=== PATIENT | female | born 1980 | race Caucasian/White ===

== ENCOUNTER 2024-02-27 13:46 | Outpatient (OUT) | payer OTHER, SELFPAY ==
[2024-02-28 04:08] LABS: Estradiol 28.2 pg/mL (.)
== END 2024-02-27 13:47 | disposition home or self-care (01) ==
LOC: LAB 13:46
PROVIDERS: PCP Specialist; Visit Provider Specialist
DX: E34.9 Endocrine disorder, unspecified (principal); D64.9 Anemia, unspecified
CPT/HCPCS: 36415; 82670; 83001; 83540; 83550

== ENCOUNTER 2025-05-06 06:49 | Outpatient (OUT) | payer OTHER, SELFPAY ==
--- OUTSIDE RECORDS SUMMARY | 2025-04-27 09:45 | XMS_ITS | Encounter Summary ---
Author Organization [facility] Address [address] [place] [address] Care Team Providers Care Analyst Name Role Phone Maria Del Rosario De León MD Primary Care Provider [phone] Reason for Visit * Rehabilitation - Outpatient (Routine) - AuthorizedSpecialtyDiagnoses / ProceduresReferred By ContactReferred To ContactPhysical Therapy Diagnoses Cervical & Lumbar Paraspinal Procedures CO MANUAL THERAPY TQS / REGIONS EACH 15 MINUTES Maria Del Rosario De León MD Phone: tel: fax: Brian Reyes, PT [address] [place] [address] Phone: tel: fax: Referral IDStatusReasonStart DateExpiration DateVisits RequestedVisits [id number] Consult and Treat [id number] Encounter Details DateTypeDepartmentCare Team (Latest Contact Info)Vejfbsbgkhi86/21/2025 9:45 AM EDTTreatment [facility] [address] [facility] [place] [id number] Brian Reyes, PT [address] [place] [address] Cervical paraspinal muscle spasm (Primary Dx); Lumbar paraspinal muscle spasm; Cervical radiculopathy; Right anterior shoulder pain Social History Tobacco UseTypesPacks/DayYears UsedDateSmoking Tobacco: NeverSmokeless Tobacco: NeverAlcohol UseStandard Drinks/WeekCommentsYes0 (1 standard drink = 0.6 oz pure alcohol)1-2 drinks less than monthly in the past year, Caffeine intake 1-2 cups per day(tea)AUDIT-CAnswerDate RecordedQ1: How often do you have a drink containing alcohol?Monthly or less02/27/2024Q2: How many drinks containing alcohol do you have on a typical day when you are drinking?1 or Q3: How often do you have six or more drinks on one occasion?Less than monthly 02/27/2024HQ-2AnswerDate RecordedPatient Health Questionnaire-2 Score0 02/27/2024CommentsNoSex and Gender InformationValueDate RecordedSex Assigned at TimlnIbkwci29/16/2023 8:32 AM EDTLegal XlrYtdpnn48/15/2023 8:27 PM EDTGender NlincdsjVdpjbg86/16/2023 8:32 AM EDTSexual OrientationNot on file documented as of this encounter Progress Notes * Brian Reyse, PT - 04/27/2025 9:45 AM EDT Images from the original note were not included. Physical Therapy Physical Therapy Treatment Visit Patient Name: Tawana Mendez Today's Date: 04/27/2025 Encounter Diagnoses Name Primary? Cervical paraspinal muscle spasm Yes Lumbar paraspinal muscle spasm Cervical radiculopathy Right anterior shoulder pain Time In: 9:45 am Time Out: 10:45 am Supervised Time: 60 Min Total Time: 60 Min Visit Number: 23 (Participated in 7 PT sessions in 2023 this episode of care) History: Patient reports several month history of progressive cervical and lumbar pain/spasm that is now affecting sleep, work, ADL, and recreational pursuits. Similar impairments led to very productive PT that ended in February 2024 with very successful HEP management. Has resumed rowing/biking in the last several weeks which has exacerbated neck and back conditions leading to this PT consult. Precautions: Breast Cancer including left breast surgery and lymph node removal 05/21/24 Subjective: Presents 2-weeks post last consult that was on 04/13/25. Reports significant pain reduction following last session for 7-10 days. Neck, shoulder, lumbar, and LE soreness and increased tone. Pain up to 4-5/10 intensity at neck and back. Patient has increased exercise activity in attempt to get back to baseline activity following breast cancer diagnosis and treatment. Objective: Re-Evaluation 04/07/25-DBO Cervical: Cervical spine AROM demonstrates 80 degrees rotation indicating mild improvement as compared to initial evaluation, 40 degrees side-bending, and 25% loss of cervical extension. Moderate increased parasinal tone at bilateral Upper Trapezius and cervical paraspinal groups. Neck Index scores 24 indicative of mild functional impairment. New complaints of frontal headaches Lumbar: Lumbar spine AROM is WFL with mild to moderate ERS rotation on right with positive PA testing over R L4-5 and L5-S1 disc interspace. Rigid thoracic spine associated with postural dysfunction and exercise selection (rowing/biking). Moderate increased lumbar paraspinal tone with general LE HS tightness with 90/90 test -15 degrees. Back Index score 26 indicative of mild improvement from 34 at initial evaluation. Goals: Short Term: To be met by 06/06/25 The patient to consistently demonstrate exercise activity modification to limit undo stress to the cervical and lumbar spine and limit pain levels from getting above mild 0-3/10 intensity to prevent exacerbations of cervical, lumbar, and right shoulder conditions to be met consistently thru 2024 (Goal in progress 04/07/25-DBO) The patient to be knowledgeable in postural correction program to limit stress and be selective in exercise type, intensity, and duration thru 2023 (Goal in progress 04/07/25-DBO) The patient to demonstrate cervical, lumbar, and shoulder AROM WFL with 5/5 strenght throughout 2024 (Goal in progress 04/07/25-DBO) Patent Prosecution Paralegal: To be met by 06/06/25 The patient to be successful with long-term independent management including recommendation for participation in daily postural and general UE flexibility and RTC strengthening program to combat cumulative home, job, and exercise related stresses with improved independence with self managment and decreased PT intervention to 1 session every 1-3 months as needed by conclusion in 2024 (Goal in progress 04/07/25-DBO) Treatment: Manual: Grade II/III cervical and thoracic mobilization to reduce postural component on impingement; Lumbar PA/extension mobilization and STM (30 min) Therapeutic Exercise: Per exercise grid found in patient documents including lumbar, cervical, scapular, and shoulder flexibility and strengthening including focused RTC non-destructive postural and strengthening program including review of cervical and shoulder exercise program and lumbar disc Agnes extension program (15 Min including UE/LE/Trunk Flexibility) Therapeutic Activity: Exercises to improve dynamic activities, functional tasks, functional mobility to return to prior activity level (PRN) Neuromuscular Re-education: Muscle Energy Techniques (MET) supine/sidelying to long muscles including Psoas, HS, Quad, Calf and in sidelying sacral, L4-5/L5-S1 with 10-20 second holds 3 reps 3 sets each (15 Min) Modalities: Ultrasound to left L4-S1 1 MHz 1.5 W/cm2 (PRN); Electrical Stimulation/moist heat for pain and inflammation control to cervical and lumbar spine (PRN) Assessment: The patient has participated in 23 outpatient PT in 2024 for cervical and lumbar paraspinal muscle spasms/radiculopathy per referral of PCP Maria Del Rosario De León MD. Presents 6-days post last consult that was on 04/07/25. Presents 2-weeks post last consult that was on 04/13/25. Reports significant pain reduction following last session for 7-10 days. Neck, shoulder, lumbar, and LE soreness and increased tone. Pain up to 4-5/10 intensity at neck and back. Patient has increased exercise activity in attempt to get back to baseline activity following breast cancer diagnosis and treatment. Pain reduced to baseline 0-2/10 intensity. Patient is pleased with progress. PT remains appropriate1-3 times/month PRN Plan: Recommend continuation of outpatient PT up to 1-3 visit/month for up to 3 additional months per above PT POC with focus on progressing toward independent medical management of this condition (04/07/25-DBO) I hereby deem this POC medically necessary. Please sign below and fax back to [phone] Physician Signature: Date: documented in this encounter Plan of Treatment DateTypeDepartmentCare Team (Latest Contact Info)Pywxklpxzwk76/30/2025 9:30 AM EDTTreatment [facility] [address] [place] [address] Brian Reyes, PT [address] [phone] documented as of this encounter Visit Diagnoses Diagnosis Cervical paraspinal muscle spasm- Primary Spasm of muscle Lumbar paraspinal muscle spasm Other symptoms referable to back Cervical radiculopathy Brachial neuritis or radiculitis nos Right anterior shoulder pain Cervical paraspinal muscle spasm- Primary Spasm of muscle Lumbar paraspinal muscle spasm Other symptoms referable to back Cervical radiculopathy Brachial neuritis or radiculitis nos Right anterior shoulder pain documented in this encounter Care Teams Team MemberRelationshipSpecialtyStart DateEnd Date Maria Del Rosario De León MD PCP - GeneralFamily Medicine02/06/24documented as of this encounter
--- OUTSIDE RECORDS SUMMARY | 2025-05-06 06:52 | XMS_ITS | Encounter Summary ---
Author Organization [facility] Address [address] [place] [address] Care Team Providers Care Medical Esthetician Name Role Phone Maria Del Rosario De León MD Primary Care Provider [phone] Encounter Details DateTypeDepartmentCare Team (Latest Contact Info)Filxpwqsang34/21/2025Travel Social History Tobacco UseTypesPacks/DayYears UsedDateSmoking Tobacco: NeverSmokeless [...] more drinks on one occasion?Less than monthly 4PHQ-2AnswerDate RecordedPatient Health Questionnaire-2 Score0 4CommentsNoSex and Gender InformationValueDate RecordedSex Assigned at HembiHcktvd18/16/2023 8:32 AM EDTLegal JpdAyzemh68/15/2023 8:27 PM EDTGender QzrbpdwyQucjrr95/16/2023 8:32 AM EDTSexual OrientationNot on file documented as of this encounter Plan of Treatment DateTypeDepartmentCare Team (Latest Contact Info)Hkuuwjjhxze43/30/2025 9:30 AM EDTTreatment [facility] [address] [place] [address] Brian Reyes, PT [address] [place] [address] documented as of this encounter Visit Diagnoses Not on filedocumented in this encounter Care Teams Team MemberRelationshipSpecialtyStart DateEnd Date Maria Del Rosario De León MD PCP - GeneralFamily Medicine02/06/24documented as of this encounter
--- OUTSIDE RECORDS SUMMARY | 2025-05-06 06:52 | XMS_ITS | CCD ---
Author Organization [facility] Care Team Providers Care Structural Engineering Technician Name Role Phone Carrol Bailey Unavailable DR CARROL BAILEY Admitting Unavailable LYNN, DR CARROL Zamora Attending Unavailable LYNN, DR CARROL Zamora Primary Care Unavailable LAMONT, DR FLORI Ahmadi Consulting Unavailable LYNN, DR CARROL Zamora Consulting Unavailable DELFINA, DR LOZANO Admitting Unavailable DELFINA, DR LOZANO Attending Unavailable LYNN, DR CARROL Zamora Primary Care Unavailable DELFINA, DR LOZANO Consulting Unavailable Carrol Bailey MD Primary Care Provider MD Carrol Bailey Primary Care Provider MD Mallory Ortiz Attending Provider MD Carrol Bailey Primary Care Provider MD Mallory Ortiz Attending Provider Carrol Bailey MD Primary Care Provider Mallory Ortiz MD Attending Provider Carorl Bailey MD Primary Care Provider Mallory Ortiz MD Referring Provider [phone] Sandy Tom MD Attending Provider Carrol Bailey MD Primary Care Provider Mallory Ortiz MD Referring Provider Sandy Tom MD Attending Provider Carrol Bailey MD Primary Care Provider Carrol Bailey MD Primary Care Provider Carrol Bailey MD Primary Care Provider [phone] Sandy Tom MD Attending Provider Nhung Grimes APRN Katherine Attending Provider Carrol Bailey MD Primary Care Provider Sandy Tom MD Attending Provider Kevin CHANDLERCRaegan Attending Provider Mallory Ortiz MD Referring Provider Mallory Ortiz Attending Unavailable Bailey, Carrol E Primary Care Unavailable Ortiz, Mallory Admitting Unavailable Ortiz, Mallory Attending Unavailable Bailey, Carrol E Primary Care Unavailable Ortiz, Mallory Admitting Unavailable Ortiz, Mallory Referring Unavailable Bailey, Carrol E Primary Care Unavailable Vaishali, Norleena R Admitting Unavailable Vaishali, Sandy R Attending Unavailable Bailey, Carrol E Primary Care Unavailable Ortiz, Mallory Admitting Unavailable Ortiz, Mallory Attending Unavailable Bailey, Carrol E Primary Care Unavailable Vaishali, Gilbertleena R Admitting Unavailable Vaishali, Norleena R Attending Unavailable ERIC, FLORI Mendez Attending Unavailable BAILEY, CARROL Referring Unavailable ERIC, FLORI Mendez Attending Unavailable BAILEY, CARROL Referring Unavailable ERIC, FLORI Mendez Attending Unavailable BAILEY, CARROL Referring Unavailable ERIC, FLORI Mendez Attending Unavailable BAILEY, CARROL Referring Unavailable ERIC, FLORI Mendez Attending Unavailable BAILEY, CARROL Referring Unavailable ERIC, FLORI Mendez Attending Unavailable BAILEY, CARROL Referring Unavailable ERIC, FLORI Mendez Attending Unavailable BAILEY, CARROL Referring Unavailable ERIC, FLORI Mendez Attending Unavailable BAILEY, CARROL Referring Unavailable ERIC, FLORI Mendez Attending Unavailable BAILEY, CARROL Referring Unavailable ORTIZ V, MALLORY Attending Unavailable ERIC, FLORI Mendez Attending Unavailable BAILEY, CARROL Referring Unavailable ERIC, FLORI Mendez Attending Unavailable BAILEY, CARROL Referring Unavailable ERIC, FLORI Mendez Attending Unavailable BAILEY, CARROL Referring Unavailable ERIC, FLORI Mendez Attending Unavailable BAILEY, CARROL Referring Unavailable ERIC, FLORI Mendez Attending Unavailable BAILEY, CARROL Referring Unavailable ERIC, FLORI Mendez Attending Unavailable BAILEY, CARROL Referring Unavailable ERIC, FLORI Mendez Attending Unavailable BAILEY, CARROL Referring Unavailable ERIC, FLORI Mendez Attending Unavailable BAILEY, CARROL Referring Unavailable RAMBASEKDANIEL Attending Unavailable ERIC, FLORI Mendez Attending Unavailable BAILEY, CARROL Referring Unavailable ERIC, FLORI Mendez Attending Unavailable BAILEY, CARROL Referring Unavailable ERIC, FLORI Mendez Attending Unavailable LYNN, CARROL Referring Unavailable MALLORY ASTORGA Attending Unavailable ERIC, FLORI Mendez Attending Unavailable BAILEY, CARROL Referring Unavailable ORTIZMALLORY ESCOBAR Attending Unavailable ERIC, FLORI Mendez Attending Unavailable BAILEY, CARROL Referring Unavailable ERIC, FLORI Mendez Attending Unavailable LYNN, CARROL Referring Unavailable ERIC, FLORI Mendez Attending Unavailable LYNN, CARROL Referring Unavailable ERIC, FLORI Mendez Attending Unavailable BAILEY, CARROL Referring Unavailable JUNIOR MATHIS Attending Unavailable ERIC, FLORI Mendez Attending Unavailable LYNN, CARROL Referring Unavailable JUNIOR MATHIS Attending Unavailable Allergies Allergy ClassificationReported Allergen(s)Allergy TypeDate of OnsetReaction(s) Facility (4 sources)cefdinirDrug AllergydiarrheaNoalvin [facility]. [facility] [place] Other (20 sources)cefdinirDrug [id number] [employer] Work Phone: (1 source)cefdinirDrug [id number] [facility] Repository Medications Current Medications MedicationDrug Class(es)DatesSig (Normalized)Sig (Original)ascorbic acid 226 mg / beta carotene 57394 unt / cuprous oxide 0.8 mg / dl-alpha tocopheryl acetate 200 unt / zinc oxide 34.8 mg oral capsule (3 sources)Vitamin CStart: 51-06-0807jijw 1 capsule by mouth once daily azelastine hydrochloride 0.137 mg/actuat metered dose nasal spray (20 sources)Histamine-1 Receptor AntagonistStart: 01-11-2025 End: 53-28-3820lmxw 2 spray(s) nasal route in the morningazelastine (Astelin) 0.1 % nasal spray Indications: Non-seasonal allergic rhinitis due to pollen Adm inister 2 sprays into each nostril in the morning and 2 sprays before bedtime. Use in each nostril as directed. 90 mL 3 01/11/2025 01/11/2026 ActiveStart: 06-24-2023 End: 80-90-4025ggsi 2 spray(s) nasal route twice dailyAzelastine HCl 137 MCG/SPRAY solution Indications: Chronic rhinitis USE 2 SPRAYS IN EACH NOSTRIL TWICE A DAY 30 mL 14 06/24/2023 04/12/2024 Discontinuedazithromycin 500 mg oral tablet (10 sources)Macrolide AntimicrobialStart: 10-12-2024 End: 97-96-9318kvwg 1 tablet by mouth once dailyazithromycin (Zithromax) 500 MG tablet Indications: Acute vaginitis Take 1 tablet (500 mg) by mouthDaily for 10 days 10 tablet 1 10/12/2024 10/22/2024 ActiveStart: 02-27-2024 End: 56-21-5081vhav 1 tablet by mouth once dailyazithromycin (Zithromax) 500 MG tablet Indications: Cervicitis and endocervicitis Take 1 tablet (500 mg) by mouth Daily for 10 days 10 tablet 1 02/27/2024 03/08/2024 ExpiredAzithromycin 250 MG as directed Orally Not-Takingclindamycin 20 mg/ml vaginal cream (4 sources)Lincosamide AntibacterialStart: 10-12-2024 End: 23-22-8528qolkedkudrg (Cleocin) 2 % vaginal cream Indications: Bacterial Vaginosis Insert 1 applicator into the vagina at bedtime for 7 days 40 g 2 10/12/2024 10/19/2024 Activeestradiol 0.1 mg/ml vaginal cream (20 sources)EstrogenStart: 64-11-2049arvlymdcx (Estrace) 0.1 MG/GM vaginal cream Indications: Vulvovaginal Atrophy Insert twice weekly 42.5 g 12 02/27/2024 Active{24 (ethinyl estradiol 0.01 MG / norethindrone acetate 1 MG Oral Tablet) / 2 (ethinyl estradiol 0.01 MG Oral Tablet) / 2 (ferrous fumarate 75 MG Oral Tablet) } Pack [Lo Loestrin Fe 28 Day] (2 sources)EstrogenStart: 56-43-3246nwzp 1 tablet by mouth every twenty-four hoursLo Loestrin Fe 1 MG-10 MCG / 10 MCG 1 tablet Orally Once a day for 28 day(s) Aug, Activefluticasone propionate 0.05 mg/actuat metered dose nasal spray (19 sources)CorticosteroidStart: 01-11-2025 End: 47-12-9304ycqj 2 spray(s) nasal route once dailyfluticasone (Flonase) 50 MCG/ACT nasal spray Indications: Non-seasonal allergic rhinitis due to pollen Administer 2 sprays into each nostril Daily Shake gently. Before first use, prime pump. After use, clean tip and replace cap. 48 g 11 01/11/2025 01/11/2026 Activeloratadine 10 mg oral tablet (15 sources)Start: 56-19-3484vusz 1 tablet by mouth once dailytake 1 tablet by mouth every twenty-four hoursLoratadine 10 MG 1 tablet Orally Once a day Active metroNIDAZOLE 500 mg oral tablet (1 source)Nitroimidazole AntimicrobialStart: 10-16-2024 End: 78-42-6335fnmz 1 tablet by mouth in the morningmetroNIDAZOLE (Flagyl) 500 MG tablet Indications: Acute vaginitis Take 1 tablet (500 mg) by mouth in the morning and 1 tablet (500 mg) before bedtime. Do all this for 7 days. 14 tablet 10/16/2024 10/23/2024 Activesertraline 50 mg oral tablet (20 sources)Serotonin Reuptake InhibitorStart: 10-01-7748hymn 1 tablet by mouth once daily in the morningStart: 06-22-2024 End: 83-74-2787aswy 1 tablet by mouth once daily in the morningSertraline 100 mg tablet Discontinued 100 MG PO Every morning June 22, 2024 4:36pm September 02, 2024 12:21pmStart: 05-11-2024 End: 56-02-9776zffq 1 tablet by mouth once daily in the morningSertraline 50 mg tablet Discontinued 50 MG PO Every morning May 11, 2024 1:00am June 22, 2024 4:37pm TAKE 1 TABLET BY MOUTH EVERY DAYStart: 11-15-2023 End: 73-32-9136qbpw 1 tablet by mouth once dailySertraline 50 mg tablet Discontinued 0 .ROUTE .COMPLEX 90 May 07, 2024 9:55am May 11, 2024 11:17am TAKE 1 TABLET BY MOUTH EVERY DAYStart: 11-15-2023 End: 39-16-7306dkuf 1 tablet by mouth once dailySertraline 50 mg tablet Discontinued 50 MG PO Daily November 15, 2023 12:00am November 15, 2023 9:12am tamoxifen 20 mg oral tablet (6 sources)Estrogen Agonist/AntagonistStart: 53-12-9035jngf 1 tablet by mouth once dailyterconazole 4 mg/ml vaginal cream (4 sources)Azole AntifungalStart: 10-12-2024 End: 89-91-8909gwbuauejquu (Terazol 7) 0.4 % vaginal cream Indications: Vulvovaginal Candidiasis Insert 1 applicator into the vagina at bedtime for 7 days 45 g 2 10/12/2024 10/19/2024 Activetranexamic acid 650 mg oral tablet (20 sources)Antifibrinolytic AgentStart: 40-73-9661uyclzofhqf acid (Lysteda) 650 MG tablet tablet PLEASE SEE ATTACHED FOR DETAILED DIRECTIONS 04/10/2024 Active Start: 02-27-2024 End: 84-35-6414ecws 1 tablet by mouth in the morning, then take 1 tablet by mouth in the evening, then take 1 tablet by mouth at bedtimetranexamic acid (Lysteda) 650 MG tablet tablet Indications: Hormone imbalance , Anemia, unspecifiedtype Take 1 tablet (650 mg) by mouth in the morning and 1 tablet (650 mg) in the evening and 1 tablet (650 mg) before bedtime. Do all this for 5 days. 15 tablet 6 02/27/2024 03/03/2024 ExpiredVitamins A,C,Z-Lwul-Nxfgct (Preservision Areds) 4,296 mcg-226 mg-90 mg capsule (6 sources)Start: 83-18-6549cexs 1 capsule by mouth once dailyVitamins A,C,F-Pvgy-Wmnily (Preservision Areds) 4,296 mcg-226 mg-90 mg capsule Active 1 CAP PO Daily May 11, 2024 1:00amStart: 82-91-4085cixh 1 capsule by mouth once dailyVitamins A,C,K-Chyb-Latvvs (Preservision Areds) 4,296 mcg-226 mg-90 mg capsule Active 1 CAP PO Daily May 11, 2024 12:00am Completed/Discontinued Medications MedicationDrug Class(es)DatesSig (Normalized)Sig (Original)acetaminophen 325 mg / HYDROcodone bitartrate 5 mg oral tablet (8 sources)Opioid AgonistStart: 05-21-2024 End: 76-36-3655nddp 1 tablet by mouth every six hours as needed for pain Hydrocodone-Acetaminophen 5-325 mg tablet Discontinued 1 TAB PO Q6H as needed for pain 28 7 May 21, 2024 March 19, 2025 12:53pmazelastine hydrochloride 0.137 mg/actuat / fluticasone propionate 0.05 mg/actuat metered dose nasalspray (10 sources)Corticosteroid, Histamine-1 Receptor AntagonistStart: 03-31-2024 End: 09-18-7270iyzn 1 spray(s) nasal route twice dailyAzelastine-Fluticasone 137-50 mcg/spray spray,non-aerosol Discontinued 1 SPRAY INTRANASAL Twice daily March 31, 2024 12:00am March 31, 2024 10:31am FreeTextSi spray in each nostril Nasally Twice a day; Note: Source Status: Taking; Provider: Lynn Mix ( )Start: 03-31-2024 End: 09-39-1951zalj 1 spray(s) nasal route twice dailyAzelastine-Fluticasone Discontinued 1 SPRAY INTRANASAL Twice daily March 30, 2024 11:00pm Mar 9:31am FreeTextSi spray in each nostril Nasally Twice a day; Note: Source Status: Taking; Provider: Lynn Mix ( ) Start: 03-31-2024 End: 94-32-9004cjtr 1 spray(s) nasal route twice dailyAzelastine-Fluticasone Discontinued 1 SPRAY INTRANASAL Twice daily March 31, 2024 12:00am Mar 10:31am FreeTextSi spray in each nostril Nasally Twice a day; Note: Source Status: Taking; Provider: Lynn Mix ( )take 1 spray(s) nasal route twice dailyAzelastine-Fluticasone 137-50 MCG/ACT 1 spray in each nostril Nasally Twice a day ActiveAzelastine-Fluticasone 137-50 mcg/spray spray,non-aerosol (5 sources)Start: 03-31-2024 End: 94-36-8254quaz 1 spray(s) nasal route twice dailyAzelastine-Fluticasone 137-50 mcg/spray spray,non-aerosol Discontinued 1 SPRAY INTRANASAL Twice daily March 31, 2024 12:00am March 31, 2024 10:31am FreeTextSi spray in each nostril Nasally Twice a day; Note: Source Status: Taking; Provider: Lynn Mix ( )Start: 03-31-2024 End: 31-27-2021ewjc 1 spray(s) nasal route twice dailyAzelastine-Fluticasone 137-50 mcg/spray spray,non-aerosol Discontinued 1 SPRAY INTRANASAL Twice daily March 30, 2024 11:00pm March 31, 2024 9:31am FreeTextSi spray in each nostril Nasally Twice a day; Note: Source Status: Taking; Provider: Lynn Mix ( )celecoxib 200 mg oral capsule (7 sources)Nonsteroidal Anti-inflammatory DrugStart: 11-16-2024 End: 74-20-4877fxmh 1 capsule by mouth once daily at mealtimeCelecoxib (Celebrex) 200 mg capsule Discontinued 200 MG PO Daily December 07, 2024 7:40am 2024 12:53pm Take one capsule daily with food.30 actuat fluticasone furoate 0.1 mg/actuat / vilanterol 0.025 mg/actuat dry powder inhaler (2 sources)Corticosteroid, beta2-Adrenergic Agonisttake 1 puff(s) by inhalation once dailyBreo Ellipta 100-25 MCG/ACT 1 puff Inhalation Once a day Not-Taking LORazepam 0.5 mg oral tablet (20 sources)BenzodiazepineStart: 07-11-2022 End: 49-75-2415lmfd 1 tablet by mouth once daily at bedtimeLorazepam 0.5 mg tablet Discontinued 0.5 MG PO Daily at bedtime September 19, 2023 12:00am September 19, 2023 12:02pmMagic Mouthwash W/Lidocaine 240 Ml Bottle 240 mL bottle (14 sources)Start: 08-19-2024 End: 77-09-5463cjqt 10 mL by mouth four times daily as neededMagic Mouthwash W/Lidocaine 240 Ml Bottle 240 mL bottle Discontinued 10 ML PO Four times daily as needed for MUCOSITIS 240 August 19, 2024 5:00pm September 02, 2024 12:02pm take 10ml by mouth, four times a day, as needed. SWISH AND SWALLOW. Start: 08-19-2024 End: 82-24-4233dhaz 10 mL by mouth four times daily as neededMagic Mouthwash W/Lidocaine 240 Ml Bottle 240 mL bottle Discontinued 10 ML PO Four times daily as needed for MUCOSITIS 240 August 19, 2024 4:00pm September 02, 2024 11:02am take 10ml by mouth, four times a day, as needed. SWISH AND SWALLOW. Start: 08-07-2024 End: 07-15-2239jxpj 10 mL by mouth four times daily as neededMagic Mouthwash W/Lidocaine 240 Ml Bottle 240 mL bottle Discontinued 10 ML PO Four times daily as needed for MUCOSITIS 240 August 07, 2024 1:00am August 19, 2024 5:00pm take 10ml by mouth, four times a day, as needed. SWISH AND SWALLOW.Start: 08-07-2024 End: 72-67-4356mvjz 10 mL by mouth four times daily as neededMagic Mouthwash W/Lidocaine 240 Ml Bottle 240 mL bottle Discontinued 10 ML PO Four times daily as needed for MUCOSITIS 240 August 07, 2024 12:00am August 19, 2024 4:00pm take 10ml by mouth, four times a day, as needed. SWISH AND SWALLOW. methylPREDNISolone 4 mg oral tablet (2 sources)Corticosteroidtake 1 tablet by mouth every twelve hoursMedrol 4 MG 1 tablet with food or milk Orally every 12 hrs Not-Takingmometasone furoate 1 mg/ml topical cream (7 sources)CorticosteroidStart: 07-21-2024 End: 51-26-3943Uojxnotnpq 0.1 % cream Discontinued 1 APPLIC TOPICAL Daily July 21, 2024 1:00am November 16, 2024 2:09pm Apply to radiation site, once a day, AFTER radiation treatments.prazosin 5 mg oral capsule (9 sources)alpha-Adrenergic BlockerStart: 05-07-2024 End: 44-62-5595abce 1 capsule by mouth once daily at bedtimePrazosin 5 mg capsule Discontinued 5 MG PO Daily at bedtime May 07, 2024 12:00am June 16, 2024 10:02amsulfamethoxazole 800 mg / trimethoprim 160 mg oral tablet (12 sources)Dihydrofolate Reductase Inhibitor Antibacterial, Sulfonamide AntimicrobialStart: 08-21-2023 End: 74-18-1783lwyx 1 tablet by mouth twice dailySulfamethoxazole-Trimethoprim 800-160 mg tablet Discontinued 1 TAB PO Twice daily August 1:00am March 31, 2024 10:31amStart: 63-73-0922atng 1 tablet by mouth every twelve hoursBactrim DS 800-160 MG 1 tablet Orally Twice a day for 10 day(s) Jul, Active Problems Active Problems Problem ClassificationProblemDateDocumented DateEpisodic/ChronicAcute and chronic tonsillitis (6 sources)Amygdalolith; 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 tonsils and adenoids]ChronicAnxiety disorders (19 sources)Mixed anxiety and depressive disorder; Translations: [Other specified anxiety disorders]ChronicAsthma (2 sources)Uncomplicated asthma; Translations: [Unspecified asthma, uncomplicated]Onset: 37-17-3204NbffossZtjeakszy infection; unspecified site (1 source)Other specified bacterial agents as the cause of diseases classified elsewhereEpisodicCancer of breast (20 sources)Malignant neoplasm, overlapping lesion of breast; Translations: [Malignant neoplasm of overlapping sites of left female breast]Onset: 05-01-2024 36-14-3912ErisgkjYadinhm obstructive pulmonary disease and bronchiectasis (2 sources)Acute exacerbation of chronic obstructive airways disease; Translations: [Chronic obstructive pulmonary disease with (acute) exacerbation] Onset: 87-95-2599ExqxbjsZkazbidutf and other anemia (8 sources)Anemia; Translations: [Anemia, unspecified]48-55-4942Cntqwtww Disorders of lipid metabolism (2 sources)Hyperlipidemia; Translations: [Hyperlipidemia, unspecified]Onset: 38-69-2319UpgcipbZhzqyxpgoiqj diseases of female pelvic organs (11 sources)Cervicitis and endocervicitis; Translations: [Inflammatory disease of cervix uteri]32-86-2313RjhytomoPgybvjxrdy disorders (6 sources)Premenopausal menorrhagia; Translations: [Excessive bleeding in the premenopausal period]ChronicOther connective tissue disease (20 sources)Spasm of cervical paraspinous muscle; Translations: [Other muscle spasm]Onset: 738948-57-4536UuaofuoeVhodj endocrine disorders (8 sources)Disorder of endocrine system; Translations: [Endocrine disorder, unspecified]17-46-0184NjfpaifwOawhb female genital disorders (4 sources)Abnormal uterine bleeding; Translations: [Other specified abnormal uterine and vaginal bleeding]ChronicOther female genital disorders (1 source)Other specified abnormal uterine and vaginal bleedingChronicOther nervous system disorders (8 sources)Acute postoperative pain; Translations: [Other acute postprocedural pain]69-80-6699UyscwnzcAuiri non-traumatic joint disorders (20 sources)Shoulder pain; Translations: [Pain in right shoulder]Onset: 730091-40-8356GwsfbpewFeuug nutritional; endocrine; and metabolic disorders (6 sources)Body mass index 25-29 - overweight; Translations: [Body mass index (BMI) 25.0-25.9, adult]EpisodicOther screening for suspected conditions (not mental disorders or infectious disease) (13 sources)Encounter for screening mammogram for malignant neoplasm of breast; Translations: [Cancer cervix screening status]Onset: 00-36-0577CnputahoXcaeq upper respiratory disease (2 sources)Seasonal allergic rhinitis; Translations: [Other seasonal allergic rhinitis]Onset: 36-42-8920RpiiipnQbups upper respiratory disease (20 sources)Allergic rhinitis; Translations: [Allergic rhinitis, unspecified] Onset: 230904-91-5951GrwiyigCzslg upper respiratory disease (20 sources)Allergic rhinitis due to pollen; Translations: [Allergic rhinitis due to pollen]Onset: 369526-98-6796BiazwgpHvdxw upper respiratory infections (9 sources)Acute maxillary sinusitis; Translations: [Acute maxillary sinusitis, unspecified]Onset: 86-26-6353DlzwpckfAmjjlarv codes; unclassified (11 sources)Insomnia; Translations: [Insomnia, unspecified]08-82-2430Ftwsbdym Residual codes; unclassified (3 sources)Insomnia, unspecified; Translations: [Insomnia, unspecified] 63-28-4196TorilppwBqgiwhxytaf; intervertebral disc disorders; other back problems (20 sources)Spasm of muscle of lower back; Translations: [Muscle spasm of back] Onset: 275908-25-0951Xjjrbijq Past or Other Problems Problem ClassificationProblemDateDocumented DateEpisodic/ChronicAcute bronchitis (2 sources)Acute bronchitis; Translations: [Acute bronchitis, unspecified]Onset: 56-23-4209CtmdhzdeYbgyijgnv disorders (6 sources)Excessive and frequent menstruation with irregular cycle; Translations: [Excessive and frequent menstruation]Onset: 11-05-2022 Resolved: 18-86-2758AlwpptoHvuxeidirgpy breast conditions (20 sources)Lump in upper outer quadrant of left breast; Translations: [Unspecified lump in the left breast, upper outer quadrant]Onset: 04-15-2024 26-13-4157MiswkewuXwyih inflammatory condition of skin (2 sources)Seborrheic dermatitis of scalp; Translations: [Seborrhea capitis] Onset: 50-01-7747WibyywglRdufv nervous system disorders (1 source)Other acute postprocedural pain; Translations: [Other acute postprocedural pain]Onset: 13-90-6379WfmphojfWtdarv media and related conditions (2 sources)Acute secretory otitis media; Translations: [Other acute nonsuppurative otitis media, left ear]Onset: 02-09-0960RzncbxiaHhtgystw codes; unclassified (1 source)Family history of malignant neoplasm of breast; Translations: [FAMILY HX MALIG NEOPLASM OF BREAST]Onset: 96-51-0322Uvwkrjcl Results Test NameValueInterpretationReference RangeFacilityMM diagnostic mammo BI w/CAD on 29-32-5116LE diagnostic mammo BI w/CADCLEVELAND [facility]INIC [facility] [address] [place] [address] Mammography Report Signed Patient: Tawana Perez MR#: [id number] : 1980 Acct:[id number] Age/Sex: 44 / F Adm Date: 03/15/25 Loc: XT Room: Type: [facility] Attending Dr: Sandy Tom MD Ordering Provider: Zion Philippe II, DO Date of Service: 03/15/25 Procedure(s): MM diagnostic mammo BI w/CAD Accession Number(s): ([id number]) MM/MM diagnostic mammo BI w/CAD: C50.919 - Malignant neoplasm of unspecified site of unspe... Copies to: MD Carrol Lucio MD Norleena Poynter, MD Timothy J Adamowicz, II, DO BILATERAL Diagnostic Full Field digital mammogram with 3-D imaging. Full field digital CC and MLO imaging performed. CAD utilized. COMPARISON: 04/22/2024, 04/02/2024 HISTORY: History of breast cancer. Annual checkup BREAST COMPOSITION: Scattered fibroglandular densities of the breast parenchyma identified BREAST CALCIFICATIONS: Benign calcifications present. VASCULAR CALCIFICATIONS: None ARCHITECTURAL DISTORTION: None BREAST NODULE: None AXILLARY LYMPH NODES: Normal POSTSURGICAL CHANGES: Left axillary tail postsurgical changes MM/MM diagnostic mammo BI w/CAD IMPRESSION: No mammographic evidence of malignancy. Routine follow-up recommended in one year. RESULT CODE: 2 Benign Findings(s) DENSITY CODE: 2 (approximately 25-50% glandular) There are scattered areas of fibroglandular density. FOLLOW UP: 1YR THE FALSE-NEGATIVE RATE OF MAMMOGRAPHY IS APPROXIMATELY 10%. IMAGING OF A PALPABLE ABNORMALITY MUST BE BASED ON CLINICAL GROUNDS. PATIENT WAS ENTERED INTO A REMINDER SYSTEM WITH A TARGET DUE DATE FOR THE NEXT MAMMOGRAM. Impression dictated by: Koko Garcai M.D. 03/15/2025 2:09 PM Dictation Location: [facility] Dictated By: Koko Garcia DO 03/15/25 1407 Signed By: 03/15/25 1409NoAdventHealth Hendersonville Physician [facility] HospitalHCG ( test) IA.rapid Ql (U)Ordered By: Sandy Tom on 97-91-3943DVU ( test) Ql (U)Urine human chorionic gonadotropin (hCG) detection by immunoassayTrihealth Bethesda Butler HospitalHCG ( test) Ql (U)NegativeTrihealth Bethesda Butler HospitalHCG,Urineon 87-73-0761Zbhr HCG ( test) Ql (U)NegativeCampbellton-Graceville Hospital Physician GroupComment on above:Result Comment: PERFORMED BY: [address] [place] [address] PATHOLOGIST TUBE CUTTER CLAUDE NAVA M.D.Performed By: #### [facility] #### [address] [place] [address] USAHCG ( test) IA.rapid Ql (U)Ordered By: Mallory Ortiz on 54-74-1030ZQX ( test) Ql (U)Urine human chorionic gonadotropin (hCG) detection by immunoassayTrihealth Bethes[facility] Hospital HCG,Urineon 34-53-3227Zval HCG ( test) Ql (U)NegativeNormWinter Haven Hospital Physician GroupComment on above:Result Comment: PERFORMED BY: [place] [address] PATHOLOGIST TUBE CUTTER CLAUDE NAVA M.D.Performed By: #### U[facility] #### [place] [address] USALon 05-21-2024L Specimen: [id number] Received: 05/21/24 Status: MARQUITA Myers Num: [id number] Spec Type: Surgical Subm Dr: Mallory Ortiz MD Tissues: A Breast [place] Lymph Node (LEFT BREAST SENTINAL NODE #1) B Breast [place] Lymph Node (LEFT BREAST SENTINAL NODE #2) C Breast [place] Lymph Node (LEFT BREAST SENTINAL NODE #3) D Breast Lumpectmy/Mass - Requiring Micros Eval of Margins (LEFT BREAST MASS Procedures: HE/32, Gross/Micro L5/4, AE1-AE3/4, FS HE/9, DIFF QWIK Age/ Patient Sex Location Account Attending Physician Tawana Perez 43/F [place] [id number] Mallory Ortiz MD SPEC NUM: [id number] RECD: 05/21/24 STATUS: MARQUITA MYERS NUM: [id number] WEN: 05/21/[address] [facility] DR: Mallory Ortiz MD ENTERED: 05/21/24 [facility] DR: CRISTA TYPE: Surgical DEPT: S ENTERED BY: [id number] [facility] BY: [id number] ORDERED: HE/32, Gross/Micro L5/4, AE1-AE3/4, FS HE/9, DIFF QWIK ORDERED: HE/32, Gross/Micro L5/4, AE1-AE3/4, FS HE/9, DIFF QWIK Supplemental Report Addendum 2 Entered: 07/22/24 To add information of DCIS margin. DCIS is 2 mm from inked posterior margin on the slide D14 . Addendum Signed (signature on file) Mike Winchester MD 07/22/2415 Addendum 1 Entered: 07/13/24 To issue Oncotype DX Breast Recurrence Score report. Please see scanned report. Recurrence (RS) Score: 12 (No CT benefit (<1%) Specimen: [id number] Received: 05/21/24 Status: MARQUITA Myers Num: [id number] Spec Type: Surgical Subm Dr: Mallory Ortiz MD Tissues: A Breast [place] Lymph Node (LEFT BREAST SENTINAL NODE #1) B Breast [place] Lymph Node (LEFT BREAST SENTINAL NODE #2) C Breast [place] Lymph Node (LEFT BREAST SENTINAL NODE #3) D Breast Lumpectmy/Mass - Requiring Micros Eval of Margins (LEFT BREAST MASS Procedures: HE/32, Gross/Micro L5/4, AE1-AE3/4, FS HE/9, DIFF QWIK Patient: Tawana Perez [id number] (Continued) Specimen: [id number] Received: 05/21/24 (Continued) Supplemental Report (Continued) Signed (signature on file) Mike Winchester MD 05/25/24 1556 Specimen: [id number] Received: 05/21/24 Status: MARQUITA Myers Num: [id number] Spec Type: Surgical Subm Dr: Mallory Ortiz MD Tissues: A Breast [place] Lymph Node (LEFT BREAST SENTINAL NODE #1) B Breast [place] Lymph Node (LEFT BREAST SENTINAL NODE #2) C Breast [place] Lymph Node (LEFT BREAST SENTINAL NODE #3) D Breast Lumpectmy/Mass - Requiring Micros Eval of Margins (LEFT BREAST MASS Procedures: HE/32, Gross/Micro L5/4, AE1-AE3/4, FS HE/9, DIFF QWIK Patient: Tawana Perez [id number] (Continued) Specimen: [id number] Received: 05/21/24-1224 (Continued) Supplemental Report (Continued) Addendum Signed (signature on file) Mike Winchester MD 07/13/24 1117 Pathological Diagnosis A. Left sentinel lymph node #1, excisional biopsy: - One lymph node negative for metastatic carcinoma with routine H E and AE1/AE3 immunohistochemical stains (0/1). B. Left sentinel lymph nodes #2, excisional biopsy: - Two lymph nodes negative for metastatic carcinoma with routine H E and AE1/AE3 immunohistochemical stains (0/2). C. Left sentinel lymph node #3, excisional biopsy: - One lymph node negative for metastatic carcinoma with routine H E stain and AE1/AE3 immunohistochemical stains (0/1). D. 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 - Inked posterior margin is within 1 mm from invasive carcinoma. - Ductal carcinoma in situ (DCIS), intermediate nuclear grade, solid and cribriform types. - Columnar cell lesion with atypia and atypical ductal hyperplasia (ADH). - Fibrocystic change characterized by adenosis, apocrine metaplasia, cyst formation, duct ectasia and stroma fi (more content not included)...NormalThe [facility] Physician [facility] HospitalMM surgical specimen [facility] [id number] surgical specimen [facility] [place] [address] Mammography Report Signed Patient: Tawana Perez MR#: [id number] : 1980 Acct:[id number] Age/Sex: 43 / F ADM Date: 05/21/24 Loc: [place] Room: Type: [facility] Attending Dr: Mallory Ortiz MD Copies to: MD Carrol Lucio MD Ordering Provider: Mallory Ortiz MD Date of Service: 05/21/24 MM/MM surgical specimen LT: LEFT BREAST SPECIMEN IN OR WITH CLIP/RADIOACTIVE SEED LEFT BREAST SPECIMEN RADIOGRAPH CLINICAL DATA: Recently diagnosed carcinoma COMPARISON: Localization mammogram 05/20/2024 A single specimen radiograph was obtained on a grid in the operating room. The sample contains the radiation seed and biopsy marking clip. These overlie the D - 4 concordant. Impression dictated by: Shikha Asif M.D.05/21/2024 2:28 PM Dictation Location: RADIO-PC-23 Transcribed By: LIVIER 05/21/241427 Dictated By: Shikha Asif MD 05/21/241426 Signed By: 05/21/[address] [place] [address] Physician GroupMammography reportOrdered By: Shikha Asif on 61-77-1984Skrngiswpd imaging [facility] [place] [address] Mammography Report Signed Patient: Tawana Perez MR#: [id number] : 1980 Acct:[id number] Age/Sex: 43 / F ADM Date: 4 Loc: [place] Room: Type: [facility] Attending Dr: Mallory Ortiz MD Copies to: MD Carrol Lucio MD~ Ordering Provider: Mallory Ortiz MD Date of Service: 05/21/24 MM/MM surgical specimen LT: LEFT BREAST SPECIMEN IN OR WITH CLIP/RADIOACTIVE SEED LEFT BREAST SPECIMEN RADIOGRAPH CLINICAL DATA: Recently diagnosed carcinoma COMPARISON: Localization mammogram 05/20/2024 A single specimen radiograph was obtained on a grid in the operating room. The sample contains the radiation seed and biopsy marking clip. These overlie the D- 4 concordant. Impression dictated by: Shikha Asif M.D.05/21/2024 2:28 PM Dictation Location: RADIO-PC-23 Transcribed By: LIVIER 05/21/241427 Dictated By: Shikha Asif MD 05/21/241426 Signed By: 05/21/24 [facility] Work Phone: nm sentinel node w imagingon [id number] sentinel node w [facility]TR[facility] Main [place] [id number] Nuclear Medicine Report Signed Patient: Tawana Perez MR#: [id number] : 1980 Acct:[id number] Age/Sex: 43 / F ADM Date: 05/21/24 Loc: [place] Room: Type: [facility] Attending Dr: Mallory Ortiz MD Copies to: MD Shikha Lucio MD Ordering Provider: Mallory Ortiz MD Date of Service: 05/21/24 NM/NM sentinel node w imaging: breast cancer LEFT BREAST SENTINEL NODE INJECTION CLINICAL DATA: Recently diagnosed breast cancer at the axillary tail. COMPARISON: Localization mammogram May 20, 2024 Four equal intradermal injections of technetium 99 M labeled sulfur colloid were made in the periareolar region of the left breast by the technologist. The total dosage of technetium is 0.462 mCi . Gamma camera imaging was subsequently performed in the anterior and lateral projection. There is migration of radionucleotide from the site of injection to the left axilla. The sentinel node was marked on the skin to aid in localization in the operating room. NM/NM sentinel node w imaging IMPRESSION: TECHNICALLY SUCCESSFUL SENTINEL NODE INJECTION. Impression dictated by: Shikha Asif M.D.05/21/2024 2:50 PM Dictation Location: [place] [address] Transcribed By: [facility] 05/21/24 1450 Dictated By: Shikha Asif MD 05/21/24 1429 Signed By: 05/21/24 1450NoAd[facility]Health [facility] Physician GrouphCG, quantitative, pregnancyon 14-36-4132Vwfc HCG ( test) Ql (U)NegativeNOAsc[facility] MM diagnostic mammo LT w/CADon 74-79-2304DW diagnostic mammo LT w/[facility] Main [address] [address] Ultrasound Report Signed Patient: Tawana Perez MR#: [id number] : 1980 Acct:[id number] Age/Sex: 43 / F ADM Date: 05/01/24 Loc: [place] Room: Type: PRE [facility] Attending Dr: Mallory Ortiz MD Ordering Provider: Mallory Ortiz MD Date of Service: 05/20/24 US/US breast needle loc LT: LT BREAST MASS ([id number]) MM/MM diagnostic mammo LT w/CAD: post u/s radioactive seed loc Copies to: Mallory Ortiz MD LEFT BREAST ULTRASOUND-GUIDED RADIATION SEED LOCALIZATION CLINICAL DATA: Recently diagnosed invasive ductal carcinoma. Patient's previous imaging from April 2024 was reviewed. The procedure was discussed with patient consent was obtained. Ultrasound survey at the upper outer breast again shows an ill-defined hypoechoic area at 1:00, 11 cm from the nipple. This contains a biopsy marking clip. Following sterile preparation and local anesthesia with lidocaine, a spinal needle loaded with a radiation seed (0.124 mCi iodine 125) was advanced into the area under direct ultrasound visu alization. The seed was deployed. There are no immediate complications. DIAGNOSTIC LEFT MAMMOGRAM - FULL TO DIGITAL Craniocaudal and true lateral views of the left breast were obtained using low- dose digital technique. Comparison is made to previous mammograms from March 13, 2023 through April 22, 2024. The breast parenchyma is heterogeneously dense. At the axillary tail there is an obscured nodular asymmetry that has some subtle associated calcifications. The radiation seed is along the inferior medial aspect of the lesion less than 5 mm from the biopsy marking clip. US/US breast needle loc LT IMPRESSION: STATUS POST ULTRASOUND-GUIDED LOCALIZATION OF THE RESIDUAL LESION AT THE AXILLARY TAIL OF THE LEFT BREAST Impression dictated by: Shikha Asif M.D.05/20/2024 11:10 AM Dictation Location: [facility] Tech: Hilary Arboleda Transcribed By: LIVIER 05/20/24 1110 Dictated By: Shikha Asif MD 05/20/24 1050 Signed By: 05/20/24 [facility] Physician GroupLon 29-49-1700QKfgmhoqb: [id number] Received: 04/22/24-1232 Status: MARQUITA Myers Num: [id number] Spec Type: Surgical Subm Dr: Shikha Asif MD Tissues: A BREAST CORE NO CALCS (LEFT BREAST TISSUE) Procedures: HE/4, Gross/Micro L4, E CADHERIN, ER, NH, GATA3 Age/ Patient Sex Location Account Attending Physician Tawana Perez 43/F BALDEV [id number] Mallory Ortiz MD SPEC NUM: [id number] RECD: 04/22/24 STATUS: MARQUITA MYERS NUM: [id number] WEN: 04/22/[address]: Shikha Asif MD ENTERED: 04/22/[address]: Mallory Ortiz MD SPEC TYPE: Surgical DEPT: S ENTERED BY: [id number] RECV BY: [id number] ORDERED: HE/4, Gross/Micro L4, E CADHERIN, ER, NH, GATA3 ORDERED: HE/4, Gross/Micro L4, E CADHERIN, ER, NH, GATA3 Supplemental Report Addendum 1 Entered: 04/29/24 Supplemental for findings of HER2 by immunohistochemistry from [facility] -Negative -Score 0 Addendum Signed (signature on file) Abdullahi Moore MD 04/29/24 154 Pathological Diagnosis Left breast lesion at 1:00, 11 cm from nipple, core biopsies: -Invasive ductal carcinoma, NOS type, at least 0.8 cm -Grade 2, with tubular differentiation (3), nuclear pleomorphism (1-2), and mitotic rate (1) -Microcalcifications: Identified within tumor area -Lymph?vascular invasions: Not identified -DCIS: Identified, Solid, Intermediate nuclear atypia at G1-2, No evidence of necrosis -LCIS: Not identified Specimen: [id number] Received: 04/22/24 Status: MARQUITA Myers Num: [id number] Spec Type: Surgical Subm Dr: Shikha Asif MD Tissues: A BREAST CORE NO CALCS (LEFT BREAST TISSUE) Procedures: HE/4, Gross/Micro L4, E CADHERIN, ER, NH, GATA3 Patient: Kami Perezjosh Vigil [id number] (Continued) Specimen: [id number] Received: 04/22/24 (Continued) Pathological Diagnosis (Continued) Signed (signature on file) Abdullahi Moore MD 04/25/24 1258 Specimen: [id number] Received: 04/22/24 Status: MARQUITA Myers Num: [id number] Spec Type: Surgical Subm Dr: Shikha Asif MD Tissues: A BREAST CORE NO CALCS (LEFT BREAST TISSUE) Procedures: HE/4, Gross/Micro L4, E CADHERIN, ER, NH, GATA3 Patient: Tawana Perez [id number] (Continued) Specimen: [id number] Received: 04/22/24 (Continued) Pathological Diagnosis (Continued) -Breast biomarkers: -ER positive, 90-100%, 1?2+ -NH positive, 90-100%, 2+ -HER2 (pending) Note: -GATA3 and E-cadherin IHC are also performed, supporting the above interpretation -The overall assessment are slightly limited by mild crushing effect of the sample -Immuno-controls are reactive Clinical Information Left breast lesion, left breast tissue, left breast 1:00 11 cm from nipple, left ultrasound- guided breast biopsy Gross Description The specimen is received in formalin with the patient's name and left breast and consists of multiple yellow fatty breast cores ranging in length from 0.3 to 2.6 cm each with an average diameter of 0.2 cm. The specimen is entirely submitted in cassette A1. Formalin times: In formalin 1058, 04/22/2024 Out of formalin 1800, 04/22/2024 Total fixation time 7 hours and 2 minutes Microscopic Description Microscopic examinations are performed supporting the above interpretation CPT Codes 52246 88103 [id number] [id number] Specimen: [id number] Received: 04/22/24 Status: MARQUITA Myers Num: [id number] Spec Type: Surgical Subm Dr: Shikha Asif MD Tissues: A BREAST CORE NO CALCS (LEFT BREAST TISSUE) Procedures: HE/4, Gross/Micro L4, E CADHERIN, ER, NH, GATA3 Patient: Tawana Perez [id number] (Continued) Signed (signature on file) Abdullahi Moore MD 04/25/[address] [place] [address] Physician GroupMM post biopsy LT w/CADon [id number] post biopsy LT [facility] Main [place] [address] [place], [place] [id number] Ultrasound Report Signed with Addenda Patient: Tawana Perez MR#: [id number] : 1980 Acct:[id number] Age/Sex: 43 / F ADM Date: 04/22/24 Loc: [facility] Room: Type: [facility] Attending Dr: Mallory Ortiz MD Ordering Provider: Mallory Ortiz MD Date of Service: 04/22/24 US/US breast ndl core biopsy LT: N63.21 ([id number]) MM/MM post biopsy LT w/CAD: POST U/S BX WITH CLIP Copies to: Mallory Ortiz MD ADDENDUM 1 Patient's pathology results for the left breast biopsy show invasive ductal carcinoma, ER/NH positive. This is concordant. Surgical resection is recommended. Impression dictated by: Shikha Asif M.D.04/27/2024 3:26 PM Dictation Location: [place] [address] Addendum Dictated By: MD Shikha Asif Addendum Signed By: 04/27/241525 Addendum Cosigned By: DD/ TD/TT: 04/27/24 LEFT BREAST ULTRASOUND-GUIDED BIOPSY WITH VACUUM ASSISTANCE CLINICAL DATA: Suspicious asymmetry at the upper outer left breast with associated calcification Patient's previous outside imaging from [facility] from March and April 2024 were reviewed. Procedure was discussed with the patient and consent was obtained. Ultrasound survey at the upper outer breast was performed. At the 1:00 position approximately 11 cm from the nipple, there is an ill-defined hypoechoic area with shadowing that correlates with the comparison ultrasound imaging. Cursory evaluation of the axilla shows lymph nodes with fatty viktor. Following sterile preparation and local anesthesia with lidocaine, a 12-gauge vacuum-assisted needle was advanced into the area of concern under direct ultrasound visualization. Core tissue samples were obtained. Before the needle was removed, a biopsy marking clip was placed. There were no immediate complications. DIAGNOSTIC LEFT MAMMOGRAM - FULL FIELD DIGITAL Craniocaudal, true lateral and MLO views of the right breast were obtained using low-dose digital technique. Comparison is made to the previous mammograms from April 02, 2024 and March 13, 2023. The breast parenchymal is heterogeneously dense and somewhat nodular in configuration. There is a new biopsy marking clip associated with the asymmetry and associated calcifications at the upper outer breast posteriorly. US/US breast ndl core biopsy LT IMPRESSION: STATUS POST ULTRASOUND BIOPSY OF AN IRREGULAR ASYMMETRY AT THE UPPER OUTER LEFT BREAST. Impression dictated by: Shikha Asif M.D.04/22/2024 11:42 AM Dictation Location: [facility] Tech: Hilary Condon; Marina Arboleda Transcribed By: [facility] 04/22/24 1142 Dictated By: Shikha Asif MD 04/22/24 1136 Signed By: 04/22/24 1142[facility] Physician [facility] HospitalUS breast RT limited [id number] breast RT [facility] [place] [address] Ultrasound Report Signed Patient: Tawana Perez MR#: [id number] : 1980 Acct:[id number] Age/Sex: 43 / F ADM Date: 04/22/24 Loc: [facility] Room: Type: [facility] Attending Dr: Mallory Ortiz MD Ordering Provider: Mallory Ortiz MD Date of Service: 04/22/24 US/US breast RT limited: N63.21 Copies to: Mallory Ortiz MD LIMITED RIGHT BREAST ULTRASOUND CLINICAL DATA: Palpable lump felt by patient's physician. Dense breast tissue. COMPARISON: Mammogram 03/15/2023 Real-time ultrasound evaluation of the superior central breast was performed. There is dense echogenic glandular tissue with slight heterogeneity. There are a couple cystic areas. The smaller cyst is at 12:00, 5 cm from the nipple measuring 4 mm. There is a slightly larger cyst at 1:00, 5 cm from the nipple approximately 7 mm in size. No other discrete cystic or solid masses are noted. US/US breast RT limited IMPRESSION: DENSE ECHOGENIC GLANDULAR TISSUE WITH A COUPLE SMALL BENIGN APPEARING CYSTS. NO SUSPICIOUS ULTRASOUND FINDINGS. CLINICAL MANAGEMENT IS RECOMMENDED. PENDING THE RESULTS OF PATIENT'S LEFT BREAST BIOPSY, FOLLOW-UP MRI COULD BE CONSIDERED IF THERE IS CONTINUED CONCERN. Impression dictated by: Shikha Asif M.D.04/22/2024 11:36 AM Dictation Location: [facility] Tech: Hilary Condon Transcribed By: LIVIER 04/22/24 1136 Dictated By: Shikha Asfi MD 04/22/24 1042 Signed By: 04/22/24 1136[facility] Physician GroupIGP,rfx Aptima HPV all pthon 03-03-2024.CommentNOMS HealthcareComment on above:The HPV DNA reflex criteria were not met with this specimen result therefore, no HPV testing was performed. Assistant Auto Center Manager Cyto stain Nom (Cvx/Vag) [ID]CommentNOMS HealthcareComment on above: Leonor Watt, Log Handling Equipment Operator (ASCP)Cytology report Cyto stain Doc (Cvx/Vag)CommentNONE HealthcareComment on above:NEGATIVE FOR INTRAEPITHELIAL LESION OR MALIGNANCY.Cytology report Cyto stain.thin prep Doc (Cvx/Vag)Comment NOMS HealthcareComment on above:This liquid based ThinPrep(R) pap test was screened with the use of an image guided system. Diagnosis ICD code [Identifier]CommentNOMS HealthcareComment on above:Z12.4 Z01.419 Microscopic observation Other stain Nom (Unsp spec).NOMS HealthcareNote:Comment NOMS HealthcareComment on above:The Pap smear is a screening test designed to aid in the detection of premalignant and malignant conditions of the uterine cervix. It is not a diagnostic procedure and should not be used as the sole means of detecting cervical cancer. Both false-positive and false-negative reports do occur. Statement of adequacy Cyto stain (Cvx/Vag) [Interp]CommentNOMS HealthcareComment on above:Satisfactory for evaluation. Endocervical and/or squamous metaplastic cells (endocervical component) are present. Performed at: [address] [place] [id number] Public Address System Mechanic: Annetta Atwood MD, Phone: [phone] Specimen Comment: Source.............Cervix Specimen Comment: No. of containers..01 ThinPrep VialLABCORPNONE HealthcareMETRO IRON AND TIBCon 01-90-7751XBY DMYQ781.0 ug/dL50.0 - 170.0 ug/dLNOJohn J. Pershing [facility] Center TB PERCENT IRON KSLMIPMLYE61.0 %NOMS TrihealthTBH TOTAL IRON BINDING CAPACITY 300.0 ug/dL250.0 - 450.0 ug/dLNOJohn J. Pershing VA Medical CenterCLINISYNCNOMS HealthcareESTRADIOLon 94-17-4742Nifqsvrtm96.4 pg/mLNMartin Memorial HospitalComment on above:Result Comment: Adult Female: Follicular phase 12.5 - 166.0 Ovulation phase 85.8 - 498.0 Luteal phase 43.8 - 211.0 Postmenopausal <6.0 - 54.7 1st trimester 215.0 - >4300.0 Julianne ECLIA methodologyPerformed By: #### ESTRADI #### [facility] [address] [place] [address] Dr. Lukas Muhammad 35-33-6394SQM3.1 mIU/mLNMartin Memorial HospitalComment on above:Result Comment: Adult Female: Follicular phase 3.5 - 12.5 Ovulation phase 4.7 - 21.5 Luteal phase 1.7 - 7.7 Postmenopausal 25.8 - 134.8Performed By: #### LBCFSH #### [facility] [address] [place] [address] Dr. Lukas MooreLUTEINIZING HORMONE (LH)on 93-29-9154EV2.8 mIU/mLNMartin Memorial HospitalComment on above:Result Comment: Adult Female: Follicular phase 2.4 - 12.6 Ovulation phase 14.0 - 95.6 Luteal phase 1.0 - 11.4 Postmenopausal 7.7 - 58.5Performed By: #### LBCLH #### [facility] [address] [place] [address] Dr. Lukas MoorePROGESTERONEon 54-58-3025Qsrgwdawbznb89.8 ng/mLNMartin Memorial HospitalComment on above:Result Comment: Follicular phase 0.1 - 0.9 Luteal phase 1.8 - 23.9 Ovulation phase 0.1 - 12.0 First trimester 11.0 - 44.3 Second trimester 25.4 - 83.3 Third trimester 58.7 - 214.0 Postmenopausal 0.0 - 0.1Performed By: #### PROGES #### [facility] [address] [place] [address] Dr. Lukas Her AUTO DIFFon 95-67-6700TVJW #0.1 103/ulNormal0.0-0.1The [facility] HospitalComment on above:Performed By: #### CBC #### [facility] [address] [place] [address] Dr. Lukas MooreBasophils/100 WBC (Bld)1.1 %Normal0.2-2.0[facility] Comment on above:Performed By: #### CBC #### [facility] [address] [place] [address] Dr. Gaytan ChangEJana #0.0 103/ulNormal0.0-0.7The [facility] HospitalComment on above: Performed By: #### CBC #### [facility] [address] [place] [address] Dr. Lukas Morilloosinophils/100 WBC (Bld)0.3 %Critically low0.9-7.0The [facility] HospitalComment on above:Performed By: #### CBC #### [facility] [address] [place] [address] Dr. Lukas Morillorythrocyte distribution width (RBC) [Ratio]12.7 %Olvhyj95.0-15.0 The [facility] HospitalComment on above:Performed By: #### CBC #### [facility] [address] [place] [address] Dr. Lukas MooreHematocrit (Bld) [Volume fraction]40.9 %Pmpptx97.0-48.0The [facility] HospitalComment on above:Performed By: #### CBC #### [facility] [address] [place] [address] Dr. Lukas MooreHemoglobin (Bld) [Mass/Vol]13.5 g/dVIkpytz34.0-16.0The [facility] HospitalComment on above:Performed By: #### CBC #### [facility] [address] [place] [address] Dr. Lukas Garrido #0.02 10e3/ulNormal0.00-0.03The [facility] HospitalComment on above:Performed By: #### CBC #### [facility] [address] [place] [address] [address] Lukas Garrido %0.3 %Normal0.0-0.5The [facility] HospitalComment on above: Performed By: #### CBC #### [facility] [address] [place] [address] Dr. Lukas Woodward #1.1 103/ulCritically low1.2-3.8The [facility] Comment on above:Performed By: #### CBC #### [facility] [address] [place] [address] Dr. Lukas Levinhocytes/100 WBC (Bld)17.8 %Critically low20.5-60.0The [facility] HospitalComment on above:Performed By: #### CBC #### [facility] [address] [place] [address] Dr. Lukas PachecoUAL DIFF REQNONormalThe [facility] HospitalComment on above: Performed By: #### CBC #### [facility] [address] [place] [address] Dr. Lukas Buenrostro (RBC) [Entitic mass]31.7 iaAbskcf24.7-34.0The [facility] HospitalComment on above:Performed By: #### CBC #### [facility] [address] [place] [address] Dr. Lukas Buenrostro (RBC) [Mass/Vol]33.0 g/cYPwaals04.9-35.2The Ida HospitalComment on above:Performed By: #### CBC #### [facility] [address] [place] [address] Dr. Lukas Buenrostro (RBC) [Entitic vol]96.0 oRTfoqbg09.0-99.0The [facility] HospitalComment on above:Performed By: #### CBC #### [facility] [address] [place] [address] Dr. Lukas Pereyra #0.4 103/ulNormal0.3-0.8The [facility] HospitalComment on above:Performed By: #### CBC #### [facility] [address] [place] [address] Dr. Lukas Westonocytes/100 WBC (Bld)6.2 %Normal1.7-12.0The [facility] Comment on above:Performed By: #### CBC #### [facility] [address] [place] [address] Dr. Lukas Eller #4.8 103/ulNormal1.4-6.5The [facility] HospitalComment on above:Performed By: #### CBC #### [facility] [address] [place] [address] Dr. Lukas Mckeonutrophils/100 WBC (Bld)74.3 %Htzwkk16.0-75.0The [facility] HospitalComment on above:Performed By: #### CBC #### [facility] [address] [place] [address] Dr. Lukas Valdes mean volume (Bld) [Entitic vol]10.0 fLNormal9.5-13.5The [facility] HospitalComment on above:Performed By: #### CBC #### [facility] [address] [place] [address] Dr. Lukas BlandT156 103/hsLfsely750-990Jzc [facility] HospitalComment on above: Performed By: #### CBC #### [facility] [address] [place] [address] Dr. Lukas CoxC4.26 106/ulNormal4.20-5.40The [facility] HospitalComment on above:Performed By: #### CBC #### [facility] [address] [place] [address] Dr. Lukas BarrBC6.4 103/ulNormal4.0-11.0The [facility] HospitalComment on above: Performed By: #### CBC #### [facility] [address] [place] [address] Dr. Lukas EidRITINon [id number] [Mass/Vol]60.0 ng/mLNormal6.2-137.0 The [facility] HospitalComment on above:Performed By: #### FETIBC, FERR #### [facility] [address] [place] [address] Dr. Lukas Barreto AND TIBCon 11-05-2022% YRGVCNIFWD78.0 %NormalThe [facility] HospitalComment on above:Performed By: #### FETIBC, FERR #### [facility] [address] [place] [address] Dr. Lukas Barreto [Mass/Vol]145.0 ug/bSGfxdcv26.0-170.0The [facility] Comment on above:Performed By: #### FETIBC, FERR #### [facility] [address] [place] [address] Dr. Lukas Lopez YVIKTK951.0 ug/hXWbnidy941.0-450.0The [facility] Comment on above:Performed By: #### FETIBC, FERR #### [facility] [address] [place] [address] Dr. Lukas MooreMG MAMM SCREEN 3D CECILIO CADon [id number] MAMM SCREEN 3D CECILIO CAD Patient: TAWANA PEREZ Exam Date: 03/08/2022 : 1980 Gender:F Ordering : DR CARROL BAILEY M.D. Admission #: [id number] Family : Order #: [id number] CLICK HERE TO VIEW EXAM RADIOLOGY REPORT PROCEDURE: MAMMOGRAM SCREENING 3D BILATERAL CAD COMPARISON: MG MAMM SCREEN CECILIO W CAD, 10/21/2018. MG MAMM SCREEN 3D CECILIO CAD, 02/03/2021. INDICATIONS: Screening mammography Calculator Name NCI Breast Cancer Risk Assessment Tool 5 Year Breast Cancer Risk 0.70% Lifetime Breast Cancer Risk 9.90% Personal Breast Cancer No Personal Ovarian Cancer No Treatments None Family Cancers Aunt-paternal with breast cancer at age 57. LOCATION: [facility] BREAST COMPOSITION: Extremely dense, which lowers the sensitivity of mammography. FINDINGS: DIAGNOSTIC CATEGORY 1--NEGATIVE. NO CHANGE FROM COMPARISON ASSESSMENT. Scattered benign-appearing calcifications are present. Scattered benign-appearing lymph nodes are present. RIGHT BREAST: No significant suspicious finding. LEFT BREAST: No significant suspicious finding. RECOMMENDATIONS: ROUTINE MAMMOGRAM AND CLINICAL EVALUATION IN 12 MONTHS. PLEASE NOTE: A NORMAL MAMMOGRAM DOES NOT EXCLUDE THE POSSIBILITY OF BREAST CANCER. A CLINICALLY SUSPICIOUS PALPABLE LUMP SHOULD BE BIOPSIED. Dictated by: Flori Wilks MD on 03/08/2022 at 12:34 Approved by: Flori Wilks MD on 03/08/2022 at 12:36[facility] Vital Signs Date TimeVital SignValuePerforming OlxvdfklwCuwijlaa54-68-0868 12:46-0400Body revmde267.64 cmCarrol Bailey MD Work Phone: 1(569)[address]09-12-2025 12:46-0400 Body mass index (BMI) [Ratio]27.1 kg/a9JjkkjjCarrol Bailey MD Work Phone: 1([phone]75[facility]09-12-2025 12:46-0400 Body xuawfivgwjh48.8 [degF]Carrol Bailey MD Work Phone: 1(752)072[facility]00[facility]09-12-2025 12:46-0400 Body .2 kgCarrol Bailey MD Work Phone: 1(528)[address]09-12-2025 12:46-0400 Diastolic blood iriytupb60 mm[Hg]Carrol Bailey MD Work Phone: 1(523)[address]09-12-2025 12:46-0400 Heart rate64 /Arleen Bailey MD Work Phone: 1(467)[address]09-12-2025 12:46-0400 Respiratory rate16 /Arleen Bailey MD Work Phone: 1(663)919[facility]59[facility]09-12-2025 12:46-0400 SaO2% (BldA) [Mass fraction]98 %Carrol Bailey MD Work Phone: 1(419)[address]09-12-2025 12:46-0400 Systolic blood zivpnjbb769 mm[Hg]Carrol Bailey MD Work Phone: 1(462)[address]05-12-2025 14:01-0400 Body uxshdl707.64 cmCarrol Bailey MD Work Phone: 1(942)[address] [place], [place] 6125705-12-2025 14:01-0400 Body mass index (BMI) [Ratio]26.3 kg/v9CdyifyCarrol Bailey MD Work Phone: 1(240)[address]05-12-2025 14:01-0400 Body oozahovaouj27.8 [degF]Carrol Bailey MD Work Phone: 1(730)[address] [place], [place] 6125705-12-2025 14:01-0400 Body .93 kgCarrol Bailey MD Work Phone: 1(437)[address] [place], [place] 6125705-12-2025 14:01-0400 Diastolic blood crmaghlr51 mm[Hg]Carrol Bailey MD Work Phone: 1(313)[address] [place], [place] 6125705-12-2025 14:01-0400 Heart rate63 /Arleen Bailey MD Work Phone: 1(613)[address] [place], [place] 6125705-12-2025 14:01-0400 Respiratory rate16 /Arleen Bailey MD Work Phone: 1(128)[address] [place], [place] 6125705-12-2025 14:01-0400 SaO2% (BldA) [Mass fraction]100 %Carrol Bailey MD Work Phone: 1(312)[address]05-12-2025 14:01-0400 Systolic blood mm[Hg]Carrol Bailey MD Work Phone: 1(373)[address]04-23-2025 09:49-0400 Body mass index (BMI) [Ratio]25.99 kg/r5CedwfzJunior Mathis MD Work Phone: [facility] CenterWvtjkadgcx29-35-6272 09:49-0400Body ogjwax87.03 kgJunior Mathis MD Work Phone: [facility] CenterHgrrtszlts32-30-5219 09:49-0400Diastolic blood grhodqtx87 mm[Hg]Junior Mathis MD Work Phone: [facility] CenterTpfbaulcsb26-22-7362 09:49-0400Systolic blood mm[Hg]Junior Mathis MD Work Phone: [facility] CenterDsvovfkxxt42-79-1552 08:05-0400Body mass index (BMI) [Ratio]26.79 kg/n8DqybmpJunior Mathis MD Work Phone: [facility] CenterPlcrejjtwg46-01-8069 08:05-0400Body useabp33.3 kg Junior Mathis MD Work Phone: [facility] CenterJslgjglftv81-21-2312 08:05-0400Diastolic blood fuzndxej23 mm[Hg]Junior Mathis MD Work Phone: [facility] CenterMabbnhvuve60-54-5989 08:05-0400Systolic blood oeyegpbx441 mm[Hg]Junior Mathis MD Work Phone: [facility] CenterIzsghckhlc34-23-3024 13:22-0500Body aczxmc684.64 cm[facility]03-07-2025 13:22-0500Body mass index (BMI) [Ratio]26.6 kg/h5BzlmdckokTrihealth [facility]03-07-2025 13:22-0500Body urcqjf98.84 kgTrihealth [facility]03-07-2025 13:22-0500Diastolic blood npaspgbx21 mm[Hg][facility]03-07-2025 13:22-0500 Heart rate64 /[facility]03-07-2025 13:22-0500 Respiratory rate20 /[facility]03-07-2025 13:22-0500 SaO2% (BldA) [Mass fraction]98 %[facility]03-07-2025 13:22-0500Systolic blood vhrsfsmi490 mm[Hg][facility] 09-02-2024 10:57-0500Body yfgaha034.64 cmCarrol Bailey MD Work Phone: 1(419)483-[address] [place], [place] 5624302-26-2025 10:57-0500 Body mass index (BMI) [Ratio]26.3 kg/h5EjtaxfCarrol Bailey MD Work Phone: 1(533)05359 [address]02-26-2025 10:57-0500 Body .93 kgCarrol Bailey MD Work Phone: 1(151)[address] [place], [place] 6125702-26-2025 10:57-0500 Diastolic blood trnavrus13 mm[Hg]Carrol Bailey MD Work Phone: 1(390)[address] [place], [place] 6125702-26-2025 10:57-0500 Heart rate73 /Arleen Bailey MD Work Phone: 1(001)[address] [place], [place] 6125702-26-2025 10:57-0500 Systolic blood tbhtgyjf767 mm[Hg]Carrol Bailey MD Work Phone: 1(764)[address] [place], [place] 6125701-14-2025 13:51-0500 Body cmCarrol Bailey MD Work Phone: 1(879)[address] [place], [place] 6125701-14-2025 13:51-0500 Body mass index (BMI) [Ratio]26.5 kg/m8RkcunpCarrol Bailey MD Work Phone: 1(381)[address] [place], [place] 6125701-14-2025 13:51-0500 Body jyjpamkigtr80.1 [degF]Carrol Bailey MD Work Phone: 1(456)[address] [place], [place] 6125701-14-2025 13:51-0500 Body keiqeo74.84 kgCarrol Bailey MD Work Phone: 1(895)[address] [place], [place] 6125701-14-2025 13:51-0500 Diastolic blood psbzyifj53 mm[Hg]Carrol Bailey MD Work Phone: 1(793)[address] [place], [place] 6125701-14-2025 13:51-0500 Heart rate58 /Arleen Bailey MD Work Phone: 1(500)[address] [place], [place] 6125701-14-2025 13:51-0500 Respiratory rate16 /Arleen Bailey MD Work Phone: 1(955)[address] [place], [place] 6125701-14-2025 13:51-0500 SaO2% (BldA) [Mass fraction]100 %Carrol Bailey MD Work Phone: 1(093)366-[address] [place], [place] 5624301-14-2025 13:51-0500 Systolic blood jzgyumzb704 mm[Hg]Carrol Bailey MD Work Phone: 1(615)[address]01-03-2025 13:44-0500 Body nzslke458.64 cmCarrol Bailey MD Work Phone: 1(983)16[address]01-03-2025 13:44-0500 Body mass index (BMI) [Ratio]26.4 kg/q7UwanxzCarrol Bailey MD Work Phone: 1(040)41859 [address]01-03-2025 13:44-0500 Body gotgwnsukdz59.8 [degF]Carrol Bailey MD Work Phone: 1(573)[address]01-03-2025 13:44-0500 Body wioikd71.38 kgCarrol Bailey MD Work Phone: 1(729)[address]01-03-2025 13:44-0500 Diastolic blood auagfsxh48 mm[Hg]Carrol Bailey MD Work Phone: 1(099)[address]01-03-2025 13:44-0500 Heart rate67 /Arleen Bailey MD Work Phone: 1(591)[address]01-03-2025 13:44-0500 Respiratory rate16 /Arleen Bailey MD Work Phone: 1(991)159-[address] [place], [place] 5624301-03-2025 13:44-0500 SaO2% (BldA) [Mass fraction]100 %Carrol Bailey MD Work Phone: 1(103)565-[address] [place], [place] 5624301-03-2025 13:44-0500 Systolic blood fxuwkdfq051 mm[Hg]Carrol Bailey MD Work Phone: 1(207)940-[address] [place], [place] 5624312-30-2024 10:09-0500 Body jodxec512.6 Checo Ahmadi MD Work Phone: [facility] CenterRofprkjexz72-61-4431 10:09-0500Body mass index (BMI) [Ratio]25.34 kg/j4AefbzbMallory Ahmadi MD Work Phone: [facility] CenterWsjeoiejop88-20-0255 10:09-0500Body .22 kgMallory Ahmadi MD Work Phone: [facility] CenterQltaoxfqor97-24-3560 15:06-0500Body .64 cmCarrol Baliey MD Work Phone: 1(155)[address]12-16-2024 15:06-0500 Body mass index (BMI) [Ratio]25.9 kg/x1UaattvCarrol Bailey MD Work Phone: 1(189)[address]12-16-2024 15:06-0500 Body zueybi36.02 kgCarrol Bailey MD Work Phone: 1(776)63059 [address]12-16-2024 15:06-0500 Diastolic blood icyqingl90 mm[Hg]Carrol Bailey MD Work Phone: 1(796)[address]12-16-2024 15:06-0500 Heart rate64 /minCarrol Bailey MD Work Phone: 1(924)862-[address] [place], [place] 5624312-16-2024 15:06-0500 Systolic blood unzwmxse657 mm[Hg]Carrol Bailey MD Work Phone: 1(503)536-[address] [place], [place] 5624312-10-2024 09:00-0500 Body .64 cmCarrol Bailey MD Work Phone: 1(598)[address]12-10-2024 09:00-0500 Body mass index (BMI) [Ratio]25.9 kg/p0BwehpvCarrol Bailey MD Work Phone: 1(383)746-[address] [place], [place] 5624312-10-2024 09:00-0500 Body kzmqtbulqnp26 [degF]Carrol Bailey MD Work Phone: 1(186)32359 [address]12-10-2024 09:00-0500 Body veizsc70.02 kgCarrol Bailey MD Work Phone: 1(017)073-07[facility]12-10-2024 09:00-0500 Diastolic blood jfxuuzqn83 mm[Hg]Carrol Bailey MD Work Phone: 1(727)[address]12-10-2024 09:00-0500 Heart rate68 /Arleen Bailey MD Work Phone: 1(936)90[address]12-10-2024 09:00-0500 Respiratory rate18 /Arleen Bailey MD Work Phone: 1(215)07[address]12-10-2024 09:00-0500 SaO2% (BldA) [Mass fraction]100 %Carrol Bailey MD Work Phone: 1(821)[address]59 [address]12-10-2024 09:00-0500 Systolic blood xeuyvkpy933 mm[Hg]Carrol Bailey MD Work Phone: 1(378)[address]11-14-2024 15:52-0500 Diastolic blood ryxfnhpm32 mm[Hg]Carrol Bailey MD Work Phone: 1(604)38[address]11-14-2024 15:52-0500 Heart rate92 /Arleen Bailey MD Work Phone: 1(515)29959 [address]11-14-2024 15:52-0500 Respiratory rate20 /Arleen Bailey MD Work Phone: 1(484)38959 [address]11-14-2024 15:52-0500 SaO2% (BldA) [Mass fraction]96 %Carrol Bailey MD Work Phone: 1(665)[address]11-14-2024 15:52-0500 Systolic blood saphsuql220 mm[Hg]Carrol Bailey MD Work Phone: 1(644)[address]11-14-2024 14:40-0500 Body giyiimsfbbu70 [degF]Carrol Bailey MD Work Phone: 1(030)44059 [address]11-14-2024 14:10-0500 Inhaled oxygen flow rate8 L/Arleen Bailey MD Work Phone: 1(419)[address] [place], [place] 6125711-14-2024 09:29-0500 Body .64 cmCarrol Bailey MD Work Phone: 1(949)[address] [place], [place] 6125711-14-2024 09:29-0500 Body ikgpjm06.7 kgCarrol Bailey MD Work Phone: 1(731)[address] [place], [place] 6125710-31-2024 09:23-0400 Body kcugkq982.56 cmMD Carrol Bailey Work Phone: 1(848)[address] [place], [place] 6125710-31-2024 09:23-0400 Body mass index (BMI) [Ratio]26.4 kg/m2MD Carrol Bailey Work Phone: 1(023)[address] [place], [place] 6125710-31-2024 09:23-0400 Body vvtypb87.9 kgMD Carrol Bailey Work Phone: 1(069)[address] [place], [place] 6125710-31-2024 09:23-0400 Diastolic blood mm[Hg]MD Carrol Bailey Work Phone: 1(609)[address] [place], [place] 6125710-31-2024 09:23-0400 Heart rate68 /minMD Carrol Bailey Work Phone: 1(775)[address] [place], [place] 6125710-31-2024 09:23-0400 SaO2% (BldA) [Mass fraction]98 %MD Carrol Bailey Work Phone: 1(116)[address] [place], [place] 6125710-31-2024 09:23-0400 Systolic blood kifziqkg349 mm[Hg]MD Carrol Bailey Work Phone: 1(166)[address] [place], [place] 6125710-16-2024 10:30-0400 Body yhiusbxrhdx23.2 [degF]MD Carrol Bailey Work Phone: 1(431)[address] [place], [place] 6125710-16-2024 10:30-0400 Diastolic blood wnxpkcad54 mm[Hg]MD Carrol Bailey Work Phone: 1(002)[address] [place], [place] 6125710-16-2024 10:30-0400 Heart rate62 /minMD Carrol Bailey Work Phone: 1(078)[address] [place], [place] 6125710-16-2024 10:30-0400 Respiratory rate22 /minMD Carrol Bailey Work Phone: [facility]10-16-2024 10:30-0400 SaO2% (BldA) [Mass fraction]99 %MD Carrol Bailey Work Phone: [facility]10-16-2024 10:30-0400 Systolic blood mm[Hg]MD Carrol Bailey Work Phone: [facility]10-09-2024 09:21-0400 Body qedbgo443.6 cmAlsuzi Ahmadi MD Work Phone: [phone] CenterAzgwihhhqj55-80-4940 09:21-0400Body mass index (BMI) [Ratio]25.34 kg/k4SthkoaMallory Ahmadi MD Work Phone: 8(577)8977124[facility] CenterCikawxtefm29-25-3654 09:21-0400Body onvbco29.22 kgMallory Ahmadi MD Work Phone: [facility] CenterMzbybpkulk91-76-1517 09:21-0400Diastolic blood qcjlosqr74 mm[Hg]Mallory Ahmadi MD Work Phone: [facility] CenterErsvujefbb30-35-9487 09:21-0400Systolic blood wltfvnoj109 mm[Hg]Mallory Ahmadi MD Work Phone: [facility] CenterBrkdahdqke01-95-4568 10:260400Body fibjhx244.56 cm[facility]09-24-2024 10:26-0400Body mass index (BMI) [Ratio]26.7 kg/s9ZtiezkhiaTrihealth Bethesda [facility] Hospital09-24-2024 10:26-0400Body sywuxn13.76 kgTri[facility]09-24-2024 10:26-0400Diastolic blood ofgbcegm95 mm[Hg][facility]09-24-2024 10:26-0400 Heart rate67 /minTrihealth [facility]da [facility]09-24-2024 10:26-0400Systolic blood mm[Hg][facility]08-22-2024 09:12-0400 Body mass index (BMI) [Ratio]25.34 kg/l0XzyylsJunior Mathis MD Work Phone: [facility] CenterMojsfnwjnd10-01-2433 09:12-0400Body sbteli08.22 kgJunior Mathis MD Work Phone: noJohn [facility]. [facility] CenterYwzyyefdpr02-51-6911 09:12-0400Diastolic blood fgyobuus96 mm[Hg]Junior Mathis MD Work Phone: noNE Dbjkhflbzt72-06-8684 09:12-0400Systolic blood jvjcxmof011 mm[Hg]Junior Mathis MD Work Phone: [facility] Rhbmtbwnvz98-50-5776 10:30-0500Body olffsj488.56 cmCarrol Bailey Other [employer] Other 01-30-2024 10:30-0500Body mass index (BMI) [Ratio] 25.57 kg/u6AyewizCarrol Bailey Other [employer] Other 01-30-2024 10:30-0500Body icdxagnmbty97.5 [degF]Carrol Bailey Other [employer] Other 01-30-2024 10:30-0500Body .59 kgCarrol Bailey Other [employer] Other 01-30-2024 10:30-0500Diastolic blood mm[Hg] Carrol Bailey Other [employer] Other 01-30-2024 10:30-0500Systolic blood ugbrceca378 mm[Hg] Carrol Bailey Other [employer] Other 07-25-2023 15:30-0400Body rhjmso753.56 cmCarrol Bailey Other [employer] Other 07-25-2023 15:30-0400Body mass index (BMI) [Ratio] 24.37 kg/w7ZgexdmCarrol Bailey Other [employer] Other 07-25-2023 15:30-0400Body nzvnaq29.41 kgCarrol Bailey Other [employer] Other 07-25-2023 15:30-0400Diastolic blood oodpvazc66 mm[Hg] Carrol Bailey Other [employer] Other 07-25-2023 15:30-0400Systolic blood mm[Hg] Carrol Bailey Other [employer] Other 02-01-2023 09:30-0500Body xrucco189.56 cmCarrol Bailey Other [employer] Other 02-01-2023 09:30-0500Body mass index (BMI) [Ratio] 25.92 kg/h7AqdbwpCarrol Bailey Other [employer] Other 02-01-2023 09:30-0500Body admvlq27.49 kgCarrol Bailey Other [employer] Other 02-01-2023 09:30-0500Diastolic blood mtdvqars22 mm[Hg] Carrol Bailey Other [employer] Other 02-01-2023 09:30-6441DtE4% (BldA) [Mass fraction]99 % Carrol Bailey Other [employer] Other 02-01-2023 09:30-0500Systolic blood ccexarar588 mm[Hg] Carrol Bailey Other [facility] [place] Other Encounters Encounter DateEncounter TypeCare ProviderFacilityStart: 04-27-2025 End: 80-11-6836znjdwgiezbRrjvc B Eric PT Work Phone: [facility] Physical TherapyComment on above:Cervical paraspinal muscle spasm (Primary Dx); Lumbar paraspinal muscle spasm; Cervical radiculopathy; Right anterior shoulder painStart: 04-13-2025 End: 74-30-8742kdxvhlrzezYhqkk B Eric PT Work Phone: [facility] [facility] TherapyComment on above:Cervical paraspinal muscle spasm (Primary Dx); Lumbar paraspinal muscle spasm; Cervical radiculopathy; Right anterior shoulder painStart: 04-13-2025 End: 71-30-6493Wpdmyr flowsheetDavid B Eric PT Work Phone: [facility] [facility] TherapyStart: 04-13-2025 End: 05-80-8377Gzfues flowsheetDavid B Eric PT Work Phone: [facility] [facility] TherapyStart: 04-07-2025 End: 48-48-7617Nlvcfq flowsheetDavid B Eric PT Work Phone: [facility] [facility] TherapyStart: 04-07-2025 End: 31-81-0787Cpmmql flowsheetDavid B Eric PT Work Phone: [facility] [place] [facility] TherapyStart: 04-07-2025 End: 85-33-3238udwpdokbbkSndba B Eric PT Work Phone: [facility] [place] [facility] TherapyComment on above:Cervical paraspinal muscle spasm (Primary Dx); Lumbar paraspinal muscle spasm; Cervical radiculopathy; Right anterior shoulder painStart: 85-71-2986Qgspynsepc Rachael Tom [facility] Work Phone: Start: 03-19-2025 End: 92-68-7789smiqbooronWgejbz E Braun MD Work Phone: [facility] Work Phone: Start: 03-19-2025 End: 27-98-6463Trkabsj encounter procedureRaegan CHANDLERC[facility] Work Phone: Start: 03-15-2025 End: 03-85-6006Kcmpdh flowsheetDavid B Eric PT Work Phone: [facility] Physical TherapyStart: 03-15-2025 End: 14-40-4120Flamyl flowsheetDavid B Eric PT Work Phone: NOGZ [facility] TherapyStart: 03-15-2025 End: 83-05-6679kfdcpsyeplYifqc B Eric PT Work Phone: noMS [facility] Physical TherapyComment on above:Cervical paraspinal muscle spasm (Primary Dx); Lumbar paraspinal muscle spasm; Cervical radiculopathy; Right anterior shoulder painStart: 03-02-2025 End: 68-40-0555ftldpmykxjDivvp B Eric PT Work Phone: NODM [facility] Physical TherapyComment on above:Cervical paraspinal muscle spasm (Primary Dx); Lumbar paraspinal muscle spasm; Cervical radiculopathy; Right anterior shoulder painStart: 03-02-2025 End: 39-69-9695Mhwkwu flowsheetDavid B Eric PT Work Phone: [facility] TherapyStart: 03-02-2025 End: 33-89-3678Kctpqa flowsheetDavid B Eric PT Work Phone: [facility] TherapyStart: 02-18-2025 End: 48-24-3238oaikwjozhtWrjxt B Eric PT Work Phone: NOPQ [facility] TherapyComment on above:Cervical paraspinal muscle spasm (Primary Dx); Lumbar paraspinal muscle spasm; Cervical radiculopathy; Right anterior shoulder painStart: 02-18-2025 End: 80-29-6261Gdfsnw flowsheetDavid B Eric PT Work Phone: NOC[facility] TherapyStart: 02-18-2025 End: 54-24-8049Uloknu flowsheetDavid B Eric PT Work Phone: [facility] TherapyStart: 02-11-2025 End: 06-58-2747Kasnao flowsheetDavid B Eric PT Work Phone: [facility] [place] TherapyStart: 02-11-2025 End: 22-39-5470Olwwfq flowsheetDavid B Eric PT Work Phone: NOZL [facility] TherapyStart: 02-11-2025 End: 69-30-5161lkbtimdhbwGgqtv B Eric PT Work Phone: FJVI [place] [facility] TherapyComment on above:Cervical paraspinal muscle spasm (Primary Dx); Lumbar paraspinal muscle spasm; Cervical radiculopathy; Right anterior shoulder painStart: 01-28-2025 End: 48-12-5102vwtfsfgsdaIFQRW B OTTNot AvailableStart: 01-28-2025 End: 86-50-2006sqggjmbrucNktfo B Eric PT Work Phone: [facility] [place] PTComment on above:Cervical paraspinal muscle spasm (Primary Dx); Lumbar paraspinal muscle spasm; Cervical radiculopathy; Right anterior shoulder painStart: 01-28-2025 End: 34-81-1958Ehgvnv flowsheetDavid B Eric PT Work Phone: [phone] [place] PTStart: 01-28-2025 End: 09-65-2116Oinqcv flowsheetDavid B Eric PT Work Phone: [facility] [place] PTStart: 01-21-2025 End: 11-76-7526Kdneza flowsheetDavid B Eric PT Work Phone: [phone] [place] PTStart: 01-21-2025 End: 71-88-8540Zaqjyz flowsheetDavid B Eric PT Work Phone: [facility] [place] PTStart: 01-21-2025 End: 77-61-0765nrctkmhfwrAsuvd B Eric PT Work Phone: [phone] NM PTComment on above:Cervical paraspinal muscle spasm (Primary Dx); Lumbar paraspinal muscle spasm; Cervical radiculopathy; Right anterior shoulder painStart: 01-11-2025 End: 08-38-9811Pisaab outpatient visit 15 minutesTosean Fox MD Work Phone: NOMS SWS ALLComment on above:Non-seasonal allergic rhinitis due to pollen (Primary Dx)Start: 01-11-2025 End: 42-01-9019nsgwzyibbiLVSCEmiliano Mcghee AvailableStart: 01-11-2025 End: 34-15-0565Pfbshsynes Fox MD Work Phone: [facility] SWS ALLStart: 01-11-2025 End: 48-47-6682Vdjvyuynes Fox MD Work Phone: [facility]OM[facility] SWS ALLStart: 01-04-2025 End: 07-71-7739rfvgiekyvmJwtwzl E Braun MD Work Phone: [facility] Work Phone: Start: 01-04-2025 End: 98-79-6308Ykicwvx encounter procedureNhung Grimes [facility] Work Phone: Start: 01-01-2025 End: 90-30-9448Wrwenf flowsheetDavid B Eric PT Work Phone: [facility] NM PTStart: 01-01-2025 End: 18-98-9031Nvtzdt flowsheetDavid B Eric PT Work Phone: [phone] NM PTStart: 01-01-2025 End: 23-05-1781ggloacccwoAgvqi B Eric PT Work Phone: [facility] PTComment on above:Cervical paraspinal muscle spasm (Primary Dx); Lumbar paraspinal muscle spasm; Cervical radiculopathy; Right anterior shoulder painStart: 12-25-2024 End: 10-31-0307ulflktyenbSwbfz B Eric PT Work Phone: [facility] PTComment on above:Cervical paraspinal muscle spasm (Primary Dx); Lumbar paraspinal muscle spasm; Cervical radiculopathy; Right anterior shoulder painStart: 12-22-2024 End: 06-64-3113zhnvmemfjeDqeioc E Braun MD Work Phone: [facility] Work Phone: Start: 12-22-2024 End: 92-70-5036Ruffyylxnl RecurringSandy Tom MDChillicothe Va [facility] Start: 84-98-9733Njqdgkhimv RecurringSandy Tom MDChillicothe Va Medical Center Start: 12-07-2024 End: 91-40-8536tvnanujlebBgbal B Eric PT Work Phone: [facility] NM PTComment on above:Cervical paraspinal muscle spasm (Primary Dx); Lumbar paraspinal muscle spasm; Cervical radiculopathy; Right anterior shoulder painStart: 12-07-2024 End: 24-06-5546Oruaie flowsheetDavid B Eric PT Work Phone: [facility] NM PTStart: 12-07-2024 End: 25-20-4473Hmdpbr flowsheetDavid B Eirc PT Work Phone: [facility] NM PTStart: 11-18-2024 End: 05-59-0554Khyglw flowsheetDavid B Eric PT Work Phone: [phone] NM PTStart: 11-18-2024 End: 51-56-7191Pglkcp flowsheetDavid B Eric PT Work Phone: [phone] NM PTStart: 11-18-2024 End: 83-02-2741hnejhbcbwdVyilo B Eric PT Work Phone: N[facility] NM PTComment on above:Cervical paraspinal muscle spasm (Primary Dx); Lumbar paraspinal muscle spasm; Cervical radiculopathy; Right anterior shoulder painStart: 11-16-2024 End: 75-47-7223jpwgcsmsafUhislm E Braun MD Work Phone: [facility] Work Phone: Start: 11-16-2024 End: 94-01-9641Morrzoy encounter procedureCarrol Bailey MD Work Phone: [facility] Work Phone: Start: 11-04-2024 End: 45-86-3983Qizaax flowsheetDavid B Eric PT Work Phone: [facility] NM PTStart: 11-04-2024 End: 00-44-1572Guqmej flowsheetDavid B Eric PT Work Phone: noMS NM PTStart: 11-04-2024 End: 54-63-6639dwcpqtzzrrBunph B Eric PT Work Phone: [facility] NM PTComment on above:Cervical paraspinal muscle spasm (Primary Dx); Lumbar paraspinal muscle spasm; Cervical radiculopathy; Right anterior shoulder painStart: 10-28-2024 End: 26-39-8672Xohyjh outpatient visit 10 minutesJunior Mathis MD Work Phone: noms SWS OBComment on above:Anemia, unspecified type; Hormone imbalance; Cervicitis and endocervicitis; Screening for malignant neoplasm of cervix; Acute vaginitisStart: 10-28-2024 End: 25-74-7317uetjucmvkxNJOLNA P JONESNot AvailableStart: 10-16-2024 End: 44-75-0031Uppjfu OnlyJunior Mathis MD Work Phone: noms SWS OBComment on above:Acute vaginitis (Primary Dx)Start: 10-12-2024 End: 41-69-7970jhdwkafldlHzqhy B Ott PT Work Phone: [facility] NM PTComment on above:Cervical paraspinal muscle spasm (Primary Dx); Lumbar paraspinal muscle spasm; Cervical radiculopathy; Right anterior shoulder painStart: 10-12-2024 End: 49-80-2099Qitxyr outpatient visit 15 minutesJunior Mathis MD Work Phone: noms SWS OBComment on above:Acute vaginitis (Primary Dx); Anemia, unspecified type; Hormone imbalance; Cervicitis and endocervicitis; Screening for malignant neoplasm of cervixStart: 10-12-2024 End: 63-38-2856ekxneenlkiPJHWAV P JONESNot AvailableStart: 10-02-2024 End: 11-98-5719akqdqcaijlVeliv B Eric PT Work Phone: noms NM PTComment on above:Cervical paraspinal muscle spasm (Primary Dx); Lumbar paraspinal muscle spasm; Cervical radiculopathy; Right anterior shoulder painStart: 10-02-2024 End: 86-41-9669Tviyuj flowsheetDavid B Eric PT Work Phone: noms NM PTStart: 10-02-2024 End: 51-22-2960Ebuelf flowsheetDavid B Eric PT Work Phone: noms NM PTStart: 09-28-2024 End: 89-21-1877Tjkvtszri encounterJunior Mathis MD Work Phone: noms SWS OBStart: 09-22-2024 End: 17-45-2498oqpwyjhmgeMOSSZ B OTTNot AvailableStart: 23-04-0551Hwfznotent Shoshana Bailey MD Work Phone: [facility] Work Phone: Start: 09-21-2024 End: 55-85-5831zlrydqnqxbAchpqj E Braun MD Work Phone: [facility] Work Phone: Start: 09-21-2024 End: 55-24-4865Hkxcjib encounter procedureCarrol Bailey MD Work Phone: [facility] Work Phone: Start: 09-11-2024 End: 22-62-8420ywxhhzcrtwVmkbbdsaaK[facility] Work Phone: Start: 09-11-2024 End: 53-52-2466Qqxzldw [facility] Work Phone: Start: 09-08-2024 End: 13-20-5975Bnkaza flowsheetDavid B Eric PT Work Phone: [facility] NM PTStart: 09-08-2024 End: 81-10-9491Xyyftd flowsheetDavid B Eric PT Work Phone: [facility] NM PTStart: 09-08-2024 End: 25-98-4354ojyoorvhouHxlaj B Eric PT Work Phone: [facility] NM PTComment on above:Cervical paraspinal muscle spasm (Primary Dx); Lumbar paraspinal muscle spasm; Cervical radiculopathy; Right anterior shoulder painStart: 09-02-2024 End: 70-39-3128almkijmmpkUmsmjz E Braun MD Work Phone: [facility] Work Phone: Start: 09-02-2024 End: 92-86-8555Ebwoxwf encounter Seven Bailey MD Work Phone: [facility] Work Phone: Start: 08-28-2024 End: 24-87-0039Nzowoq flowsheetDavid B Eric PT Work Phone: [facility] NM PTStart: 08-28-2024 End: 58-01-6800Ycfpnl flowsheetDavid B Eric PT Work Phone: [phone] NM PTStart: 08-28-2024 End: 71-48-9746vmdlrhhywgXpeak B Eric PT Work Phone: [facility] NM PTComment on above:Cervical paraspinal muscle spasm (Primary Dx); Lumbar paraspinal muscle spasm; Cervical radiculopathy; Right anterior shoulder painStart: 84-46-1583Pikmtdgnbf Shoshana Bailey MD Work Phone: [facility] Work Phone: Start: 17-11-3721Yrx-patient / Non-visitCarrol Bailey MD Work Phone: [facility] Work Phone: Start: 33-81-8842Aqd-patient / Non-visitCarrol Bailey MD Work Phone: [facility] Work Phone: Start: 08-07-2024 End: 19-33-0851Txybcm flowsheetDavid B Eric PT Work Phone: [facility] NM PTStart: 08-07-2024 End: 38-76-8243Pablhq flowsheetDavid B Eric PT Work Phone: [facility] NM PTStart: 08-07-2024 End: 42-36-7382axamvhccuhByflf B Eric PT Work Phone: [facility] NM PTComment on above:Cervical paraspinal muscle spasm (Primary Dx); Lumbar paraspinal muscle spasm; Cervical radiculopathy; Right anterior shoulder painStart: 30-77-9486Oum-patient / Non-Adryan Bailey MD Work Phone: [facility] Work Phone: Start: 07-30-2024 End: 50-83-1642Ycvfla flowsheetDavid B Eric PT Work Phone: [phone] NM PTStart: 07-30-2024 End: 04-24-1383Pgmzrt flowsheetDavid B Eric PT Work Phone: [phone] NM PTStart: 07-30-2024 End: 10-61-3360ytlonzwvxwOmuub B Eric PT Work Phone: [facility] NM PTComment on above:Cervical paraspinal muscle spasm (Primary Dx); Lumbar paraspinal muscle spasm; Cervical radiculopathy; Right anterior shoulder painStart: 07-24-2024 End: 42-32-9532Rinwns flowsheetDavid B Eric PT Work Phone: [phone] NM PTStart: 07-24-2024 End: 14-52-3440Jgxkxt flowsheetDavid B Eric PT Work Phone: [phone] NM PTStart: 07-24-2024 End: 60-97-0483ezwzjerjjzQavfn B Eric PT Work Phone: [phone] NM PTComment on above:Cervical paraspinal muscle spasm (Primary Dx); Lumbar paraspinal muscle spasm; Cervical radiculopathy; Right anterior shoulder painStart: 39-42-4082Ksq-patient / Non-visitCarrol Bailey MD Work Phone: [facility] Work Phone: Start: 07-21-2024 End: 91-71-2613Gwgwump encounter procedureCarrol Bailey MD Work Phone: [facility] Work Phone: Start: 07-13-2024 End: 55-52-3021Uimezq flowsheetDavid B Eric PT Work Phone: [phone] NM PTStart: 07-13-2024 End: 51-57-7925Qfnicc flowsheetDavid B Eric PT Work Phone: [phone] NM PTStart: 07-13-2024 End: 09-20-2208areutwfcbrIhrwv B Eric PT Work Phone: [phone] NM PTComment on above:Cervical paraspinal muscle spasm (Primary Dx); Lumbar paraspinal muscle spasm; Cervical radiculopathy; Right anterior shoulder painStart: 07-10-2024 End: 85-26-1520Esdbjbd encounter procedureCarrol Bailey MD Work Phone: [facility] Work Phone: Start: 07-06-2024 End: 74-65-7881Rlpqfv follow up visit related to original Tacho Ortiz MD Work Phone: noms ST GENSComment on above:Malignant neoplasm of overlapping sites of left breast in female, estrogen receptor positive (CMS/HCC) (Primary Dx)Start: 07-06-2024 End: 47-90-7556jzaupxmtlcZCEFLR VARGAS VNot AvailableStart: 06-22-2024 End: 47-00-1411Kibmrtv encounter procedureCarrol Bailey MD Work Phone: [facility] Work Phone: Start: 06-18-2024 End: 48-63-1475vupwtwiyufCruke B Eric PT Work Phone: noms NM PTComment on above:Cervical paraspinal muscle spasm (Primary Dx); Lumbar paraspinal muscle spasm; Cervical radiculopathy; Right anterior shoulder painStart: 06-18-2024 End: 03-77-7260Rdqjzi flowsheetDavid B Eric PT Work Phone: noms NM PTStart: 06-18-2024 End: 10-46-0149Yqwgln flowsheetDavid B Reic PT Work Phone: noms NM PTStart: 06-16-2024 End: 54-77-3713Kocyqcx encounter procedureCarrol Bailey MD Work Phone: [facility] Work Phone: Start: 06-11-2024 End: 38-80-5787Davikk flowsheetDavid B Eric PT Work Phone: noms NM PTStart: 06-11-2024 End: 13-62-4498Oullcm flowsheetDavid B Eric PT Work Phone: noms NM PTStart: 06-11-2024 End: 41-20-2698yltachkpeiVzett B Eric PT Work Phone: noms NM PTComment on above:Cervical paraspinal muscle spasm (Primary Dx); Lumbar paraspinal muscle spasm; Cervical radiculopathy; Right anterior shoulder painStart: 06-02-2024 End: 34-00-2658Lxjzmt follow up visit related to original Tacho Ortiz MD Work Phone: noms ST GENSComment on above:Malignant neoplasm of overlapping sites of left breast in female, estrogen receptor positive (CMS/HCC) (Primary Dx)Start: 06-02-2024 End: 13-71-3112iqjetibcwpJTKEWT VARGAS VNot AvailableStart: 06-02-2024 End: 67-69-8883Peqwrbola Gerri Ortiz MD Work Phone: [facility]oms [facility] GENSStart: 05-21-2024 End: 18-68-1957Tzuzfonz Result Gerri Ortiz MD Work Phone: noms External Department UnsolicitedStart: 05-21-2024 End: 07-47-9620Xpfnxwvk Result Gerri Ahmadi MD Work Phone: noms External Department UnsolicitedStart: 05-21-2024 End: 08-89-0137Jgthvjohq to same day surgery centerCarrol Bailey MD Work Phone: [facility]: 05-21-2024 End: 01-86-9266nquedunkyeQecwqb E Braun MD Work Phone: [facility] Work Phone: Start: 05-11-2024 End: 80-78-7899Nviougx encounter Alex Bailey Work Phone: [facility] Work Phone: Start: 05-11-2024 End: 14-56-4790bahjoaewcgPFBreann Bailey Work Phone: [facility] Work Phone: Start: 05-07-2024 End: 10-51-8657Hmkabw flowsheetDavid B Eric PT Work Phone: [facility] NM PTStart: 05-07-2024 End: 83-41-5031Ozayll flowsheetDavid B Eric PT Work Phone: [facility] NM PTStart: 05-07-2024 End: 41-89-7650vntlwcfeobEzwem B Eric PT Work Phone: [facility] NM PTComment on above:Cervical paraspinal muscle spasm (Primary Dx); Lumbar paraspinal muscle spasm; Cervical radiculopathy; Right anterior shoulder painStart: 05-07-2024 End: 04-17-1105Ozyxsil encounter procedureMD Carrol Bailey Work Phone: [facility] Work Phone: Start: 05-01-2024 End: 00-12-6373Rrjlpa outpatient visit 15 minutesMallory Ortiz MD Work Phone: noms ST GENSComment on above:Malignant neoplasm of overlapping sites of left breast in female, estrogen receptor positive (CMS/HCC) (Primary Dx)Start: 05-01-2024 End: 99-00-5600fnurpkhutpHZCMUQ VARGAS VNot AvailableStart: 04-28-2024 End: 20-94-2929Yitqxr flowsheetDavid B Eric PT Work Phone: [facility] NM PTStart: 04-28-2024 End: 24-43-5168Xhgbiw flowsheetDavid B Eric PT Work Phone: [facility] NM PTStart: 04-28-2024 End: 42-90-7492ekympqbsxtVpnde B Eric PT Work Phone: [facility] NM PTComment on above:Cervical paraspinal muscle spasm (Primary Dx); Lumbar paraspinal muscle spasm; Cervical radiculopathy; Right anterior shoulder painStart: 04-22-2024 End: 54-55-6274Cnvazhpin to same day surgery centerMD Carrol Bailey Work Phone: [facility] for Breast CarStart: 04-22-2024 End: 24-21-6669awtmwsqhccLU Carrol Bailey Work Phone: [facility] Work Phone: Start: 04-16-2024 End: 53-79-8253Sabost flowsheetDavid B Eric PT Work Phone: [facility] NM PTStart: 04-16-2024 End: 06-15-8617Qhpjqa flowsheetDavid B Eric PT Work Phone: noMS NM PTStart: 04-16-2024 End: 78-37-4886jubqlnrbguMnnuo B Eric PT Work Phone: noMS NM PTComment on above:Cervical paraspinal muscle spasm (Primary Dx); Lumbar paraspinal muscle spasm; Cervical radiculopathy; Right anterior shoulder painStart: 04-15-2024 End: 44-19-0980Pnmfyk outpatient new [facility] Angel SHARIF Work Phone: noms ST GENSComment on above:Mass of upper outer quadrant of left breast (Primary Dx); Mass overlapping multiple quadrants of right breastStart: 04-03-2024 End: 49-20-3469Cwjsoa Nikki Mathis MD Work Phone: noms SWS OBComment on above:Mammogram abnormal (Primary Dx)Start: 03-31-2024 End: 23-53-2543Vsviiq flowsheetDavid B Eric PT Work Phone: [facility] NM PTStart: 03-31-2024 End: 23-63-1678Wsakre flowsheetDavid B Eric PT Work Phone: [facility] NM PTStart: 03-31-2024 End: 45-37-3293wmsfkezekwXsnif B Eric PT Work Phone: [facility] Work Phone: Comment on above:Cervical paraspinal muscle spasm (Primary Dx); Lumbar paraspinal muscle spasm; Cervical radiculopathy; Right anterior shoulder painStart: 03-31-2024 End: 50-17-3136Khauhoy encounter procedureFircarilion [facility] Work Phone: Start: 03-25-2024 End: 20-35-5695Ediyyg flowsheetDavid B Eric PT Work Phone: [facility] NM PTStart: 03-25-2024 End: 04-50-7134Aegzep flowsheetDavid B Eric PT Work Phone: [facility] NM PTStart: 03-25-2024 End: 04-71-8428rxmoconagbCffhw B Eric PT Work Phone: [facility] NM PTComment on above:Cervical paraspinal muscle spasm (Primary Dx); Lumbar paraspinal muscle spasmStart: 03-12-2024 End: 38-29-7502Mhsnrdu encounter procedureJunior Mathis MD Work Phone: noms SWS OBComment on above:Anemia, unspecified type; Hormone imbalanceStart: 02-27-2024 End: 93-61-9233Jnavhvgbt Result EncounterJunior Mathis MD Work Phone: noms External Department UnsolicitedStart: 02-27-2024 End: 24-18-7274Uecaaviwc Result EncounterJunior Mathis MD Work Phone: noms External Department UnsolicitedStart: 02-27-2024 End: 71-84-8354Xycxjm OnlyJunior Mathis MD Work Phone: noms External Department UnsolicitedStart: 02-27-2024 End: 84-02-1474Jbufbpk encounter statusJunior Mathis MD Work Phone: [facility] Work Phone: start: 02-27-2024 End: 36-80-3065Bazylwfe preventive med est patient 40-64yrsPenolnehemiah aMthis MD Work Phone: [facility] OBComment on above:Encounter for gynecological examination without abnormal finding (Primary Dx); Screening for malignant neoplasm of cervix; Encounter for screening mammogram for malignant neoplasm of breast; Hormone imbalance; Anemia, unspecified type; Cervicitis and endocervicitisStart: 08-06-2023 End: 65-96-6083lkzfaoktynPjsryu Braun Other [employer] Other Start: 21-97-5045Qhlpqn outpatient visit 15 minutes [facility] ClinicStart: 01-29-2023 End: 67-18-8229hmxagihwiuNykhwv Braun Other [employer] Other Start: 16-57-7746Bnzeftckc for general adult medical examination without abnormal findingsCarrol [facility] ClinicStart: 25-16-8778Qdrqrdak preventive med est patient 40-64yrsMarcia [facility] ClinicStart: 11-05-2022 End: 15-71-8801mayigoykukOF PENOLA JONESFacility:V4Csvun: 08-08-2022 End: 06-68-7020yjvhuaxofiTuwonl Lynn Other [employer] Other Start: 66-24-8406Zkcbkz outpatient visit 15 minutes [facility]rol [facility] ClinicStart: 17-44-1463Hznkcow encounter procedure Carrol Bailey Other [employer] Other Start: 07-10-2022 End: 60-30-4461ngohubryqlPlorbl Braun Other [employer] Other Start: 16-30-7104Zfezoeevp encounterMarodilon [facility] Centertart: 85-28-5798Bjibeidfudyde examination normalCarrol Bailey Other [employer] Other Start: 03-08-2022 End: 80-66-2645gfpgkjtvukIJ CARROL Noah LYNNFacility:H1 Procedures DateProcedureProcedure DetailPerforming ClinicianStart: 26-27-3867Rvgmyiugv mammographyCarrol Bailey MD Work Phone: Start: 64-25-7811Ohohqisumn of left breastCarrol Bailey MD Work Phone: Start: 82-74-9253Hxfuazpkzbwt sentinel lymph node studyCarrol Bailey MD Work Phone: Start: 12-21-7679Jzlrqqzxlcpe chorionic quantitative Mallory Ortiz MD Work Phone: Start: 09-42-7202Wpcvkciaumg of left breast specimen Carrol Bailey MD Work Phone: Start: 38-68-6973Wxdbpmuhejy of left breastCarrol Bailey MD Work Phone: Start: 70-00-8368Vvtktcjmemkykjj guided needle localization of lesion of left breastCarrol Bailey MD Work Phone: Start: 73-84-1269Ordm needle biopsy of breast using ultrasound guidanceMD Carrol Bailey Work Phone: Start: 35-60-2589Vpdiejukjwojfzh of right breastMD Carrol Bailey Work Phone: Start: 54-67-9101Lsgwvvdmpbm of left breastMD Carrol Bailey Work Phone: Start: 51-23-2761UXPDU IRON AND TIBCPenola Shan Mathis MD Work Phone: start: 85-64-3969Pwni c/v auto thin lyr prepj scr mnl rescr nicPencaron Mathis MD Work Phone: screening for malignant neoplasm of breastLindanehemiah Lynn Other Plan of Treatment DateCare ActivityDetailAuthorStart: 05-07-2025 End: 33-29-8186zegxilpasj72/31/2025 2:30 PM EDT Treatment [facility] [address] [place] [phone] Flori Reyes, PT [address] [place] [address] [facility] Physical TherapyStart: 04-27-2025 End: 13-60-9851crhlvbmzud66/21/2025 9:45 AM EDT Treatment [facility] [address] [place] [phone] Flori Reyes, PT [address] [place] [address] [facility] TherapyStart: 04-13-2025 End: 05-94-2356jkvqmznnhdHMOO [place] Physical TherapyComment on above:Cervical paraspinal muscle spasm (Primary Dx); Lumbar paraspinal muscle spasm; Cervical radiculopathy; Right anterior shoulder painStart: 03-23-2025 End: 71-99-4771rorpgbanal25/16/2025 7:30 AM EDT [facility] [address] [place] [phone] Flori Reyes, PT [address] [place] [address] [facility] TherapyStart: 03-11-2025 End: 97-30-5716baezccesii20/04/2025 2:00 PM EDT Treatment [facility] [address] [place] [phone] Flori Reyes, PT [address] [place] [address] [facility] Physical TherapyStart: 02-23-2025 End: 44-02-0562dsikykrcmeDMTO NM PTStart: 02-18-2025 End: 79-51-7274fbamdntvlhWJEX NM PTStart: 02-11-2025 End: 35-71-4649xdkatklpch55/07/2025 9:00 AM EDT Treatment [facility] [address] [place] [address] Flori Reyes, PT [address] [place] [address] N[facility] NM PTStart: 02-04-2025 End: 66-16-9449usuoruodfb22/31/2025 9:15 AM EDT Treatment [facility] [address] [place] [address] Flori Reyes, PT [address] [place] [address] [facility] NM PTStart: 01-28-2025 End: 37-10-6656aznhpkwpya45/24/2025 2:15 PM EDT Treatment [facility] [address] [place] [address] Flori Reyes, PT [address] [place] [address] [facility] NM PTStart: 01-11-2025 End: 19-65-2698Qsdtwau encounter procedureNOMS SWS ALLComment on above:Arrived Start: 01-01-2025 End: 04-48-2548owguxpxezf40/27/2025 7:30 AM EDT Treatment [facility] [address] [place] [address] Flori Reyes, PT [address] [place] [address] [facility] NM PTStart: 12-07-2024 End: 56-53-1277cakxwgpwuw18/02/2025 3:45 PM EDT Treatment [facility] [address] [place] [address] Flori Reyes, PT [address] [place] [address] ArrivedNOMS NM PTComment on above:ArrivedStart: 12-03-2024 End: 78-29-7139dzocucvtvs43/29/2025 8:15 AM EDT Treatment [facility] [address] [place] [address] Flori Reyes, PT [address] [place] [address] [facility] NM PTStart: 11-18-2024 End: 36-76-9645xelojmkgzfDHET NM PTComment on above:Cervical paraspinal muscle spasm (Primary Dx); Lumbar paraspinal muscle spasm; Cervical radiculopathy; Right anterior shoulder painStart: 45-42-5966Rxhtbvo referralFirelands [facility] Work Phone: Start: 11-12-2024 End: 79-88-1536yilcovghtx61/08/2025 2:30 PM EDT Treatment [facility] [address] [place] [address] Flori Reyes, PT [address] [facility] [place] [address] [facility] NM PTStart: 11-04-2024 End: 78-63-2316adnzydpoesFISL NM PTComment on above:Cervical paraspinal muscle spasm (Primary Dx); Lumbar paraspinal muscle spasm; Cervical radiculopathy; Right anterior shoulder painStart: 10-30-2024 End: 12-74-7734ruzajvqhdg08/25/2025 3:30 PM EDT Treatment [facility] [address] [place] [address] Flori Reyes, PT [address] [facility] [place] [address] [facility]OM[facility] NM PTStart: 10-28-2024 End: 15-74-2772Buqdaqb encounter /23/2025 9:45 AM EDT Office Visit [facility] [address] [place] [address] Junior Mathis MD [address] [place] [address] [facility] OBStart: 10-28-2024 End: 19-74-3851Mgwjgbjrvzlq / ancillary services dqyvpegpct42/23/2025 9:30 AM EDT Ancillary Procedure [facility] [address] [place] [address] [phone] [facility] OBStart: 10-12-2024 End: 47-92-2507Znwksxe encounter cayrujvdp04/07/2025 8:00 AM EDT Office Visit [facility] [address] [place] [address] Junior Mathis MD [address] [place] [address] [facility] OBStart: 10-09-2024 End: 72-51-9761pzwkwgqjba52/04/2025 12:45 PM EDT Treatment [facility] [address] [facility] [place] [address] Flori Reyes, PT [address] [facility] [place] [address] [facility]S [place] PTStart: 10-02-2024 End: 48-53-8240omjjscaepq71/28/2025 3:30 PM EDT Treatment [facility] [address] [facility] [place] [address] Flori Reyes, PT [address] [facility] [place] [address] Cervical paraspinal muscle spasm (Primary Dx); Lumbar paraspinal muscle spasm; Cervical radiculopathy; Right anterior shoulder painNOMS NM PTComment on above:Cervical paraspinal muscle spasm (Primary Dx); Lumbar paraspinal muscle spasm; Cervical radiculopathy; Right anterior shoulder painStart: 09-22-2024 End: 21-64-3010ffsltqkubr71/18/2025 9:00 AM EDT Treatment [facility] [address] [place] [address] Flori Reyes, PT [address] [place] [address] NOM NM PTStart: 09-08-2024 End: 94-15-4514gegzgwpofkYDKH NM PTComment on above:Cervical paraspinal muscle spasm (Primary Dx); Lumbar paraspinal muscle spasm; Cervical radiculopathy; Right anterior shoulder painStart: 08-28-2024 End: 68-19-3249mblxtgqqpjGPYK NM PTComment on above:Cervical paraspinal muscle spasm (Primary Dx); Lumbar paraspinal muscle spasm; Cervical radiculopathy; Right anterior shoulder painStart: 08-14-2024 End: 61-42-1562qdtintamqm77/07/2025 9:00 AM EST Treatment [facility] [address] [place] [address] Flori Reyes, PT [address] [facility] [place] [address] [facility] NM PTStart: 08-07-2024 End: 38-39-7846bsptbgdhvzTFDM NM PTComment on above:Cervical paraspinal muscle spasm (Primary Dx); Lumbar paraspinal muscle spasm; Cervical radiculopathy; Right anterior shoulder painStart: 07-30-2024 End: 11-20-1286ccftmjemkzNRWH NM PTComment on above:Cervical paraspinal muscle spasm (Primary Dx); Lumbar paraspinal muscle spasm; Cervical radiculopathy; Right anterior shoulder painStart: 07-22-2024 End: 11-61-0810fmcrxebdyc14/15/2025 9:00 AM EST Treatment [facility] [address] [facility] [address] Flori Reyes, PT [address] [facility] [place] [address] [facility] [place] PTStart: 07-13-2024 End: 01-66-5573bkgeqfbovwWGKP NM PTComment on above:Cervical paraspinal muscle spasm (Primary Dx); Lumbar paraspinal muscle spasm; Cervical radiculopathy; Right anterior shoulder painStart: 07-09-2024 End: 01-41-0088buorljmbwb19/02/2025 10:45 AM EST Treatment [facility] [address] [facility] [place] [address] Flori Reyes, PT [address] [place] [address] [facility] [place] PTStart: 07-06-2024 End: 52-88-6932Mjzpraq encounter yiiidfjgi61/30/2024 10:15 AM EST Office Visit [facility] [phone] [facility] [address] [id number] Mallory Ortiz MD [address] [facility] [address] [place] [address] [facility] GENSStart: 06-19-2024 End: 58-17-0247rqkaqtdvws11/13/2024 9:00 AM EST Treatment [facility] PT [address] [facility] [place] [address] Aliya Luo, PT [address] [place] [address] NOM NM PTStart: 06-11-2024 End: 69-63-0528kiatqmanfuNVAX NM PTComment on above:Cervical paraspinal muscle spasm (Primary Dx); Lumbar paraspinal muscle spasm; Cervical radiculopathy; Right anterior shoulder painStart: 06-02-2024 End: 67-27-1744Ekjfroi encounter aadkzlcwz63/26/2024 3:45 PM EST Office Visit [facility] [address] [facility] [address] [place] [phone] Mallory Ortiz MD [address] [facility] [address] [place] [address] GENSStart: 06-02-2024 End: 32-85-5238Roiycf follow up visit related to original px06/02/2024 3:45 PM EST Office Visit [facility] [address] [facility] [address] [place] [phone] Mallory Ortiz MD [address] [facility] [address] [place] [address] Malignant neoplasm of overlapping sites of left breast in female, estrogen receptor positive(CMS/HCC) (Primary Dx)NOMS ST GENSComment on above:Malignant neoplasm of overlapping sites of left breast in female, estrogen receptor positive (CMS/HCC) (Primary Dx)Start: 05-21-2024 End: 97-38-2562ShfzuacecKettering Health Miamisburgtart: 05-07-2024 End: 09-60-5366ekkwluporc41/31/2024 11:15 AM EDT Treatment [facility] PT [address] [facility] [place] [id number] Flori Reyes, PT [address] [facility] [place] [address] [facility] PTStart: 05-01-2024 End: 09-65-3931Ecengbn encounter procedureNOMS ST GENSStart: 04-28-2024 End: 50-47-8224bdqwaqqkva45/22/2024 7:30 AM EDT Treatment [facility] NM PT [address] [facility] [place] [address] Flori Reyes, PT [address] [facility] [place] [address] NOMS NM PTStart: 04-16-2024 End: 83-53-7197paqamqtubz46/10/2024 7:30 AM EDT Treatment [facility] NM PT [address] [place] [address] Flori Reyes, PT [address] [place] [address] NOMS NM PTStart: 04-13-2024 End: 97-27-6678Imtunzhulrzf / ancillary services managementNOMS IMAGING [place] Start: 04-02-2024 End: 31-60-5180Inyuwlktzcjy / ancillary services dgnsigwjxp35/26/2024 10:30 AM EDT Ancillary Procedure [facility] [place] [address] [place] [address] IEQW IMAGING SANDUSKYStart: 03-31-2024 End: 89-13-5166zerclljwab99/24/2024 11:15 AM EDT Treatment [facility] NM PT [address] [place] [address] Flori Reyes, PT [address] [place] [address] NOMS NM PTStart: 03-25-2024 End: 08-77-3765dgzuhrwwvt97/18/2024 1:00 PM EDT Treatment [facility] NM PT [address] [place] [address] Flori Reyes, PT [address] [place] [address] [facility]rivedNOLOMPOC VALLEY [facility] PTComment on above:ArrivedStart: 03-14-2024 End: 89-51-4790EYU Breast - bilateral screeningBilateral screening mammogram with tomosynthesis Imaging Routine Encounter for screening mammogram for malignant neoplasm of breast Expected: 03/14/2024, Expires: 04/28/2025NONE HealthcareComment on above:Expected: 03/14/2024, Expires: 04/28/2025Start: 03-12-2024 End: 58-29-4604Lyeafec encounter /05/2024 8:15 AM EDT Office Visit N[facility]S [facility] OB [address] [place] [address] Junior Mathis MD [address] [facility] [address] [place] [address] NOMS [place] OBStart: 02-27-2024 End: 66-86-0562Crjvqxjh stimulating hormoneFollicle stimulating hormone Lab Routine Hormone imbalance Expected: 02/27/2024 (Approximate), Expires: 02/26/2025NONE HealthcareComment on above:Expected: 02/27/2024 (Approximate), Expires: 02/26/2025omprehensive metabolic 2000 panel - Serum or PlasmaTrihealth Bethesda Butler HospitalCT with contrast for radiotherapy planningTrihealth Bethesda Butler HospitalEstradiolEstradiol Lab Routine Hormone imbalance Ordered: 02/27/2024[facility] HealthcareComment on above:Ordered: 02/27/2024GENITAL MYCOPLASMAS SATISH, SWABGENITAL MYCOPLASMAS SATISH, SWAB Pathology and Cytology Routine Cervicitis and endocervicitis Ordered:10/12/2024[facility] HealthcareComment on above:Ordered: 10/12/2024Iron and Iron binding capacity panel - Serum or PlasmaIron and TIBC Lab Routine Hormone imbalance Anemia, unspecified type Ordered: 02/27/2024[facility] HealthcareComment on above:Ordered: 02/27/2024MG Breast - bilateral DiagnosticTrihealth Bethesda Butler HospitalNuSwab Vaginitis Plus (VG+)NuSwab Vaginitis Plus (VG+) Microbiology Routine Cervicitis and endocervicitis Ordered: 10/12/2024[facility] Healthcare Work Phone: comment on above:Ordered: 10/12/2024PAP IG, RFX HPV ALL PTH ([facility])PAP IG, RFX HPV ALL PTH ([facility]) Lab Routine Screening for malignant neoplasm of cervix Encounter forgynecological examination without abnormal finding Ordered: 02/27/2024[facility] Healthcare Work Phone: comment on above:Ordered: 02/27/2024atient Education Hydrocodone and Acetaminophen Lumpectomy (DC) [place] lymph node biopsy for breast cancer [facility] Work Phone: [facility] Work Phone: [facility] Payers DatePayer CategoryPayerPolicy [id number] Insurance [id number] [employer] [id number] 2021-Present [address] [place] [address] [id number] 2.0.1.379898.3.57[id number] 2..1.730996.3.57[id number] 2..1.032400.3.579.2.910062-88-5651Qgiaxzy38161568 2.0.1.322693.3.57[id number] 2.0.1.135955.3.57[id number] 2.0.1.171492.3.579.2.083075-37-4629Xivpzzl64742813 2.0.1.323621.3.57[id number] 2.840.1.112927.3.579.2.685390-80-7301Tqzsqwo71356228 2.0.1.302999.3.579.2.844412-24-4941Duweshb88892444 2..840.1.739164.3.579.2.652536-28-5857Zlacivo85672173 2..840.1.946138.3.579.2.575033-04-8269Xcbceeh52346830 2..840.1.997222.3.579.2.987525-58-3155Eerfyrd89329253 2.840.1.354123.3.579.2.901827-84-1026Bbrnchb92955835 2.0.1.581401.3.579.2.077573-43-6895Wbbchxd6319112 2.840.1.067753.3.579.2.607710-37-7627Qasuzoy3516806 2.0.1.614758.3.579.2.250929-58-1212Snkciyp3237566 2.0.1.391982.3.579.2.326297-52-3228Nkfsdii2357250 2..1.009852.3.579.2.751639-98-4618Daoohda3714821 2.0.1.393223.3.579.2.1113 [id number] 2.0.1.644606.3.579.2.676947-88-1630Wtzymkh5935304 2.840.1.775118.3.579.2.357692-26-8532Pskfhed3143441 2.0.1.832334.3.579.2.804430-25-8326Ssbqaxw2815893 2.840.1.502193.3.579.2.873399-73-5050Xrkftqh7331326 2.840.1.404316.3.579.2.591226-09-4460Ktmeopa1067966 2.0.1.383757.3.579.2.152995-92-1619Afrljxk4129717 2.840.1.969199.3.579.2.378311-04-7485Afxlqht9794654 2..1.122069.3.579.2.593776-91-1769Ciynepn7584094 2..1.410667.3.579.2.858955-54-5680Cgczres0189249 2..1.752551.3.579.2.784591-72-5228Vxgjduc2536047 2..1.150589.3.579.2.414829-79-9555Zqhcnxc1424211 2..1.750163.3.579.2.091630-66-8842Lzyppwc3722158 2..1.218747.3.579.2.689563-05-6259Einivpa9831410 2..1.671751.3.579.2.852451-82-4993Xblxrnj5312493 2..1.915419.3.579.2.376646-33-0460Txzmjow8120630 2..1.810310.3.579.2.134482-01-4062WrojebaS1816677969 2..1.135573.19 Fnnqvyh07833835 2.840.1.990988.3.579.2.869Evgkvmh27213576 2.840.1.315524.3.579.2.253Ytquzfg26635754 2.0.1.394883.3.579.2.531 Cykbpwx69363861 2.16.840.1.135868.3.579.2.788Mepfzbl39927774 2.16.840.1.699794.3.579.2.531 Social History DateTypeDetailFacilityUnknown if ever smokedGoodwater [place] Other Start: 02-27-2024 End: 44-96-5107Ndl Assigned At [facility] Other Start: 01-30-2023 End: 48-92-3289Fhtxvdj smoking status NHISNever smoked tobacco (finding) [facility]: 93-53-0631Avl Assigned At [facility] Daytontart: 79-23-1027Tndxcwz use and exposure Smokeless tobacco non-userNOMS HealthcareStart: 02-27-2024 End: 03-67-3962Fjgfgmaii beverage intakeCurrent drinker of alcohol (finding)NOM HealthcareStart: 02-27-2024 End: 65-63-9609Wqzezpm of Social functionNOMS HealthcareHow often to you have a drink containing alcohol?Monthly or lessNOMS HealthcareHow many standard drinks containing alcohol do you have on a typical day?1 or 2NOMS HealthcareHow often do you have 6 or more drinks on 1 occasion?Less than monthlyNOMS Healthcare Start: 50-81-9843Mobomxl Comment1-2 drinks less than monthly in the past year, Caffeine intake 1-2 cups per day(tea)[facility] HealthcareStart: 80-26-4890Wnoiiy identityIdentifies as female gender (finding)[facility] HealthcareStart: 16-07-9328Evj Patient sex unknown (finding)[facility]: 09-02-2024 End: 99-88-4923FoqIplfed (finding)[facility]: 90-18-9517AbfAidepfDOFY Healthcare Medical Equipment Procedure CodeEquipment CodeEquipment Original TextEquipment IdentifierDates Biopsy, breast, with lumpectomyRadiological image marker, implantable ([id number] FDAStart: 05-21-2024 Goals DatePatient GoalDesired Activity/State Clinical Notes 08-08-2022 to 04-27-2025 Note Date & IbgeTpepStukcdit28-20-8792 History of Present illness Narrative* Flori Andrea Reyes, PT - 04/27/2025 9:45 AM EDT Images from the original note were not included. Physical Therapy Physical Therapy Treatment Visit Patient Name: Tawana Perez Today's Date: 04/27/2025 Encounter Diagnoses Name Primary? [...] strenght throughout 2024 (Goal in progress 04/07/25-DBO) Longterm: To be met by 06/06/25 The patient [...] paraspinal muscle spasms/radiculopathy per referral of PCP Carrol Bailey MD. Presents 6-days post last consult that [...] Please sign below and fax back to [phone] Physician Signature: Date: documented in this encounterNorthwest Medical [id number] History of Present illness Narrative* Flori Reyes, PT - 04/13/2025 2:30 PM EDT Images from the original note were not included. Physical Therapy Physical Therapy Treatment Visit Patient Name: Tawana Perez Today's Date: 04/13/2025 Encounter Diagnoses Name Primary? Cervical paraspinal muscle spasm Yes Lumbar paraspinal muscle spasm Cervical radiculopathy Right anterior shoulder pain Time In: 2:30 pm Time Out: 3:30 pm Supervised Time: 60 Min Total Time: 60 Min Visit Number: 22 (Participated in 7 PT sessions in 2023 [...] and lymph node removal 05/21/24 Subjective: Presents 6-days post last consult that was on 04/07/25. Reports 3-4 days of significantpain reduction following last session. Neck, shoulder, lumbar, and LE soreness and increased tone. Pain up to 4-5/10 intensity. Objective: Re-Evaluation 04/07/25-DBO Cervical: Cervical spine AROM [...] strenght throughout 2024 (Goal in progress 04/07/25-DBO) Longterm: To be met by 06/06/25 The patient [...] (PRN) Assessment: The patient has participated in 22 outpatient PT in 2024 for cervical and lumbar paraspinal muscle spasms/radiculopathy per referral of PCP Carrol Bailey MD. Presents 6-days post last consult that was on 04/07/25. Reports 3-4 days of significant pain reduction following last session. Neck, shoulder, lumbar, and LE soreness and increased tone. Pain up to 4-5/10 intensity. Pain reduced to baseline 0-2/10 intensity. Patient is pleased with progress. PT remains appropriate1-3 times/month PRN Plan: Recommend continuation of outpatient PT up to 1-3 visit/month for up to 3 additional months per above PT POC with focus on progressing toward independent medical management of this condition (04/07/25-DBO) I hereby deem this POC medically necessary. Please sign below and fax back to [phone] Physician Signature: Date: documented in this encounterNorthwest Medical [id number] History of Present illness Narrative* Flori Reyes, PT - 04/07/2025 7:30 AM EDT Images from the original note were not included. Physical Therapy Physical Therapy Treatment Visit Patient Name: Tawana Perez Today's Date: 04/07/2025 Encounter Diagnoses Name Primary? Cervical paraspinal muscle spasm Yes Lumbar paraspinal muscle spasm Cervical radiculopathy Right anterior shoulder pain Time In: 7:30 am Time Out: 8:30 am Supervised Time: 60 Min Total Time: 60 Min Visit Number: 21 (Participated in 7 PT sessions in 2023 [...] and lymph node removal 05/21/24 Subjective: Presents 23-days post last consult that was on 03/15/25. Reports 5-7 days of significant pain reduction following last session. Neck, shoulder, lumbar, and LE soreness and increased tone.Pain up to 4/10 intensity. Mammogram came back good and breast cancer is in good shape per patient reports. Is on 6- week hiatus for estrogen repressor drug as side effects of pain, muscle soreness, and leg pain have bee improved since discontinuation. Unsure if medication will be resumed. Objective: Re-Evaluation 04/07/25-DBO Cervical: Cervical spine AROM [...] strenght throughout 2024 (Goal in progress 04/07/25-DBO) Customer Retention Representative: To be met by 06/06/25 The patient [...] (PRN) Assessment: The patient has participated in 21 outpatient PT in 2024 for cervical and lumbar paraspinal muscle spasms/radiculopathy per referral of PCP Carrol Bailey MD. Presents 23-days post last consult that was on 03/15/25. Reports 5-7 days of significant pain reduction following last session. Neck, shoulder, lumbar, and LE soreness and increased tone. Pain up to 4/10 intensity. Mammogram came back good and breast cancer is in good shape per patient reports. Is on 6-week hiatus for estrogen repressor drug as side effects of pain, muscle soreness, and leg pain have bee improved since discontinuation. Unsure if medication will be resumed. Re-evaluation and updated PT POC as above finds slow but consistent progress toward goals. Patient is recommended to continue outpatient PT 1-3 times/month for up to 3 additional months. Note forwarded to referring Carrol Baliey MD for review and co-signature (04/07/25-DBO). Plan: Recommend continuation of outpatient PT up to 1-3 visit/month for up to 3 additional months per above PT POC with focus on progressing toward independent medical management of this condition (04/07/25-DBO) I hereby deem this POC medically necessary. Please sign below and fax back to [phone] Physician Signature: Date: documented in this encounterNorthwest Medical [id number] History of Present illness Narrative* Flori Reyes, PT - 03/15/2025 8:30 AM EDT Images from the original note were not included. Physical Therapy Physical Therapy Treatment Visit Patient Name: Tawana Perez Today's Date: 03/15/2025 Encounter Diagnoses Name Primary? Cervical paraspinal muscle spasm Yes Lumbar paraspinal muscle spasm Cervical radiculopathy Right anterior shoulder pain Time In: 8:30 am Time Out: 9:30 am Supervised Time: 60 Min Total Time: 60 Min Visit Number: 20 (Participated in 7 PT sessions in 2023 [...] and lymph node removal 05/21/24 Subjective: Presents 13-days post last consult that was on 03/02/25. Reports 5-7 days of significant pain reduction following last session. Neck, shoulder, lumbar, and LE soreness and increased tone.Pain up to 4/10 intensity. Has mammogram later today and is hopeful breast cancer is resolved. Objective: Re-Evaluation 03/02/25-DBO Cervical: Cervical spine AROM demonstrates 82 degrees rotation indicating mild improvement as compared to initial evaluation, 40 degrees side-bending, and 25% loss of cervical extension. Moderate increased parasinal tone at bilateral Upper Trapezius and cervical paraspinal groups. Neck Index scores 26 indicative of mild functional impairment. New complaints [...] Goals: Short Term: To be met by 04/06/25 The patient to consistently demonstrate exercise activity modification to limit undo stress to the cervical and lumbar spine and limit pain levels from getting above mild 0-3/10 intensity to prevent exacerbations of cervical, lumbar, and right shoulder conditions to be met consistently thru 2024 (Goal in progress 03/02/25-DBO) The patient to be knowledgeable in postural correction program to limit stress and be selective in exercise type, intensity, and duration thru 2023 (Goal in progress 03/02/25-DBO) The patient to demonstrate cervical, lumbar, and shoulder AROM WFL with 5/5 strenght throughout 2024 (Goal in progress 03/02/25-DBO) Longterm: To be met by 01/05/24 The patient to be successful with long-term independent management including recommendation for participation in daily postural and general UE flexibility and RTC strengthening program to combat cumulative home, job, and exercise related stresses with improved independence with self managment and decreased PT intervention to 1 session every 1-3 months as needed by conclusion in 2024 (Goal in progress 03/02/25-DBO) Treatment: Manual: Grade II/III cervical and thoracic [...] (PRN) Assessment: The patient has participated in 20 outpatient PT in 2024 and 7 outpatient PT sessions in 2023 for cervical and lumbar paraspinal muscle spasms/radiculopathy per referral of PCP Carrol Bailey MD. Presents 13-days post last consult that was on 03/02/25. Reports 5-7 days of significant pain reduction following last session. Neck, shoulder, lumbar, and LE soreness and increased tone. Pain up to 4/10 intensity. Has mammogram later today and is hopeful breast cancer is resolved. Pain decreased from 4/10 to baseline 1-2/10 intensity. Consider neck and back X- rays to compare to ones from several years ago secondary to persistent pain complaints. Patient to discuss with PCP. Continue per PT POC. Plan: Recommend continuation of outpatient PT up to 1 visit/week for up to 3 additional months per above PT POC with focus on progressing toward independent medical management of this condition (03/02/25-DBO) I hereby deem this POC medically necessary. Please sign below and fax back to [phone] Physician Signature: Date: documented in this encounterNorthwest Medical [id number] History of Present illness Narrative* Flori Reyes, PT - 03/02/2025 2:00 PM EDT Images from the original note were not included. Physical Therapy Physical Therapy Treatment Visit Patient Name: Tawana Perez Today's Date: 03/02/2025 Encounter Diagnoses Name Primary? Cervical paraspinal muscle spasm Yes Lumbar paraspinal muscle spasm Cervical radiculopathy Right anterior shoulder pain Time In: 2:00 pm Time Out: 3:00 pm Supervised Time: 60 Min Total Time: 60 Min Visit Number: 19 (Participated in 7 PT sessions in 2023 [...] and lymph node removal 05/21/24 Subjective: Presents 12-days post last consult that was on 02/18/25. Reports 5-7 days of significant pain reduction following last session. Exacerbation of right sided neck, back, and right LE radicular complaints. Has been more active with walking and routine exercise program for first time since breast cancer treatment and is struggling to get into a good routine and tolerate. Improving management of this condition. Objective: Re-Evaluation 03/02/25-DBO Cervical: Cervical spine AROM demonstrates 82 degrees rotation indicating mild improvement as compared to initial evaluation, 40 degrees side-bending, and 25% loss of cervical extension. Moderate increased parasinal tone at bilateral Upper Trapezius and cervical paraspinal groups. Neck Index scores 26 indicative of mild functional impairment. New complaints [...] Goals: Short Term: To be met by 04/06/25 The patient to consistently demonstrate exercise activity modification to limit undo stress to the cervical and lumbar spine and limit pain levels from getting above mild 0-3/10 intensity to prevent exacerbations of cervical, lumbar, and right shoulder conditions to be met consistently thru 2024 (Goal in progress 03/02/25-DBO) The patient to be knowledgeable in postural correction program to limit stress and be selective in exercise type, intensity, and duration thru 2023 (Goal in progress 03/02/25-DBO) The patient to demonstrate cervical, lumbar, and shoulder AROM WFL with 5/5 strenght throughout 2024 (Goal in progress 03/02/25-DBO) Customer Retention Representative: To be met by 01/05/24 The patient to be successful with long-term independent management including recommendation for participation in daily postural and general UE flexibility and RTC strengthening program to combat cumulative home, job, and exercise related stresses with improved independence with self managment and decreased PT intervention to 1 session every 1-3 months as needed by conclusion in 2024 (Goal in progress 03/02/25-DBO) Treatment: Manual: Grade II/III cervical and thoracic [...] (PRN) Assessment: The patient has participated in 19 outpatient PT in 2024 and 7 outpatient PT sessions in 2023 for cervical and lumbar paraspinal muscle spasms/radiculopathy per referral of PCP Carrol Bailey MD. Presents 12-days post last consult that was on 02/18/25. Reports 5-7 days of significant pain reduction following last session. Exacerbation of right sided neck, back, and right LE radicular complaints. Has been more active with walking and routine exercise program for first time since breast cancer treatment and is struggling to get into a good routine and tolerate. Improving management of this condition. Pain decreased from 5-6/10 to baseline 1-2/10 intensity. Consider neck and back X-rays to compare to ones from several years ago secondary to persistent pain complaints. Patient to discuss with PCP. Note forwarded to referring PCP Carrol Bailey MD for review and co-signature. Recommend continuation of outpatient at decreased frequency to 1-4 times/month PRN (03/02/25-DBO) Plan: Recommend continuation of outpatient PT up to 1 visit/week for up to 3 additional months per above PT POC with focus on progressing toward independent medical management of this condition (03/02/25-DBO) I hereby deem this POC medically necessary. Please sign below and fax back to [phone] Physician Signature: Date: documented in this encounterNorthwest Medical [id number] History of Present illness Narrative* Flori Reyes, PT - 02/18/2025 2:15 PM EDT Images from the original note were not included. Physical Therapy Physical Therapy Treatment Visit Patient Name: Tawana Perez Today's Date: 02/18/2025 Encounter Diagnoses Name Primary? Cervical paraspinal muscle spasm Yes Lumbar paraspinal muscle spasm Cervical radiculopathy Right anterior shoulder pain Time In: 2:15 pm Time Out: 3:15 pm Supervised Time: 60 Min Total Time: 60 Min Visit Number: 18 (Participated in 7 PT sessions in 2023 [...] and lymph node removal 05/21/24 Subjective: Presents 1-weeks post last consult that was on 02/11/25. Reports persistent exacerbation of Right sided neck, back, and right LE radicular complaints. Has been more active with walking and routine exercise program for first time since breast cancer treatment and is struggling to get into a good routine and tolerate. Objective: Re-Evaluation 01/28/25-DBO Cervical: Cervical spine AROM demonstrates 80 degrees rotation indicating mild improvement as compared to initial evaluation, 38 degrees side-bending, and 25% loss of cervical extension. Moderate increased parasinal tone at bilateral Upper Trapezius and cervical paraspinal groups. Neck Index scores 28 indicative of mild functional impairment. New complaints [...] 90/90 test -15 degrees. Back Index score 28 indicative of mild improvement from 34 at initial evaluation. Goals: Short Term: To be met by 04/06/25 The patient to consistently demonstrate exercise activity modification to limit undo stress to the cervical and lumbar spine and limit pain levels from getting above mild 0-3/10 intensity to prevent exacerbations of cervical, lumbar, and right shoulder conditions to be met consistently thru 2024 (Goal in progress 01/28/25-DBO) The patient to be knowledgeable in postural correction program to limit stress and be selective in exercise type, intensity, and duration thru 2023 (Goal in progress 01/28/25-DBO) The patient to demonstrate cervical, lumbar, and shoulder AROM WFL with 5/5 strenght throughout 2024 (Goal in progress 01/28/25-DBO) Customer Retention Representative: To be met by 01/05/24 The patient to be successful with long-term independent management including recommendation for participation in daily postural and general UE flexibility and RTC strengthening program to combat cumulative home, job, and exercise related stresses with improved independence with self managment and decreased PT intervention to 1 session every 1-3 months as needed by conclusion in 2024 (Goal in progress 01/28/25-DBO) Treatment: Manual: Grade II/III cervical and thoracic [...] (PRN) Assessment: The patient has participated in 18 outpatient PT in 2024 and 7 outpatient PT sessions in 2023 for cervical and lumbar paraspinal muscle spasms/radiculopathy per referral of PCP Carrol Bailey MD. resents 1-weeks post last consult that was on 02/11/25. Reports persistent exacerbation of Right sided neck, back, and right LE radicular complaints. Has been more active with walking and routine exerciseprogram for first time since breast cancer treatment and is struggling to get into a good routine and tolerate. Pain decreased from 5-6/10 to baseline 1-2/10 intensity. Consider neck and back X-rays to compare to ones from several years ago secondary to persistent pain complaints. Patient to discuss with PCP. Plan: Recommend continuation of outpatient PT up to 1 visit/week for up to 3 additional months per above PT POC with focus on progressing toward independent medical management of this condition (01/28/25-DBO) I hereby deem this POC medically necessary. Please sign below and fax back to [phone] Physician Signature: Date: documented in this encounterNorthwest Medical CenterKxthjnonvl04-24-2225 History of Present illness Narrative* Flori Reyes, PT - 02/11/2025 9:00 AM EDT Images from the original note were not included. Physical Therapy Physical Therapy Treatment Visit Patient Name: Tawana Perez Today's Date: 02/11/2025 Encounter Diagnoses Name Primary? Cervical paraspinal muscle spasm Yes Lumbar paraspinal muscle spasm Cervical radiculopathy Right anterior shoulder pain Time In: 9:00 am Time Out: 10:00 am Supervised Time: 60 Min Total Time: 60 Min Visit Number: 17 (Participated in 7 PT sessions in 2023 [...] 2-weeks post last consult that was on 01/28/25. Reports moderate exacerbation of Right sided neck, back, and right LE radicular complaints. Has been more active with walking and routine exercise program for first time since breast cancer treatment and is struggling to get into a good routine and tolerate. Objective: Re-Evaluation 01/28/25-DBO Cervical: Cervical spine AROM demonstrates 80 degrees rotation indicating mild improvement as compared to initial evaluation, 38 degrees side-bending, and 25% loss of cervical extension. Moderate increased parasinal tone at bilateral Upper Trapezius and cervical paraspinal groups. Neck Index scores 28 indicative of mild functional impairment. New complaints [...] 90/90 test -15 degrees. Back Index score 28 indicative of mild improvement from 34 at initial evaluation. Goals: Short Term: To be met by 04/06/25 The patient to consistently demonstrate exercise activity modification to limit undo stress to the cervical and lumbar spine and limit pain levels from getting above mild 0-3/10 intensity to prevent exacerbations of cervical, lumbar, and right shoulder conditions to be met consistently thru 2024 (Goal in progress 01/28/25-DBO) The patient to be knowledgeable in postural correction program to limit stress and be selective in exercise type, intensity, and duration thru 2023 (Goal in progress 01/28/25-DBO) The patient to demonstrate cervical, lumbar, and shoulder AROM WFL with 5/5 strenght throughout 2024 (Goal in progress 01/28/25-DBO) Longterm: To be met by 01/05/24 The patient to be successful with long-term independent management including recommendation for participation in daily postural and general UE flexibility and RTC strengthening program to combat cumulative home, job, and exercise related stresses with improved independence with self managment and decreased PT intervention to 1 session every 1-3 months as needed by conclusion in 2024 (Goal in progress 01/28/25-DBO) Treatment: Manual: Grade II/III cervical and thoracic [...] (PRN) Assessment: The patient has participated in 17 outpatient PT in 2024 and 7 outpatient PT sessions in 2023 for cervical and lumbar paraspinal muscle spasms/radiculopathy per referral of PCP Carrol Bailey MD. Presents 2-weeks post last consult that was on 01/28/25. Presents 2-weeks post last consult that was on 01/28/25. Reports moderate exacerbation of Right sided neck, back, and right LE radicular complaints. Has been more active with walking and routine exercise program for first time since breast cancer treatment and is struggling to get into a good routine and tolerate. Pain decreased from 5-6/10 to baseline 1-2/10 intensity. Consider neck and back X-rays to compare to ones from several years ago secondary to persistent pain complaints. Patient to discuss with PCP. Plan: Recommend continuation of outpatient PT up to 1 visit/week for up to 3 additional months per above PT POC with focus on progressing toward independent medical management of this condition (01/28/25-DBO) I hereby deem this POC medically necessary. Please sign below and fax back to [phone] Physician Signature: Date: documented in this encounterNorthwest Medical [id number] History of Present illness Narrative* Flori Reyes, PT - 01/28/2025 2:15 PM EDT Images from the original note were not included. Physical Therapy Physical Therapy Treatment Visit Patient Name: Tawana Perez Today's Date: 01/28/2025 Encounter Diagnoses Name Primary? Cervical paraspinal muscle spasm Yes Lumbar paraspinal muscle spasm Cervical radiculopathy Right anterior shoulder pain Time In: 2:15 pm Time Out: 3:15 pm Supervised Time: 60 Min Total Time: 60 Min Visit Number: 16 (Participated in 7 PT sessions in 2023 [...] and lymph node removal 05/21/24 Subjective: Presents 7-days post last consult that was on 12/22/24. Reports moderate exacerbation of neck, back, and right LE radicular complaints. Has been more active with walking and routine exercise program for first time since breast cancer treatment and is struggling to get into a good routine and tolerate. Objective: Re-Evaluation 01/28/25-DBO Cervical: Cervical spine AROM demonstrates 80 degrees rotation indicating mild improvement as compared to initial evaluation, 38 degrees side-bending, and 25% loss of cervical extension. Moderate increased parasinal tone at bilateral Upper Trapezius and cervical paraspinal groups. Neck Index scores 28 indicative of mild functional impairment. New complaints [...] 90/90 test -15 degrees. Back Index score 28 indicative of mild improvement from 34 at initial evaluation. Goals: Short Term: To be met by 04/06/25 The patient to consistently demonstrate exercise activity modification to limit undo stress to the cervical and lumbar spine and limit pain levels from getting above mild 0-3/10 intensity to prevent exacerbations of cervical, lumbar, and right shoulder conditions to be met consistently thru 2024 (Goal in progress 01/28/25-DBO) The patient to be knowledgeable in postural correction program to limit stress and be selective in exercise type, intensity, and duration thru 2023 (Goal in progress 01/28/25-DBO) The patient to demonstrate cervical, lumbar, and shoulder AROM WFL with 5/5 strenght throughout 2024 (Goal in progress 01/28/25-DBO) Customer Retention Representative: To be met by 01/05/24 The patient to be successful with long-term independent management including recommendation for participation in daily postural and general UE flexibility and RTC strengthening program to combat cumulative home, job, and exercise related stresses with improved independence with self managment and decreased PT intervention to 1 session every 1-3 months as needed by conclusion in 2024 (Goal in progress 01/28/25-DBO) Treatment: Manual: Grade II/III cervical and thoracic [...] (PRN) Assessment: The patient has participated in 16 outpatient PT in 2024 and 7 outpatient PT sessions in 2023 for cervical and lumbar paraspinal muscle spasms/radiculopathy per referral of PCP Carrol Bailey MD. Presents 7-days post last consult that was on 12/22/24. Reports moderate exacerbation of neck, back, andright LE radicular complaints. Has been more active with walking and routine exercise program for first time since breast cancer treatment and is struggling to get into a good routine and tolerate. Updated PT POC as above. Patient remains medically appropriate for PT intervention and is making steady progress toward goals. Note forwarded to referring Carrol Bailey MD for review and co-signature(01/28/25-DBO) Plan: Recommend continuation of outpatient PT up to 1 visit/week for up to 3 additional months per above PT POC with focus on progressing toward independent medical management of this condition (01/28/25-DBO) I hereby deem this POC medically necessary. Please sign below and fax back to [phone] Physician Signature: Date: documented in this encounterNorthwest Medical [id number] History of Present illness Narrative* Flori Reyes, PT - 01/21/2025 12:15 PM EDT Images from the original note were not included. Physical Therapy Physical Therapy Treatment Visit Patient Name: Tawana Perez Today's Date: 01/21/2025 Encounter Diagnoses Name Primary? Cervical paraspinal muscle spasm Yes Lumbar paraspinal muscle spasm Cervical radiculopathy Right anterior shoulder pain Time In: 12:15 pm Time Out: 1:15 pm Supervised Time: 60 Min Total Time: 60 Min Visit Number: 15 (Participated in 7 PT sessions in 2023 [...] and lymph node removal 05/21/24 Subjective: Presents 20-days post last consult that was on 01/01/25. Reports continued increased workouts, inconsistent sleep, and work stress as exacerbating factors that led to increased cervical and lumbar spine pain up to 5-6/10 intensity leading to this PT consult Objective: Re-Evaluation 12/25/24-DBO Cervical: Cervical spine AROM demonstrates 80 degrees rotation indicating mild improvement as compared to initial evaluation, 38 degrees side-bending, and 25% loss of cervical extension. Moderate increased parasinal tone at bilateral Upper Trapezius and cervical paraspinal groups. Neck Index scores 30 indicative of mild functional impairment. New complaints of frontal headaches Lumbar: Lumbar spine AROM is WFL with mild to moderate ERS rotation on right with positive PA testing over R L4-5 disc interspace. Rigid thoracic spine associated with postural dysfunction and exercise selection (rowing/biking). Moderate increased lumbar paraspinal tone with general LE HS tightness with 90/90 test - 10 degrees. Back Index score 30 indicative of mild improvement from 34 at initial evaluation. Goals: Short Term: To be met by 04/06/25 The patient to consistently demonstrate exercise activity modification to limit undo stress to the cervical and lumbar spine and limit pain levels from getting above mild 0-3/10 intensity to prevent exacerbations of cervical, lumbar, and right shoulder conditions to be met consistently thru 2024 (Goal in progress 12/25/24-DBO) The patient to be knowledgeable in postural correction program to limit stress and be selective in exercise type, intensity, and duration thru 2023 (Goal Met 06/11/24-DBO) The patient to demonstrate cervical, lumbar, and shoulder AROM WFL with 5/5 strenght throughout 2024 (Goal in progress 12/25/24-DBO) Longterm: To be met by 01/05/24 The patient to be successful with long-term independent management including recommendation for participation in daily postural and general UE flexibility and RTC strengthening program to combat cumulative home, job, and exercise related stresses with improved independence with self managment and decreased PT intervention to 1 session every 1-3 months as needed by conclusion in 2024 (Goal in progress 12/25/24-DBO) Treatment: Manual: Grade II/III cervical and thoracic [...] (PRN) Assessment: The patient has participated in 15 outpatient PT in 2024 and 7 outpatient PT sessions in 2023 for cervical and lumbar paraspinal muscle spasms/radiculopathy per referral of PCP Carrol Bailey MD. Presents 7-days post last consult that was on 12/25/24. Presents 20-days post last consult that was on 01/01/25. Reports continued increased workouts, inconsistent sleep, and work stress as exacerbating factors that led to increased cervical and lumbar spine pain up to 5-6/10 intensity leading to this PT consult Demonstrated moderate paraspinal cervical and lumbar spasms with right anterior innominate rotationthat was corrected with manual therapy. Cervical paraspinal tone and mobility was WFL by conclusionof session with pain decreased to baseline 1-2/10 intensity. Encouraged continuation of HEP and adequate rest. Continue per PT POC. Plan: Recommend continuation of outpatient PT up to 1 visit/week for up to 3 additional months per above PT POC with focus on progressing toward independent medical management of this condition (12/25/24-DBO) I hereby deem this POC medically necessary. Please sign below and fax back to [phone] Physician Signature: Date: documented in this [facility]07-07-2025 History of Present illness Narrative* Daniel Fox MD - 01/11/2025 2:40 PM EDT Tawana Perez returns to the office today For follow-up assessment for allergic rhinitis. She stopped allergen immunotherapy exactly 1 year ago. She has been doing well off allergen immunotherapy.She has occasional symptoms triggered by dust but overall she is doing well. When the pollen is high she had some mild symptoms but not as bad as before. She has no asthma symptoms. She is taking Loratadine 10 mg per day. EXAM The patient appears comfortable in the office today. Lungs are clear to auscultation bilaterally. The oral mucosa is pink and healthy without any lesions or ulcers. The palate elevates in the midline. The nasal mucosa is pink and healthy. There is no epistaxis mucopus or nasal polyposis noted. The nasal septum is approximately in the midline. The skin is clear of any lesions, excoriations, or erythema. IMPRESSION: allergic rhinoconjunctivitis - increase Loratadine up to 40 mg per day and add flonase and astelin. Follow-up is arranged on an as needed basis. documented in this [facility]06-30-2025 Evaluation note* Diagnosis Onset Date Resolution Status Admit Date Breast cancer acuteJune 2024 9:54am [facility] Work Phone: [phone]) 173-525806-30-2025 [facility] [place] [address] Cancer Center Note Signed Patient: Tawana Perez MR#: [id number] : 1980 Acct:[id number] Age/Sex: 44 / F Type: REG AMB Date of Service: 01/04/25 Copies to: MD Sandy Barr MD Timothy J Adamowicz, II, DO~ Assessment & Plan (1) Breast cancer: Plan: Follow-up as needed Assessment: 44-year-old female with stage Ia pT1cN0 invasive lobular/ductal carcinoma of theleft breast. Patient is status post lumpectomy with final pathology showing a 1.3 cm grade 2 primary tumor showing bothinvasive and ductal features. There is no LVSI. There was associated DCIS 5 mm. Oncotype returned 12 She completed left whole breast radiation to a dose of 40.05 Miilan in 15 fractions 08/21/2024. Prone positioning was utilized for cardiac sparing. She initiated tamoxifen therapy at completion of radiation and is tolerating this well. Today she reports significant improvement in previous edema of the breast with the addition of lymphatic massage. She is no longer having discomfort since completing her previous 2 week course of Celebrex. We discussed options for follow-up and she would like to follow with us as needed, and is aware to call with any questions or concerns. She will continue to follow with medical oncology regularly, with her next visit in March 2025 with mammogram. Patient Instructions: follow-up as needed History of Present Illness HPI 44-year-old female who palpated a left upper outer breast mass and sought care from her primary care provider who ordered mammogram and left breast ultrasound. Oncologic history: March 2024 screening mammogram-shows closely apposed calcifications in the superior aspect of the left breast on the MLO view. Follow-up diagnostic mammogram study of the left breast as well as ultrasound recommended. April 13, 2024 diagnostic mammogram confirmed the calcifications in the superior aspect of the left breast and ultrasound 0.9 x 0.8 x 0.6 cm left breast lesion compatible with a small solid mass. Subsequently right breast ultrasound showed a cyst at 1 o'clock position 5 cm from the nipple 7 mm in size, also multiple other small cystic areas, one of them at the 12 o'clock position 5 cm from the nipple measuring 4 mm. No suspicious findings on ultrasound. April 22, 2024 left breast biopsy 1:00 confirmed invasive ductal carcinoma, grade 2, I ER/NH strongly positive HER2 negative by FISH May 21, 2024 taken to the OR for lumpectomy and sentinel lymph node biopsy,final pathology confirmed invasive carcinoma with mixed ductal lobular features,1.3 cm in greatest dimension, grade 2. Posterior margin within 1 mm from invasive carcinoma. Pathology showed DCIS 5 mm in size, atypia andatypical ductal hyperplasia. No LCIS. 4 sentinel lymph nodes were negative for metastatic disease. Margins were negative although the posterior margin was less than 1 mm. There is no comment on the DCIS margin. pT1c N0 No lymphovascular invasion. [facility] genetic testing was negative. Oncotype returned 19 August 2024 completed left whole breast radiation 40 Milian in 15 fractions in the prone position for cardiac sparing. At 1 month follow-up exam showed mild diffuse erythema to the left breast. Thisis improved from previous visit per patient. November 2024 returns for skin check. Is on tamoxifen which she is tolerating well. She is using topicalcommercial aloe vera on the breast. Still noticing mild erythema as well as swelling. States bras do not fit correctly due to residual swelling of the breast. Mild discomfort in the evenings. Occasional stinging shocklike pains underneath the arm. Today she reports significant improvement in her breast swelling with massage therapy. She denies any pain since completing the Celebrex course. She continuesto have slight erythema but otherwise no new concerns. Intake Intake Visit Reasons: Follow Up, Left Breast Cancer Allergies cefdinir Allergy (Unknown, Verified 11/16/24 14:08) diarrhea [facility] Medical History Medical History Anxiety and depression Hx of abnormal mammogram left breast Breast cancer, left Invasive Ductal Carcinoma Wears hearing aid hearing impaired. right ear hearing better than left PTSD (post-traumatic stress disorder) Immunotherapy completed 5 year treatment at [facility] for environmental allergies (january 2024) Surgical History Surgical History History of lumpectomy of left breast Wide excision of the left breast after radioactive seed localization. Left axillary sentinel lymph node biopsy. History of breast biopsy US guided left breast biopsy S/P right knee arthroscopy Family History Family History Mother Cancer Aunt on Father's side had breast cancer but was not genetic Hypertension Heart disease Sister Cancer Legacy FamHx Problem: Diagnosed with Cancer Thyroid disease Social History Social History Smoking status: Never smoker Within the past year, how often did you have a drink containing alcohol: 2-3 times a week In the past 12 months, have you used illegal drugs or prescription drugs for non-medical reasons?: No Physical Exam EXAM KPS 90 General: Alert and oriented, no acute distress. Chest: Normal work of breathing on room air Breast: Left breast shows surgical incisions well-healed in the upper outer quadrant and axilla. Nopalpable mass or abnormality. Exam shows faint erythemaconsistent with the radiation field encompassing the left breast. Nearly resolved edema noted. Contralateral breast within normal limits. Dictated By: Nhung Grimes APRN DD/ [id number] Signed By: 01/04/25 1029 [facility]06-27-2025 History of Present illness Narrative * Flori Reyes, PT - 01/01/2025 7:30 AM EDT Images from the original note were not included. Physical Therapy Physical Therapy Treatment Visit Patient Name: Tawana Perez Today's Date: 01/01/2025 Encounter Diagnoses Name Primary? Cervical paraspinal muscle spasm Yes Lumbar paraspinal muscle spasm Cervical radiculopathy Right anterior shoulder pain Time In: 7:15 am Time Out: 8:15 am Supervised Time: 60 Min Total Time: 60 Min Visit Number: 14 (Participated in 7 PT sessions in 2023 [...] and lymph node removal 05/21/24 Subjective: Presents 7-days post last consult that was on 12/25/24. Reports increased workouts, inconsistent sleep, and work stress as exacerbating factors that led to increased cervical and lumbar spine pain up to 6/10 intensity leading to this PT consult Objective: Re-Evaluation 12/25/24-DBO Cervical: Cervical spine AROM demonstrates 80 degrees rotation indicating mild improvement as compared to initial evaluation, 38 degrees side-bending, and 25% loss of cervical extension. Moderate increased parasinal tone at bilateral Upper Trapezius and cervical paraspinal groups. Neck Index scores 30 indicative of mild functional impairment. New complaints of frontal headaches Lumbar: Lumbar spine AROM is WFL with mild to moderate ERS rotation on right with positive PA testing over R L4-5 disc interspace. Rigid thoracic spine associated with postural dysfunction and exercise selection (rowing/biking). Moderate increased lumbar paraspinal tone with general LE HS tightness with 90/90 test - 10 degrees. Back Index score 30 indicative of mild improvement from 34 at initial evaluation. Goals: Short Term: To be met by 04/06/25 The patient to consistently demonstrate exercise activity modification to limit undo stress to the cervical and lumbar spine and limit pain levels from getting above mild 0-3/10 intensity to prevent exacerbations of cervical, lumbar, and right shoulder conditions to be met consistently thru 2024 (Goal in progress 12/25/24-DBO) The patient to be knowledgeable in postural correction program to limit stress and be selective in exercise type, intensity, and duration thru 2023 (Goal Met 06/11/24-DBO) The patient to demonstrate cervical, lumbar, and shoulder AROM WFL with 5/5 strenght throughout 2024 (Goal in progress 12/25/24-DBO) Customer Retention Representative: To be met by 01/05/24 The patient to be successful with long-term independent management including recommendation for participation in daily postural and general UE flexibility and RTC strengthening program to combat cumulative home, job, and exercise related stresses with improved independence with self managment and decreased PT intervention to 1 session every 1-3 months as needed by conclusion in 2024 (Goal in progress 12/25/24-DBO) Treatment: Manual: Grade II/III cervical and thoracic [...] (PRN) Assessment: The patient has participated in 14 outpatient PT in 2024 and 7 outpatient PT sessions in 2023 for cervical and lumbar paraspinal muscle spasms/radiculopathy per referral of PCP Carrol Bailey MD. Presents 7-days post last consult that was on 12/25/24. Reports increased workouts, inconsistent sleep, and work stress as exacerbating factors that led to increased cervical and lumbar spine pain up to 6/10 intensity leading to this PT consult. Demonstrated moderate paraspinal cervical and lumbar spasms with right anterior innominate rotationthat was corrected with manual therapy. Cervical paraspinal tone and mobility was WFL by conclusionof session with pain decreased to baseline 1-2/10 intensity. Encouraged continuation of HEP and adequate rest. Continue per PT POC. Plan: Recommend continuation of outpatient PT up to 1 visit/week for up to 3 additional months per above PT POC with focus on progressing toward independent medical management of this condition (12/25/24-DBO) I hereby deem this POC medically necessary. Please sign below and fax back to [phone] Physician Signature: Date: documented in this encounterNorthwest Medical [id number] History of Present illness Narrative* Flori Reyes PT - 12/25/2024 12:30 PM EDT Images from the original note were not included. Physical Therapy Physical Therapy Treatment Visit Patient Name: Tawana Perez Today's Date: 12/25/2024 Encounter Diagnoses Name Primary? Cervical paraspinal muscle spasm Yes Lumbar paraspinal muscle spasm Cervical radiculopathy Right anterior shoulder pain Time In: 12:30 pm Time Out: 1:30 pm Supervised Time: 60 Min Total Time: 60 Min Visit Number: 13 (Participated in 7 PT sessions in 2023 [...] and lymph node removal 05/21/24 Subjective: Presents 18-days post last consult that was on 12/07/24. Reports lumbar spasm and burning pain she attributes to sleeping on cot while camping last week. Pain in left Greater Sci[place] in region of Piriformis. Tenderness to palpation and with Piriformis Stretch. Also mild to moderate cervical paraspinal muscle tightness is noted with newer onset of forehead distribution of headache. Objective: Re-Evaluation 12/25/24-DBO Cervical: Cervical spine AROM demonstrates 80 degrees rotation indicating mild improvement as compared to initial evaluation, 38 degrees side-bending, and 25% loss of cervical extension. Moderate increased parasinal tone at bilateral Upper Trapezius and cervical paraspinal groups. Neck Index scores 30 indicative of mild functional impairment. New complaints of frontal headaches Lumbar: Lumbar spine AROM is WFL with mild to moderate ERS rotation on right with positive PA testing over R L4-5 disc interspace. Rigid thoracic spine associated with postural dysfunction and exercise selection (rowing/biking). Moderate increased lumbar paraspinal tone with general LE HS tightness with 90/90 test - 10 degrees. Back Index score 30 indicative of mild improvement from 34 at initial evaluation. Goals: Short Term: To be met by 04/06/25 The patient to consistently demonstrate exercise activity modification to limit undo stress to the cervical and lumbar spine and limit pain levels from getting above mild 0-3/10 intensity to prevent exacerbations of cervical, lumbar, and right shoulder conditions to be met consistently thru 2024 (Goal in progress 12/25/24-DBO) The patient to be knowledgeable in postural correction program to limit stress and be selective in exercise type, intensity, and duration thru 2023 (Goal Met 06/11/24-DBO) The patient to demonstrate cervical, lumbar, and shoulder AROM WFL with 5/5 strenght throughout 2024 (Goal in progress 12/25/24-DBO) Customer Retention Representative: To be met by 01/05/24 The patient to be successful with long-term independent management including recommendation for participation in daily postural and general UE flexibility and RTC strengthening program to combat cumulative home, job, and exercise related stresses with improved independence with self managment and decreased PT intervention to 1 session every 1-3 months as needed by conclusion in 2024 (Goal in progress 12/25/24-DBO) Treatment: Manual: Grade II/III cervical and thoracic [...] (PRN) Assessment: The patient has participated in 13 outpatient PT in 2024 and 7 outpatient PT sessions in 2023 for cervical and lumbar paraspinal muscle spasms/radiculopathy per referral of PCP Carrol Bailey MD. Presents 18-days post last consult that was on 12/07/24. Reports lumbar spasm and burning pain she attributes to sleeping on cot while camping last week. Pain in left [place] in region of Piriformis. Tenderness to palpation and with Piriformis Stretch. Also mild to moderate cervical paraspinal muscle tightness is noted with newer onset of forehead distribution of headache. Re-evaluation as above. Overall, improving with regard to cervical/lumbar mobility, strength, and overall management of these conditions. Seeing 1-4 times/month with good results. Plan to continue per PT POC. Note forwarded to referring Carrol Bailey MD for review and co-signature (12/25/24-DBO) Plan: Recommend continuation of outpatient PT up to 1 visit/week for up to 3 additional months per above PT POC with focus on progressing toward independent medical management of this condition (12/25/24-DBO) I hereby deem this POC medically necessary. Please sign below and fax back to [phone] Physician Signature: Date: documented in this encounterNorthwest Medical [id number] History of Present illness Narrative* Flori Reyes, PT - 12/07/2024 3:45 PM EDT Images from the original note were not included. Physical Therapy Physical Therapy Treatment Visit Patient Name: Tawana Perez Today's Date: 12/07/2024 Encounter Diagnoses Name Primary? Cervical paraspinal muscle spasm Yes Lumbar paraspinal muscle spasm Cervical radiculopathy Right anterior shoulder pain Time In: 3:50 pm Time Out: 4:30 pm Supervised Time: 40 Min Total Time: 40 Min Visit Number: 12 (Participated in 7 PT sessions in 2023 [...] 2-weeks post last consult that was on 11/04/24. Reports problems with post surgical left breast related to lymph drainage and will see massage therapist to assist with drainage. Increased stress in combination with new workouts with increased neck/back pain/spasm. Objective: Re-Evaluation 11/04/24-DBO Cervical: Cervical spine AROM demonstrates 80 degrees rotation indicating mild improvement as compared to initial evaluation, 38 degrees side-bending, and 25% loss of cervical extension. Moderate increased parasinal tone at bilateral Upper Trapezius and cervical paraspinal groups. Neck Index scores 32 indicative of mild functional impairment. Lumbar: Lumbar spine AROM is WFL with mild to moderate ERS rotation on right with positive PA testing over R L4-5 disc interspace. Rigid thoracic spine associated with postural dysfunction and exercise selection (rowing/biking). Moderate increased lumbar paraspinal tone with general LE HS tightness with 90/90 test - 12 degrees. Back Index score 32 indicative of mild improvement from 34 at initial evaluation. Goals: Short Term: To be met by 01/04/25 The patient to consistently demonstrate exercise activity modification to limit undo stress to the cervical and lumbar spine and limit pain levels from getting above mild 0-3/10 intensity to prevent exacerbations of cervical, lumbar, and right shoulder conditions to be met consistently thru 2023 (Goal in progress 11/04/24-DBO) The patient to be knowledgeable in postural correction program to limit stress and be selective in exercise type, intensity, and duration thru 2023 (Goal Met 06/11/24-DBO) The patient to demonstrate cervical, lumbar, and shoulder AROM WFL with 5/5 strenght throughout 2024 (Goal in progress 11/04/24-DBO) Longterm: To be met by 01/05/24 The patient to be successful with long-term independent management including recommendation for participation in daily postural and general UE flexibility and RTC strengthening program to combat cumulative home, job, and exercise related stresses with improved independence with self managment and decreased PT intervention to 1 session every 1-3 months as needed by conclusion on 2023 (Goal in progress 11/04/24-DBO) Treatment: Manual: Grade II/III cervical and thoracic mobilization to reduce postural component on impingement; Lumbar PA/extension mobilization and STM (15 min) Therapeutic Exercise: Per exercise grid found [...] second holds 3 reps 3 sets each (10 Min) Modalities: Ultrasound to left L4-S1 1 MHz 1.5 W/cm2 (PRN); Electrical Stimulation/moist heat for pain and inflammation control to cervical and lumbar spine (PRN) Assessment: The patient has participated in 12 outpatient PT in 2024 and 7 outpatient PT sessions in 2023 for cervical and lumbar paraspinal muscle spasms/radiculopathy per referral of PCP Carrol Bailey MD. Presents 2-weeks post last consult that was on 11/04/24. Reports Presents 2+-weeks post last consult that was on 11/18/24. Reports problems with post surgical left breast related to lymph drainage and will see massage therapist to assist with drainage. Increased stress in combination with new workouts with increased neck/back pain/spasm. Patient treatment has been complicated by in recent months by breast cancer treatments which appear to be complete and successfully managing. Patient has been striving to resume normal daily exercise activity and return to normal daily routine and exercise program. Treatment successful in reducing cervical/lumbar pain and tightness to baseline 0-2/10 intensity. Continue to encourage patient to perform daily flexibility regimen and adjust cardiovascular exercises to limit extended cervical and lumbar stress. Additionally, continued to education on stress reduction techniques to assist with stress management and overall muscular tightness pattern. Plan: Recommend continuation of outpatient PT up to 1 visit/week for up to 3 additional months per above PT POC with focus on progressing toward independent medical management of this condition (11/04/24-DBO) I hereby deem this POC medically necessary. Please sign below and fax back to [phone] Physician Signature: Date: documented in this encounterNorthwest Medical [id number] History of Present illness Narrative* Flori Reyes PT - 11/18/2024 9:00 AM EDT Images from the original note were not included. Physical Therapy Physical Therapy Treatment Visit Patient Name: Tawana Perez Today's Date: 11/18/2024 Encounter Diagnoses Name Primary? Cervical paraspinal muscle spasm Yes Lumbar paraspinal muscle spasm Cervical radiculopathy Right anterior shoulder pain Time In: 9:00 am Time Out: 9:45 am Supervised Time: 45 Min Total Time: 45 Min Visit Number: 11 (Participated in 7 PT sessions in 2023 [...] 2-weeks post last consult that was on 11/04/24. Reports problems with post surgical left breast related to lymph drainage and will see massage therapist to assist with drainage. Increased stress in combination with new workouts with increased neck/back pain/spasm. Objective: Re-Evaluation 11/04/24-DBO Cervical: Cervical spine AROM demonstrates 80 degrees rotation indicating mild improvement as compared to initial evaluation, 38 degrees side-bending, and 25% loss of cervical extension. Moderate increased parasinal tone at bilateral Upper Trapezius and cervical paraspinal groups. Neck Index scores 32 indicative of mild functional impairment. Lumbar: Lumbar spine AROM is WFL with mild to moderate ERS rotation on right with positive PA testing over R L4-5 disc interspace. Rigid thoracic spine associated with postural dysfunction and exercise selection (rowing/biking). Moderate increased lumbar paraspinal tone with general LE HS tightness with 90/90 test - 12 degrees. Back Index score 32 indicative of mild improvement from 34 at initial evaluation. Goals: Short Term: To be met by 01/04/25 The patient to consistently demonstrate exercise activity modification to limit undo stress to the cervical and lumbar spine and limit pain levels from getting above mild 0-3/10 intensity to prevent exacerbations of cervical, lumbar, and right shoulder conditions to be met consistently thru 2023 (Goal in progress 11/04/24-DBO) The patient to be knowledgeable in postural correction program to limit stress and be selective in exercise type, intensity, and duration thru 2023 (Goal Met 06/11/24-DBO) The patient to demonstrate cervical, lumbar, and shoulder AROM WFL with 5/5 strenght throughout 2024 (Goal in progress 11/04/24-DBO) Customer Retention Representative: To be met by 01/05/24 The patient to be successful with long-term independent management including recommendation for participation in daily postural and general UE flexibility and RTC strengthening program to combat cumulative home, job, and exercise related stresses with improved independence with self managment and decreased PT intervention to 1 session every 1-3 months as needed by conclusion on 2023 (Goal in progress 11/04/24-DBO) Treatment: Manual: Grade II/III cervical and thoracic mobilization to reduce postural component on impingement; Lumbar PA/extension mobilization and STM (15 min) Therapeutic Exercise: Per exercise grid found [...] (PRN) Assessment: The patient has participated in 11 outpatient PT in 2024 and 7 outpatient PT sessions in 2023 for cervical and lumbar paraspinal muscle spasms/radiculopathy per referral of PCP Carrol Bailey MD. Presents 2-weeks post last consult that was on 11/04/24. Reports Presents 2-weeks post last consult that was on 11/04/24. Reports problems with post surgical left breast related to lymph drainage and will see massage therapist to assist with drainage. Increased stress in combination with new workouts with increased neck/back pain/spasm. Patient treatment has been complicated by in recent months by breast cancer treatments which appear to be complete and successfully managing. Patient has been striving to resume normal daily exercise activity and return to normal daily routine and exercise program. Treatment successful in reducing cervical/lumbar pain and tightness to baseline 0-2/10 intensity. Continue to encourage patient to perform daily flexibility regimen and adjust cardiovascular exercises to limit extended cervical and lumbar stress. Additionally, continued to education on stress reduction techniques to assist with stress management and overall muscular tightness pattern. Plan: Recommend continuation of outpatient PT up to 1 visit/week for up to 3 additional months per above PT POC with focus on progressing toward independent medical management of this condition (11/04/24-DBO) I hereby deem this POC medically necessary. Please sign below and fax back to [phone] Physician Signature: Date: documented in this encounterNorthwest Medical [id number] Evaluation note* Diagnosis Onset Date Resolution Status Admit Date Breast cancer acuteMay 2024 2:23pmBreast canceracuteJune 2024 9:54am [facility] Work Phone: [phone]) 925-302505-12-2025 [facility] [place] [address] Cancer Center Note Signed Patient: Tawana Perez MR#: [id number] : 1980 Acct:[id number] Age/Sex: 44 / F Type: DEP AMB Date of Service: 11/16/24 Copies to: Carrol Bailey MD~ Assessment & Plan A/P (1) Breast cancer: Plan: Celebrex 200 mg x 14 days Referral to [facility] for left breast lymphedema Stop solq-jit-wypxpie aloe vera and switch to coconut oil, shave water, vitamin E Assessment: 44-year-old female with stage Ia pT1cN0 invasive lobular/ductal carcinoma of theleft breast, ER/NH positive. Oncotype returned 12 She completed left whole breast radiation to a dose of 40.05 Milian in 15 fractions 08/21/2024. Prone positioning was utilized for cardiac sparing. Returns to clinic today and continues to recover from surgery and radiation withvery faint erythemaand mild edema of the breast. Recommend she stop the kuiw-lmp-qmqsfjp aloe vera gel as alcohol is typically a primary ingredient. Patient will switch to coconut oil. Also reviewed lymphatic massage and we willplace a referral for lymphedema of the breast which should help with the edema. Due to thediscomfort in the evening I do recommend short course of Celebrex 200mg x 14 days and patient is agreeable. We will see her back in 6 weeks with a nurse practitioner visit. She is tolerating her tamoxifen well and will continue to follow with medical oncology. Orders: Referrals [facility] Order C50.919 - Malignant neoplasm of unspecified site of unspecified female breast, N63.0 - Unspecified lump in unspecified breast, Z92.3 - Personal history of irradiation Medications: New celecoxib (Celebrex) Take one capsule daily with food. 200 mg PO DAILY 14 caps 0RF C50.919 - Malignant neoplasm of unspecified site of unspecified female breast CHEMO PLAN No Active Chemotherapy History of Present Illness HPI 44-year-old female with stage Ia pT1cN0 invasive lobular/ductal carcinoma of theleft breast, ER/NH positive. Patient is status post lumpectomy with final pathology showing a 1.3 cm grade 2 primary tumor showing both invasive and ductal features. There is no LVSI. There was associated DCIS 5 mm. Pathology did not comment on the margins. Oncotype returned 12 and patient is planned forendocrine therapy. Oncotype returned 12 She completed left whole breast radiation to a dose of 40.05 Milian in 15 fractions 08/21/2024. Prone positioning was utilized for cardiac sparing. At 1 month follow-up. Exam showed mild diffuse erythema to the left breast. This is improved from previous visit per patient. Returns to clinic today for skin check. Is on tamoxifen which she is toleratingwell. She is using topical commercial aloe vera on the breast. Still noticing mild erythema as well as swelling. States bras do not fit correctly due to residual swelling of the breast. Mild discomfort in the evenings. Occasional stinging shocklike pains underneath the arm. Intake Vitals/Pain Assessment 11/16/24 14:01 Height 5 ft 6 in Weight 73.936 kg BMI 26.3 Body Fat % 36.81 BP 130/74 Blood Pressure Location Lt brachial Position Sitting Temp 97.8 F Temp Source Temporal Pulse 63 Pulse Source NIBP Respiration 16 Pulse Oximetry (%) 100 Oxygen Delivery Method room air Are you having pain? Yes Pain Location left breast states normal pain Intake Visit Reasons: 2 month fu, follow up visit Accompanied by: Self Allergies cefdinir Allergy (Unknown, Verified 11/16/24 14:08) diarrhea Home Medications - Last Reconciled 11/16/24 by MAURY Matos hydrocodone-acetaminophen 5-325 mg 1 tab PO Q6H PRN 7 days loratadine 1 tab PO DAILY lorazepam 0.5 mg PO QHS PRN 30 days sertraline 50 mg PO QAM tamoxifen 20 mg PO DAILY tranexamic acid 650 mg PO DIRECTED vitamins A,C,Y-gjeb-mvrrxw 4,296 mcg-226 mg-90 mg (PreserVision AREDS) 1 cap PO DAILY Gastrointestinal Is the patient taking opioids for pain control?: No Falls Fall Precaution Measures Taken: Patient in chair Nurse's Note: Patient is here today for a 2 month follow up visit and re-check on left breast PMFSH Medical History Medical History Anxiety and depression Hx of abnormal mammogram left breast Breast cancer, left Invasive Ductal Carcinoma Wears hearing aid hearing impaired. right ear hearing better than left PTSD (post-traumatic stress disorder) Immunotherapy completed 5 year treatment at [facility] for environmental allergies (january 2024) Surgical History Surgical History History of lumpectomy of left breast Wide excision of the left breast after radioactive seed localization. Left axillary sentinel lymph node biopsy. History of breast biopsy US guided left breast biopsy S/P right knee arthroscopy Family History Family History Mother Cancer Aunt on Father's side had breast cancer but was not genetic Hypertension Heart disease Sister Cancer Legacy FamHx Problem: Diagnosed with Cancer Thyroid disease Social History Social History Smoking status: Never smoker Within the past year, how often did you have a drink containing alcohol: 2-3 times a week In the past 12 months, have you used illegal drugs or prescription drugs for non-medical reasons?: No Physical Exam EXAM KPS 90 General: Alert and oriented, no acute distress. Chest: Normal work of breathing on room air Breast: Left breast shows surgical incisions well-healed in the upper outer quadrant and axilla. Nopalpable mass or abnormality. Exam shows faint erythemaconsistent with the radiation field encompassing the left breast with residual edema. Contralateral breast within normal limits. Results - [facility] ([facility] LAB RESULTS No Data to Display Dictated By: Sandy Tom MD DD/ 1401 Signed By: 11/16/24 1451 [facility]04-30-2025 History of Present illness Narrative * Flori Reyes, PT - 11/04/2024 9:00 AM EDT Physical Therapy Physical Therapy Treatment Visit Patient Name: Tawana Perez Today's Date: 11/04/2024 Encounter Diagnoses Name Primary? Cervical paraspinal muscle spasm Yes Lumbar paraspinal muscle spasm Cervical radiculopathy Right anterior shoulder pain Time In: 9:00 am Time Out: 9:45 am Supervised Time: 45 Min Total Time: 45 Min Visit Number: 10 (Participated in 7 PT sessions in 2023 [...] and lymph node removal 05/21/24 Subjective: Presents 23-days post last consult that was on 10/12/24. Increased pain in last week associated with increased exercise at home with exacerbation of thoracolumbar and neck pain. Pain up to 6/10 intensity leading to this PT treatment. Objective: Re-Evaluation 11/04/24-DBO Cervical: Cervical spine AROM demonstrates 80 degrees rotation indicating mild improvement as compared to initial evaluation, 38 degrees side-bending, and 25% loss of cervical extension. Moderate increased parasinal tone at bilateral Upper Trapezius and cervical paraspinal groups. Neck Index scores 32 indicative of mild functional impairment. Lumbar: Lumbar spine AROM is WFL with mild to moderate ERS rotation on right with positive PA testing over R L4-5 disc interspace. Rigid thoracic spine associated with postural dysfunction and exercise selection (rowing/biking). Moderate increased lumbar paraspinal tone with general LE HS tightness with 90/90 test - 12 degrees. Back Index score 32 indicative of mild improvement from 34 at initial evaluation. Goals: Short Term: To be met by 01/04/25 The patient to consistently demonstrate exercise activity modification to limit undo stress to the cervical and lumbar spine and limit pain levels from getting above mild 0-3/10 intensity to prevent exacerbations of cervical, lumbar, and right shoulder conditions to be met consistently thru 2023 (Goal in progress 11/04/24-DBO) The patient to be knowledgeable in postural correction program to limit stress and be selective in exercise type, intensity, and duration thru 2023 (Goal Met 06/11/24-DBO) The patient to demonstrate cervical, lumbar, and shoulder AROM WFL with 5/5 strenght throughout 2024 (Goal in progress 11/04/24-DBO) Longterm: To be met by 01/05/24 The patient to be successful with long-term independent management including recommendation for participation in daily postural and general UE flexibility and RTC strengthening program to combat cumulative home, job, and exercise related stresses with improved independence with self managment and decreased PT intervention to 1 session every 1-3 months as needed by conclusion on 2023 (Goal in progress 11/04/24-DBO) Treatment: Manual: Grade II/III cervical and thoracic mobilization to reduce postural component on impingement; Lumbar PA/extension mobilization and STM (15 min) Therapeutic Exercise: Per exercise grid found [...] (PRN) Assessment: The patient has participated in 10 outpatient PT in 2024 and 7 outpatient PT sessions in 2023 for cervical and lumbar paraspinal muscle spasms/radiculopathy per referral of PCP Carrol Bailey MD. Presents 23-days post last consult that was on 10/12/24. Increased pain in last week associated with increased exercise at home with exacerbation of thoracolumbar and neck pain. Pain up to 6/10 intensity leading to this PT treatment. Patient treatment has been complicated by in recent months by breast cancer treatments which appearto be complete and successfully managing. Patient has been striving to resume normal daily exerciseactivity and return to normal daily routine and exercise program. Re-evaluation and updated PT POC as above. Plan to continue PT intervention up to 1 time/week for additional 2-3 months with expectation of decreasing frequency of visits to PRN in that time frame with focus on independent medical management of this condition. Note forwarded to referring Carrol Bailey MD for review and co-signature. Plan: Recommend continuation of outpatient PT up to 1 visit/week for up to 3 additional months per above PT POC with focus on progressing toward independent medical management of this condition (11/04/24-DBO) I hereby deem this POC medically necessary. Please sign below and fax back to [phone] Physician Signature: Date: documented in this encounterNorthwest Medical [id number] History of Present illness Narrative* Junior Mathis MD - 10/28/2024 9:45 AM EDT Images from the original note were not included. Junior Mathis MD Obstetrics and Gynecology Patient: Tawana Perez : 1980 (44 y.o.) Exam Date: 10/28/2024 Reason for Visit - Chief Complaint Patient presents with Follow-up Follow-up following in-house ultrasound History of Present Illness The patient presents for evaluation of ovarian cysts. She is unaccompanied. No current issues with vaginal discharge are reported. A history of ovarian cysts is noted, with previous occurrences being intermittent. The most recent ultrasound revealed a smaller cyst on the left ovary, measuring 14 x 10 x 17 mm, and a larger cyst on the right ovary, measuring 35 x 39 mm. Bothcysts appeared clear, with no immediate concern for malignancy. The patient is advised that these cysts are related to her menstrual cycle and typically resolve on their own. Follow-up with ultrasound and Pap smear is recommended annually. Visit Vitals LMP 09/27/2024 (Exact Date) OB Status Having periods Smoking Status Never History of Present Illness, Associated Treatments and Results - OB History Para Term AB Living 0 0 0 0 0 0 SAB IAB Ectopic Multiple Live Births 0 0 0 0 0 Obstetric Comments Constitutional: Negative. HENT: Negative. Eyes: Negative. Respiratory: Negative. Cardiovascular: Negative. Gastrointestinal: Negative. Endocrine: Negative. Genitourinary: Negative. Musculoskeletal: Negative. Skin: Negative. Allergic/Immunologic: Negative. Neurological: Negative. Hematological: Negative. Psychiatric/Behavioral: Negative. Allergies Allergen Reactions Cefdinir Diarrhea Other Reaction(s): diarrhea Current Outpatient Medications: estradiol (Estrace) 0.1 MG/GM vaginal cream, Insert twice weekly, Disp: 42.5 g, Rfl: 12 LORazepam (Ativan) 0.5 MG tablet, TAKE 1 TABLET BY MOUTH DAILY AT BEDTIME NEEDED FOR SLEEP FOR 30 DAYS, Disp: , Rfl: sertraline (Zoloft) 50 MG tablet, Take 50 mg by mouth Daily, Disp: , Rfl: tranexamic acid (Lysteda) 650 MG tablet tablet, PLEASE SEE ATTACHED FOR DETAILED DIRECTIONS, Disp: , Rfl: Past Medical History: Diagnosis Date Breast cancer (CMS/HCC) Depression (CMS/HCC) Past Surgical History: Procedure Laterality Date BREAST SURGERY Left 05/21/2024 wide excision w radioactive seed w axillary snlbx [facility] KNEE SCOPE,CLEAN/DRAIN Right DR. MOHAN Family History Problem Relation Name Age of Onset Hypertension Mother Hyperlipidemia Mother Heart disease Mother Social History Tobacco Use Smoking Status Never Smokeless Tobacco Never Physical Exam - General appearance, mentation, extraocular movements, facial strength and movement, hearing, upper and lower extremity strength and tone, sensation to gross testing, coordination, and gait are normalor at baseline unless noted below. Physical Exam Constitutional: Appearance: Normal appearance. HENT: Head: Normocephalic and atraumatic. Neurological: Mental Status: She is alert and oriented to person, place, and time. Psychiatric: Mood and Affect: Mood normal. Behavior: Behavior normal. US today::::The uterus is normal in size and contour. The myometrium is homogenous in echotexture. The endometrium is normal in contour and measures 3.5 mm in thickness. The right ovary contains a 35 mm x 26 mm x 39 mm simple cyst. The left ovary contains a 14 mm x 10 mm x 17 mm follicular cyst. There is no free fluid visible within the pelvis. Assessment/Plan ICD-10-CM 1. Anemia, unspecified type D64.9 2. Hormone imbalance E34.9 3. Cervicitis and endocervicitis N72 4. Screening for malignant neoplasm of cervix Z12.4 5. Acute vaginitis N76.0 Assessment & Plan Ovarian cysts - Ultrasound revealed a small ovarian cyst on the left ovary measuring 14 x 10 x 17 mm and another on the right ovary measuring 3.5 x 3.9 mm. - Cysts are likely related to the menstrual cycle and are not a cause for concern at this time. - Endometrial lining noted to be normal at 3.5 mm. - Past history of tamoxifen, necessitating careful monitoring of the endometrial lining. - Schedule follow-up ultrasound in 1 year to monitor the cysts and the endometrial lining. - Perform follow-up ultrasound concurrently with Pap smear to ensure efficient use of time. documented in this encounterNorthwest Medical [id number] History of Present illness Narrative* Junior Mathis MD - 10/16/2024 11:57 AM EDT BV,Trich,mycoplasma ,Ureaplasma Pt taking Cleocin and Zithromax documented in this encounterNorthwest Medical [id number] History of Present illness Narrative* Flori Reyes, PT - 10/12/2024 1:15 PM EDT Physical Therapy Physical Therapy Treatment Visit Patient Name: Tawana Perez Today's Date: 10/12/2024 Encounter Diagnoses Name Primary? Cervical paraspinal muscle spasm Yes Lumbar paraspinal muscle spasm Cervical radiculopathy Right anterior shoulder pain Time In: 1:15 pm Time Out: 2:00 pm Supervised Time: 45 Min Total Time: 45 Min Visit Number: 9 (Participated in 7 PT sessions in 2023 [...] and lymph node removal 05/21/24 Subjective: Presents 10-days post last consult that was on 10/02/24. Increased pain in last 2-3 days associated with increased exercise at home with exacerbation of thoracolumbar and neck pain. Pain up to 5/10 intensity leading to this PT treatment. Objective: Re-Evaluation 08/28/24-DBO Cervical: Cervical spine AROM demonstrates 75 degrees rotation Mild loss compared to last evaluation that demonstrated 78 degrees), 32 degrees side-bending, and 25% loss of cervical extension. Moderate increased parasinal tone at bilateral Upper Trapezius and cervical paraspinal groups. Neck Index scores 32 indicative of mild functional impairment. Lumbar: Lumbar spine AROM is WFL with mild to moderate ERS rotation on right with positive PA testing over R L4-5 disc interspace. Rigid thoracic spine associated with postural dysfunction and exercise selection (rowing/biking). Moderate increased lumbar paraspinal tone with general LE HS tightness with 90/90 test - 15 degrees. Back Index score 38 indicative of mild regression from 34 at last consultation. Goals: Short Term: To be met by 01/04/25 The patient to consistently demonstrate exercise activity modification to limit undo stress to the cervical and lumbar spine and limit pain levels from getting above mild 0-3/10 intensity to prevent exacerbations of cervical, lumbar, and right shoulder conditions to be met consistently thru 2023 (Goal in progress 08/28/24-DBO) The patient to be knowledgeable in postural correction program to limit stress and be selective in exercise type, intensity, and duration thru 2023 (Goal Met 06/11/24-DBO) The patient to demonstrate cervical, lumbar, and shoulder AROM WFL with 5/5 strenght throughout 2024 (Goal in progress 08/28/24-DBO) Customer Retention Representative: To be met by 01/05/24 The patient to be successful with long-term independent management including recommendation for participation in daily postural and general UE flexibility and RTC strengthening program to combat cumulative home, job, and exercise related stresses with improved independence with self managment and decreased PT intervention to 1 session every 1-3 months as needed by conclusion on 2023 (Goal in progress 08/28/24-DBO) Treatment: Manual: Grade II/III cervical and thoracic mobilization to reduce postural component on impingement; Lumbar PA/extension mobilization and STM (15 min) Therapeutic Exercise: Per exercise grid found [...] (PRN) Assessment: The patient has participated in 9 outpatient PT in 2024 and 7 outpatient PT sessions in 2023 for cervical and lumbar paraspinal muscle spasms/radiculopathy per referral of PCP Carrol Bailey MD. Presents 10-days post last consult that was on 10/02/24. Increased pain in last 2-3 days associated with increased exercise at home with exacerbation of thoracolumbar and neck pain. Pain up to 5/10 intensity leading to this PT treatment. Patient slowly returning to normal HEP after Breast Cancer radiation treatment to the left breast. Follow-up in 1-3 weeks PRN. Plan: Recommend continuation of outpatient every 1-8 weeks for up to 6 additional months for management of these conditions pending patient progress and medical necessity standards (08/28/24-DBO) I hereby deem this POC medically necessary. Please sign below and fax back to [phone] Physician Signature: Date: documented in this encounterNorthwest Medical [id number] History of Present illness Narrative* Junior Mathis MD - 10/12/2024 8:00 AM EDT Images from the original note were not included. Junior Mathis MD Obstetrics and Gynecology Patient: Tawana Perez : 1980 (44 y.o.) Exam Date: 10/12/2024 Reason for Visit - Chief Complaint Patient presents with Follow-up Patient was seen on 02/27/24, Patient states is still having foul smelling discharge that is yellow and thick from BV infection after finishing her 10 days of zithromax on 08/29/23 The patient reports experiencing severe pain across her lower abdomen last week. She has been on carbamazepine for almost a month and tamoxifen for 3-5 years. The patient mentions crazy bleeding and states that she was warned about cancer. She typically undergoes an annual ultrasound. The patient's issue started at the end of August. She completed a round of treatment on August 21, which lasted 10 days. Subsequently, she reports that the condition recurred. The patient also underwent 15 days of radiation therapy, which she initially decided against. After tissue samples were taken, including glabular and valve samples, the entire affected area was treated. The patient mentions a history of ruptured membranes, for which she went to the emergency room. Thegrowth rate was initially seven but increased to nine. The patient has a medical history of cancer (unspecified type, recent diagnosis), panic attacks, and a past yeast infection. She is currently taking tamoxifen. Regarding her social history, the patient is with no children and has 3 sisters. She had a close friend who but maintains connections with the friend's family. In the review of systems, the patient reports severe abdominal pain across the lower abdomen last week and is experiencing heavy gynecological bleeding. She mentions having had panic attacks in the past, referring to her friend's experience, and states that she does not like medication for panic attacks. Visit Vitals OB Status Having periods Smoking Status Never History of Present Illness, Associated Treatments and Results - OB History Para Term AB Living 0 0 0 0 0 0 SAB IAB Ectopic Multiple Live Births 0 0 0 0 0 Obstetric Comments Constitutional: Negative. HENT: Negative. Eyes: Negative. Respiratory: Negative. Cardiovascular: Negative. Gastrointestinal: Negative. Endocrine: Negative. Genitourinary: Negative. Musculoskeletal: Negative. Skin: Negative. Allergic/Immunologic: Negative. Neurological: Negative. Hematological: Negative. Psychiatric/Behavioral: Negative. Allergies Allergen Reactions Cefdinir Diarrhea Other Reaction(s): diarrhea Current Outpatient Medications: estradiol (Estrace) 0.1 MG/GM vaginal cream, Insert twice weekly, Disp: 42.5 g, Rfl: 12 LORazepam (Ativan) 0.5 MG tablet, TAKE 1 TABLET BY MOUTH DAILY AT BEDTIME NEEDED FOR SLEEP FOR 30 DAYS, Disp: , Rfl: sertraline (Zoloft) 50 MG tablet, Take 50 mg by mouth Daily, Disp: , Rfl: tranexamic acid (Lysteda) 650 MG tablet tablet, PLEASE SEE ATTACHED FOR DETAILED DIRECTIONS, Disp: , Rfl: Past Medical History: Diagnosis Date Depression (CMS/HCC) Past Surgical History: Procedure Laterality Date BREAST SURGERY Left 05/21/2024 wide excision w radioactive seed w axillary snlbx [place] KNEE SCOPE,CLEAN/DRAIN Right DR. MOHAN Family History Problem Relation Name Age of Onset Hypertension Mother Hyperlipidemia Mother Heart disease Mother Social History Tobacco Use Smoking Status Never Smokeless Tobacco Never Physical Exam - General appearance, mentation, extraocular movements, facial strength and movement, hearing, upper and lower extremity strength and tone, sensation to gross testing, coordination, and gait are normalor at baseline unless noted below. Physical Exam Constitutional: Appearance: Normal appearance. Genitourinary: Right Labia: No rash or lesions. Left Labia: No lesions or rash. No vaginal discharge or erythema. No vaginal prolapse present. No vaginal atrophy present. Right Adnexa: not tender and no mass present. Left Adnexa: not tender and no mass present. No cervical lesion. Uterus is anteverted. Breasts: Right: Normal. No mass or nipple discharge. Left: Normal. No mass or nipple discharge. HENT: Head: Normocephalic and atraumatic. Cardiovascular: Rate and Rhythm: Normal rate and regular rhythm. Pulmonary: Breath sounds: Normal breath sounds. Abdominal: General: There is no distension. Palpations: Abdomen is soft. There is no mass. Tenderness: There is no abdominal tenderness. Musculoskeletal: General: Normal range of motion. Cervical back: Neck supple. Lymphadenopathy: Cervical: No cervical adenopathy. Neurological: Mental Status: She is alert and oriented to person, place, and time. Skin: General: Skin is warm and dry. Psychiatric: Mood and Affect: Mood normal. Assessment/Plan ICD-10-CM 1. Anemia, unspecified type D64.9 2. Hormone imbalance E34.9 3. Cervicitis and endocervicitis N72 Tawana was seen today for follow-up. Diagnoses and all orders for this visit: Acute vaginitis (Primary) - clindamycin (Cleocin) 2 % vaginal cream; Insert 1 applicator into the vagina at bedtime for 7 days - terconazole (Terazol 7) 0.4 % vaginal cream; Insert 1 applicator into the vagina at bedtime for 7days - azithromycin (Zithromax) 500 MG tablet; Take 1 tablet (500 mg) by mouth Daily for 10 days Anemia, unspecified type Hormone imbalance Cervicitis and endocervicitis - NuSwab Vaginitis Plus (VG+) - GENITAL MYCOPLASMAS SATISH, SWAB Screening for malignant neoplasm of cervix Cultures performed. Prescription sent 1. Gynecological Issues: - Patient reports severe lower abdominal pain and crazy bleeding last week - History of tamoxifen - Previous breast radiation therapy and cancer diagnosis - Plan: a) Schedule ultrasound within 2 weeks b) Refer for ultrasound and office visit d) Continue monitoring tamoxifen therapy Assessment & Plan 1. Breast cancer. She has been on tamoxifen for almost a month and reports severe pain across her lower abdomen. An ultrasound will be ordered to monitor for any abnormalities. She is advised to continue taking tamoxifen for 5 years to reduce the risk of recurrence. If the ultrasound shows any abnormalities, furtherevaluation will be necessary. 2. Bacterial vaginosis. She completed a round of antibiotics for BV in August, but symptoms have recurred. A swab will betaken to confirm the diagnosis and guide further treatment. 3. Lower abdominal pain. She reports severe pain across her lower abdomen, which may be related to her tamoxifen use. An ultrasound will be ordered to investigate the cause of the pain. If the ultrasound shows any abnormalities, further evaluation will be necessary. PROCEDURE The patient underwent a lumpectomy performed by Dr. Ortiz, followed by 15 days of radiation therapy. documented in this encounterNorthwest Medical [id number] History of Present illness Narrative* Flori Reyes, PT - 10/02/2024 3:30 PM EDT Physical Therapy Physical Therapy Treatment Visit Patient Name: Tawana Perez Today's Date: 10/02/2024 Encounter Diagnoses Name Primary? Cervical paraspinal muscle spasm Yes Lumbar paraspinal muscle spasm Cervical radiculopathy Right anterior shoulder pain Time In: 3:30 pm Time Out: 4:15 pm Supervised Time: 45 Min Total Time: 45 Min Visit Number: 8 (Participated in 7 PT sessions in 2023 [...] and lymph node removal 05/21/24 Subjective: Presents 10-days post last consult that was on 09/22/24. Left lumbar pain and Sciatic to upper thigh in addition to moderate neck stiffness. Pain intermittently up to 5/10 intensity. Attributes to increased cardio exercises and continued stress associated with breast cancer. Objective: Re-Evaluation 08/28/24-DBO Cervical: Cervical spine AROM demonstrates 75 degrees rotation Mild loss compared to last evaluation that demonstrated 78 degrees), 32 degrees side-bending, and 25% loss of cervical extension. Moderate increased parasinal tone at bilateral Upper Trapezius and cervical paraspinal groups. Neck Index scores 32 indicative of mild functional impairment. Lumbar: Lumbar spine AROM is WFL with mild to moderate ERS rotation on right with positive PA testing over R L4-5 disc interspace. Rigid thoracic spine associated with postural dysfunction and exercise selection (rowing/biking). Moderate increased lumbar paraspinal tone with general LE HS tightness with 90/90 test - 15 degrees. Back Index score 38 indicative of mild regression from 34 at last consultation. Goals: Short Term: To be met by 01/04/25 The patient to consistently demonstrate exercise activity modification to limit undo stress to the cervical and lumbar spine and limit pain levels from getting above mild 0-3/10 intensity to prevent exacerbations of cervical, lumbar, and right shoulder conditions to be met consistently thru 2023 (Goal in progress 08/28/24-DBO) The patient to be knowledgeable in postural correction program to limit stress and be selective in exercise type, intensity, and duration thru 2023 (Goal Met 06/11/24-DBO) The patient to demonstrate cervical, lumbar, and shoulder AROM WFL with 5/5 strenght throughout 2024 (Goal in progress 08/28/24-DBO) Longterm: To be met by 01/05/24 The patient to be successful with long-term independent management including recommendation for participation in daily postural and general UE flexibility and RTC strengthening program to combat cumulative home, job, and exercise related stresses with improved independence with self managment and decreased PT intervention to 1 session every 1-3 months as needed by conclusion on 2023 (Goal in progress 08/28/24-DBO) Treatment: Manual: Grade II/III cervical and thoracic mobilization to reduce postural component on impingement; Lumbar PA/extension mobilization and STM (15 min) Therapeutic Exercise: Per exercise grid found [...] (PRN) Assessment: The patient has participated in 8 outpatient PT in 2024 and 7 outpatient PT sessions in 2023 for cervical and lumbar paraspinal muscle spasms/radiculopathy per referral of PCP Carrol Bailey MD. Presents 10-days post last consult that was on 09/22/24. Left lumbar pain and Sciatic to upper thigh in addition to moderate neck stiffness. Pain intermittently up to 5/10 intensity. Attributes to increased cardio exercises and continued stress associated with breast cancer. Patient slowly returning to normal HEP after Breast Cancer radiation treatment to the left breast. Follow-up in 1-3 weeks PRN. Plan: Recommend continuation of outpatient every 1-8 weeks for up to 6 additional months for management of these conditions pending patient progress and medical necessity standards (08/28/24-DBO) I hereby deem this POC medically necessary. Please sign below and fax back to [phone] Physician Signature: Date: documented in this encounterNorthwest Medical [id number] Telephone encounter Note* Telephone Encounter - Maria Del Carmen Gale MA - 09/29/2024 5:05 PM EDT Called and MBF If patient calls back 9am on Saturday09/30/24 if she can make it. [facility] [id number] Miscellaneous Notes* Telephone Encounter - Maria Del Carmen Gale MA - 09/29/2024 5:05 PM EDT Called and MBF If patient calls back 9am on Saturday09/30/24 if she can make it. * Telephone Encounter - Angela Levine MA - 09/28/2024 4:09 PM EDT Spoke to pt, finished Azithromycin (available refill from pharmacy.) States symptoms cleared, but returned within a couple days after menses. Seems to be worsening. Yellow/ thick discharge, fishy odor. Scheduled 10/12, but aware message will be sent to Radha to try for sooner appt. * Telephone Encounter - Nery Stockton - 09/28/2024 11:06 AM EDT Pt states she still has foul discharge that is yellow and thick from BV infection. Finished her 10 days of medication on 08/29/23 and states her symptoms came right back. Uses [facility] in [place] but states she needs to see PPJ first because insurance will not cover for her to have another refill. Please contact. documented in this encounterNOJohn J. Pershing VA Medical [id number] Telephone encounter Note* Telephone Encounter - Angela Levine MA - 09/28/2024 4:09 PM EDT Spoke to pt, finished Azithromycin (available refill from pharmacy.) States symptoms cleared, but returned within a couple days after menses. Seems to be worsening. Yellow/ thick discharge, fishy odor. Scheduled 10/12, but aware message will be sent to Radha to try for sooner appt. [facility] [id number] Telephone encounter Note* Telephone Encounter - Nery Stockton - 09/28/2024 11:06 AM EDT Pt states she still has foul discharge that is yellow and thick from BV infection. Finished her 10 days of medication on 08/29/23 and states her symptoms came right back. Uses [facility] in [place] but states she needs to see PPJ first because insurance will not cover for her to have another refill. Please contact. [facility] [id number] History of Present illness Narrative* Flori Reyes, PT - 09/08/2024 9:00 AM EST Physical Therapy Physical Therapy Treatment Visit Patient Name: Tawana Perez Today's Date: 09/08/2024 Encounter Diagnoses Name Primary? Cervical paraspinal muscle spasm Yes Lumbar paraspinal muscle spasm Cervical radiculopathy Right anterior shoulder pain Time In: 9:00 am Time Out: 9:45 pm Supervised Time: 45 Min Total Time: 45 Min Visit Number: 6 (Participated in 7 PT sessions in 2023 [...] and lymph node removal 05/21/24 Subjective: Presents 11-days post last consult that was on 08/28/24. Notes decreased exercise and general activity over the past several weeks associated with cancer treatments including 3-weeks of radiation to the left breast. Encouraged patient resume normal exercise regimen including stress management routine to decreased overall elevated tissue tone that appears to be exacerbating cervical and lumbar tone. Reports increased lumbar pain, spasm, and generalized lumbar/LE tightness as a result. Pain is 5/10 at arrival and 1/10 post session. Objective: Re-Evaluation 08/28/24-DBO Cervical: Cervical spine AROM demonstrates 75 degrees rotation Mild loss compared to last evaluation that demonstrated 78 degrees), 32 degrees side-bending, and 25% loss of cervical extension. Moderate increased parasinal tone at bilateral Upper Trapezius and cervical paraspinal groups. Neck Index scores 32 indicative of mild functional impairment. Lumbar: Lumbar spine AROM is WFL with mild to moderate ERS rotation on right with positive PA testing over R L4-5 disc interspace. Rigid thoracic spine associated with postural dysfunction and exercise selection (rowing/biking). Moderate increased lumbar paraspinal tone with general LE HS tightness with 90/90 test - 15 degrees. Back Index score 38 indicative of mild regression from 34 at last consultation. Goals: Short Term: To be met by 01/04/25 The patient to consistently demonstrate exercise activity modification to limit undo stress to the cervical and lumbar spine and limit pain levels from getting above mild 0-3/10 intensity to prevent exacerbations of cervical, lumbar, and right shoulder conditions to be met consistently thru 2023 (Goal in progress 08/28/24-DBO) The patient to be knowledgeable in postural correction program to limit stress and be selective in exercise type, intensity, and duration thru 2023 (Goal Met 06/11/24-DBO) The patient to demonstrate cervical, lumbar, and shoulder AROM WFL with 5/5 strenght throughout 2024 (Goal in progress 08/28/24-DBO) Customer Retention Representative: To be met by 01/05/24 The patient to be successful with long-term independent management including recommendation for participation in daily postural and general UE flexibility and RTC strengthening program to combat cumulative home, job, and exercise related stresses with improved independence with self managment and decreased PT intervention to 1 session every 1-3 months as needed by conclusion on 2023 (Goal in progress 08/28/24-DBO) Treatment: Manual: Grade II/III cervical and thoracic mobilization to reduce postural component on impingement; Lumbar PA/extension mobilization and STM (15 min) Therapeutic Exercise: Per exercise grid found [...] (PRN) Assessment: The patient has participated in 6 outpatient PT in 2024 and 7 outpatient PT sessions in 2023 for cervical and lumbar paraspinal muscle spasms/radiculopathy per referral of PCP Carrol Bailey MD. Presents 11-days post last consult that was on 08/28/24. Notes decreased exercise and general activity over the past several weeks associated with cancer treatments including 3-weeks of radiation to the left breast. Encouraged patient resume normal exercise regimen including stress management routine to decreased overall elevated tissue tone that appears to be exacerbating cervical and lumbar tone. Reports increased lumbar pain, spasm, and generalized lumbar/LE tightness as a result. Pain is 5/10 at arrival and 1/10 post session. Encouraged resumption of home exercise program as tolerated as radiation treatment for breast cancer of left breast has concluded. Trial of 2-week between appointments with goal of increased independence. Plan: Recommend continuation of outpatient every 1-8 weeks for up to 6 additional months for management of these conditions pending patient progress and medical necessity standards (08/28/24-DBO) I hereby deem this POC medically necessary. Please sign below and fax back to [phone] Physician Signature: Date: documented in this encounterNorthwest Medical [id number] Evaluation note* Diagnosis Onset Date Resolution Status Admit Date Anxiety and depression acuteFebruary 2024 10:42amBreast canceracuteMarch 17th, 2025 1:49pm [facility] Work Phone: [phone] 636-800902-21-2025 History of Present illness Narrative* Flori Reyes, PT - 08/28/2024 9:00 AM EST Physical Therapy Physical Therapy Treatment Visit Patient Name: Tawana Perez Today's Date: 08/28/2024 Encounter Diagnoses Name Primary? Cervical paraspinal muscle spasm Yes Lumbar paraspinal muscle spasm Cervical radiculopathy Right anterior shoulder pain Time In: 9:00 am Time Out: 9:45 pm Supervised Time: 45 Min Total Time: 45 Min Visit Number: 5 (Participated in 7 PT sessions in 2023 [...] and lymph node removal 05/21/24 Subjective: Presents 3-weeks post last consult on 08/07/24 with reports of completion of her left breast cancer radiation sessions which was successfully completed on 08/21/24. Notes decreased exercise and general activity over the past several weeks. Reports increased lumbar pain, spasm, and generalized lumbar/LE tightness as a result. Pain is 5/10 at arrival and 1/10 post session. Objective: Re-Evaluation 08/2124-DBO Cervical: Cervical spine AROM demonstrates 75 degrees rotation Mild loss compared to last evaluation that demonstrated 78 degrees), 32 degrees side-bending, and 25% loss of cervical extension. Moderate increased parasinal tone at bilateral Upper Trapezius and cervical paraspinal groups. Neck Index scores 32 indicative of mild functional impairment. Lumbar: Lumbar spine AROM is WFL with mild to moderate ERS rotation on right with positive PA testing over R L4-5 disc interspace. Rigid thoracic spine associated with postural dysfunction and exercise selection (rowing/biking). Moderate increased lumbar paraspinal tone with general LE HS tightness with 90/90 test - 15 degrees. Back Index score 38 indicative of mild regression from 34 at last consultation. Goals: Short Term: To be met by 01/04/25 The patient to consistently demonstrate exercise activity modification to limit undo stress to the cervical and lumbar spine and limit pain levels from getting above mild 0-3/10 intensity to prevent exacerbations of cervical, lumbar, and right shoulder conditions to be met consistently thru 2023 (Goal in progress 08/28/24-DBO) The patient to be knowledgeable in postural correction program to limit stress and be selective in exercise type, intensity, and duration thru 2023 (Goal Met 06/11/24-DBO) The patient to demonstrate cervical, lumbar, and shoulder AROM WFL with 5/5 strenght throughout 2024 (Goal in progress 08/28/24-DBO) Longterm: To be met by 01/05/24 The patient to be successful with long-term independent management including recommendation for participation in daily postural and general UE flexibility and RTC strengthening program to combat cumulative home, job, and exercise related stresses with improved independence with self managment and decreased PT intervention to 1 session every 1-3 months as needed by conclusion on 2023 (Goal in progress 08/28/24-DBO) Treatment: Manual: Grade II/III cervical and thoracic mobilization to reduce postural component on impingement; Lumbar PA/extension mobilization and STM (15 min) Therapeutic Exercise: Per exercise grid found [...] (PRN) Assessment: The patient has participated in 5 outpatient PT in 2024 and 7 outpatient PT sessions in 2023 for cervical and lumbar paraspinal muscle spasms/radiculopathy per referral of PCP Carrol Bailey MD. Presents 3-weeks post last consult on 08/07/24 with reports of completion of her left breast cancer radiation sessions which was successfully completed on 08/21/24. Notes decreased exercise and general activity over the past several weeks. Reports increased lumbar pain, spasm, and generalized lumbar/LE tightness as a result. Pain is 5/10 at arrival and 1/10 post session. Encouraged resumption of home exercise program as tolerated as radiation treatment for breast cancer of left breast. Patient's PT episode has been complicated by restriction in activity associated with breast cancer and associated treatment. Recommend continuation of PT in 2-3 weeks to recheck and progress. This session was successful in reducing spinal tone and improving spinal mobility. Note forwarded to referring Carrol Bailey MD for review and co- signature (08/28/24-DBO) Plan: Recommend continuation of outpatient every 1-8 weeks for up to 6 additional months for management of these conditions pending patient progress and medical necessity standards (08/28/24-DBO) I hereby deem this POC medically necessary. Please sign below and fax back to [phone] Physician Signature: Date: documented in this encounterNorthwest Medical [id number] History of Present illness Narrative* Flori Reyes PT - 08/07/2024 11:15 AM EST Physical Therapy Physical Therapy Treatment Visit Patient Name: Tawana Perez Today's Date: 08/07/2024 Encounter Diagnoses Name Primary? Cervical paraspinal muscle spasm Yes Lumbar paraspinal muscle spasm Cervical radiculopathy Right anterior shoulder pain Time In: 11:15 am Time Out: 12:00 pm Supervised Time: 45 Min Total Time: 45 Min Visit Number: 4 (Participated in 7 PT sessions in 2023 [...] and lymph node removal 05/21/24 Subjective: Presents 8-days post last consult (07/30/24) with reports of completion of 4 of 15 radiation sessions to left breast ending on 08/21/24. Thoracolumbar pain much improved following last session with generalized cervical and lumbar pain/tightness at worst 2-3/10 intensity. Compliant with H EP. Objective: Re-Evaluation 07/13/24-DBO Cervical: Cervical spine AROM demonstrates 78 degrees rotation, 30 degrees side-bending, and 25% loss of cervical extension. Moderate increased parasinal tone at bilateral Upper Trapezius and cervical paraspinal groups. Neck Index scores 32 indicative of mild functional impairment. Lumbar: Lumbar spine AROM is WFL with mild to moderate ERS rotation on right with positive PA testing over R L4-5 disc interspace. Rigid thoracic spine associated with postural dysfunction and exercise selection (rowing/biking). Moderate increased lumbar paraspinal tone with general LE HS tightness with 90/90 test - 15 degrees. Back Index score 34 indicative of mild to moderate functional impairment Goals: Short Term: To be met by 10/05/24 The patient to consistently demonstrate exercise activity modification to limit undo stress to the cervical and lumbar spine and limit pain levels from getting above mild 0-3/10 intensity to prevent exacerbations of cervical, lumbar, and right shoulder conditions to be met consistently thru 2023 (Goal in progress 07/13/24-DBO) The patient to be knowledgeable in postural correction program to limit stress and be selective in exercise type, intensity, and duration thru 2023 (Goal Met 06/11/24-DBO) The patient to demonstrate cervical, lumbar, and shoulder AROM WFL with 5/5 strenght throughout 2024 (Goal in progress 07/13/24-DBO) Longterm: To be met by 10/06/23 The patient to be successful with long-term independent management including recommendation for participation in daily postural and general UE flexibility and RTC strengthening program to combat cumulative home, job, and exercise related stresses with improved independence with self managment and decreased PT intervention to 1 session every 1-3 months as needed by conclusion on 2023 (Goal in progress 07/13/24-DBO) Treatment: Manual: Grade II/III cervical and thoracic mobilization to reduce postural component on impingement; Lumbar PA/extension mobilization and STM (15 min) Therapeutic Exercise: Per exercise grid found [...] (PRN) Assessment: The patient has participated in 4 outpatient PT in 2024 and 7 outpatient PT sessions in 2023 for cervical and lumbar paraspinal muscle spasms/radiculopathy per referral of PCP Carrol Bailey MD. Presents 11-days post last consult (07/13/24) with reports of 15 radiation sessions to left breast to begin on 08/03/24 and end on 08/21/24. Presents 8-days post last consult (07/30/24) with reports of completion of 4 of 15 radiation sessions to left breast ending on 08/21/24. Thoracolumbar pain much improved following last session with generalized cervical and lumbar pain/tightness at worst 2-3/10 intensity. Compliant with HEP. Pain abolished. Continue per PT POC 1-4 sessions per month PRN Plan: Recommend outpatient every 1-8 weeks for up to 6 additional months for management of these conditions pending patient progress and medical necessity standards (07/13/24-DBO) I hereby deem this POC medically necessary. Please sign below and fax back to [phone] Physician Signature: Date: documented in this encounterNorthwest Medical [id number] History of Present illness Narrative* Flori Reyes, PT - 07/30/2024 10:45 AM EST Physical Therapy Physical Therapy Treatment Visit Patient Name: Tawana Perez Today's Date: 07/30/2024 Encounter Diagnoses Name Primary? Cervical paraspinal muscle spasm Yes Lumbar paraspinal muscle spasm Cervical radiculopathy Right anterior shoulder pain Time In: 10:45 pm Time Out: 11:30 pm Supervised Time: 45 Min Total Time: 45 Min Visit Number: 3 (Participated in 7 PT sessions in 2023 [...] and lymph node removal 05/21/24 Subjective: Presents 11-days post last consult (07/13/24) with reports of 15 radiation sessions to left breast to begin on 08/03/24 and end on 08/21/24. Reports lifting 30# dog with increased thoracolumbar pain last 2-days. Objective: Re-Evaluation 07/13/24-O Cervical: Cervical spine AROM demonstrates 78 degrees rotation, 30 degrees side-bending, and 25% loss of cervical extension. Moderate increased parasinal tone at bilateral Upper Trapezius and cervical paraspinal groups. Neck Index scores 32 indicative of mild functional impairment. Lumbar: Lumbar spine AROM is WFL with mild to moderate ERS rotation on right with positive PA testing over R L4-5 disc interspace. Rigid thoracic spine associated with postural dysfunction and exercise selection (rowing/biking). Moderate increased lumbar paraspinal tone with general LE HS tightness with 90/90 test - 15 degrees. Back Index score 34 indicative of mild to moderate functional impairment Goals: Short Term: To be met by 10/05/24 The patient to consistently demonstrate exercise activity modification to limit undo stress to the cervical and lumbar spine and limit pain levels from getting above mild 0-3/10 intensity to prevent exacerbations of cervical, lumbar, and right shoulder conditions to be met consistently thru 2023 (Goal in progress 07/13/24-DBO) The patient to be knowledgeable in postural correction program to limit stress and be selective in exercise type, intensity, and duration thru 2023 (Goal Met 06/11/24-DBO) The patient to demonstrate cervical, lumbar, and shoulder AROM WFL with 5/5 strenght throughout 2024 (Goal in progress 07/13/24-DBO) Customer Retention Representative: To be met by 10/06/23 The patient to be successful with long-term independent management including recommendation for participation in daily postural and general UE flexibility and RTC strengthening program to combat cumulative home, job, and exercise related stresses with improved independence with self managment and decreased PT intervention to 1 session every 1-3 months as needed by conclusion on 2023 (Goal in progress 07/13/24-DBO) Treatment: Manual: Grade II/III cervical and thoracic mobilization to reduce postural component on impingement; Lumbar PA/extension mobilization and STM (15 min) Therapeutic Exercise: Per exercise grid found [...] (PRN) Assessment: The patient has participated in 3 outpatient PT in 2024 and 7 outpatient PT sessions in 2023 for cervical and lumbar paraspinal muscle spasms/radiculopathy per referral of PCP Carrol Bailey MD. Presents 11-days post last consult (07/13/24) with reports of 15 radiation sessions to left breast to begin on 08/03/24 and end on 08/21/24. Presents 11-days post last consult (07/13/24) with reports of 15radiation sessions to left breast to begin on 08/03/24 and end on 08/21/24. Reports lifting 30# dogwith increased thoracolumbar pain last 2-days. Pain reduced in thoracolumbar spine to 0-2/10 intensity by conclusion of session. Continue per PT POC. Continue per PT POC 1-4 sessions per month PRN Plan: Recommend outpatient every 1-8 weeks for up to 6 additional months for management of these conditions pending patient progress and medical necessity standards (07/13/24-DBO) I hereby deem this POC medically necessary. Please sign below and fax back to [phone] Physician Signature: Date: documented in this encounterNorthwest Medical [id number] History of Present illness Narrative* Flori Reyes, PT - 07/24/2024 12:45 PM EST Physical Therapy Physical Therapy Treatment Visit Patient Name: Tawana Perez Today's Date: 07/24/2024 Encounter Diagnoses Name Primary? Cervical paraspinal muscle spasm Yes Lumbar paraspinal muscle spasm Cervical radiculopathy Right anterior shoulder pain Time In: 12:45 pm Time Out: 1:30 pm Supervised Time: 45 Min Total Time: 45 Min Visit Number: 2 (Participated in 7 PT sessions in 2023 [...] and lymph node removal 05/21/24 Subjective: Presents 11-days post last consult (07/13/24) with reports of 15 radiation sessions to left breast to begin on 08/03/24 and end on 08/21/24. Has been able to resume normal exercise regimen with increased right thigh and lateral lower leg pain which appears to be radicular in nature withassociated pain with palpation and PA testing over L4-5 and L5-S1 segments. Decreased symptoms withextension with pain by completion of PT 1/10 intensity localized to the lumbar spine. Objective: Re-Evaluation 07/13/24-DBO Cervical: Cervical spine AROM demonstrates 78 degrees rotation, 30 degrees side-bending, and 25% loss of cervical extension. Moderate increased parasinal tone at bilateral Upper Trapezius and cervical paraspinal groups. Neck Index scores 32 indicative of mild functional impairment. Lumbar: Lumbar spine AROM is WFL with mild to moderate ERS rotation on right with positive PA testing over R L4-5 disc interspace. Rigid thoracic spine associated with postural dysfunction and exercise selection (rowing/biking). Moderate increased lumbar paraspinal tone with general LE HS tightness with 90/90 test - 15 degrees. Back Index score 34 indicative of mild to moderate functional impairment Goals: Short Term: To be met by 10/05/24 The patient to consistently demonstrate exercise activity modification to limit undo stress to the cervical and lumbar spine and limit pain levels from getting above mild 0-3/10 intensity to prevent exacerbations of cervical, lumbar, and right shoulder conditions to be met consistently thru 2023 (Goal in progress 07/13/24-DBO) The patient to be knowledgeable in postural correction program to limit stress and be selective in exercise type, intensity, and duration thru 2023 (Goal Met 06/11/24-DBO) The patient to demonstrate cervical, lumbar, and shoulder AROM WFL with 5/5 strenght throughout 2024 (Goal in progress 07/13/24-DBO) Customer Retention Representative: To be met by 10/06/23 The patient to be successful with long-term independent management including recommendation for participation in daily postural and general UE flexibility and RTC strengthening program to combat cumulative home, job, and exercise related stresses with improved independence with self managment and decreased PT intervention to 1 session every 1-3 months as needed by conclusion on 2023 (Goal in progress 07/13/24-DBO) Treatment: Manual: Grade II/III cervical and thoracic mobilization to reduce postural component on impingement; Lumbar PA/extension mobilization and STM (15 min) Therapeutic Exercise: Per exercise grid found [...] (PRN) Assessment: The patient has participated in 2 outpatient PT in 2024 and 7 outpatient PT sessions in 2023 for cervical/lumbar paraspinal muscle spasms/radiculopathy per referral of PCP Carrol Bailey MD. Presents 11-days post last consult (07/13/24) with reports of 15 radiation sessions to left breast to begin on 08/03/24 and end on 08/21/24. Has been able to resume normal exercise regimen with increased rightthigh and lateral lower leg pain which appears to be radicular in nature with associated pain with palpation and PA testing over L4-5 and L5-S1 segments. Decreased symptoms with extension with pain by completion of PT 07/17 intensity localized to the lumbar spine. Continue per PT POC 1-4 sessions per month PRN Plan: Recommend outpatient every 1-8 weeks for up to 6 additional months for management of these conditions pending patient progress and medical necessity standards (07/13/24-DBO) I hereby deem this POC medically necessary. Please sign below and fax back to [phone] Physician Signature: Date: documented in this encounterNorthwest Medical [id number] Evaluation note* Diagnosis Onset Date Resolution Status Admit Date Breast cancer acuteJanuary 2024 1:41pmAnxiety and depressionacuteFebruary 2024 10:42amBreast canceracuteMarch 2024 1:49pm [facility] Work Phone: 1([phone]) 226-271901-06-2025 History of Present illness Narrative* Flori Reyes, PT - 07/13/2024 1:15 PM EST Physical Therapy Physical Therapy Treatment Visit Patient Name: Tawana Perez Today's Date: 07/13/2024 Encounter Diagnoses Name Primary? Cervical paraspinal muscle spasm Yes Lumbar paraspinal muscle spasm Cervical radiculopathy Right anterior shoulder pain Time In: 1:15 pm Time Out: 2:00 pm Supervised Time: 45 Min Total Time: 45 Min Visit Number: 1 (Participated in 7 PT sessions in 2023 [...] and lymph node removal 05/21/24 Subjective: Presents 25-days post last consult (06/18/24) with reports of left breast surgery including removal of 4 lymph nodes due to recent diagnosis of breast cancer. Reports surgery went well and she is to follow up with oncology to discuss possible radiation or chemotherapy treatments post surgery. Has been off work and limited in activity for a couple of weeks with change in normal physical exercise regimen. Patient has successfully returned to work and presents to outpatient PT for resumption of care for chronic cervical, lumbar, and right shoulder pain. Patient remains limited with activity with 10# lifting restriction per surgeon. Presents with increased lower right lumbar pain at SI and generalizedcervical tightness up to 4-5/10 intensity. Objective: Re-Evaluation 07/13/24-DBO Cervical: Cervical spine AROM demonstrates 78 degrees rotation, 30 degrees side-bending, and 25% loss of cervical extension. Moderate increased parasinal tone at bilateral Upper Trapezius and cervical paraspinal groups. Neck Index scores 32 indicative of mild functional impairment. Lumbar: Lumbar spine AROM is WFL with mild to moderate ERS rotation on right with positive PA testing over R L4-5 disc interspace. Rigid thoracic spine associated with postural dysfunction and exercise selection (rowing/biking). Moderate increased lumbar paraspinal tone with general LE HS tightness with 90/90 test - 15 degrees. Back Index score 34 indicative of mild to moderate functional impairment Goals: Short Term: To be met by 10/05/24 The patient to consistently demonstrate exercise activity modification to limit undo stress to the cervical and lumbar spine and limit pain levels from getting above mild 0-3/10 intensity to prevent exacerbations of cervical, lumbar, and right shoulder conditions to be met consistently thru 2023 (Goal in progress 07/13/24-DBO) The patient to be knowledgeable in postural correction program to limit stress and be selective in exercise type, intensity, and duration thru 2023 (Goal Met 06/11/24-DBO) The patient to demonstrate cervical, lumbar, and shoulder AROM WFL with 5/5 strenght throughout 2024 (Goal in progress 07/13/24-DBO) Customer Retention Representative: To be met by 10/06/23 The patient to be successful with long-term independent management including recommendation for participation in daily postural and general UE flexibility and RTC strengthening program to combat cumulative home, job, and exercise related stresses with improved independence with self managment and decreased PT intervention to 1 session every 1-3 months as needed by conclusion on 2023 (Goal in progress 07/13/24-DBO) Treatment: Manual: Grade II/III cervical and thoracic mobilization to reduce postural component on impingement; Lumbar PA/extension mobilization and STM (15 min) Therapeutic Exercise: Per exercise grid found [...] (PRN) Assessment: The patient has participated in 1 outpatient PT in 2024 and 7 outpatient PT sessions in 2023 for cervical/lumbar paraspinal muscle spasms/radiculopathy per referral of PCP Carrol Bailey MD. Presents 25-days post last consult (06/18/24) with reports of left breast surgery including removal of 4 lymph nodes due to recent diagnosis of breast cancer. Reports surgery went well and she is to follow up with oncology to discuss possible radiation or chemotherapy treatments post surgery. Has been off work and limited in activity for a couple of weeks with change in normal physical exercise regimen. Patient has successfully returned to work and presents to outpatient PT for resumption of care for chronic cervical, lumbar, and right shoulder pain. Patient remains limited with activity with 10# lifting restriction per surgeon. Presents with increased lower right lumbar pain at SI and generalizedcervical tightness up to 4-5/10 intensity. Modification of treatment secondary to recent left breast surgery. Patient tolerated well with reduction in pain to 0-2/10 intensity by conclusion of PT session. Remains appropriate for PT intervention 1-4 times/month. Note forwarded to referring Carrol Bailey MD for review and co-signature (07/13/24-DBO) Plan: Recommend outpatient every 1-8 weeks for up to 6 additional months for management of these conditions pending patient progress and medical necessity standards (07/13/24-DBO) I hereby deem this POC medically necessary. Please sign below and fax back to [phone] Physician Signature: Date: documented in this [facility]12-30-2024 History of Present illness Narrative* Mallory Ahmadi MD - 07/06/2024 10:15 AM EST Images from the original note were not included. Patient is about 6 weeks status post wide excision of left breast and sentinel node biopsy for breast cancer. She did see Dr. Philippe. She underwent genetic testing as well as Oncotype testing and is to follow up with Dr. Philippe in 4 days. On examination, she is awake alert and in no acute distress. Left axillary and breast incisions are clean and dry without evidence of infection or hematoma/ seroma. 1. Malignant neoplasm of overlapping sites of left breast in female, estrogen receptor positive (CMS/HCC) Patient will follow with oncology and radiation oncology. She will be discharged from the office and also continue to follow with her primary care physician. documented in this [facility]12-16-2024 Evaluation note* Diagnosis Onset Date Resolution Status Admit Date Anxiety and depression acuteDecember 2023 2:54pmBreast canceracuteDecember 2023 2:54pm InsomniaacuteDecember 2023 2:54pmBreast canceracuteJanuary 2024 1:41pm [facility] Work Phone: 1(292) 725-403312-16-2024 Evaluation note* Diagnosis Onset Date Resolution Status Admit Date Anxiety and depression acuteDecember 2023 2:54pmBreast canceracuteDecember 2023 2:54pm InsomniaacuteDecember 2023 2:54pmBreast canceracuteJanuary 2024 1:41pmAnxiety and depressionacuteFebruary 2024 10:42am [facility] Work Phone: 1(205) 711-524212-12-2024 History of Present illness Narrative* Flori Reyes, PT - 06/18/2024 2:30 PM EST Physical Therapy Physical Therapy Treatment Visit Patient Name: Tawana Perez Today's Date: 06/18/2024 Encounter Diagnoses Name Primary? Cervical paraspinal muscle spasm Yes Lumbar paraspinal muscle spasm Cervical radiculopathy Right anterior shoulder pain Time In: 3:30 pm Time Out: 4:15 pm Supervised Time: 45 Min Total Time: 45 Min Visit Number: 7 (0% co-insurance No co-pay 40 visits No Auth Ref# Summer S 03-25-2024) History: Patient reports several month history of [...] and lymph node removal 05/21/24 Subjective: Presents 1-week post last consult (06/11/24) with reports of good progress since last session. Is tolerating work and light exercises. Arm is no longer significantly sore. Increased stress from recent diagnosis and surgery with increased cervical paraspinal tone up to 4-5/10 intensity. Objective: Re-Evaluation 06/11/24-DBO Cervical: Cervical spine AROM demonstrates 75 degrees rotation, 35 degrees side-bending, and 25% loss of cervical extension. Moderate increased parasinal tone at bilateral Upper Trapezius and cervical paraspinal groups. Neck Index scores 30 indicative of mild functional impairment. Lumbar: Lumbar spine AROM is WFL with mild to moderate ERS rotation on right with positive PA testing over R L4-5 disc interspace. Rigid thoracic spine associated with postural dysfunction and exercise selection (rowing/biking). Moderate increased lumbar paraspinal tone with general LE HS tightness with 90/90 test - 10 degrees. Back Index score 32 indicative of mild to moderate functional impairment Goals: Short Term: To be met by 08/07/23 The patient to consistently demonstrate exercise activity modification to limit undo stress to the cervical and lumbar spine and limit pain levels from getting above mild 0-3/10 intensity to prevent exacerbations of cervical, lumbar, and right shoulder conditions to be met consistently thru 2023 (Goal in progress 06/11/24-DBO) The patient to be knowledgeable in postural correction program to limit stress and be selective in exercise type, intensity, and duration thru 2023 (Goal Met 06/11/24-DBO) The patient to demonstrate cervical, lumbar, and shoulder AROM WFL with 5/5 strenght throughout 2023 (Goal in progress 06/11/24-DBO) Customer Retention Representative: To be met by 07/07/24 The patient to be successful with long-term independent management including recommendation for participation in daily postural and general UE flexibility and RTC strengthening program to combat cumulative home, job, and exercise related stresses with improved independence with self managment and decreased PT intervention to 1 session every 1-3 months as needed by conclusion on 2023 (Goal in progress 06/11/24-DBO) Treatment: Manual: Grade II/III cervical and thoracic mobilization to reduce postural component on impingement; Lumbar PA/extension mobilization and STM (15 min) Therapeutic Exercise: Per exercise grid found [...] (PRN) Assessment: The patient has participated in 7 outpatient PT sessions in 2023 for cervical/lumbar paraspinal muscle spasms/radiculopathy per referral of PCP Carrol Bailey MD. Presents 1-week post last consult (06/11/24) with reports of good progress since last session. Is tolerating work and light exercises. Arm is no longer significantly sore. Increased stress from recent diagnosis and surgery with increasedcervical paraspinal tone up to 4-5/10 intensity. Pain decreased to 0-1/10 with treatment. Modification of treatment secondary to recent left breast surgery. Patient tolerated well with reduction in pain to 0-2/10 intensity by conclusion of PT session. Remains appropriate for PT intervention 1-4 times/month. Plan: Recommend outpatient every 1-8 weeks for up to 6 additional months for management of these conditions pending patient progress and medical necessity standards (06/11/24-DBO) I hereby deem this POC medically necessary. Please sign below and fax back to [phone] Physician Signature: Date: documented in this encounterNorthwest Medical [id number] History of Present illness Narrative* Flori Reyes, PT - 06/11/2024 9:00 AM EST Physical Therapy Physical Therapy Treatment Visit Patient Name: Tawana Perez Today's Date: 06/11/2024 Encounter Diagnoses Name Primary? Cervical paraspinal muscle spasm Yes Lumbar paraspinal muscle spasm Cervical radiculopathy Right anterior shoulder pain Time In: 9:00 am Time Out: 9:45 am Supervised Time: 45 Min Total Time: 45 Min Visit Number: 6 (0% co-insurance No co-pay 40 visits No Auth Ref# Summer S 03-25-2024) History: Patient reports several month history of [...] and lymph node removal 05/21/24 Subjective: Presents 5 weeks post last consult (05/07/24) with reports of left breast surgery including removal of 4 lymph nodes due to recent diagnosis of breast cancer. Reports surgery went well and she is to follow up with oncology to discuss possible radiation or chemotherapy treatments post surgery. Has been off work and limited in activity for a couple of weeks with change in normal physical exercise regimen. Patient has successfully returned to work and presents to outpatient PT for resumption of care for chronic cervical, lumbar, and right shoulder pain. Patient remains limited with activity with 10# lifting restriction per surgeon. Presents with increased lower right lumbar pain at SI and generalizedcervical tightness up to 4-5/10 intensity. Objective: Re-Evaluation 06/11/24-DBO Cervical: Cervical spine AROM demonstrates 75 degrees rotation, 35 degrees side-bending, and 25% loss of cervical extension. Moderate increased parasinal tone at bilateral Upper Trapezius and cervical paraspinal groups. Neck Index scores 30 indicative of mild functional impairment. Lumbar: Lumbar spine AROM is WFL with mild to moderate ERS rotation on right with positive PA testing over R L4-5 disc interspace. Rigid thoracic spine associated with postural dysfunction and exercise selection (rowing/biking). Moderate increased lumbar paraspinal tone with general LE HS tightness with 90/90 test - 10 degrees. Back Index score 32 indicative of mild to moderate functional impairment Goals: Short Term: To be met by 08/07/23 The patient to consistently demonstrate exercise activity modification to limit undo stress to the cervical and lumbar spine and limit pain levels from getting above mild 0-3/10 intensity to prevent exacerbations of cervical, lumbar, and right shoulder conditions to be met consistently thru 2023 (Goal in progress 06/11/24-DBO) The patient to be knowledgeable in postural correction program to limit stress and be selective in exercise type, intensity, and duration thru 2023 (Goal Met 06/11/24-DBO) The patient to demonstrate cervical, lumbar, and shoulder AROM WFL with 5/5 strenght throughout 2023 (Goal in progress 06/11/24-DBO) Customer Retention Representative: To be met by 07/07/24 The patient to be successful with long-term independent management including recommendation for participation in daily postural and general UE flexibility and RTC strengthening program to combat cumulative home, job, and exercise related stresses with improved independence with self managment and decreased PT intervention to 1 session every 1-3 months as needed by conclusion on 2023 (Goal in progress 06/11/24-DBO) Treatment: Manual: Grade II/III cervical and thoracic mobilization to reduce postural component on impingement; Lumbar PA/extension mobilization and STM (15 min) Therapeutic Exercise: Per exercise grid found [...] (PRN) Assessment: The patient has participated in 6 outpatient PT sessions in 2023 for cervical/lumbar paraspinal muscle spasms/radiculopathy per referral of PCP Carrol Bailey MD. Presents 5 weeks post last consult (05/07/24) with reports of left breast surgery including removal of 4 lymph nodes due to recent diagnosis of breast cancer. Reports surgery went well and she is to follow up with oncology to discuss possible radiation or chemotherapy treatments post surgery. Has been off work and limited in activity for a couple of weeks with change in normal physical exercise regimen. Patient has successfully returned to work and presents to outpatient PT for resumption of care for chronic cervical, lumbar, and right shoulder pain. Patient remains limited with activity with 10# lifting restriction per surgeon. Presents with increased lower right lumbar pain at SI and generalizedcervical tightness up to 4-5/10 intensity. Modification of treatment secondary to recent left breast surgery. Patient tolerated well with reduction in pain to 0-2/10 intensity by conclusion of PT session. Remains appropriate for PT intervention 1-4 times/month. Note forwarded to referring Carrol Bailey MD for review and co-signature (06/11/24-DBO) Plan: Recommend outpatient every 1-8 weeks for up to 6 additional months for management of these conditions pending patient progress and medical necessity standards (06/11/24-DBO) I hereby deem this POC medically necessary. Please sign below and fax back to [phone] Physician Signature: Date: documented in this [facility]11-26-2024 Telephone encounter Note* Telephone Encounter - Meredith Taylor - 06/02/2024 3:20 PM EST [facility] to work [facility] [id number] Miscellaneous Notes* Telephone Encounter - Meredithclare Vazquez - 06/02/2024 3:20 PM EST Return to work documented in this [facility]11-14-2024 Nuclear medicine Diagnostic study [facility] [place] [address] Nuclear Medicine Report Signed Patient: Tawana Perez MR#: [id number] : 1980 Acct:[id number] Age/Sex: 43 / F ADM Date: 4 Loc: [place] Room: Type: [facility] Attending Dr: Mallory Ortiz MD Copies to: MD Shikha Lucio MD~ Ordering Provider: Mallory Ortiz MD Date of Service: 05/21/24 NM/NM sentinel node w imaging: breast cancer LEFT BREAST SENTINEL NODE INJECTION CLINICAL DATA: Recently diagnosed breast cancer at the axillary tail. COMPARISON: Localization mammogram May 20, 2024 Four equal intradermal injections of technetium 99 M labeled sulfur colloid weremade in the periareolar region of the left breast by the technologist. The total dosage of technetium is 0.462 mCi . Gamma camera imaging was subsequently performed in the anterior and lateral projection. There is migration of radionucleotide from the site of injection tothe left axilla. The sentinel node was marked on the skin to aid in localization in the operating room. NM/NM sentinel node w imaging IMPRESSION: TECHNICALLY SUCCESSFUL SENTINEL NODE INJECTION. Impression dictated by: Shikha Asif M.D.05/21/2024 2:50 PM Dictation Location: RADIO-PC-23 Transcribed By: LIVIER 05/21/24 1450 Dictated By: Shikha Asif MD 05/21/24 1428 Signed By: 05/21/24 1450 [facility] Work Phone: 1(952) 477-238911-13-2024 Radiology Diagnostic study [facility] [place] [address] [place] [address] Ultrasound Report Signed Patient: Tawana Perez MR#: [id number] : 1980 Acct:[id number] Age/Sex: 43 / F ADM Date: 4 Loc: [place] Room: Type: PRE [facility] Attending Dr: Mallory Ortiz MD Ordering Provider: Mallory Ortiz MD Date of Service: 05/20/24 US/US breast needle loc LT: LT BREAST MASS ([id number]) MM/MM diagnostic mammo LT w/CAD: post u/s radioactive seed loc Copies to: Mallory Ortiz MD~ LEFT BREAST ULTRASOUND-GUIDED RADIATION SEED LOCALIZATION CLINICAL DATA: Recently diagnosed invasive ductal carcinoma. Patient's previous imaging from April 2024 was reviewed. The procedure was discussed with patientconsent was obtained. Ultrasound survey at the upper outer breast again shows an ill-defined hypoechoic area at 1:00, 11 cm from the nipple. This contains a biopsy marking clip. Following sterile preparation and local anesthesia with lidocaine, a spinal needle loaded with a radiation seed (0.124 mCi iodine 125) was advanced into thearea under direct ultrasound visualization.The seed was deployed. There are no immediate complications. DIAGNOSTIC LEFT MAMMOGRAM - FULL TO DIGITAL Craniocaudal and true lateral views of the left breast were obtained using low- dose digital technique. Comparison is made to previous mammograms from 2022 through April 22, 2024. The breast parenchyma is heterogeneously dense. At the axillary tail there is anobscured nodular asymmetry that has some subtle associated calcifications. The radiation seed is along the inferior medial aspect of the lesion less than 5 mm from the biopsy marking clip. US/US breast needle loc LT IMPRESSION: STATUS POST ULTRASOUND-GUIDED LOCALIZATION OF THE RESIDUAL LESION AT THE AXILLARY TAIL OF THE LEFT BREAST Impression dictated by: Shikha Asif M.D.05/20/2024 11:10 AM Dictation Location: [facility] Tech: Hilary Roseanna; Marina Arboleda Transcribed By: LIVIER 05/20/24 1110 Dictated By: Shikha Asif MD 05/20/24 1050 Signed By: 05/20/24 1110 [facility] Work Phone: 1(154) 927-515310-31-2024 History of Present illness Narrative* Flori Reyes, PT - 05/07/2024 11:15 AM EDT Physical Therapy Physical Therapy Treatment Visit Patient Name: Tawana Perez Today's Date: 05/07/2024 Encounter Diagnoses Name Primary? Cervical paraspinal muscle spasm Yes Lumbar paraspinal muscle spasm Cervical radiculopathy Right anterior shoulder pain Time In: 11:15 am Time Out: 12:00 pm Supervised Time: 45 Min Total Time: 45 Min Visit Number: 5 (0% co-insurance No co-pay 40 visits No Auth Ref# Summer S 03-25-2024) History: Patient reports several month history of progressive cervical and lumbar pain/spasm that is now affecting sleep, work, ADL, and recreational pursuits. Similar impairments led to very productive PT that ended in February 2024 with very successful HEP management. Has resumed rowing/biking in the last several weeks which has exacerbated neck and back conditions leading to this PT consult. Precautions: As Tolerated Subjective: Reports increased neck and back spasm in the last couple of days that is attributable to breast biopsy last week with results indicating Stage 2 Breast Cancer. Lumpectomy schedule in 2 weeks with treatment strategy related to breast cancer pending result of lumpectomy. Obvious increasedstress and decreased sleep associated with above. Patient has met with PCP with medication adjustment to assist with anxiety and sleep that should assist with management of this musculoskeletal condition. Objective: Examination 03/25/24-DBO Cervical: Cervical spine AROM demonstrates 70 degrees rotation, 30 degrees side-bending, and 25% loss of cervical extension. Moderate increased parasinal tone at bilateral Upper Trapezius and cervical paraspinal groups. Neck Index scores 28 indicative of mild functional impairment. Lumbar: Lumbar spine AROM is WFL with mild to moderate ERS rotation on right with positive PA testing over R L4-5 disc interspace. Rigid thoracic spine associated with postural dysfunction and exercise selection (rowing/biking). Moderate increased lumbar paraspinal tone with general LE HS tightness with 90/90 test - 15 degrees. Back Index score 30 indicative of mild to moderate functional impairment Goals: Short Term: To be met by 07/07/24 The patient to consistently demonstrate exercise activity modification to limit undo stress to the cervical and lumbar spine and limit pain levels from getting above mild 0-3/10 intensity to prevent exacerbations of cervical, lumbar, and right shoulder conditions to be met consistently thru 2023 The patient to be knowledgeable in postural correction program to limit stress and be selective in exercise type, intensity, and duration thru 2023 The patient to demonstrate cervical, lumbar, and shoulder AROM WFL with 5/5 strenght throughout 2023 Customer Retention Representative: To be met by 07/07/24 The patient to be successful with long-term independent management including recommendation for participation in daily postural and general UE flexibility and RTC strengthening program to combat cumulative home, job, and exercise related stresses with improved independence with self managment and decreased PT intervention to 1 session every 1-3 months as needed by conclusion on 2023 Treatment: Manual: Grade II/III cervical and thoracic mobilization to reduce postural component on impingement; Lumbar PA/extension mobilization and STM (15 min) Therapeutic Exercise: Per exercise grid found [...] (PRN) Assessment: The patient has participated in 5 outpatient PT sessions in 2023 for cervical/lumbar paraspinal muscle spasms/radiculopathy per referral of PCP Carrol Bailey MD. Reports increased neck and back spasmin the last couple of days that is attributable to breast biopsy last week with results indicating S tage 2 Breast Cancer. Lumpectomy schedule in 2 weeks with treatment strategy related to breast cancer pending result of lumpectomy. Obvious increased stress and decreased sleep associated with above.Patient has met with PCP with medication adjustment to assist with anxiety and sleep that should assist with management of this musculoskeletal condition. Manually focused session was tolerated well with normalization of cervical and lumbar paraspinal tone and improvement of cervical, thoracic, and lumbar ROM to WFL. Encouraged patient to utilize stress management techniques to lessen side effects of muscular tightness that result in pain. Follow-up pending lumpectomy and is PRN Plan: Recommend outpatient every 1-8 weeks through 2023 for management of these conditions pending patient progress and medical necessity standards (-DBO) I hereby deem this POC medically necessary. Please sign below and fax back to [phone] Physician Signature: Date: documented in this encounterNorthwest Medical [id number] History of Present illness Narrative* Mallory Ahmadi MD - 05/01/2024 11:00 AM EDT Images from the original note were not included. Tawana Perez 1980 Tawana Perez is a 43 y.o. female presents with chief complaint of Biopsy results HPI: The patient did have ultrasound guided left breast biopsy performed. Pathology did show invasive ductal carcinoma ER, NH positive, HER2 negative. Patient has 3 sisters and states they not have breastcancer. Her father had a half-sister on his mother's side who had breast cancer. Patient has noticed a lump in the outer aspect of the left breast. SUBJECTIVE: MEDICATIONS: ALLERGIES Current Outpatient Medications Medication Instructions estradiol (Estrace) 0.1 MG/GM vaginal cream Insert twice weekly LORazepam (Ativan) 0.5 MG tablet TAKE 1 TABLET BY MOUTH DAILY AT BEDTIME NEEDED FOR SLEEP FOR 30DAYS sertraline (ZOLOFT) 50 mg, Oral, Daily tranexamic acid (Lysteda) 650 MG tablet tablet PLEASE SEE ATTACHED FOR DETAILED DIRECTIONS Allergies Allergen Reactions Cefdinir Diarrhea PAST MEDICAL HISTORY: SOCIAL HISTORY SURGICAL HISTORY: Past Medical History: Diagnosis Date Depression (CMS/HCC) Social History Tobacco Use Smoking status: Never Smokeless tobacco: Never Vaping Use Vaping status: Never Used Substance Use Topics Alcohol use: Yes Comment: 1-2 drinks less than monthly in the past year, Caffeine intake 1-2 cups per day(tea) Drug use: Never Past Surgical History: Procedure Laterality Date NH KNEE SCOPE,CLEAN/DRAIN Right DR. MOHAN REVIEW OF SYMPTOMS: Review of Systems Breasts: Positive for breast mass. Respiratory: Negative for shortness of breath. Cardiovascular: Negative for chest pain. OBJECTIVE: Visit Vitals LMP 03/26/2024 OB Status Having periods Smoking Status Never Physical Exam Constitutional: General: She is not in acute distress. Cardiovascular: Rate and Rhythm: Normal rate and regular rhythm. Pulmonary: Breath sounds: Normal breath sounds. Chest: Comments: Examination left breast reveals no nipple retraction or discharge. At about the 1 o'clockposition about 8 cm from the nipple there is proximally 1-2 cm firm mobile mass. No axillary massesare noted. Biopsy site is clean and dry. Skin: General: Skin is warm and dry. Neurological: General: No focal deficit present. Mental Status: She is alert. ASSESSMENT AND PLAN: Assessment/Plan Diagnoses and all orders for this visit: Malignant neoplasm of overlapping sites of left breast in female, estrogen receptor positive (CMS/HCC) Surgical options for the breast cancer were discussed with the patient. These include wide excision, sentinel lymph node biopsy and radiation to the breast versus mastectomy and sentinel lymph node biopsy. After discussion, she does opt for wide excision. Plan will be to perform wide excision of the left breast cancer with seed localization. Also, left axillary sentinel lymph node biopsy would beperformed. The procedure, benefits, risks include risks of bleeding, infection, hematoma / seroma, lymphedema/ arm swelling, numbness/burning of the skin of the upper arm, need for further surgery such as wider excision depending on pathology were discussed. At follow-up, when pathology is back, we can refer the patient to Oncology. documented in this encounterNorthwest Medical [id number] History of Present illness Narrative* Flori Reyes, PT - 04/28/2024 7:30 AM EDT Physical Therapy Physical Therapy Treatment Visit Patient Name: Twaana Perez Today's Date: 04/28/2024 Encounter Diagnoses Name Primary? Cervical paraspinal muscle spasm Yes Lumbar paraspinal muscle spasm Cervical radiculopathy Right anterior shoulder pain Time In: 7:30 am Time Out: 8:15 am Supervised Time: 45 Min Total Time: 45 Min Visit Number: 4 (0% co-insurance No co-pay 40 visits No Auth Ref# Summer S 03-25-2024) History: Patient reports several month history of progressive cervical and lumbar pain/spasm that is now affecting sleep, work, ADL, and recreational pursuits. Similar impairments led to very productive PT that ended in February 2024 with very successful HEP management. Has resumed rowing/biking in the last several weeks which has exacerbated neck and back conditions leading to this PT consult. Precautions: As Tolerated Subjective: Reports increased neck and back spasm in the last couple of days that is attributable to breast biopsy last week with result pending. Admits that she is stressed and worked out aggressively with stationary bike and row machine to point of exhaustion due to stress. Pain at arrival neck and back up to 4-5/10 intensity. Objective: Examination 03/25/24-DBO Cervical: Cervical spine AROM demonstrates 70 degrees rotation, 30 degrees side-bending, and 25% loss of cervical extension. Moderate increased parasinal tone at bilateral Upper Trapezius and cervical paraspinal groups. Neck Index scores 28 indicative of mild functional impairment. Lumbar: Lumbar spine AROM is WFL with mild to moderate ERS rotation on right with positive PA testing over R L4-5 disc interspace. Rigid thoracic spine associated with postural dysfunction and exercise selection (rowing/biking). Moderate increased lumbar paraspinal tone with general LE HS tightness with 90/90 test - 15 degrees. Back Index score 30 indicative of mild to moderate functional impairment Goals: Short Term: To be met by 07/07/24 The patient to consistently demonstrate exercise activity modification to limit undo stress to the cervical and lumbar spine and limit pain levels from getting above mild 0-3/10 intensity to prevent exacerbations of cervical, lumbar, and right shoulder conditions to be met consistently thru 2023 The patient to be knowledgeable in postural correction program to limit stress and be selective in exercise type, intensity, and duration thru 2023 The patient to demonstrate cervical, lumbar, and shoulder AROM WFL with 5/5 strenght throughout 2023 Longterm: To be met by 07/07/24 The patient to be successful with long-term independent management including recommendation for participation in daily postural and general UE flexibility and RTC strengthening program to combat cumulative home, job, and exercise related stresses with improved independence with self managment and decreased PT intervention to 1 session every 1-3 months as needed by conclusion on 2023 Treatment: Manual: Grade II/III cervical and thoracic mobilization to reduce postural component on impingement; Lumbar PA/extension mobilization and STM (15 min) Therapeutic Exercise: Per exercise grid found [...] (PRN) Assessment: The patient has participated in 4 outpatient PT sessions in 2023 for cervical/lumbar paraspinal muscle spasms/radiculopathy per referral of PCP Carrol Bailey MD. Reports increased neck and back spasmin the last couple of days that is attributable to breast biopsy last week with result pending. Admits that she is stressed and worked out aggressively with stationary bike and row machine to point of exhaustion due to stress. Pain at arrival neck and back up to 4-5/10 intensity. Manually focused session was tolerated well with normalization of cervical and lumbar paraspinal tone and improvement of cervical, thoracic, and lumbar ROM to WFL. Encouraged patient to utilize stress management techniques to lessen side effects of muscular tightness that result in pain. Follow-up in approximately 2-weeks as tolerated. Plan: Recommend outpatient every 1-8 weeks through 2023 for management of these conditions pending patient progress and medical necessity standards (-DBO) I hereby deem this POC medically necessary. Please sign below and fax back to [phone] Physician Signature: Date: documented in this encounterNorthwest Medical [id number] History of Present illness Narrative* Flori Reyes, PT - 04/16/2024 7:30 AM EDT Physical Therapy Physical Therapy Treatment Visit Patient Name: Tawana Perez Today's Date: 04/16/2024 Encounter Diagnoses Name Primary? Cervical paraspinal muscle spasm Yes Lumbar paraspinal muscle spasm Cervical radiculopathy Right anterior shoulder pain Time In: 7:30 am Time Out: 8:15 am Supervised Time: 45 Min Total Time: 45 Min Visit Number: 3 (0% co-insurance No co-pay 40 visits No Auth Ref# Summer S 03-25-2024) History: Patient reports several month history of progressive cervical and lumbar pain/spasm that is now affecting sleep, work, ADL, and recreational pursuits. Similar impairments led to very productive PT that ended in February 2024 with very successful HEP management. Has resumed rowing/biking in the last several weeks which has exacerbated neck and back conditions leading to this PT consult. Precautions: As Tolerated Subjective: Reports increased cervical and lumbar tightness with several stressful events in the last 2 weeks including the loss of a close friend and earlier this week findings of breast imaging that will require biopsy to be performed next week. Patient with decreased sleep and increased stress regarding recent events leading to elevated cervical and lumbar pain complaints up to 6/10 intensity with presentation today of moderate increased cervical and lumbar paraspinal tone. Objective: Examination 03/25/24-DBO Cervical: Cervical spine AROM demonstrates 70 degrees rotation, 30 degrees side-bending, and 25% loss of cervical extension. Moderate increased parasinal tone at bilateral Upper Trapezius and cervical paraspinal groups. Neck Index scores 28 indicative of mild functional impairment. Lumbar: Lumbar spine AROM is WFL with mild to moderate ERS rotation on right with positive PA testing over R L4-5 disc interspace. Rigid thoracic spine associated with postural dysfunction and exercise selection (rowing/biking). Moderate increased lumbar paraspinal tone with general LE HS tightness with 90/90 test - 15 degrees. Back Index score 30 indicative of mild to moderate functional impairment Goals: Short Term: To be met by 07/07/24 The patient to consistently demonstrate exercise activity modification to limit undo stress to the cervical and lumbar spine and limit pain levels from getting above mild 0-3/10 intensity to prevent exacerbations of cervical, lumbar, and right shoulder conditions to be met consistently thru 2023 The patient to be knowledgeable in postural correction program to limit stress and be selective in exercise type, intensity, and duration thru 2023 The patient to demonstrate cervical, lumbar, and shoulder AROM WFL with 5/5 strenght throughout 2023 Longterm: To be met by 07/07/24 The patient to be successful with long-term independent management including recommendation for participation in daily postural and general UE flexibility and RTC strengthening program to combat cumulative home, job, and exercise related stresses with improved independence with self managment and decreased PT intervention to 1 session every 1-3 months as needed by conclusion on 2023 Treatment: Manual: Grade II/III cervical and thoracic mobilization to reduce postural component on impingement; Lumbar PA/extension mobilization and STM (15 min) Therapeutic Exercise: Per exercise grid found [...] (PRN) Assessment: The patient has participated in 3 outpatient PT sessions in 2023 for cervical/lumbar paraspinal muscle spasms/radiculopathy per referral of PCP Carrol Bailey MD. Reports increased cervical and lumbartightness with several stressful events in the last 2 weeks including the loss of a close friend and earlier this week findings of breast imaging that will require biopsy to be performed next week. Patient with decreased sleep and increased stress regarding recent events leading to elevated cervical and lumbar pain complaints up to 6/10 intensity with presentation today of moderate increased cervical and lumbar paraspinal tone. Manually focused session was tolerated well with normalization of cervical and lumbar paraspinal tone and improvement of cervical, thoracic, and lumbar ROM to WFL. Encouraged patient to utilize stress management techniques to lessen side effects of muscular tightness that result in pain. Follow-up in approximately 2-weeks as tolerated. Plan: Recommend outpatient every 1-8 weeks through 2023 for management of these conditions pending patient progress and medical necessity standards (-DBO) I hereby deem this POC medically necessary. Please sign below and fax back to [phone] Physician Signature: Date: documented in this encounterNorthwest Medical [id number] History of Present illness Narrative* Mallory Ahmadi MD - 04/15/2024 9:30 AM EDT Images from the original note were not included. Tawana Perez 1980 Tawana Perez is a 43 y.o. female presents with chief complaint of Consult (Left suspicious breast, Birads 4) HPI: The patient is a 43-year-old female who presents with abnormal mammogram and ultrasound. Patient also has noticed a left breast mass. The mass is located in the upper outer quadrant of the left breast. Patient did have mammograms and left breast ultrasound performed. This did show a lesion in the upper outer quadrant of the left breast. Patient is not sure of her family history for breast cancer. She does have sisters who do not have breast cancer as far as she knows. Patient denies other medical problems. She is not on any hormonal therapy. SUBJECTIVE: MEDICATIONS: ALLERGIES Current Outpatient Medications Medication Instructions estradiol (Estrace) 0.1 MG/GM vaginal cream Insert twice weekly LORazepam (Ativan) 0.5 MG tablet TAKE 1 TABLET BY MOUTH DAILY AT BEDTIME NEEDED FOR SLEEP FOR 30DAYS sertraline (ZOLOFT) 50 mg, Oral, Daily tranexamic acid (Lysteda) 650 MG tablet tablet PLEASE SEE ATTACHED FOR DETAILED DIRECTIONS Allergies Allergen Reactions Cefdinir Diarrhea PAST MEDICAL HISTORY: SOCIAL HISTORY SURGICAL HISTORY: Past Medical History: Diagnosis Date Depression ([facility]) Social History Tobacco Use Smoking status: Never Smokeless tobacco: Never Vaping Use Vaping status: Never Used Substance Use Topics Alcohol use: Yes Comment: 1-2 drinks less than monthly in the past year, Caffeine intake 1-2 cups per day(tea) Drug use: Never Past Surgical History: Procedure Laterality Date NH KNEE SCOPE,CLEAN/DRAIN Right DR. MOHAN REVIEW OF SYMPTOMS: Review of Systems Constitutional: Negative for fever. Breasts: Positive for breast mass. Respiratory: Negative for shortness of breath. Cardiovascular: Negative for chest pain. Gastrointestinal: Negative for abdominal pain. Genitourinary: Negative for difficulty urinating. Musculoskeletal: Negative for myalgias. Neurological: Negative for syncope. OBJECTIVE: Visit Vitals BP 124/76 Ht 5' 6 Wt 157 lb LMP 03/26/2024 BMI 25.34 kg/m OB Status Having periods Smoking Status Never BSA 1.82 m Physical Exam Constitutional: General: She is not in acute distress. HENT: Head: Atraumatic. Eyes: General: No scleral icterus. Cardiovascular: Rate and Rhythm: Normal rate and regular rhythm. Pulmonary: Breath sounds: Normal breath sounds. Chest: Comments: Examination of the right breast has no nipple retraction or discharge. At the 12 o'clock position about 5 cm from nipple, there is an approximate 1 cm firm rounded mobile mass. No axillary masses are noted. Examination left breast reveals no nipple retraction or discharge. At about the 1 o'clock position about 8 cm from the nipple there is proximally 1-2 cm firm mobile mass. No axillary masses are noted. Abdominal: General: There is no distension. Palpations: Abdomen is soft. Tenderness: There is no abdominal tenderness. Musculoskeletal: Cervical back: Neck supple. Right lower leg: No edema. Left lower leg: No edema. Lymphadenopathy: Cervical: No cervical adenopathy. Skin: General: Skin is warm and dry. Neurological: General: No focal deficit present. Mental Status: She is alert. ASSESSMENT AND PLAN: Assessment/Plan Diagnoses and all orders for this visit: Mass of upper outer quadrant of left breast Mass overlapping multiple quadrants of right breast Plan will be to obtain an ultrasound-guided biopsy of the left breast mass. Also, an ultrasound of the right breast mass will be obtained and biopsy if needed. Patient will follow up following those studies. documented in this encounterNorthwest Medical [id number] History of Present illness Narrative* Junior Mathis MD - 04/03/2024 7:27 PM EDT Abnormal mammogram documented in this encounterNorthwest Medical [id number] Chief complaint+Reason for visit Narrative* Chief Complaint Admit Date neck/back pain, PT referral March 312023 10:15am Breast mass April 22, 2024 1 0:05am Medication follow up May 07, 2024 9:14am Left Breast Cancer May 11, 2024 9 :58am Left Breast Cancer May 21, 2024 8:34am Reason for Visit Admit Date Cervical radiculopathy March 31, 2 024 10:15am Thoracic spine pain March 31, 2024 10:15am Anxiety and depression May 07 9:14am Breast cancer May 07, 2024 9 :14am Insomnia May 07, 2024 9 :14am [facility] Work Phone: 1(336) 274-426709-24-2024 Evaluation note* Diagnosis Onset Date Resolution Status Admit Date Cervical radiculopathy acuteSeptember 2023 10:15amThoracic spine painacuteSeptember 2023 10:15amAnxiety and depressionacuteOctober 2023 9:14amBreast canceracute May 07, 2024 9:14amInsomniaacuteOctober 2023 9:14am [facility] Work Phone: 1(761) 877-959709-24-2024 History of Present illness Narrative* Flori Reyes, PT - 03/31/2024 11:15 AM EDT Physical Therapy Physical Therapy Treatment Visit Patient Name: Tawana Perez Today's Date: 03/31/2024 Encounter Diagnoses Name Primary? Cervical paraspinal muscle spasm Yes Lumbar paraspinal muscle spasm Cervical radiculopathy Right anterior shoulder pain Time In: 11:15 pm Time Out: 12:00 pm Supervised Time: 45 Min Total Time: 45 Min Visit Number: 2 History: Patient reports several month history of progressive cervical and lumbar pain/spasm that is now affecting sleep, work, ADL, and recreational pursuits. Similar impairments led to very productive PT that ended in February 2024 with very successful HEP management. Has resumed rowing/biking in the last several weeks which has exacerbated neck and back conditions leading to this PT consult. Precautions: As Tolerated Subjective: Reports unexpected loss of close friend over weekend. Presents noticeably upset reporting poor sleep and minimal performance of HEP has led to increased pain following initially promisingimprovement in pain. Today, neck and back pain up to 7/10 intensity. Objective: Examination 03/25/24-DBO Cervical: Cervical spine AROM demonstrates 70 degrees rotation, 30 degrees side-bending, and 25% loss of cervical extension. Moderate increased parasinal tone at bilateral Upper Trapezius and cervical paraspinal groups. Neck Index scores 28 indicative of mild functional impairment. Lumbar: Lumbar spine AROM is WFL with mild to moderate ERS rotation on right with positive PA testing over R L4-5 disc interspace. Rigid thoracic spine associated with postural dysfunction and exercise selection (rowing/biking). Moderate increased lumbar paraspinal tone with general LE HS tightness with 90/90 test - 15 degrees. Back Index score 30 indicative of mild to moderate functional impairment Goals: Short Term: To be met by 07/07/24 The patient to consistently demonstrate exercise activity modification to limit undo stress to the cervical and lumbar spine and limit pain levels from getting above mild 0-3/10 intensity to prevent exacerbations of cervical, lumbar, and right shoulder conditions to be met consistently thru 2023 The patient to be knowledgeable in postural correction program to limit stress and be selective in exercise type, intensity, and duration thru 2023 The patient to demonstrate cervical, lumbar, and shoulder AROM WFL with 5/5 strenght throughout 2023 Longterm: To be met by 07/07/24 The patient to be successful with long-term independent management including recommendation for participation in daily postural and general UE flexibility and RTC strengthening program to combat cumulative home, job, and exercise related stresses with improved independence with self managment and decreased PT intervention to 1 session every 1-3 months as needed by conclusion on 2023 Treatment: Manual: Grade II/III cervical and thoracic mobilization to reduce postural component on impingement; Lumbar PA/extension mobilization and STM (15 min) Therapeutic Exercise: Per exercise grid found [...] (PRN) Assessment: The patient has participated in 2 outpatient PT sessions in 2023 for cervical/lumbar paraspinal muscle spasms/radiculopathy per referral of PCP Carrol Bailey MD. Reports unexpected loss of close friend over weekend. Presents noticeably upset reporting poor sleep and minimal performance of HEP has led to increased pain following initially promising improvement in pain. Today, neck and back pain upto 7/10 intensity. Tolerated session well and notes decreased pain to 1-2/10 intensity by conclusion. Resume normal treatment as tolerated. Plan: Recommend outpatient every 1-8 weeks through 2023 for management of these conditions pending patient progress and medical necessity standards (-DBO) I hereby deem this POC medically necessary. Please sign below and fax back to [phone] Physician Signature: Date: documented in this encounterNorthwest Medical [id number] History of Present illness Narrative* Flori Reyes, PT - 03/25/2024 1:00 PM EDT Physical Therapy Physical Therapy Evaluation Visit Patient Name: Tawana Perez Today's Date: 03/25/2024 Encounter Diagnoses Name Primary? Cervical paraspinal muscle spasm Yes Lumbar paraspinal muscle spasm Time In: 1:00 pm Time Out: 1:50 pm Supervised Time: 50 Min Total Time: 50 Min History: Patient reports several month history of progressive cervical and lumbar pain/spasm that is now affecting sleep, work, ADL, and recreational pursuits. Similar impairments led to very productive PT that ended in February 2024 with very successful HEP management. Has resumed rowing/biking in the last several weeks which has exacerbated neck and back conditions leading to this PT consult. Precautions: As Tolerated Subjective: Reports moderate and occasionally severe neck and back spasms up to 5-8/10 intensity. Reports today that symptoms are at baseline 3/10 intensity at mid to lower cervical and lumbar spine. Objective: Examination 03/25/24-DBO Cervical: Cervical spine AROM demonstrates 70 degrees rotation, 30 degrees side-bending, and 25% loss of cervical extension. Moderate increased parasinal tone at bilateral Upper Trapezius and cervical paraspinal groups. Neck Index scores 28 indicative of mild functional impairment. Lumbar: Lumbar spine AROM is WFL with mild to moderate ERS rotation on right with positive PA testing over R L4-5 disc interspace. Rigid thoracic spine associated with postural dysfunction and exercise selection (rowing/biking). Moderate increased lumbar paraspinal tone with general LE HS tightness with 90/90 test - 15 degrees. Back Index score 30 indicative of mild to moderate functional impairment Goals: Short Term: To be met by 07/07/24 The patient to consistently demonstrate exercise activity modification to limit undo stress to the cervical and lumbar spine and limit pain levels from getting above mild 0-3/10 intensity to prevent exacerbations of cervical, lumbar, and right shoulder conditions to be met consistently thru 2023 The patient to be knowledgeable in postural correction program to limit stress and be selective in exercise type, intensity, and duration thru 2023 The patient to demonstrate cervical, lumbar, and shoulder AROM WFL with 5/5 strenght throughout 2023 Customer Retention Representative: To be met by 07/07/24 The patient to be successful with long-term independent management including recommendation for participation in daily postural and general UE flexibility and RTC strengthening program to combat cumulative home, job, and exercise related stresses with improved independence with self managment and decreased PT intervention to 1 session every 1-3 months as needed by conclusion on 2023 Treatment: PT Initial Evaluation-Low complexity including examination, evaluation, goal setting, and patient/therapist review of expectations (20 Min) Manual: Grade II/III cervical and thoracic mobilization to reduce postural component on impingement; Lumbar PA/extension mobilization and STM (15 min) Therapeutic Exercise: Per exercise grid found [...] second holds 3 reps 3 sets each (PRN) Modalities: Ultrasound to left L4-S1 1 MHz 1.5 W/cm2 (PRN); Electrical Stimulation/moist heat for pain and inflammation control to cervical and lumbar spine (PRN) Assessment: The patient has participated in 1 outpatient PT sessions in 2023 for cervical/lumbar paraspinal muscle spasms/radiculopathy per referral of PCP Carrol Bailey MD. Patient is agreeable with PT POC and is motivated to participate. Successful implementation of HEP and good initial response to PT. Plan: Recommend outpatient every 1-8 weeks through 2023 for management of these conditions pending patient progress and medical necessity standards (-DBO) I hereby deem this POC medically necessary. Please sign below and fax back to [phone] Physician Signature: Date: documented in this encounterNorthwest Medical [id number] History of Present illness Narrative* Junior Mathis MD - 03/12/2024 8:15 AM EDT Images from the original note were not included. Junior Mathis MD Obstetrics and Gynecology Patient: Tawana Perez : 1980 (43 y.o.) Exam Date: 03/12/2024 Reason for Visit - Chief Complaint Patient presents with Televisit Televisit to go over recent labs. Visit Vitals LMP 02/06/2024 (Exact Date) OB Status Having periods Smoking Status Never History of Present Illness, Associated Treatments and Results - OB History Para Term AB Living 0 0 0 0 0 0 SAB IAB Ectopic Multiple Live Births 0 0 0 0 0 Obstetric Comments Constitutional: Negative. HENT: Negative. Eyes: Negative. Respiratory: Negative. Cardiovascular: Negative. Gastrointestinal: Negative. Endocrine: Negative. Genitourinary: Negative. Musculoskeletal: Negative. Skin: Negative. Allergic/Immunologic: Negative. Neurological: Negative. Hematological: Negative. Psychiatric/Behavioral: Negative. No Known Allergies Current Outpatient Medications: Azelastine HCl 137 MCG/SPRAY solution, USE 2 SPRAYS IN EACH NOSTRIL TWICE A DAY, Disp: 30 mL, Rfl: 14 estradiol (Estrace) 0.1 MG/GM vaginal cream, Insert twice weekly, Disp: 42.5 g, Rfl: 12 LORazepam (Ativan) 0.5 MG tablet, TAKE 1 TABLET BY MOUTH DAILY AT BEDTIME NEEDED FOR SLEEP FOR 30 DAYS, Disp: , Rfl: sertraline (Zoloft) 50 MG tablet, Take 50 mg by mouth Daily, Disp: , Rfl: Past Medical History: Diagnosis Date Depression (CMS/HCC) Past Surgical History: Procedure Laterality Date NH KNEE SCOPE,CLEAN/DRAIN Right DR. MOHAN Family History Problem Relation Name Age of Onset Hypertension Mother Hyperlipidemia Mother Heart disease Mother Social History Tobacco Use Smoking Status Never Smokeless Tobacco Never Physical Exam - General appearance, mentation, extraocular movements, facial strength and movement, hearing, upper and lower extremity strength and tone, sensation to gross testing, coordination, and gait are normalor at baseline unless noted below. OBGyn Exam Assessment/Plan Verbal consent given for televisit over the phone. Provider in office and patient at home. ICD-10-CM 1. Anemia, unspecified type D64.9 2. Hormone imbalance E34.9 documented in this encounterNorthwest Medical [id number] History of Present illness Narrative* Junior Mathis MD - 02/27/2024 8:45 AM EDT Images from the original note were not included. Junior Mathis MD Obstetrics and Gynecology Patient: Tawana Perez : 1980 (43 y.o.) Yearly Wellness Exam Date: 02/27/2024 Reason for Visit - Chief Complaint Patient presents with Gynecologic Exam LMP: 02/06/24 Last Mammogram: 03/13/23 Last Pap: 11/01/22- neg Pt with complaints of vaginal dryness Complaints: hormonal issues, hips have been bothering pt. Visit Vitals BP 102/78 Wt 157 lb LMP 02/06/2024 (Exact Date) BMI 25.34 kg/m OB Status Having periods Smoking Status Never BSA 1.82 m History of Present Illness, Associated Treatments and Results - OB History Para Term AB Living 0 0 0 0 0 0 SAB IAB Ectopic Multiple Live Births 0 0 0 0 0 Obstetric Comments Review of Systems - Constitutional: Negative. HENT: Negative. Eyes: Negative. Respiratory: Negative. Cardiovascular: Negative. Gastrointestinal: Negative. Endocrine: Negative. Genitourinary: Negative. Musculoskeletal: Negative. Skin: Negative. Allergic/Immunologic: Negative. Neurological: Negative. Hematological: Negative. Psychiatric/Behavioral: Negative. No Known Allergies Current Outpatient Medications: Azelastine HCl 137 MCG/SPRAY solution, USE 2 SPRAYS IN EACH NOSTRIL TWICE A DAY, Disp: 30 mL, Rfl: 14 LORazepam (Ativan) 0.5 MG tablet, TAKE 1 TABLET BY MOUTH DAILY AT BEDTIME NEEDED FOR SLEEP FOR 30 DAYS, Disp: , Rfl: sertraline (Zoloft) 50 MG tablet, Take 50 mg by mouth Daily, Disp: , Rfl: Past Medical History: Diagnosis Date Depression (CMS/HCC) Past Surgical History: Procedure Laterality Date NH KNEE SCOPE,CLEAN/DRAIN Right DR. MOHNA Family History Problem Relation Name Age of Onset Hypertension Mother Hyperlipidemia Mother Heart disease Mother Social History Tobacco Use Smoking Status Never Smokeless Tobacco Never Physical Exam - General appearance, mentation, extraocular movements, facial strength and movement, hearing, upper and lower extremity strength and tone, sensation to gross testing, coordination, and gait are normalor at baseline unless noted below. Physical Exam Constitutional: Appearance: Normal appearance. Genitourinary: Right Labia: No rash or lesions. Left Labia: No lesions or rash. No vaginal discharge or erythema. No vaginal prolapse present. No vaginal atrophy present. Right Adnexa: not tender and no mass present. Left Adnexa: not tender and no mass present. No cervical lesion. Uterus is not tender. Uterus is anteverted. Breasts: Right: Normal. No mass or nipple discharge. Left: Normal. No mass or nipple discharge. HENT: Head: Normocephalic and atraumatic. Cardiovascular: Rate and Rhythm: Normal rate and regular rhythm. Pulmonary: Breath sounds: Normal breath sounds. Abdominal: General: There is no distension. Palpations: Abdomen is soft. There is no mass. Tenderness: There is no abdominal tenderness. Musculoskeletal: General: Normal range of motion. Cervical back: Neck supple. Lymphadenopathy: Cervical: No cervical adenopathy. Neurological: Mental Status: She is alert and oriented to person, place, and time. Skin: General: Skin is warm and dry. Psychiatric: Mood and Affect: Mood normal. cervicitis Assessment/Plan ICD-10-CM 1. Encounter for gynecological examination without abnormal finding Z01.419 PAP IG, RFX HPV ALL PTH([facility]) 2. Screening for malignant neoplasm of cervix Z12.4 PAP IG, RFX HPV ALL PTH ([facility]) 3. Encounter for screening mammogram for malignant neoplasm of breast Z12.31 Bilateral screening mammogram with tomosynthesis Tawana was seen today for gynecologic exam. Diagnoses and all orders for this visit: Encounter for gynecological examination without abnormal finding (Primary) - PAP IG, RFX HPV ALL PTH ([facility]) Screening for malignant neoplasm of cervix - PAP IG, RFX HPV ALL PTH ([facility]) Encounter for screening mammogram for malignant neoplasm of breast - Bilateral screening mammogram with tomosynthesis; Future Hormone imbalance - Follicle stimulating hormone; Future - Estradiol - estradiol (Estrace) 0.1 MG/GM vaginal cream; Insert twice weekly - Iron and TIBC - tranexamic acid (Lysteda) 650 MG tablet tablet; Take 1 tablet (650 mg) by mouth in the morning and 1 tablet (650 mg) in the evening and 1 tablet (650 mg) before bedtime. Do all this for 5 days. - Follicle stimulating hormone Anemia, unspecified type - Iron and TIBC - tranexamic acid (Lysteda) 650 MG tablet tablet; Take 1 tablet (650 mg) by mouth in the morning and 1 tablet (650 mg) in the evening and 1 tablet (650 mg) before bedtime. Do all this for 5 days. Cervicitis and endocervicitis - azithromycin (Zithromax) 500 MG tablet; Take 1 tablet (500 mg) by mouth Daily for 10 days Pap and exam performed. Mammogram ordered Results can be found in MyChart in 7 days Bleeding profile discussed CBC ordered Prescriptions sent to help bleeding Hormonal panel ordered Estrace ordered for vaginal dryness Zithromax ordered for cervicitis Return 1 year/prn discuss results documented in this encounterNorthwest Medical [id number] Evaluation note* Encounter Date Diagnosis Assessment Notes Treatment Notes Treatment Clinical Notes Jul, Acute sinusitis, unspecified (IC D-10 - J01.90) Sinus infections can be triggered by a secondary infection from a viral URI or even seasonal allergies. Take medications as directed. Use saline nasal spray prior to presciption nasal spray. Take medications as directed, and complete all doses of medication even if you start to feel better. Patientadvised to follow up with PCP if symptoms persist or worsen. Patient verbalized understanding and agreement with treatment plan. Jul,Other specified bacterial agents as the cause of diseases classified elsewhere (ICD-10 - B96.89) [employer] Other 07-25-2023 Evaluation note* Encounter Date Diagnosis Assessment Notes Treatment Notes Treatment Clinical Notes Jan, Well adult exam (ICD-10 - Z00.00 ) We have discussed the necessity of following up with PCP regularly as well as specialists, as needed. Discussed F/U with dentistry and optometry at least yearly. Discussed all preventative measures/ cancer screenings as applicable to this patient. Emphasized the importance of a reduced fat, low carb diet to promote heart health and controlled blood sugars. Reviewed social history and ensured patient is safe within the home today. Pt denies any abuse of alcohol, nicotine, caffeine or recreational drugs. I have ensured patient is of stable mental and physical health today. We have discussed appropriate F/U schedule as well as blood work and vaccinations that apply. All questions answered and p atient is sent home pleased, without concerns. Jan,nxiety and depression (ICD-10 - F41.8)Stable on present medication. Discussed support and counseling. [employer] Other 02-01-2023 Evaluation note* Encounter Date Diagnosis Assessment Notes Treatment Notes Treatment Clinical Notes Aug, DUB (dysfunctional uterine bleed ing) (ICD-10 - N93.8) As it is more for more than 4 years since her last Pap advised Tawana to get established with a new student officer. Discussed possibilities in the area. Gave samples for 2 months of lo Loestrin, whichis brand-name. Discussed future treatment possibly with gynecology including endometrial ablation if she is deemed a good candidate. [facility] [place] Social Other Chiwu complaint+Reason for visit Narrative* Chief Complaint neck/back pain, PT r eferral [facility] Work Phone: Chijv complaint+Reason for visit Narrative* Chief Complaint neck/back pain, PT r eferral Breast massReason for VisitCervical radiculopathy Thoracic spine pain [facility] Work Phone: Chiwr complaint+Reason for visit Narrative* Chief Complaint neck/back pain, PT r eferral Breast mass Medication follow up Left Breast CancerReason for VisitCervical radiculopathy Thoracic spine pain [facility] Work Phone: Evaluation noteNo InformationNortGeisinger Medical Center [place] Social Other Evaluation noteNo assessment information available [facility] Work Phone: Evaluation note* Diagnosis Anemia, unspecified type Hormone imbalance Cervical paraspinal muscle spasm- Primary Spasm of muscle Lumbar paraspinal muscle spasm Other symptoms referable to back Cervical radiculopathy Brachial neuritis or radiculitis nos Right anterior shoulder pain [facility] Diagnosis Mass of upper outer quadrant of left breast- Primary Mass overlapping multiple quadrants of right breast Cervical paraspinal muscle spasm- Primary Spasm of muscle Lumbar paraspinal muscle spasm Other symptoms referable to back Cervical radiculopathy Brachial neuritis or radiculitis nos Right anterior shoulder pain documented [facility]* Diagnosis Cervical paraspinal muscle spasm- Primary Spasm of muscle Lumbar paraspinal muscle spasm Other symptoms referable to back Cervical radiculopathy Brachial neuritis or radiculitis nos Right anterior shoulder pain [facility]* Diagnosis Onset Date Resolution Status Cervical radiculopathy acuteThoracic spine painacute [facility] Work Phone: Evaluation note* Diagnosis Malignant neoplasm of overlapping sites of left breast in female, estrogen receptor positive (CMS/HCC)- Primary [facility]* Diagnosis Malignant neoplasm of overlapping sites of left breast in female, estrogen receptor positive (CMS/HCC)- Primary [facility]* Diagnosis Cervical paraspinal muscle spasm- Primary Spasm of muscle Lumbar paraspinal muscle spasm Other symptoms referable to back Cervical radiculopathy Brachial neuritis or radiculitis nos Right anterior shoulder pain documented [facility]* Diagnosis Encounter for gynecological examination without abnormal finding- Primary Screening for malignant neoplasm of cervix Screening for malignant neoplasm of the cervix Encounter for screening mammogram for malignant neoplasm of breast Hormone imbalance Anemia, unspecified type Cervicitis and endocervicitis documented [facility]* Diagnosis Cervical paraspinal muscle spasm- Primary Spasm of muscle Lumbar paraspinal muscle spasm Other symptoms referable to back documented [facility]* Diagnosis Mammogram abnormal- Primary Abnormal mammogram, unspecified [facility]* Diagnosis Malignant neoplasm of overlapping sites of left breast in female, estrogen receptor positive (CMS/HCC)- Primary [facility]* Diagnosis Cervical paraspinal muscle spasm- Primary Spasm of muscle Lumbar paraspinal muscle spasm Other symptoms referable to back Cervical radiculopathy Brachial neuritis or radiculitis nos Right anterior shoulder pain [facility]* Diagnosis Acute vaginitis- Primary Unspecified vaginitis and vulvovaginitis Anemia, unspecified type Hormone imbalance Cervicitis and endocervicitis Screening for malignant neoplasm of cervix Screening for malignant neoplasm of the cervix [facility]* Diagnosis Cervical paraspinal muscle spasm- Primary Spasm of muscle Lumbar paraspinal muscle spasm Other symptoms referable to back Cervical radiculopathy Brachial neuritis or radiculitis nos Right anterior shoulder pain documented [facility]* Diagnosis Acute vaginitis- Primary Unspecified vaginitis and vulvovaginitis documented [facility]* Diagnosis Anemia, unspecified type Hormone imbalance Cervicitis and endocervicitis Screening for malignant neoplasm of cervix Screening for malignant neoplasm of the cervix Acute vaginitis Unspecified vaginitis and vulvovaginitis documented [facility]* Diagnosis Cervical paraspinal muscle spasm- Primary Spasm of muscle Lumbar paraspinal muscle spasm Other symptoms referable to back Cervical radiculopathy Brachial neuritis or radiculitis nos Right anterior shoulder pain documented [facility]* Diagnosis Non-seasonal allergic rhinitis due to pollen- Primary [facility]* Diagnosis Cervical paraspinal muscle spasm- Primary Spasm of muscle Lumbar paraspinal muscle spasm Other symptoms referable to back Cervical radiculopathy Brachial neuritis or radiculitis nos Right anterior shoulder pain documented [facility] this [facility]* Diagnosis Cervical paraspinal muscle spasm- Primary Spasm of muscle Lumbar paraspinal muscle spasm Other symptoms referable to back Cervical radiculopathy Brachial neuritis or radiculitis nos Right anterior shoulder pain documented [facility] this [facility]* Diagnosis Cervical paraspinal muscle spasm- Primary Spasm of muscle Lumbar paraspinal muscle spasm Other symptoms referable to back Cervical radiculopathy Brachial neuritis or radiculitis nos Right anterior shoulder pain documented in this encounter [facility] HealthcareHistory general Narrative - Reported* Type Description Date Medical History BMI 25.0-25.9,adult Medical HistoryMenorrhagia, premenopausalMedical HistoryWell woman exam with routine gynecological examMedical HistoryTonsillithMedical HistorySinusitis, acute maxillaryMedical HistoryAnxiety and depressionSurgical HistoryRIGHT KNEE ARTHROSOPIC [id number] HistorySEE SURGICAL [facility] [place] Social Other History of Present illness Narrative* Mallory Ahmadi MD - 06/02/2024 3:45 PM EST Images from the original note were not included. The patient is status post wide excision left breast and sentinel lymph node biopsy for breast cancer. Four sentinel lymph nodes were negative for metastatic disease. No tumor at the inked margins of the breast specimen although 1 of the margins, the posterior 1 is close. The patient has some soreness of the anterior right axilla especially with trying to raise the arm up over her head. On examination, she is awake alert and in no acute distress. Left breast and axillary incisions are clean and dry without evidence of infection or hematoma / seroma. 1. Malignant neoplasm of overlapping sites of left breast in female, estrogen receptor positive (CMS/HCC) Pathology is reviewed with the patient. Patient will be referred to Oncology and Radiation Oncology. She will follow up here in about 3-4 weeks. documented in this encounterNOJohn J. Pershing VA Medical CenterHospital Discharge instructions Additional Instructions No heavy lifting or strenuous activity with the left arm. No driving if taking narcotic pain medication.[facility] Work Phone: Hospital Discharge instructionsAmbulatory Orders* [facility] Order Location: None Selected [facility] Work Phone: Progress note Author Sandy Tom [facility] HospitalNote Date/TimeMay 2024 2:39pm[place] [address] Cancer Center Note Signed Patient: Tawana Perez MR#: [id number] : 1980 Acct:[id number] Age/Sex: 44 / F Type: DEP AMB Date of Service: 11/16/24 Copies to: Carrol Bailey MD~ Assessment & Plan A/P (1) Breast cancer: Plan: Celebrex 200 mg x 14 days Referral to [facility] for left breast lymphedema Stop asuc-asc-vukswsg aloe vera and switch to coconut oil, shave water, vitamin E Assessment: 44-year-old female with stage Ia pT1cN0 invasive lobular/ductal carcinoma of theleft breast, ER/NH positive. Oncotype returned 12 She completed left whole breast radiation to a dose of 40.05 Milian in 15 fractions 08/21/2024. Prone positioning was utilized for cardiac sparing. Returns to clinic today and continues to recover from surgery and radiation withvery faint erythemaand mild edema of the breast. Recommend she stop the cboy-cva-apmmlpj aloe vera gel as alcohol is typically a primary ingredient. Patient will switch to coconut oil. Also reviewed lymphatic massage and we willplace a referral for lymphedema of the breast which should help with the edema. Due to thediscomfort in the evening I do recommend short course of Celebrex 200mg x 14 days and patient is agreeable. We will see her back in 6 weeks with a nurse practitioner visit. She is tolerating her tamoxifen well and will continue to follow with medical oncology. Orders: Referrals [facility] Order C50.919 - Malignant neoplasm of unspecified site of unspecified female breast, N63.0 - Unspecified lump in unspecified breast, Z92.3 - Personal history of irradiation Medications: New celecoxib (Celebrex) Take one capsule daily with food. 200 mg PO DAILY 14 caps 0RF C50.919 - Malignant neoplasm of unspecified site of unspecified female breast CHEMO PLAN No Active Chemotherapy History of Present Illness HPI 44-year-old female with stage Ia pT1cN0 invasive lobular/ductal carcinoma of theleft breast, ER/NH positive. Patient is status post lumpectomy with final pathology showing a 1.3 cm grade 2 primary tumor showing both invasive and ductal features. There is no LVSI. There was associated DCIS 5 mm. Pathology did not comment on the margins. Oncotype returned 12 and patient is planned forendocrine therapy. Oncotype returned 12 She completed left whole breast radiation to a dose of 40.05 Milian in 15 fractions 08/21/2024. Prone positioning was utilized for cardiac sparing. At 1 month follow-up. Exam showed mild diffuse erythema to the left breast. This is improved from previous visit per patient. Returns to clinic today for skin check. Is on tamoxifen which she is toleratingwell. She is using topical commercial aloe vera on the breast. Still noticing mild erythema as well as swelling. States bras do not fit correctly due to residual swelling of the breast. Mild discomfort in the evenings. Occasional stinging shocklike pains underneath the arm. Intake Vitals/Pain Assessment 11/16/24 14:01 Height 5 ft 6 in Weight 73.936 kg BMI 26.3 Body Fat % 36.81 BP 130/74 Blood Pressure Location Lt brachial Position Sitting Temp 97.8 F Temp Source Temporal Pulse 63 Pulse Source NIBP Respiration 16 Pulse Oximetry (%) 100 Oxygen Delivery Method room air Are you having pain? Yes Pain Location left breast states normal pain Intake Visit Reasons: 2 month fu, follow up visit Accompanied by: Self Allergies cefdinir Allergy (Unknown, Verified 11/16/24 14:08) diarrhea Home Medications - Last Reconciled 11/16/24 by MAURY Matos hydrocodone-acetaminophen 5-325 mg 1 tab PO Q6H PRN 7 days loratadine 1 tab PO DAILY lorazepam 0.5 mg PO QHS PRN 30 days sertraline 50 mg PO QAM tamoxifen 20 mg PO DAILY tranexamic acid 650 mg PO DIRECTED vitamins A,C,S-upzf-dltuoc 4,296 mcg-226 mg-90 mg (PreserVision AREDS) 1 cap PO DAILY Gastrointestinal Is the patient taking opioids for pain control?: No Falls Fall Precaution Measures Taken: Patient in chair Nurse's Note: Patient is here today for a 2 month follow up visit and re-check on left breast PMFSH Medical History Medical History Anxiety and depression Hx of abnormal mammogram left breast Breast cancer, left Invasive Ductal Carcinoma Wears hearing aid hearing impaired. right ear hearing better than left PTSD (post-traumatic stress disorder) Immunotherapy completed 5 year treatment at [facility] for environmental allergies (january 2024) Surgical History Surgical History History of lumpectomy of left breast Wide excision of the left breast after radioactive seed localization. Left axillary sentinel lymph node biopsy. History of breast biopsy US guided left breast biopsy S/P right knee arthroscopy Family History Family History Mother Cancer Aunt on Father's side had breast cancer but was not genetic Hypertension Heart disease Sister Cancer [facility] Problem: Diagnosed with Cancer Thyroid disease Social History Social History Smoking status: Never smoker Within the past year, how often did you have a drink containing alcohol: 2-3 times a week In the past 12 months, have you used illegal drugs or prescription drugs for non-medical reasons?: No Physical Exam EXAM KPS 90 General: Alert and oriented, no acute distress. Chest: Normal work of breathing on room air Breast: Left breast shows surgical incisions well-healed in the upper outer quadrant and axilla. Nopalpable mass or abnormality. Exam shows faint erythemaconsistent with the radiation field encompassing the left breast with residual edema. Contralateral breast within normal limits. Results - [facility] (Med Onc[facility] LAB RESULTS No Data to Display Dictated By: Sandy Tom MD DD/ 1401 Signed By: <Electronically signed by Sandy Tom MD> 11/16/24 1451 [facility] Work Phone: Progress note Author Nhung Grimes [facility] HospitalNote Date/TimeJune 2024 10:29[facility] [place] [address] Cancer Center Note Signed Patient: Tawana Perez MR#: [id number] : 1980 Acct:[id number] Age/Sex: 44 / F Type: REG AMB Date of Service: 01/04/25 Copies to: MD Sandy Barr MD Timothy J Adamowicz, II, DO~ Assessment & Plan (1) Breast cancer: Plan: Follow-up as needed Assessment: 44-year-old female with stage Ia pT1cN0 invasive lobular/ductal carcinoma of theleft breast. Patient is status post lumpectomy with final pathology showing a 1.3 cm grade 2 primary tumor showing bothinvasive and ductal features. There is no LVSI. There was associated DCIS 5 mm. Oncotype returned 12 She completed left whole breast radiation to a dose of 40.05 Milian in 15 fractions 08/21/2024. Prone positioning was utilized for cardiac sparing. She initiated tamoxifen therapy at completion of radiation and is tolerating this well. Today she reports significant improvement in previous edema of the breast with the addition of lymphatic massage. She is no longer having discomfort since completing her previous 2 week course of Celebrex. We discussed options for follow-up and she would like to follow with us as needed, and is aware to call with any questions or concerns. She will continue to follow with medical oncology regularly, with her next visit in March 2025 with mammogram. Patient Instructions: follow-up as needed History of Present Illness HPI 44-year-old female who palpated a left upper outer breast mass and sought care from her primary care provider who ordered mammogram and left breast ultrasound. Oncologic history: March 2024 screening mammogram-shows closely apposed calcifications in the superior aspect of the left breast on the MLO view. Follow-up diagnostic mammogram study of the left breast as well as ultrasound recommended. April 13, 2024 diagnostic mammogram confirmed the calcifications in the superior aspect of the left breast and ultrasound 0.9 x 0.8 x 0.6 cm left breast lesion compatible with a small solid mass. Subsequently right breast ultrasound showed a cyst at 1 o'clock position 5 cm from the nipple 7 mm in size, also multiple other small cystic areas, one of them at the 12 o'clock position 5 cm from the nipple measuring 4 mm. No suspicious findings on ultrasound. April 22, 2024 left breast biopsy 1:00 confirmed invasive ductal carcinoma, grade 2, I ER/NH strongly positive HER2 negative by FISH May 21, 2024 taken to the OR for lumpectomy and sentinel lymph node biopsy,final pathology confirmed invasive carcinoma with mixed ductal lobular features,1.3 cm in greatest dimension, grade 2. Posterior margin within 1 mm from invasive carcinoma. Pathology showed DCIS 5 mm in size, atypia andatypical ductal hyperplasia. No LCIS. 4 sentinel lymph nodes were negative for metastatic disease. Margins were negative although the posterior margin was less than 1 mm. There is no comment on the DCIS margin. pT1c N0 No lymphovascular invasion. [facility] genetic testing was negative. Oncotype returned 19 August 2024 completed left whole breast radiation 40 Milian in 15 fractions in the prone position for cardiac sparing. At 1 month follow-up exam showed mild diffuse erythema to the left breast. Thisis improved from previous visit per patient. November 2024 returns for skin check. Is on tamoxifen which she is tolerating well. She is using topicalcommercial aloe vera on the breast. Still noticing mild erythema as well as swelling. States bras do not fit correctly due to residual swelling of the breast. Mild discomfort in the evenings. Occasional stinging shocklike pains underneath the arm. Today she reports significant improvement in her breast swelling with massage therapy. She denies any pain since completing the Celebrex course. She continuesto have slight erythema but otherwise no new concerns. Intake Intake Visit Reasons: Follow Up, Left Breast Cancer Allergies cefdinir Allergy (Unknown, Verified 11/16/24 14:08) diarrhea [facility] Medical History Medical History Anxiety and depression Hx of abnormal mammogram left breast Breast cancer, left Invasive Ductal Carcinoma Wears hearing aid hearing impaired. right ear hearing better than left PTSD (post-traumatic stress disorder) Immunotherapy completed 5 year treatment at [facility] for environmental allergies (january 2024) Surgical History Surgical History History of lumpectomy of left breast Wide excision of the left breast after radioactive seed localization. Left axillary sentinel lymph node biopsy. History of breast biopsy US guided left breast biopsy S/P right knee arthroscopy Family History Family History Mother Cancer Aunt on Father's side had breast cancer but was not genetic Hypertension Heart disease Sister Cancer [facility] Problem: Diagnosed with Cancer Thyroid disease Social History Social History Smoking status: Never smoker Within the past year, how often did you have a drink containing alcohol: 2-3 times a week In the past 12 months, have you used illegal drugs or prescription drugs for non-medical reasons?: No Physical Exam EXAM KPS 90 General: Alert and oriented, no acute distress. Chest: Normal work of breathing on room air Breast: Left breast shows surgical incisions well-healed in the upper outer quadrant and axilla. Nopalpable mass or abnormality. Exam shows faint erythemaconsistent with the radiation field encompassing the left breast. Nearly resolved edema noted. Contralateral breast within normal limits. Dictated By: Nhung Grimes APRN DD/ [id number] Signed By: <Electronically signed by SULTANA Grimes> 01/04/25 1029 [facility] Work Phone: Reason for referral (narrative)* Consultation (Routine) - Pending ReviewSpecialtyDiagnoses / ProceduresReferred By Contact Referred To ContactGeneral Surgery Diagnoses Mammogram abnormal Procedures [place] OFFICE/OUTPATIENT NEW HIGH [facility] 60 MINUTES Junior Mathis MD [address] [place] [address] [facility] Scheduling 120 [facility] Referral IDStatusReasonStart DateExpiration DateVisits RequestedVisits [id number] Review Specialty Services Required / [facility] HealthcareReason for referral (narrative)No reason for referral information availableFirelands [facility] Work Phone: Reason for visit Narrative* Rehabilitation - Outpatient (Routine) - AuthorizedSpecialtyDiagnoses / ProceduresReferred By ContactReferred To ContactPhysical Therapy Diagnoses cervical & lumbar paraspinal Procedures [place] PHYS THERAPY EVALUATION Carrol Bailey MD [address] [place] [address] Phone: tel: fax: Flori Reyes, PT [address] [place] [address] Phone: tel: fax: Referral IDStatusReasonStart DateExpiration DateVisits RequestedVisits [id number] Consult and Treat / [facility] HealthcareReason for visit Narrative* Rehabilitation - Outpatient (Routine) - AuthorizedSpecialtyDiagnoses / ProceduresReferred By ContactReferred To ContactPhysical Therapy Diagnoses cervical & lumbar paraspinal Procedures NH MANUAL THERAPY TQS 1/> REGIONS EACH 15 MINUTES Carrol Bailey MD [address] [place] [address] Phone: tel: fax: Flori Reyes, PT [address] [place] [address] Phone: tel: fax: Referral IDStatusReasonStart DateExpiration DateVisits RequestedVisits [id number] Consult and Treat /[id number] [facility] HealthcareReason for visit Narrative* Rehabilitation - Outpatient (Routine) - AuthorizedSpecialtyDiagnoses / ProceduresReferred By ContactReferred To ContactPhysical Therapy Diagnoses cervical & lumbar paraspinal Procedures NH MANUAL THERAPY TQS 1/> REGIONS EACH 15 MINUTES Carrol Bailey MD [address] [place] [id number] Phone: tel: fax: Flori Reyes, PT [address] [place] [address] Phone: tel: fax: Referral IDStatusReasonStart DateExpiration DateVisits RequestedVisits [id number] Consult and Treat [facility] HealthcareReason for visit Narrative* Rehabilitation - Outpatient (Routine) - AuthorizedSpecialtyDiagnoses / ProceduresReferred By ContactReferred To ContactPhysical Therapy Diagnoses Cervical & Lumbar Paraspinal Procedures NH MANUAL THERAPY TQS 1/> REGIONS EACH 15 MINUTES Carrol Bailey MD [facility] [place] [id number] Phone: tel: fax: Flori Reyes, PT [address] [place] [address] Phone: tel: fax: Referral IDStatusReasonStart DateExpiration DateVisits RequestedVisits [id number] [facility] N[facility]* [facility] - Outpatient (Routine) - AuthorizedSpecialtyDiagnoses / ProceduresReferred By ContactReferred To ContactPhysical Therapy Diagnoses Cervical & Lumbar Paraspinal Procedures NH MANUAL THERAPY TQS 1/> REGIONS EACH 15 MINUTES Carrol Bailey MD [address] [place] [address] Phone: tel: fax: Flori Reyes, PT [address] [place] [address] Phone: tel: fax: Referral IDStatusReasonStart DateExpiration DateVisits RequestedVisits [id number] Consult and Treat 040 [facility] HealthcareReason for visit Narrative* Rehabilitation - Outpatient (Routine) - AuthorizedSpecialtyDiagnoses / ProceduresReferred By ContactReferred To ContactPhysical Therapy Diagnoses Cervical & Lumbar Paraspinal Procedures NH MANUAL THERAPY TQS 1/ REGIONS EACH 15 MINUTES Carrol Bailey MD Phone: tel: fax: Flori Reyes, PT [address] [place] [address] Phone: tel: fax: Referral IDStatusReasonStpachuta DateExpiration DateVisits RequestedVisits [id number] Consult and Treat 040 [facility] Summary Purpose Family History No Family History Records Found Relationship Condition Age at Onset Recorded Date/T sandy mother Malignant neoplasm Unknown HypertensionUnknownDeceasedUnknownsisterFamily history of malignant neoplasm of thyroidUnknownMalignant neoplasmUnknown Relationship Condition Age at Onset Recorded Date/T sandy mother Unknown Malignant neoplasmUnknownHypertensionUnknownHeart diseaseUnknownsisterMalignant neoplasmUnknownDisorder of thyroidUnknown Advance Directives No Advanced Directives Records Found Advance Directive Response Recorded Date/ Time Advance Directives No March 10:11am Advance Directive Response Recorded Date/ Time Advance Directives No March 9:11am Chief Complaint and Reason for Visit Chief Complaint Admit Date NEW-Mal Obdulio of overlapping sites left br east June 16, 2024 8:53am talk about breast cancer diagnosis Decem 2023 2:54pm Follow Up 3 Weeks July 10, 2024 1: 31pm New Patient, Left Breast Cancer July 21, 2024 1:41pm Mal neoplasmof overlapping site left mayank ast July 23, 2024 1:38pm Mal neoplasmof overlapping site left mayank ast August 03, 2024 9:34am Mal neoplasmof overlapping site left mayank ast August 10, 2024 1:57pm Mal neoplasmof overlapping site left mayank ast August 17, 2024 2:10pm Mal neoplasmof overlapping site left mayank ast August 21, 2024 3:31pm talk about med change September 02 10:42am Reason for Visit Admit Date Anxiety and depression June 22 2:54pm Breast cancer June 22, 2024 2:54pm Insomnia June 22, 2024 2:54pm Breast cancer July 21, 2024 1 :41pm Chief Complaint Admit Date talk about breast cancer diagnosis Decem 2023 2:54pm Follow Up 3 Weeks July 10, 2024 1: 31pm New Patient, Left Breast Cancer July 21, 2024 1:41pm Mal neoplasmof overlapping site left mayank ast July 23, 2024 1:38pm Mal neoplasmof overlapping site left mayank ast August 03, 2024 9:34am Mal neoplasmof overlapping site left mayank ast August 10, 2024 1:57pm Mal neoplasmof overlapping site left mayank ast August 17, 2024 2:10pm talk about med change September 02 10:42am Follow Up 2 Month September 11, 2024 1:08 pm Reason for Visit Admit Date Anxiety and depression June 22 2:54pm Breast cancer June 22, 2024 2:54pm Insomnia June 22, 2024 2:54pm Breast cancer July 21, 2024 1 :41pm Anxiety and depression September 02 10:42am Chief Complaint Admit Date Follow Up 3 Weeks July 10, 2024 1: 31pm New Patient, Left Breast Cancer July 21, 2024 1:41pm Mal neoplasmof overlapping site left mayank ast July 23, 2024 1:38pm Mal neoplasmof overlapping site left mayank ast August 03, 2024 9:34am Mal neoplasmof overlapping site left mayank ast August 10, 2024 1:57pm Mal neoplasmof overlapping site left mayank ast August 17, 2024 2:10pm talk about med change September 02 10:42am Follow Up 2 Month September 11, 2024 1:08 pm 1 Month Follow Up, Left Breast September 1:49pm Mal neoplasmof overlapping site left mayank ast September 21, 2024 1:55pm Reason for Visit Admit Date Breast cancer July 21, 2024 1 :41pm Anxiety and depression September 02 10:42am Breast cancer September 21, 2024 1:4 9pm Chief Complaint Admit Date talk about med change September 02 10:42am Follow Up 2 Month September 11, 2024 1:08 pm 1 Month Follow Up, Left Breast September 1:49pm Mal neoplasmof overlapping site left mayank ast September 21, 2024 1:55pm 2 month fu November 16, 2024 2:23p m Reason for Visit Admit Date Anxiety and depression September 02 10:42am Breast cancer September 21, 2024 1:4 9pm Chief Complaint Admit Date 2 month fu November 16, 2024 2:23p m Upper lymphedma December 22, 2024 9:00 am Follow Up, Left Breast Cancer January 04, 2025 9:54am Reason for Visit Admit Date Breast cancer November 16, 2024 2:23p m Breast cancer January 04, 2025 9:54 am Chief Complaint Admit Date Upper lymphedma December 22, 2024 9:00 am Follow Up, Left Breast Cancer January 04, 2025 9:54am Follow Up 6 Months March 19, 2025 12:41pm Mal neoplasmof overlapping site left mayank ast March 19, 2025 12:42pm Reason for Visit Admit Date Breast cancer January 04, 2025 9:54 am Additional Source Comments REASON FOR VISIT (unrecogniz ed section and content) ReasonCommentsTelevisitReasonCommentsConsultLeft suspicious breast , Birads 4 SpecialtyDiagnoses / ProceduresReferred By ContactReferred To ContactPhysical Therapy Diagnoses cervical & lumbar paraspinal Procedures [place] PHYS THERAPY EVALUATION Carrol Bailey MD [address] [place] [address] Flori Reyes, PT [address] [place] [address] Referral IDStatusReasonStart DateExpiration DateVisits RequestedVisits [id number] Consult and Treat /[id number] [id number] pow wide excision Lt breastReasonCommentsGynecologic DsklDjjlvoAsphhjneGsxk-[id number] Wide exc. Lt breast, rsl w/Lt axillary snl bxReasonCommentsFollow-upPatient present for follow up due to vaginally discharge. LMP: 09/27/24ReasonComments Roecot-uwXalmqwSzcykytkMeyoqi-[id number] here for follow up on her allergies INFORMATION SOURCE (unrecogn ized section and content) DATE CREATED AUTHOR 11/10/2022 [facility] DATE CREATED AUTHOR AUTHOR'S ORGANIZ ATION 03/21/2025 [facility] DATE CREATED AUTHOR AUTHOR'S ORGANIZ ATION 04/28/2025 [facility] EPIC Care Teams (unrecognized sec tion and content) Team Status: Active Member Role Status Dates Carrol Bailey MD Primary Care Provider Active Team Status: Inactive Member Role Status Dates Carrol Bailey MD Primary Care Provide r, Attending Provider Active Start: March 31, 2024 End: March 31, 2024Team MemberRelationshipSpecialtyStart DateEnd Date Carrol Bailey MD [address] [place] [id number] [facility]/24Team MemberRelationshipSpecialtyStart DateEnd Date Carrol Bailey MD [address] [place] [id number] PCP - GeneralFami Medicine02/06/24Team MemberRelationshipSpecialtyStart DateEnd Date Carrol Bailey MD [address] [place] [phone] PCP - GeneralFami Medicine02/06/24Team MemberRelationshipSpecialtyStart DateEnd Date Carrol Bailey MD [address] [facility] [place] [address] [facility]02/06/24 Team Status: Inactive Member Role Status Dates Carrol Bailey MD Primary Care Provider Active Start: April 22, 2024 End: April 22lNilay Castillo ProviderActiveStart: April 22, 2024 End: April 22, 2024Team MemberRelationshipSpecialtyStart DateEnd Date Carrol Bailey MD [address] [facility] [place] [address] [facility]02/06/24Team MemberRelationshipSpecialtyStart DateEnd Date Carrol Bailey MD [address] [facility] [place] [address] [facility]02/06/24 Team Status: Inactive Member Role Status Dates Carrol Bailey MD Primary Care Provide r, Attending Provider Active Start: May 07, 2024 End: May 07, 2024 Team Status: Inactive Member Role Status Dates Carrol Bailey MD Primary Care Provider Active Start: May 11, 2024 End: May 11lNilay Castillo ProviderActiveStart: May 11, 2024 End: May 11, 2024 Team Status: Inactive Member Role Status Dates Carrol Bailey MD Primary Care Provider Active Start: May 21, 2024 End: May 21lNilay Castillo ProviderActiveStart: May 21, 2024 End: May 21, 2024Team MemberRelationshipSpecialtyStart DateEnd Date Carrol Bailey MD [address] [facility] [place] [address] [facility]02/06/24Team MemberRelationshipSpecialtyStart DateEnd Date Carrol Bailey MD [address] [facility] [place] [address] PCP - GeneralFamily Medicine02/06/24Team MemberRelationshipSpecialtyStart DateEnd Date Carrol Bailey MD [address] [facility] [place] [address] PCP - GeneralFamily Medicine02/06/24Team MemberRelationshipSpecialtyStart DateEnd Date Carrol Bailey MD [address] [facility] [place] [address] PCP - GeneralFamily Medicine02/06/24Team MemberRelationshipSpecialtyStart DateEnd Date Carrol Bailey MD [address] [facility] [place] [address] PCP - GeneralFamily Medicine02/06/24Team MemberRelationshipSpecialtyStart DateEnd Date Carrol Bailey MD [address] [facility] [place] [address] PCP - GeneralFamily Medicine02/06/24Team MemberRelationshipSpecialtyStart DateEnd Date Carrol Bailey MD [address] [facility] [place] [address] PCP - GeneralFamily Medicine02/06/24Team MemberRelationshipSpecialtyStart DateEnd Date Carrol Bailey MD [address] [facility] [place] [address] [facility]02/06/24 Team Status: Inactive Member Role Status Dates Carrol Bailey MD Primary Care Provider Active Start: June 16, 2024 End: June 16, 2024Zion Philippe II, DOAttending ProviderActiveStart: June 16, 2024 End: June 16burke Mckeons , MDReferring ProviderActiveStart: June 16, 2024 End: June 16, 2024 Team Status: Inactive Member Role Status Dates Carrol Bailey MD Primary Care Provide r, Attending Provider Active Start: June 22, 2024 End: June 22, 2024 Team Status: Inactive Member Role Status Dates Carrol Bailey MD Primary Care Provider Active Start: July 10, 2024 End: July 10, 2024Zion Philippe II, DOAttending ProviderActiveStart: July 10, 2024 End: July 10, 2024 Team Status: Inactive Member Role Status Dates Carrol Bailey MD Primary Care Provider Active Start: July 21, 2024 End: July 21, 2024Noolga Tom , MDAttending ProviderActiveStart: July 21, 2024 End: July 21, 2024Zion Philippe II, DOReferring ProviderActiveStart: July 21, 2024 End: July 21, 2024 Team Status: Active Member Role Status Dates Carrol Bailey MD Primary Care Provider Active Start: July 23, 2024 Zion Philippe II, DOOther ProviderActiveStart: July 23, 2024 Mallory Ortiz , MDReferring ProviderActiveStart: July 23, 2024 Sandy Tom , MDAttending ProviderActiveStart: July 23, 2024 Team Status: Active Member Role Status Dates Carrol Bailey MD Primary Care Provider Active Start: August 03, 2024 Zion Philippe II, DOOther ProviderActiveStart: August 03, 2024 Mallory Ortiz , MDReferring ProviderActiveStart: August 03, 2024 Sandy Tom , MDAttending ProviderActiveStart: August 03, 2024 Team Status: Active Member Role Status Dates Carrol Bailey MD Primary Care Provider Active Start: August 10, 2024 Zion Philippe II, DOOther ProviderActiveStart: August 10, 2024 Mallory Ortiz , MDReferring ProviderActiveStart: August 10, 2024 Phyllis Gonzalez , MDAttending ProviderActiveStart: August 10, 2024 Team Status: Active Member Role Status Dates Carrol Bailey MD Primary Care Provider Active Start: August 17, 2024 Mallory Ortiz , MDReferring ProviderActiveStart: August 17, 2024 Sandy Tom MDOther ProviderActiveStart: August 17, 2024 Phyllis Gonzalez , MDAttending ProviderActiveStart: August 17, 2024 Team Status: Active Member Role Status Dates Carrol Bailey MD Primary Care Provider Active Start: August 21, 2024 Mallory Ortiz , MDReferring ProviderActiveStart: August 21, 2024 Sandy Tom , MDAttending ProviderActiveStart: August 21, 2024 Team Status: Inactive Member Role Status Dates Carrol Bailey MD Primary Care Provide r, Attending Provider Active Start: September 02, 2024 End: September 02, 2024 Team Status: Active Member Role Status Dates Carrol Bailey MD Primary Care Provider Active Start: August 10, 2024 Zion Philippe II, DOOther ProviderActiveStart: August 10, 2024 Mallory Mckeons , MDReferring ProviderActiveStart: August 10, 2024 Phyllis Gonzalez , MDAttending ProviderActiveStart: August 10, 2024 Sandy Tom , MDActiveStart: August 10, 2024 Team Status: Inactive Member Role Status Dates Carrol Bailey MD Primary Care Provider Active Start: September 11, 2024 End: September 11, 2024Zion Philippe II, DOAttending ProviderActiveStart: September 11, 2024 End: September 11, 2024Sandy Tom , MDAttending ProviderActiveStart: September 11, 2024 Team Status: Inactive Member Role Status Dates Carrol Bailey MD Primary Care Provider Active Start: September 11, 2024 End: September 11, 2024Zion Philippe II, DOAttending ProviderActiveStart: September 11, 2024 End: September 11, 2024 Team Status: Inactive Member Role Status Dates Carrol Bailey MD Primary Care Provider Active Start: September 21, 2024 End: September 21, 2024Nhung Melissachey Grimes APRNAttenfabián ProviderActive Start: September 21, 2024 End: September 21, 2024 Team Status: Active Member Role Status Dates Carrol Bailey MD Primary Care Provider Active Start: September 21, 2024 Mallory Ortiz , MDReferring ProviderActiveStart: September 21, 2024 Sandy Tom , MDAttending ProviderActiveStart: September 21, 2024 Team MemberRelationshipSpecialtyStart DateEnd Date Carrol Bailey MD [address] [facility] [place] [address] PCP - Generalmily Medicine02/06/24Team MemberRelationshipSpecialtyStart DateEnd Date Carrol Bailey MD [address] [facility] [place] [address] PCP - Generalmily Medicine02/06/24Team MemberRelationshipSpecialtyStart DateEnd Date Carrol Bailey MD [address] [facility] [place] [address] PCP - GeneralFamily Medicine02/06/24Team MemberRelationshipSpecialtyStart DateEnd Date Carrol Bailey MD [address] [facility] [place] [address] PCP - GeneralFamily Medicine02/06/24Team MemberRelationshipSpecialtyStart DateEnd Date Carrol Bailey MD PCP - GeneralFamily Medicine02/06/24Team MemberRelationshipSpecialtyStart DateEnd Date Carrol Bailey MD PCP - [facility]02/06/24Team MemberRelationshipSpecialtyStart DateEnd Date Carrol Bailey MD PCP - [facility]02/06/24Team MemberRelationshipSpecialtyStart DateEnd Date Carrol Bailey MD PCP - [facility]02/06/24 Team Status: Inactive Member Role Status Dates Carrol Bailey MD Primary Care Provider Active Start: November 16, 2024 End: November 16, 2024Nilay Matthews ProviderActiveStart: November 16, 2024 End: November 16, 2024Team MemberRelationshipSpecialtyStart DateEnd Date Carrol Bailey MD PCP - [facility]02/06/24Team MemberRelationshipSpecialtyStart DateEnd Date Carrol Bailey MD PCP - [facility]02/06/24Team MemberRelationshipSpecialtyStart DateEnd Date Carrol Bailey MD PCP - [facility]02/06/24 Team Status: Active Member Role Status Dates Carrol Bailey MD Primary Care Provider Active Start: December 22, 2024 Nilay Matthews ProviderActiveStart: December 22, 2024 Team Status: Inactive Member Role Status Dates Carrol Bailey MD Primary Care Provider Active Start: January 04, 2025 End: January 04, 2025Reba Yang ProviderActiveStart: January 04, 2025 End: January 04, 2025Norkeke Tom , MDAttending ProviderActiveStart: January 04, 2025 Team MemberRelationshipSpecialtyStart DateEnd Date Carrol Bailey MD PCP - [facility]02/06/24 Team Status: Inactive Member Role Status Dates Carrol Bailey MD Primary Care Provider Active Start: December 22, 2024 End: December 22, 2024Norkeke Tom , MDAttending ProviderActiveStart: December 22, 2024 End: December 22, 2024Team MemberRelationshipSpecialtyStart DateEnd Date Carrol Bailey MD PCP - [facility]02/06/24Team MemberRelationshipSpecialtyStart DateEnd Date Carrol Bailey MD PCP - [facility]02/06/24Team MemberRelationshipSpecialtyStart DateEnd Date Carrol Bailey MD PCP - [facility]02/06/24Team MemberRelationshipSpecialtyStart DateEnd Date Carrol Bailey MD PCP - [facility]02/06/24Team MemberRelationshipSpecialtyStart DateEnd Date Carrol Bailey MD PCP - [facility]02/06/24Team MemberRelationshipSpecialtyStart DateEnd Date Carrol Bailey MD PCP - [facility]02/06/24 Team Status: Inactive Member Role Status Dates Carrol Bailey MD Primary Care Provider Active Start: January 04, 2025 End: January 04, 2025Nhung Melissa Cornelio , APRNAttending ProviderActiveStart: January 04, 2025 End: January 04, 2025 Team Status: Inactive Member Role Status Dates Carrol Bailey MD Primary Care Provider Active Start: March 19, 2025 End: March 19geovanny Brown HEAT TREATING FURNACE TENDER-CAttending ProviderActiveStart: March 19, 2025 End: March 19, 2025 Team Status: Active Member Role Status Dates Carrol Bailey MD Primary Care Provider Active Start: March 19, 2025 Mallory Ortiz MDReferring ProviderActiveStart: March 19, 2025 Sandy Tom MDAttending ProviderActiveStart: March 19, 2025 Goals (unrecognized section and content) Goals may be documented in a n alternate section FOR RECORDS PERTAINING TO PATIENTS WHO ARE OR HAVE BEEN ENROLLED IN A CHEMICAL DEPENDENCY/SUBSTANCEABUSE PROGRAM, SOME INFORMATION MAY BE OMITTED. This clinical summary was aggregated from multiple sources. Caution should be exercised in using it in the provision of clinical care. This summary normalizes information from multiple sources, and as a consequence, information in this document may materially change the coding, format and clinical context of patient data. In addition, data may be omitted in some cases. CLINICAL DECISIONS SHOULD BE BASED ON THE PRIMARY CLINICAL RECORDS. [facility]. provides no warranty or guarantee of the accuracy or completeness of information in this document.
--- OUTSIDE RECORDS SUMMARY | 2025-05-06 06:52 | XMS_ITS | Clinical Summary ---
Author Organization [facility] Address [address] [place] [address] Care Team Providers Care General Hardware Salesperson Name Role Phone Maria Del Rosario De León MD Primary Care Provider [phone] Allergies Active AllergyReactionsCriticalityNoted KccvZsjqrejcEoqbsiysLncmhnzq08/24/2024 Other Reaction(s): diarrhea Medications MedicationSigDispense QuantityRefillsLast FilledStart DateEnd DateStatus sertraline (Zoloft) 50 MG tablet Take 50 mg by mouth DailyActive LORazepam (Ativan) 0.5 MG tablet TAKE 1 TABLET BY MOUTH DAILY AT BEDTIME NEEDED FOR SLEEP FOR 30 DAYSActive estradiol (Estrace) 0.1 MG/GM vaginal cream Indications:Vulvovaginal AtrophyInsert twice weekly 42.5 g 12002/27/2024ctive tranexamic acid (Lysteda) 650 MG tablet tablet PLEASE SEE ATTACHED FOR DETAILED RSCLNKVDPL48/04/2024ctive azelastine (Astelin) 0.1 % nasal spray Indications:Non-seasonal allergic rhinitis due to pollenAdminister 2 sprays into each nostril in the morning and 2 sprays before bedtime. Use in each nostril as directed. 90 mL 5001/11/2026ctive fluticasone (Flonase) 50 MCG/ACT nasal spray Indications:Non-seasonal allergic rhinitis due to pollenAdminister 2 sprays into each nostril Daily Shake gently. Before first use, prime pump. After use, clean tip and replace cap. 48 g [id number] Active Problems ProblemNoted DateDiagnosed DateMalignant neoplasm of overlapping sites of left breast in female, estrogen receptor fvvuujkr51/25/2024Mass of upper outer quadrant of left bspagq1504/15/2024Mass overlapping multiple quadrants of right jspzcg3704/15/2024Seasonal allergic rhinitis due to cxsbha4012/19/2022ervical paraspinal muscle spasm12/19/2022Lumbar paraspinal muscle spasm12/19/2022 Cervical oigueuvscjdad83/14/2023Right anterior shoulder pain12/19/2022llergic tahjdqmc00/31/2023 Encounters DateTypeDepartmentCare PkelCulyslvaljf69/21/2025 9:45 AM EDTTreatment [facility] [address] [address] Brian Reyes, PT Cervical paraspinal muscle spasm (Primary Dx); Lumbar paraspinal muscle spasm; Cervical radiculopathy; Right anterior shoulder pain04/27/20257073Zhltxy15/07/2025 2:30 PM EDTTreatment [facility] [address] [facility] [place] [address] Brian Reyes, PT Cervical paraspinal muscle spasm (Primary Dx); Lumbar paraspinal muscle spasm; Cervical radiculopathy; Right anterior shoulder pain04/13/2025amboo flowsheet [facility] [address] [address] Brian Reyes, PT 04/13/20257888Bpwrva01/01/2025 7:30 AM EDTTreatment [facility] [address] [facility] [place] [address] Brian Reyes, PT Cervical paraspinal muscle spasm (Primary Dx); Lumbar paraspinal muscle spasm; Cervical radiculopathy; Right anterior shoulder pain04/07/2025amboo flowsheet [facility] [address] [address] Brian Reyes, PT 04/07/20253215Tzwdbg34/08/2025 8:30 AM EDTTreatment [facility] [address] [facility] [place] [address] Brian Reyes, PT Cervical paraspinal muscle spasm (Primary Dx); Lumbar paraspinal muscle spasm; Cervical radiculopathy; Right anterior shoulder pain03/15/2025External Result Encounter [facility] Unsolicited Denae Zion Swenson, DO 03/15/2025amboo flowsheet [facility] [address] [facility] [place] [address] Brian Reyes, PT 03/15/20252351Oulsgt72/26/2025 2:00 PM EDTTreatment [facility] [address] [facility] [address] Brian Reyes, PT Cervical paraspinal muscle spasm (Primary Dx); Lumbar paraspinal muscle spasm; Cervical radiculopathy; Right anterior shoulder pain03/02/2025amb flowsheet [facility] [address] [facility] [address] Brian Reyes, PT 03/02/20257783Kvpbah89/14/2025 2:15 PM EDTTreatment [facility] [address] [facility] [address] Brian Reyes, PT Cervical paraspinal muscle spasm (Primary Dx); Lumbar paraspinal muscle spasm; Cervical radiculopathy; Right anterior shoulder pain02/18/2025amb flowsheet [facility] [address] [facility] [place] [address] Brian Reyes, PT 02/18/20259199Wbdcjl21/07/2025 9:00 AM EDTTreatment [facility] [address] [facility] [address] Brian Reyes, PT Cervical paraspinal muscle spasm (Primary Dx); Lumbar paraspinal muscle spasm; Cervical radiculopathy; Right anterior shoulder pain02/11/2025amboo flowsheet [facility] [address] [facility] [address] Brian Reyes, PT 02/11/2025Travelfrom Last 3 Months Family History Medical HistoryRelationNameCommentsHeart diseaseMotherHyperlipidemiaMother HypertensionMotherRelationNameStatusCommentsFatherAliveMotherDeceased Social History Tobacco UseTypesPacks/DayYears UsedDateSmoking Tobacco: NeverSmokeless Tobacco: Never Tobacco Cessation:Counseling Given: Not Answered Alcohol UseStandard Drinks/WeekCommentsYes0 (1 standard drink = 0.6 [...] than monthly 4PHQ-2AnswerDate RecordedPatient Health Questionnaire-2 Score0 02/27/2024CommentsNoSex and Gender InformationValueDate RecordedSex Assigned at YyvlkZzvwwq11/16/2023 8:32 AM EDTLegal HcuKdeqcm61/15/2023 8:27 PM EDTGender WxcoleggTbrdvy41/16/2023 8:32 AM EDTSexual OrientationNot on file Last Filed Vital Signs Vital SignReadingTime TakenCommentsBlood Wivirutz095/76010/28/2024 9:49 AM EDT Pulse--Temperature--Respiratory Rate--Oxygen Saturation--Inhaled Oxygen Concentration--Zblzwr42 kg (161 lb)10/28/2024 9:49 AM CDIKfgfft601.6 cm (5' 6 ) 07/06/2024 10:09 AM ESTBody Mass Index25.9907/06/2024 10:09 AM EST Plan of Treatment DateTypeDepartmentCare Team (Latest Contact Info)Euawzonixmz75/30/2025 9:30 AM EDTTreatment [facility] [address] [place] [address] Brian Reyes, PT [address] [place] [address] Procedures Procedure NamePriorityDate/TimeAssociated DiagnosisCommentsBI MAMMOGRAM DIAGNOSTIC TOMOSYNTHESIS KPXITXCJM56/08/2025 2:07 PM EDT from Last 3 Months Results * Bilateral diagnostic mammogram with tomosynthesis (03/15/2025 2:07 PM EDT) Anatomical RegionLateralityModalityBreastBilateralMammographySpecimen (Source) Anatomical Location / LateralityCollection Method / VolumeCollection Time Received Time03/15/2025 2:07 PM EDT Impressions 03/15/2025 2:12 PM EDT No mammographic evidence of malignancy. Routine follow-up recommended in one year. ?? RESULT CODE: 2 ? Benign Findings(s) ? DENSITY CODE: 2 (approximately 25-50% glandular) There are scattered areas of fibroglandular density. ? FOLLOW UP: 1YR ? THE FALSE-NEGATIVE RATE OF MAMMOGRAPHY IS APPROXIMATELY 10%. ? IMAGING OF A PALPABLE ABNORMALITY MUST BE BASED ON CLINICAL GROUNDS. ? PATIENT WAS ENTERED INTO A REMINDER SYSTEM WITH A TARGET DUE DATE FOR THE NEXT MAMMOGRAM. ? Impression dictated by: Koko Garcia M.D. ??03/15/2025 2:09 PM ? Dictation Location: [facility] ? Dictated By: ?Koko Garcia DO ? 03/15/25 1407 ? Signed By: <Electronically signed by Koko Garcia, DO in OV> ? 03/15/25 1409 Narrative 03/15/2025 2:12 PM EDT [facility] ?[address] ?[place] [address] ?? [phone] ? Mammography Report ? Signed ? Patient: Shiets,Tawana M ?MR#: [id number] ?? [id number] ? : 1980 ?Acct:[id number] ? Age/Sex: 44 / F ?Adm Date: 03/15/25 ? Loc: XT ?Room: ?Type: REG RCR ?? Attending Dr: Sandy Tom MD ? Ordering Provider: Zion Philippe II, DO ? Date of Service: 03/15/25 ? Procedure(s): MM diagnostic mammo BI w/CAD ?? Accession Number(s): ([id number]) MM/MM diagnostic mammo BI w/CAD: C50.919 - Malignant neoplasm of unspecified site of unspe... ? Copies to: Venkatesh Ortiz MD ?? Maria Del Rosario De León MD ?? Sandy Tom MD ?? Zion Philippe II, DO ? BILATERAL ??Diagnostic ??Full Field digital mammogram with 3-D imaging. ? Full field digital CC and MLO imaging performed. ??CAD utilized. ? COMPARISON: 04/22/2024, 04/02/2024 ? HISTORY: History of breast cancer. Annual checkup ? BREAST COMPOSITION: Scattered fibroglandular densities of the breast parenchyma identified ? BREAST CALCIFICATIONS: Benign calcifications present. ? VASCULAR CALCIFICATIONS: None ? ARCHITECTURAL DISTORTION: None ? BREAST NODULE: None ? AXILLARY LYMPH NODES: Normal ? POSTSURGICAL CHANGES: Left axillary tail postsurgical changes ? MM/MM diagnostic mammo BI w/CAD ?? Procedure Note Radiology, Radiologist, - 03/15/2025 [facility] [place] [address] Mammography Report Signed Patient: Tawana Mendez MMR#: [id number] : 1980Acct:[id number] Age/Sex: 44 / FAdm Date: 03/15/25 Loc: Room:Type: [facility] Attending Dr: Sandy Tom MD Ordering Provider: Zion Philippe II, DO Date of Service: 03/15/25 Procedure(s): MM diagnostic mammo BI w/CAD Accession Number(s): ([id number]) MM/MM diagnostic mammo BI w/CAD:C50.919 - Malignant neoplasm of unspecified site of unspe... Copies to: MD Maria Del Rosario Lucio MD Norleena Poynter, MD Timothy J Adamowicz, II, DO BILATERAL Diagnostic Full Field digital mammogram with 3-D imaging. Full field digital CC and MLO imaging performed. CAD utilized. COMPARISON: 04/22/2024, 04/02/2024 HISTORY: History of breast cancer. Annual checkup BREAST COMPOSITION: Scattered fibroglandular densities of the breastparenchyma identified BREAST CALCIFICATIONS: Benign calcifications present. VASCULAR CALCIFICATIONS: None ARCHITECTURAL DISTORTION: None BREAST NODULE: None AXILLARY LYMPH NODES: Normal POSTSURGICAL CHANGES: Left axillary tail postsurgical changes MM/MM diagnostic mammo BI w/CAD IMPRESSION: No mammographic evidence of malignancy. Routine follow-up recommended inone year. RESULT CODE: 2 Benign Findings(s) DENSITY CODE: 2 (approximately 25-50% glandular) There are scattered areasof fibroglandular density. FOLLOW UP: 1YR THE FALSE-NEGATIVE RATE OF MAMMOGRAPHY IS APPROXIMATELY 10%. IMAGING OF A PALPABLE ABNORMALITY MUST BE BASED ON CLINICAL GROUNDS. PATIENT WAS ENTERED INTO A REMINDER SYSTEM WITH A TARGET DUE DATE FOR THENEXT MAMMOGRAM. Impression dictated by: Koko Garcia M.D. 03/15/2025 2:09 PM Dictation Location: [facility] Dictated By: Koko Garcia DO 03/15/25 1407 Signed By: <Electronically signed by Koko Garcia DO in OV> 03/15/25 1409 Authorizing ProviderResult TypeResult StatusZion Philippe [facility] BI PROCEDURESFinal Result from Last 3 Months Insurance Care Teams Team MemberRelationshipSpecialtyStart DateEnd Date Maria Del Rosario De León MD [facility]02/06/24
--- OUTSIDE RECORDS SUMMARY | 2025-05-06 06:52 | XMS_ITS | Clinical Summary ---
Author Organization [facility] Address [id number] [place] [address] Care Team Providers Care Gas Meter Installer Name Role Phone Unavailable Primary Care Provider Unavailabl e Social History Tobacco UseTypesPacks/DayYears UsedDateSmoking Tobacco: Never AssessedChildcare AnswerDate BfhjogsaFpsrphqloHyxcpap87/10/2019EmploymentAnswerDate Recorded XqhcoxlnfaNuuouqx93/10/2019CommentsUnknownSex and Gender Information ValueDate RecordedSex Assigned at BirthNot on fileLegal LujBrtcia81/04/2015 12:06 PM EDTGender IdentityNot on fileSexual OrientationNot on file Plan of Treatment Not on file Medical Devices Not on file
[2025-05-06 07:00] LABS: Hematocrit 38.6 % (36.0-48.0); Hemoglobin 13.0 g/dL (12.0-16.0); Immature Granulocytes Abs Auto 0.01 10^3/uL (0.00-0.03); Immature Granulocytes Pct Auto 0.3 % (0.0-0.5); Lymphocytes Absolute Auto 0.9 10^3/uL (1.2-3.8); Mean Corpuscular HGB Conc 33.7 g/dL (29.9-35.2); Mean Corpuscular Hemoglobin 31.9 pg (26.7-34.0); Mean Corpuscular Volume 94.8 fL (81.0-99.0); Platelet Count 174 10^3/uL (150-450); Red Blood Count 4.07 10^6/uL (4.20-5.40); White Blood Count 3.2 10^3/uL (4.0-11.0)
[2025-05-06 07:39] LABS: Alanine Aminotransferase 20 U/L (14-59); Albumin Globulin Ratio 1.1; Albumin Level 3.6 g/dL (3.4-5.0); Alkaline Phosphatase 49 U/L (46-116); Anion Gap 12.6; Aspartate Amino Transferase 20 U/L (15-37); Blood Urea Nitrogen 13.0 mg/dL (7.0-18.0); Calcium 8.7 mg/dL (8.5-10.1); Carbon Dioxide 27.3 mmol/L (21.0-32.0); Chloride 105 mmol/L (98-107); Estimated GFR (African America >60 (>=60 mL/min/1.73m^2); Estimated GFR (Non-African Ame >60 (>=60 mL/min/1.73m^2); Globulin 3.2 g/dL; Glucose 102 mg/dL (74-106); Potassium 3.9 mmol/L (3.5-5.1); Sodium 141 mmol/L (136-145); Thyroid Stimulating Hormone 0.887 uIU/mL (0.358-3.740); Total Protein 6.8 g/dL (6.4-8.2)
== END 2025-05-06 06:50 | disposition home or self-care (01) ==
LOC: LAB 06:50
PROVIDERS: PCP Family Medicine
DX: R53.83 Other fatigue (principal)
CPT/HCPCS: 36415; 80053; 84443; 85025

== ENCOUNTER 2025-06-02 07:41 | Outpatient (OUT) | payer OTHER, SELFPAY ==
--- OUTSIDE RECORDS SUMMARY | 2025-05-25 14:30 | XMS_ITS | Encounter Summary ---
Author Organization [facility] Address [address] [place] [address] Care Team Providers Care Customer Advisor Specialist Name Role Phone Maria Del Rosario De León MD Primary Care Provider [phone] Reason for Visit * Rehabilitation - Outpatient (Routine) - AuthorizedSpecialtyDiagnoses / ProceduresReferred By ContactReferred To ContactPhysical Therapy Diagnoses Cervical & Lumbar Paraspinal Procedures CA MANUAL THERAPY TQS / REGIONS EACH 15 MINUTES Maria Del Rosario De León MD Phone: tel: fax: Brian Reyes, PT [address] [place] [address] Phone: tel: fax: Referral IDStatusReasonStart DateExpiration DateVisits RequestedVisits [id number] Consult and Treat [id number] Encounter Details DateTypeDepartmentCare Team (Latest Contact Info)Hmahwdkkjuu73/18/2025 2:30 PM ESTTreatment [facility] [address] [place] [address] Brian Reyes, PT [address] [place] [address] Cervical paraspinal muscle spasm (Primary [...] 02/27/2024CommentsNoSex and Gender InformationValueDate RecordedSex Assigned at ZozavPgdkmt37/16/2023 8:32 AM EDTLegal CstZzoggo99/15/2023 8:27 PM EDTGender KeovbywdOgbzxd05/16/2023 8:32 AM EDTSexual OrientationNot on file documented as of this encounter Progress Notes * Brian Reyes, PT - 05/25/2025 2:30 PM EST Images from the original note were not included. Physical Therapy Physical Therapy Treatment Visit Patient Name: Tawana Mendez Today's Date: 05/25/2025 Encounter Diagnoses Name Primary? Cervical paraspinal muscle spasm Yes Lumbar paraspinal muscle spasm Cervical radiculopathy Right anterior shoulder pain Time In: 2:30 pm Time Out: 3:30 pm Supervised Time: 60 Min Total Time: 60 Min Visit Number: 25 (Participated in 7 PT sessions in 2023 [...] 18-days post last consult that was on 05/06/25. Reports significant pain reduction following last session for 7-10 days. Neck, shoulder, lumbar, and LE soreness and increased tone. Pain up to 4-5/10 intensity at neck and back. Newer complaints of right HS, right lateral foot pain, and new complaints of right lateral epicondylitis flair patient attributes to increasing exercise routine and raking leaves over weekend and yesterday. Patient has increased exercise activity in attempt to get back to baseline activity following breast cancer diagnosis and treatment. Objective: Re-Evaluation 05/25/25-DBO Cervical: Cervical spine AROM demonstrates 80 degrees rotation indicating mild improvement as compared to initial evaluation, 40 degrees side-bending, and 25% loss of cervical extension. Moderate increased parasinal tone at bilateral Upper Trapezius and cervical paraspinal groups. Neck Index scores 28 Compared to 24 at last re-evaluation indicative of mildly increased functional impairment. Lumbar: Lumbar spine AROM is [...] Goals: Short Term: To be met by 07/07/25 The patient to consistently demonstrate exercise activity modification to limit undo stress to the cervical and lumbar spine and limit pain levels from getting above mild 0-3/10 intensity to prevent exacerbations of cervical, lumbar, and right shoulder conditions to be met consistently thru 2024 (Goal in progress 05/25/25-DBO) The patient to be knowledgeable in postural correction program to limit stress and be selective in exercise type, intensity, and duration thru 2023 (Goal in progress 05/25/25-DBO) The patient to demonstrate cervical, lumbar, and shoulder AROM WFL with 5/5 strenght throughout 2024 (Goal in progress 05/25/25-DBO) Director Of Public Safety: To be met by 06/06/25 The patient to be successful with long-term independent management including recommendation for participation in daily postural and general UE flexibility and RTC strengthening program to combat cumulative home, job, and exercise related stresses with improved independence with self managment and decreased PT intervention to 1 session every 1-3 months as needed by conclusion in 2024 (Goal in progress 05/25/25-DBO) Treatment: Manual: Grade II/III cervical and thoracic [...] (PRN) Assessment: The patient has participated in 25 outpatient PT in 2024 for cervical and lumbar paraspinal muscle spasms/radiculopathy per referral of PCP Maria Del Rosario De León MD. Presents 18-days post last consult that was on 05/06/25. Reports significant pain reduction following last session for 7-10 days. Neck, shoulder, lumbar, and LE soreness and increased tone. Pain up to 4-5/10 intensity at neck and back. Newercomplaints of right HS, right lateral foot pain, and new complaints of right lateral epicondylitis flair patient attributes to increasing exercise routine and raking leaves over weekend and yesterday. Patient has increased exercise activity in attempt [...] toward independent medical management of this condition (05/25/25-DBO) I hereby deem this POC medically necessary. Please sign below and fax back to [phone] Physician Signature: Date: documented in this encounter Plan of Treatment DateTypeDepartmentCare Team (Latest Contact Info)Ysjwusnhhyb62/05/2026 1:00 PM ESTAncillary Procedure [facility] [place] [facility] [address] [place] [address] 07/12/2025 2:15 PM ESTOffice Visit [facility] [place] [facility] [address] [place] [address] Junior Gilmore MD [address] [place] [address] documented as of this encounter Visit Diagnoses Diagnosis Cervical paraspinal muscle spasm- Primary Spasm of muscle Lumbar paraspinal muscle spasm Other symptoms referable to back Cervical radiculopathy Brachial neuritis or radiculitis nos Right anterior shoulder pain documented in this encounter Care Teams Team MemberRelationshipSpecialtyStart DateEnd Date Maria Del Rosario De León MD [address] [facility] [place] [phone] PCP - GeneralFamily Medicine02/06/24documented as of this encounter
--- OUTSIDE RECORDS SUMMARY | 2025-06-01 09:58 | XMS_ITS | Continuity of Care Document ---
Author Organization [facility] Address [address] [place] [address] Phone Care Team Providers Care Pumper Hand Name Role Phone Maria Del Rosario De León MD Primary Care Provider Raegan Brown NP-C Attending Provider [phone] Venkatesh Ortiz MD Referring Provider [phone] Maria Del Rosario De León MD Attending Provider [phone] Care Teams Patient Care Team Team Status: Active Member Role/Relationship Status Dates Maria Del Rosario De León MD Primary Care Provider Active Visit Care Team Team Status: Inactive Member Role/Relationship Status Dates Maria Del Rosario De León MD Primary Care Provider Active Start: March 19, 2025 End: March 19geovanny Brown NP-CAttenfabián ProviderActiveStart: March 19, 2025 End: March 19, 2025 Visit Care Team Team Status: Active Member Role/Relationship Status Dates Maria Del Rosario De León MD Primary Care Provider Active Start: May 06, 2025 Raegan Brown NP-CAttending ProviderActiveStart: May 06, 2025 Visit Care Team Team Status: Inactive Member Role/Relationship Status Dates Maria Del Rosario De León MD Primary Care Provider Active Start: May 14, 2025 End: May 14geovanny Brown NP-CAttenfabián ProviderActiveStart: May 14, 2025 End: May 14, 2025 Visit Care Team Team Status: Active Member Role/Relationship Status Dates Maria Del Rosario De León MD Primary Care Provider Active Start: May 14, 2025 Lindsey Richardson ProviderActiveStart: May 14, 2025 GERALDINE StewartCAttending ProviderActiveStart: May 14, 2025 Patient Care Team Team Status: Inactive Member Role/Relationship Status Dates Maria Del Rosario De León MD Primary Care Provider Active Start: June 01, 2025 End: June 01, 2025Maria Del Rosario De León MDAttdheeraj ProviderActiveStart: June 01, 2025 End: June 01, 2025 Chief Complaint and Reason for Visit Chief Complaint Admit Date Follow Up 6 Months March 19, 2025 12:41pm Follow Up 8 Weeks May 14, 2025 9 :47am Mal neoplasmof overlapping site left mayank ast May 14, 2025 9:48am back/knee pain June 01, 2025 2:15pm Reason for Visit Admit Date Breast cancer March 19, 2025 12:41pm Breast cancer May 14, 2025 9 :47am Leukopenia May 14, 2025 9 :47am Lumbar pain June 01, 2025 2:15pm Right knee pain June 01, 2025 2:15pm Allergies, Adverse Reactions, Alerts Allergen Type Severity Reaction Last Updated Verified Status cefdinir Allergy Unknown diarrhea June 01, 2025 2:24pm Yes Active Social History Smoking Status Status Start Date End Date Date of Observa tion Never smoked tobacco (finding) June 16, 2024 9:07am Observation Status Observation Response Date of Response Legal Sex Female (finding) [facility] Family History Relationship Condition Age at Onset Recorded Date/T sandy mother Unknown Malignant neoplasmUnknownHypertensionUnknownHeart diseaseUnknownsisterMalignant neoplasmUnknownDisorder of thyroidUnknown Problems Active Problems Problem Diagnosis/Recorded Date Onset Date Stat us Insomnia September 19, 2023 11:01am Unknown Act christiano Other acute postprocedural pain May 21, 2024 2: 00pm Unknown Active Thoracic spine pain March 31, 2024 9:50am Unknow n Active Cervical radiculopathy March 31, 2024 9:50am Unk nown Active Leukopenia May 14, 2025 10:26am Unknown A ctive Breast cancer May 11, 2024 10:31am Unknown Active Anxiety and depression March 31, 2024 7:23am Unk nown Active Lumbar pain June 01, 2025 2:51pm Unknown A ctive Right knee pain June 01, 2025 2:50pm Unknown Active Medications Medication Status Dose Units Route Directions Qty Days Refills S tart Date Stop Date End Date Reason(s) Instructions Adherence Sulfamethoxazole-Trimethopri m 800-160 mg tablet Discontinued 1 TAB PO Twice daily 20 0August 21, 2023 12:00amSeptember 2023 9:31amLorazepam 0.5 mg tablet Discontinued0.5MGPODaily at bedtime as needed for jwahs65144Ydike 2023 11:01amOctober 2023 3:47pmInsomnia Insomnia, unspecifiedSertraline 50 mg tabletDiscontinued0.ROUTE.SHOWDLE702Bks 2023 8:12amJuly 2023 7:37amTAKE 1 TABLET BY MOUTH EVERY DAY Sertraline 50 mg tabletDiscontinued0.ROUTE.QDNGBXO668Rfkw2023 7:37am May 07, 2024 8:55amTAKE 1 TABLET BY MOUTH EVERY DAYLorazepam 0.5 mg tablet Discontinued0.5MGPODaily at bedtime as needed for cuurc07723Lqvzjdt 2023 3:47pmDecember 2023 3:54pmInsomnia Insomnia, unspecifiedSertraline 50 mg tabletDiscontinued0.ROUTE.RQZXGWW666 May 07, 2024 8:55amNovember 2023 10:17amTAKE 1 TABLET BY MOUTH EVERY DAYMagic Mouthwash W/Lidocaine 240 Ml Bottle 240 mL qsmeapJwxinitkdvwq30IVUHLprc times daily as needed for EKWNXZATR7773Dvptciu 2024 12:00amFebruary 2024 4:00pmMalignant neoplasm of breast Malignant neoplasm of unspecified site of unspecified female breasttake 10ml by mouth, four times a day, as needed. SWISH AND SWALLOW.Magic Mouthwash W/Lidocaine 240 Ml Bottle 240 mL gslawnBxqrrmrtgycb26KFDLThdx times daily as needed for SJHMTEJGN5614Unvnesvl 2024 4:00pmFebruary 2024 11:02am Malignant neoplasm of breast Malignant neoplasm of unspecified site of unspecified female breasttake 10ml by mouth, four times a day, as needed. SWISH AND SWALLOW.Celecoxib (Celebrex) 200 mg tcpqbfsDabvwxnrkiad100PEKKWkltk843Eart 2024 6:40amSeptember 2024 11:53amMalignant neoplasm of breast Malignant neoplasm of unspecified site of unspecified female breastTake one capsule daily with food.Lorazepam 0.5 mg tabletActive0.5MGPODaily at bedtime as needed for milhw69182Nxoppegbb 3rd, 2025 10:04amInsomnia Insomnia, unspecifiedComplies with drug therapyHydrocodone-Acetaminophen 5-325 mg ymudywHbtbggdfehuo3ECJOZE4D as needed for pxzs6465Ezjoqhaz2023March 19, 2025 11:53amOther acute postprocedural pain Other acute postprocedural painTranexamic Acid 650 mg erxodcStwjxh747RATVAy DirectedMay 11, 2024 12:00amComplies with drug therapyVitamins A,C,S-Ybdo-Dtcvwq (Preservision Areds) 4,296 mcg-226 mg-90 mg ferjkrlUpkuxo0PTD PODailyNovember 2023 12:00amComplies with drug therapySertraline 50 mg bdssheCgajbfiiytqt41FBGPIzqud morningNov2023 12:00amDecemb2023 3:37pmTAKE 1 TABLET BY MOUTH EVERY DAYAzelastine-Fluticasone 137-50 mcg/spray spray,non-kowbgmpXoytzcnjjtaj6ROTGWPZFVIUHBJWMowpq dailySeptember 2023 11:00pmSeptember 2023 9:31amFreeTextSi spray in each nostril Nasally Twice a day; Note: Source Status: Taking; Provider: Genet Mix ( )Loratadine 10 mg piplgiBfkmpu8RMCREAekkhNugiqwter 23rd, 2024 11:00pmFreeTextSi tablet Orally Once a day; Note: Source Status: Taking; Provider: Gente Mix ( )Complies with drug therapy Prazosin 5 mg mnlgdpoWbnqzzyjmkdh4XAISPyvif at mulxhyj060Urloqhk 2023 11:00pmDecember 2023 9:02amsleepSertraline 100 mg lcfproLrkthcaagbch419DT POEvery tutoirs799Viktogdg 2023 3:36pmFebruary 2024 11:21amLorazepam 0.5 mg tabletDiscontinued0.5MGPODaily at bedtime as needed for vegdx57345 June 22, 2024 3:39pmSeptember 2024 10:05amInsomnia Insomnia, unspecifiedTamoxifen 20 mg gbokvmKqjcqzflvldw82KGNLZzmcv585Sften 2024 12:00amNovember 2024 2:25pmSertraline 50 mg dqspdaTntqgu59VZVMLuiyj dkheizn306Wvfkkpfr 2024 11:21amComplies with drug therapyTamoxifen 10 mg xfcavmKrzpuz17OAFQTsxytKzyabvjp 2024 12:00amComplies with drug therapy Celecoxib (Celebrex) 200 mg yvttdvsMsfvah424VDKCFhwbc075Uprtffaj 2024 2:53pmMalignant neoplasm of breast Malignant neoplasm of unspecified site of unspecified female breastTake one capsule daily with food.Complies with drug therapyLorazepam 0.5 mg tablet Discontinued0.5MGPODaily at bedtimeMarch 2023 11:00pmMarch 2023 11:02amSertraline 50 mg axpgewFxgqapidhnsn26CFMPZrglbHnd 2023 11:00pmMay 2023 8:12amMometasone 0.1 % vkmmoLxsedgqondxh4XYTYBIHSERVWLZentm959Sxucpbl 2024 12:00amMay 2024 1:09pmMalignant neoplasm of breast Malignant neoplasm of unspecified site of unspecified female breastApply to radiation site, once a day, AFTER radiation treatments.Celecoxib (Celebrex) 200 mg awiezukRrtodkalrxkd170RLSXGsmov241Kbm 2024 11:00pmJune 2024 6:40am Malignant neoplasm of breast Malignant neoplasm of unspecified site of unspecified female breastTake one capsule daily with food. Medical Equipment Device Date Implanted Device Details Radiological image marker, implantable May 21, 2024 FADI: [id number] Issuing Agency: [employer] Device Id: [id number] Expiration Date: 2026-12-10 Lot Number: [id number] Procedures Procedure Date Performed Status MM diagnostic mammo BI w/CAD March 15, 2025 12:18pm completed Relevant Diagnostic Tests and/or Laboratory Data Laboratory Results Test Collection Date/Time Result Date/Time Result Interpretation Reference Range Result Comment Performing Site Anion Gap May 06, 2025 5:55am May 06, 2025 5: 55am 12.6 Thyroid Stimulating Hormone 3rd GenMay 06, 2025 5:55amOctober 2024 5:55am0.887 u[iU]/mL0.358-3.740Basophils # (Auto)May 06, 2025 5:55am May 06, 2025 5:55am0.0 10 3/uL0.0-0.1Albumin/Globulin RatioMay 06, 2025 5:55amOctober 2024 5:55am1.1Basophils (%) (Auto)May 06, 2025 5:55amOctober 2024 5:55am0.9 %0.2-2.0AlbuminOct2024 5:55am May 06, 2025 5:55am3.6 g/dL3.4-5.0Eosinophils # (Auto)May 06, 2025 5:55amOctober 2024 5:55am0.1 10 3/uL0.0-0.7Alkaline PhosphataseOct2024 5:55amOctober 2024 5:55am49 U/W26-637Koklfbuqvcu (%) (Auto) May 06, 2025 5:55amOctober 2024 5:55am2.2 %0.9-7.0Alanine Aminotransferase (ALT/SGPT)May 06, 2025 5:55amOctober 2024 5:55am20 U/J28-30PgartnmwbvLyzwkef 2024 5:55amOctober 2024 5:55am38.6 % 36.0-48.0Aspartate Amino Transf (AST/SGOT)May 06, 2025 5:55amOctober 2024 5:55am20 U/E78-10FkhlbgcoljQfpqbpt 30th, 2025 5:55amOctober 2024 5:55am13.0 g/dL12.0-16.0BUN/Creatinine RatioOct2024 5:55amOctober 2024 5:55am18.8Immature Granulocyte # (Auto)May 06, 2025 5:55am May 06, 2025 5:55am0.01 10 3/uL0.00-0.03Blood Urea NitrogenOct2024 5:55amOctober 2024 5:55am13.0 mg/dL7.0-18.0Immature Granulocyte % (Auto)May 06, 2025 5:55amOctober 2024 5:55am0.3 %0.0-0.5Calcium LevelOct2024 5:55amOctober 2024 5:55am8.7 mg/dL8.5-10.1 Lymphocytes # (Auto)May 06, 2025 5:55amOctober 2024 5:55am0.9 10 3/uLBelow low normal1.2-3.8Chloride LevelOct2024 5:55amOctober 2024 5:72xl024 mmol/B92-023Kmvmtoefoob (%) (Auto)May 06, 2025 5:55am May 06, 2025 5:55am28.3 %20.5-60.0Carbon Dioxide LevelOct2024 5:55amOctober 2024 5:55am27.3 mmol/L21.0-32.0Mean Corpuscular Hemoglobin May 06, 2025 5:55amOctober 2024 5:55am31.9 pg26.7-34.0Creatinine May 06, 2025 5:55amOctober 2024 5:55am0.69 mg/dL0.55-1.02Mean Corpuscular Hemoglobin ConcentOct2024 5:55amOctober 2024 5:55am 33.7 g/dL29.9-35.2Estimated GFR ()May 06, 2025 5:55am May 06, 2025 5:55am>60>=60 mL/min/1.73m 2Mean Corpuscular VolumeOct2024 5:55amOctober 2024 5:55am94.8 fL81.0-99.0Estimated GFR (Non- AmericanOct2024 5:55amOctober 2024 5:55am>60>=60 mL/min/1.73m 2Monocytes # (Auto)May 06, 2025 5:55amOctober 2024 5:55am0.4 10 3/uL0.3-0.8GlobulinOct2024 5:55amOctober 2024 5:55am3.2 g/dLMonocytes (%) (Auto)May 06, 2025 5:55amOctober 2024 5:55am12.1 %Above high normal1.7-12.0Glucose LevelOct2024 5:55am May 06, 2025 5:90ew408 mg/pR03-198Komy Platelet VolumeOct2024 5:55amOctober 2024 5:55am9.6 fL9.5-13.5Potassium LevelOct2024 5:55amOctober 2024 5:55am3.9 mmol/L3.5-5.1Neutrophils # (Auto)May 06, 2025 5:55amOctober 2024 5:55am1.8 10 3/uL1.4-6.5Sodium LevelOct2024 5:55amOctober 2024 5:29vf874 mmol/P599-151Xsyzfgqwckd (%) (Auto)May 06, 2025 5:55amOctober 2024 5:55am56.2 %43.0-75.0Total BilirubinOct2024 5:55amOctober 2024 5:55am0.6 mg/dL0.2-1.0 Platelet CountOctober 2024 5:55amOctober 2024 5:29py433 10 3/uL 150-450Total ProteinOctober 2024 5:55amOctober 2024 5:55am6.8 g/dL 6.4-8.2Red Blood CountOctober 2024 5:55amOctober 2024 5:55am4.07 10 6/uLBelow low normal4.20-5.40Red Cell Distribution WidthOctober 2024 5:55amOctober 2024 5:55am12.0 %11.0-15.0Corrected White Blood CountOctober 2024 5:55amOctober 2024 5:55am3.2 10 3/uLBelow low normal4.0-11.0 Urine HCG, QualitativeJanuary 2024 12:35pmJanuary 2024 12:59pm [facility] [id number] [address] [place], [place] [id number] Diagnostic Imaging Reports Author Koko Garcia [facility] WestAuthoredSeptember 2024 2:07pmReport Dictated Date/TimeDictated ByStatusRadiology ReportSeptember 2024 2:07pm [facility] [address] [place] [address] Mammography Report Signed Patient: Tawana Mendez MR#: [id number] : 1980 Acct:[id number] Age/Sex: 44 / F Adm Date: 5 Loc: [facility]: [facility]: Sandy Tom MD Ordering Provider: Zion Philippe II, DO Date of Service: 03/15/25 Procedure(s): MM diagnostic mammo BI w/CAD Accession Number(s): ([id number]) MM/MM diagnostic mammo BI w/CAD: C50.919 - Malignant neoplasm of unspecified site of unspe... Copies to: MD Maria Del Rosario Lucio MD Norleena Poynter, MD Timothy J Adamowicz, II, DO~ BILATERAL Diagnostic Full Field digital mammogram with [...] No mammographic evidence of malignancy. Routine follow-up recomm ended in one year. RESULT CODE: 2 Benign Findings(s) DENSITY CODE: 2 (approximately 25-50% glandular) There are scattered areas of fibroglandular density. FOLLOW UP: 1YR THE FALSE-NEGATIVE RATE OF MAMMOGRAPHY IS APPROXIMATELY 10%. IMAGING OF A PALPABLE ABNORMALITY MUST BE BASED ON CLINICAL GROUNDS. PATIENT WAS ENTERED INTO A REMINDER SYSTEM WITH A TARGET DUE DATE FOR THE NEXT MAMMOGRAM. Impression dictated by: Koko Garcia M.D. 03/15/2025 2:09 PM Dictation Location: [facility] Dictated By: Koko Garcia DO 03/15/25 1407 Signed By: <Electronically signed by Koko Garcia DO in OV> 03/15/25 1409 Vital Signs Vital Reading Result Reference Range Collection Date/Time Height 66 [in_i] March 19, 2025 11:28faNkevou43.20 kgSept2024 11:46amBody Gsrhyfqrrwx86.8 [degF]97.6-99.0Sept2024 11:46amHeart Rate64 /min 60-100Sept2024 11:46amRespiratory rate16 /muo02-63Wvkllksfa 12th, 2025 11:46amOxygen saturation by Pulse hwadowtb80 %95-100Sept2024 11:46amBP Uiftxbia027 mm[Hg]100-140September 2024 11:46amBP Sezpswxtd60 mm[Hg]60-100Sept2024 11:46amBMI (Body Mass Index)27.1 kg/t0Cujrlzvgb 2024 11:97sgDuuddu74 [in_i]May 14, 2025 9:51keCzkloe56.56 kg May 14, 2025 9:49amBody Dziyujmerhl08.8 [degF]97.6-99.0May 14, 2025 9:49amHeart Rate69 /snx50-324PlrqnfktMay 14, 2025 9:49amRespiratory rate16 /min 12-24May 14, 2025 9:49amOxygen saturation by Pulse fhbcdxcy426 %95-100 May 14, 2025 9:49amBP Dtxidnmf232 mm[Hg]100-140May 14, 2025 9:49amBP Sdftkuvuk27 mm[Hg]60-100May 14, 2025 9:49amBMI (Body Mass Index)27.6 kg/d6KvxaussgMay 14, 2025 9:10ocQoclra96 [in_i]May 14, 2025 9:49amWeight 77.56 kgMay 14, 2025 9:63qlDjjgdi61 [in_i]June 01, 2025 2:21pmWeight 78.47 kgJune 01, 2025 2:21pmHeart Rate72 /ism88-398SmtwxxkjJune 01, 2025 2:21pmOxygen saturation by Pulse fynjlkdi70 %95-100June 01, 2025 2:21pmBP Ejovidry932 mm[Hg]100-140June 01, 2025 2:21pmBP Eflwoxvnc28 mm[Hg]60-100 June 01, 2025 2:21pmBMI (Body Mass Index)27.9 kg/n3DydfgzjnJune 01, 2025 2:21pm Advance Directives Advance Directive Response Recorded Date/ Time Advance Directives No March 9:11am Insurance Providers Guarantor Yaritza Jackson Address [address] [facility] [address]Gxubnum Info.Home Phone: Coverage Status Update:2025 Payer Group Member ID Coverage Type Subscriber Relationship to Subscriber Effective Date Expiration Date MMO Id: [id number] Shiets , M Id: [id number] [address] [facility] [address] Home Phone: Email: [email or web address] Encounters Encounter Location(s) Arrival/Admit Date Discharge/Departure Date Discharge/Departure Disposition Provider(s) Departed Physician/ Provider [facility] March 19, 2025 12:41pm March 19, 2025 1:31pm Discharged to home care or self care (routine discharge) EMA Stewart Non-patient / Non-visit -[facility] O ctober 2024 6:55am Raegan Brown NP-CDeparted Physician/Provider Office [facility] AmbulatoryMay 14, 2025 9:47amNovember 2024 10:26amDischarged to home care or self care (routine discharge)GERALDINE [facility]CReg[facility] AcuteMay 14, 2025 9:48amGERALDINE StewartCDeparted Physician/Provider [facility] 2:15pmJune 01, 2025 2:56pmDischarged to home care or self care (routine discharge)Maria Del Rosario De León MD Recent Diagnosis Onset Date Admit Date Breast cancer Unknown March 19, 2025 12:41pm Breast cancer Unknown May 14 9:47am Leukopenia Unknown May 14 9:47am Lumbar pain Unknown June 01, 2 025 2:15pm Right knee pain Unknown June 01, 2 025 2:15pm Assessments Diagnosis Onset Date Resolution Status Admit Date Breast cancer acuteSept2024 12:41pmBreast canceracuteNov2024 9:47am LeukopeniaacuteMay 14, 2025 9:47amLumbar painacuteNov2024 2:15pmRight knee painacuteNov2024 2:15pm Plan of Treatment Future Tests Future scheduled test information is unavailable Pending Tests Test Name Ordered Date Scheduled Date XR knee RT 4V* June 01, 2025 2:50pm XR lumbar spine 2-3V*June 01, 2025 2:50pmComprehensive Metabolic Panel May 14, 2025 10:25am6 Months Future Visits Future appointment information is unavailable Future Procedures Procedure Name Ordered Date Scheduled Date Complete Blood Count Auto Diff May 14 10:25am 6 Months Vit. B12/Folate Profile May 14, 2025 10:25 am 6 Months Future Medications Future medication information is unavailable Patient Instructions Instruction Admit Date Low back pain in adults June 01 2:15pm
--- OUTSIDE RECORDS SUMMARY | 2025-06-02 07:44 | XMS_ITS | Clinical Summary ---
Author Organization [employer] [facility] Address [id number] [place] [address] Care Team Providers Care Developer Advocate Name Role Phone Unavailable Primary Care Provider Unavailabl e Social History Tobacco UseTypesPacks/DayYears UsedDateSmoking Tobacco: Never AssessedChildcare AnswerDate ExbmoevyLphgwawgiLkmtnkn11/10/2019EmploymentAnswerDate Recorded FgspxzhgqiCuzbike68/10/2019CommentsUnknownSex and Gender Information ValueDate RecordedSex Assigned at BirthNot on fileLegal JesTaylil23/04/2015 12:06 PM EDTGender IdentityNot on fileSexual OrientationNot on file Plan of Treatment Not on file Medical Devices Not on file
--- OUTSIDE RECORDS SUMMARY | 2025-06-02 07:44 | XMS_ITS | Clinical Summary ---
Author Organization [facility] Address [address] [place] [address] Care Team Providers Care Acoustical Material Worker Name Role Phone Maria Del Rosario De León MD Primary Care Provider [phone] Allergies Active AllergyReactionsCriticalityNoted XkvhOoihmmvsLqwdhrsbCjvpnmqj71/24/2024 Other Reaction(s): diarrhea Medications MedicationSigDispense QuantityRefillsLast FilledStart [...] tablet tablet PLEASE SEE ATTACHED FOR DETAILED MLOGBWEMTY24/04/2024ctive azelastine (Astelin) 0.1 % nasal spray Indications:Non-seasonal [...] of left breast in female, estrogen receptor srfieqrb56/25/2024Mass of upper outer quadrant of left jybqqw1804/15/2024Mass overlapping multiple quadrants of right rpndgl6104/15/2024Seasonal allergic rhinitis due to xxnkbi9012/19/2022ervical paraspinal muscle spasm12/19/2022Lumbar paraspinal muscle spasm12/19/2022 Cervical mmitvzcjgjoyo47/14/2023Right anterior shoulder pain12/19/2022llergic lipzmmax91/31/2023 Encounters DateTypeDepartmentCare AopsFzljjslrpto45/18/2025 2:30 PM ESTTreatment [facility] [address] [place] [address] Brian Reyes, PT Cervical paraspinal muscle spasm (Primary Dx); Lumbar paraspinal muscle spasm; Cervical radiculopathy; Right anterior shoulder pain05/25/2025amboo flowsheet [facility] Physical Therapy [address] [place] [address] Brian Reyes, PT 05/25/20255711Lauxxt22/30/2025 9:30 AM EDTTreatment [facility] [address] [place] [address] Brian Reyes, PT Cervical paraspinal muscle spasm (Primary Dx); Lumbar paraspinal muscle spasm; Cervical radiculopathy; Right anterior shoulder pain5Bamboo flowsheet [facility] Physical [facility] [address] [place] [address] Brian Reyes, PT 05/06/20252331Lwqbhi99/21/2025 9:45 AM EDTTreatment [facility] Therapy [address] [place] [address] Brian Reyes, PT Cervical paraspinal muscle spasm (Primary Dx); Lumbar paraspinal muscle spasm; Cervical radiculopathy; Right anterior shoulder pain04/27/20251288Bmrgrr48/07/2025 2:30 PM EDTTreatment [facility] Physical Therapy [address] [place] [address] Brian Reyes, PT Cervical paraspinal muscle spasm (Primary Dx); Lumbar paraspinal muscle spasm; Cervical radiculopathy; Right anterior shoulder pain04/13/2025amboo flowsheet [facility] Physical Therapy [address] [place] [address] Brian Reyes, PT 04/13/20250817Vvifki41/01/2025 7:30 AM EDTTreatment [facility] Physical Therapy [address] [place] [address] Brian Reyes, PT Cervical paraspinal muscle spasm (Primary Dx); Lumbar paraspinal muscle spasm; Cervical radiculopathy; Right anterior shoulder pain04/07/2025amb flowsheet [facility] Physical Therapy [address] [place] [address] Brian Reyes, PT 04/07/20254580Bsihas29/08/2025 8:30 AM EDTTreatment [facility] Physical Therapy [address] [place] [address] Brian Reyes, PT Cervical paraspinal muscle spasm (Primary Dx); Lumbar paraspinal muscle spasm; Cervical radiculopathy; Right anterior shoulder pain03/15/2025External Result Encounter [facility] Unsolicited Zion Philippe, DO 03/15/2025amb flowsheet [facility] Physical Therapy [address] [place] [address] Brian Reyes, PT 03/15/20251802Gbakhz92/26/2025 2:00 PM EDTTreatment [facility] Physical Therapy [address] [place] [address] Brian Reyes, PT Cervical paraspinal muscle spasm (Primary Dx); Lumbar paraspinal muscle spasm; Cervical radiculopathy; Right anterior shoulder pain03/02/2025amboo flowsheet [facility] Physical Therapy [address] [place] [address] Brian Reyes, PT 03/02/2025Travelfrom Last 3 Months Family History Medical HistoryRelationNameCommentsHeart [...] 02/27/2024CommentsNoSex and Gender InformationValueDate RecordedSex Assigned at DnceqWwqimc93/16/2023 8:32 AM EDTLegal NiwNjmwwt13/15/2023 8:27 PM EDTGender RcboebdrVrpbme79/16/2023 8:32 AM EDTSexual OrientationNot on file Last Filed Vital Signs Vital SignReadingTime TakenCommentsBlood Xjqbffru314/76010/28/2024 9:49 AM EDT Pulse--Temperature--Respiratory Rate--Oxygen Saturation--Inhaled Oxygen Concentration--Gujtdw02 kg (161 lb)10/28/2024 9:49 AM WSBHxmczb536.6 cm (5' 6 ) 07/06/2024 10:09 AM ESTBody Mass Index25.9907/06/2024 10:09 AM EST Plan of Treatment DateTypeDepartmentCare Team (Latest Contact Info)Pcqqehpunee40/05/2026 1:00 PM ESTAncillary Procedure [facility] [address] [place] [address] 07/12/2025 2:15 PM ESTOffice Visit [facility] [address] [place] [address] Junior Gilmore MD [address] [place] [address] Procedures Procedure NamePriorityDate/TimeAssociated DiagnosisCommentsBI MAMMOGRAM DIAGNOSTIC TOMOSYNTHESIS AMUHZWEEF82/08/2025 2:07 PM EDT from Last 3 Months [...] M.D. ??03/15/2025 2:09 PM ? Dictation Location: [facility] ? Dictated By: ?Koko Garcia DO ? 03/15/25 1407 ? Signed By: <Electronically signed by Koko Garcia, DO in OV> ? 03/15/25 1409 Narrative 03/15/2025 2:12 PM EDT [facility] ?[address] ?[place] [address] ?? [phone] ? Mammography Report ? Signed ? Patient: Shiets,Tawana M ?MR#: [id number] ?? [id number] ? : 1980 ?Acct:[id number] ? Age/Sex: 44 / F ?Adm Date: 03/15/25 ? Loc: XT ?Room: ?Type: REG RCR ?? Attending Dr: Sandy Tom MD ? Ordering Provider: Zion Philippe II, DO ? Date of Service: 03/15/25 ? Procedure(s): MM diagnostic mammo BI w/CAD ?? Accession Number(s): ([id number]) MM/MM diagnostic mammo BI w/CAD: C50.919 - [...] ?? Procedure Note Radiology, Radiologist, - 03/15/2025 [place] [address] Mammography Report Signed Patient: Tawana Mendez MMR#: [id number] : 1980Acct:[id number] Age/Sex: 44 / FAdm Date: 03/15/25 Loc: Room:Type: [facility] Attending Dr: Sandy Tom MD Ordering Provider: Zion Philippe II, DO Date of Service: 03/15/25 Procedure(s): MM diagnostic mammo BI w/CAD Accession Number(s): ([id number]) MM/MM diagnostic mammo BI w/CAD:C50.919 - Malignant [...] Garcia M.D. 03/15/2025 2:09 PM Dictation Location: [facility] Dictated By: Koko Garcia DO 03/15/25 1407 Signed By: <Electronically signed by Koko Garcia DO in OV> 03/15/25 1409 Authorizing ProviderResult TypeResult StatusZion Philippe DOIMG BI PROCEDURESFinal Result from Last 3 Months Insurance Care Teams Team MemberRelationshipSpecialtyStart DateEnd Date Maria Del Rosario De León MD [address] [place] [address] [facility]06/24
--- OUTSIDE RECORDS SUMMARY | 2025-06-02 07:44 | XMS_ITS | Encounter Summary ---
Author Organization [facility] Address [address] [place] [address] Care Team Providers Care Consultant Name Role Phone Maria Del Rosario De León MD Primary Care Provider [phone] Encounter Details DateTypeDepartmentCare Team (Latest Contact Info)Mxzcxpmeiaj78/18/2025Travel Social History Tobacco UseTypesPacks/DayYears UsedDateSmoking Tobacco: NeverSmokeless [...] 4CommentsNoSex and Gender InformationValueDate RecordedSex Assigned at DjnwkCmmgxb52/16/2023 8:32 AM EDTLegal VrxPbrlru43/15/2023 8:27 PM EDTGender ZyfkyszoMzdmix04/16/2023 8:32 AM EDTSexual OrientationNot on file documented as of this encounter Plan of Treatment DateTypeDepartmentCare Team (Latest Contact Info)Oxnfzennetx45/05/2026 1:00 PM ESTAncillary Procedure [facility] [address] [place] [address] 07/12/2025 2:15 PM ESTOffice Visit [facility] [place] [facility] [address] [facility] [address] [place] [address] Junior Gilmore MD [address] [facility] [address] [place] [address] documented as of this encounter Visit Diagnoses Not on filedocumented in this encounter Care Teams Team MemberRelationshipSpecialtyStart DateEnd Date Maria Del Rosario De León MD [address] [facility] [place] [address] PCP - GeneralFamily Medicine02/06/24documented as of this encounter
--- OUTSIDE RECORDS SUMMARY | 2025-06-02 07:44 | XMS_ITS | Encounter Summary ---
Author Organization [facility] Address [address] [place] [address] Care Team Providers Care Av Specialist Name Role Phone Maria Del Rosario De León MD Primary Care Provider [phone] Encounter Details DateTypeDepartmentCare Team (Latest Contact Info)Qubxxnlwmja28/18/2025amboo flowsheet [facility] [address] [place] [address] Brian Reyes, PT [address] [place] [address] Social History Tobacco UseTypesPacks/DayYears UsedDateSmoking Tobacco: NeverSmokeless [...] 4CommentsNoSex and Gender InformationValueDate RecordedSex Assigned at MkokiPhlsfd30/16/2023 8:32 AM EDTLegal RviKfenzk47/15/2023 8:27 PM EDTGender CaedywctHrguak58/16/2023 8:32 AM EDTSexual OrientationNot on file documented as of this encounter Plan of Treatment DateTypeDepartmentCare Team (Latest Contact Info)Wrffztyweou29/05/2026 1:00 PM ESTAncillary Procedure [facility] [address] [place] [address] 07/12/2025 2:15 PM ESTOffice Visit [facility] [place] [facility] [address] [place] [address] Junior Gilmore MD [address] [place] [address] documented as of this encounter Visit Diagnoses Not on filedocumented in this encounter Care Teams Team MemberRelationshipSpecialtyStart DateEnd Date Maria Del Rosario De León MD [address] [facility] [place] [address] PCP - GeneralFamily Medicine02/06/24documented as of this encounter
--- OUTSIDE RECORDS SUMMARY | 2025-06-02 07:46 | XMS_ITS | CCD ---
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 Name Role Phone Carrol Bailey Unavailable DR CARROL BAILEY Admitting Unavailable LYNN, DR CARROL Zamora Attending Unavailable LYNN, DR CARROL Zamora Primary Care Unavailable LAMONT, DR FLORI Ahmadi Consulting Unavailable LYNN, DR CARROL Zamora Consulting Unavailable DELFINA, DR LOZANO Admitting Unavailable DELFINA, DR LOZANO Attending Unavailable LYNN, DR CARROL Zamora Primary Care Unavailable DR JUNIOR MATHIS Consulting Unavailable Carrol Bailey MD Primary Care Provider MD Carrol Bailey Primary Care Provider MD Mallory Ortiz Attending Provider [phone] MD Carrol Bailey Primary Care Provider MD Mallory Ortiz Attending Provider Carrol Bailey MD Primary Care Provider Mallory Ortiz MD Attending Provider [phone] Carrol Bailey MD Primary Care Provider Mallory Ortiz MD Referring Provider Sandy Tom MD Attending Provider Carrol Bailey MD Primary Care Provider Mallory Ortiz MD Referring Provider Sandy Tom MD Attending Provider Carrol Bailey MD Primary Care Provider Carrol Bailey MD Primary Care Provider Carrol Bailey MD Primary Care Provider Sandy Tom MD Attending Provider Nhung Grimes APRN Katherine Attending Provider Carrol Bailey MD Primary Care Provider Sandy Tom MD Attending Provider Raegan Mueller Attending Provider Mallory Ortiz MD Referring Provider ERIC, FLORI Mendez Attending Unavailable BAILEY, CARROL Referring Unavailable ERIC, FLORI Mendez Attending Unavailable BAILEY, CARROL Referring Unavailable BAILEY, CARROL Referring Unavailable ERIC, FLORI Mendez Attending Unavailable ORTIZ VMALLORY Attending Unavailable ERIC, FLORI Mendez Attending Unavailable BAILEY, CARROL Referring Unavailable BAILEY, CARROL Referring Unavailable ERIC, FLORI Mendez Attending Unavailable ERIC, FLORI Mendez Attending Unavailable BAILEY, CARROL Referring Unavailable ERIC, FLORI Mendez Attending Unavailable BAILEY, CARROL Referring Unavailable BAILEY, CARROL Referring Unavailable EIRC, FLORI Mendez Attending Unavailable ERIC, FLORI Mendez Attending Unavailable BAILEY, CARROL Referring Unavailable ERIC, FLORI Mendez Attending Unavailable BAILEY, CARROL Referring Unavailable ORTIZ VMALLORY Attending Unavailable ERIC, FLORI Mendez Attending Unavailable [...] Mendez Attending Unavailable BAILEY, CARROL Referring Unavailable DANIEL FOX Attending Unavailable ERIC, FLORI Mendez Attending Unavailable BAILEY, CARROL Referring Unavailable ERIC, FLORI Mendez Attending Unavailable BAILEY, CARROL Referring Unavailable JUNIOR MATHIS Attending Unavailable DELFINA, JUNIOR Torrez Attending Unavailable ERIC, FLORI Mendez Attending Unavailable BAILEY, CARROL Referring Unavailable ERIC, FLORI Mendez Attending Unavailable BAILEY, CARROL Referring Unavailable BAILEY, CARROL Referring Unavailable ERIC, FLORI Mendez Attending Unavailable ERIC, FLORI Mendez Attending Unavailable BAILEY, CARROL Referring Unavailable ERIC, FLORI Mendez Attending Unavailable BAILEY, CARROL Referring Unavailable ERIC, FLORI Mendez Attending Unavailable BAILEY, CARROL Referring Unavailable Bailey Carrol SHARIF Primary Care Provider [phone] Raegan Mueller Attending Provider Mallory Ortiz MD Referring Provider Mallory Ortiz Attending Unavailable Mallory Ortiz Admitting Unavailable Carrol Bailey Primary Care Unavailable Sandy Tom Admitting Unavailable Sandy Tom Attending Unavailable Carrol Bailey Primary Care Unavailable Mallory Ortiz Referring Unavailable Carrol Bailey Primary Care Unavailable Raegan Brown Admitting Unavailable Raegan Brown Attending Unavailable Allergies Allergy ClassificationReported Allergen(s)Allergy TypeDate of OnsetReaction(s) Facility (4 sources)cefdinirDrug AllergydiarrheaNort [employer] Other (20 sources)cefdinirDrug [id number] [employer] Work Phone: (1 source)cefdinirDrug Wuihhgk16-56-6665YyqiatqlcMercy Health [facility] Repository Medications Current Medications MedicationDrug Class(es)DatesSig (Normalized)Sig (Original)ascorbic acid 226 mg / beta carotene 54522 unt / cuprous oxide 0.8 mg / dl-alpha tocopheryl acetate 200 unt / zinc oxide 34.8 mg oral capsule (4 sources)Vitamin CStart: 43-76-2256uxdq 1 capsule by mouth once daily azelastine hydrochloride 0.137 mg/actuat metered dose nasal spray (20 sources)Histamine-1 Receptor AntagonistStart: 01-11-2025 End: 64-56-9996pqjn 2 spray(s) nasal route in the morningazelastine (Astelin) 0.1 % nasal spray Indications: Non-seasonal allergic rhinitis due to pollen Adm inister 2 sprays into each nostril in the morning and 2 sprays before bedtime. Use in each nostril as directed. 90 mL 3 01/11/2025 01/11/2026 ActiveStart: 06-24-2023 End: 04-67-4133jwfp 2 spray(s) nasal route twice dailyAzelastine HCl 137 MCG/SPRAY solution Indications: Chronic rhinitis USE 2 SPRAYS IN EACH NOSTRIL TWICE A DAY 30 mL 14 06/24/2023 04/12/2024 Discontinuedazithromycin 500 mg oral tablet (10 sources)Macrolide AntimicrobialStart: 10-12-2024 End: 17-16-0979dhqf 1 tablet by mouth once dailyazithromycin (Zithromax) 500 MG tablet Indications: Acute vaginitis Take 1 tablet (500 mg) by mouthDaily for 10 days 10 tablet 1 10/12/2024 10/22/2024 ActiveStart: 02-27-2024 End: 52-60-4898dnzs 1 tablet by mouth once dailyazithromycin (Zithromax) 500 MG tablet Indications: Cervicitis and endocervicitis Take 1 tablet (500 mg) by mouth Daily for 10 days 10 tablet 1 02/27/2024 03/08/2024 ExpiredAzithromycin 250 MG as directed Orally Not-Takingclindamycin 20 mg/ml vaginal cream (4 sources)Lincosamide AntibacterialStart: 10-12-2024 End: 29-65-1279owomzjvumix (Cleocin) 2 % vaginal cream Indications: Bacterial Vaginosis Insert 1 applicator into the vagina at bedtime for 7 days 40 g 2 10/12/2024 10/19/2024 Activeestradiol 0.1 mg/ml vaginal cream (20 sources)EstrogenStart: 47-50-2775yciameqfz (Estrace) 0.1 MG/GM vaginal cream Indications: Vulvovaginal Atrophy Insert twice weekly 42.5 g 12 02/27/2024 Active{24 (ethinyl estradiol 0.01 MG / norethindrone acetate 1 MG Oral Tablet) / 2 (ethinyl estradiol 0.01 MG Oral Tablet) / 2 (ferrous fumarate 75 MG Oral Tablet) } Pack [Lo Loestrin Fe 28 Day] (2 sources)EstrogenStart: 03-95-0718umsc 1 tablet by mouth every twenty-four hoursLo Loestrin Fe 1 MG-10 MCG / 10 MCG 1 tablet Orally Once a day for 28 day(s) Aug, Activefluticasone propionate 0.05 mg/actuat metered dose nasal spray (20 sources)CorticosteroidStart: 01-11-2025 End: 19-73-8090vyhf 2 spray(s) nasal route once dailyfluticasone (Flonase) 50 MCG/ACT nasal spray Indications: Non-seasonal allergic rhinitis due to pollen Administer 2 sprays into each nostril Daily Shake gently. Before first use, prime pump. After use, clean tip and replace cap. 48 g 11 01/11/2025 01/11/2026 Activeloratadine 10 mg oral tablet (16 sources)Start: 37-98-0785rgyx 1 tablet by mouth once dailytake 1 tablet by mouth every twenty-four hoursLoratadine 10 MG 1 tablet Orally Once a day Active metroNIDAZOLE 500 mg oral tablet (1 source)Nitroimidazole AntimicrobialStart: 10-16-2024 End: 34-40-2264atjx 1 tablet by mouth in the morningmetroNIDAZOLE (Flagyl) 500 MG tablet Indications: Acute vaginitis Take 1 tablet (500 mg) by mouth in the morning and 1 tablet (500 mg) before bedtime. Do all this for 7 days. 14 tablet 10/16/2024 10/23/2024 Activesertraline 50 mg oral tablet (20 sources)Serotonin Reuptake InhibitorStart: 93-52-2887vlir 1 tablet by mouth once daily in the morningStart: 06-22-2024 End: 71-60-1457jafh 1 tablet by mouth once daily in the morningSertraline 100 mg tablet Discontinued 100 MG PO Every morning 30 2 June 22, 2024 3:36pm September 02, 2024 11:21amStart: 05-11-2024 End: 37-93-3169pwgq 1 tablet by mouth once daily in the morningSertraline 50 mg tablet Discontinued 50 MG PO Every morning May 11, 2024 12:00am June 22, 2024 3:37pm TAKE 1 TABLET BY MOUTH EVERY DAYStart: 11-15-2023 End: 28-74-3170reps 1 tablet by mouth once dailySertraline 50 mg tablet Discontinued 0 .ROUTE .COMPLEX 90 3 May 07, 2024 8:55am May 10:17am TAKE 1 TABLET BY MOUTH EVERY DAYStart: 11-15-2023 End: 43-34-5544ytzi 1 tablet by mouth once dailySertraline 50 mg tablet Discontinued 50 MG PO Daily November 14, 2023 11:00pm November 15, 2023 8:12amtamoxifen 20 mg oral tablet (7 sources)Estrogen Agonist/AntagonistStart: 42-48-7779zwep 1 tablet by mouth once dailyterconazole 4 mg/ml vaginal cream (4 sources)Azole AntifungalStart: 10-12-2024 End: 64-74-7020galnyfpdpyg (Terazol 7) 0.4 % vaginal cream Indications: Vulvovaginal Candidiasis Insert 1 applicator into the vagina at bedtime for 7 days 45 g 2 10/12/2024 10/19/2024 Activetranexamic acid 650 mg oral tablet (20 sources)Antifibrinolytic AgentStart: 84-11-3701Qnxgg: 02-27-2024 End: 55-45-3053ojjb 1 tablet by mouth in the morning, [...] days. 15 tablet 6 02/27/2024 03/03/2024 ExpiredVitamins A,C,J-Rbqi-Cmikac (Preservision Areds) 4,296 mcg-226 mg-90 mg capsule (6 sources)Start: 10-96-8999yddx 1 capsule by mouth once dailyVitamins A,C,J-Xnuz-Cgkpkg (Preservision Areds) 4,296 mcg-226 mg-90 mg capsule Active 1 CAP PO Daily May 11, 2024 1:00amStart: 94-29-0096tiak 1 capsule by mouth once dailyVitamins A,C,M-Pxpq-Ezrgif (Preservision Areds) 4,296 mcg-226 mg-90 mg capsule Active 1 CAP PO Daily May 11, 2024 12:00am Completed/Discontinued Medications MedicationDrug Class(es)DatesSig (Normalized)Sig (Original)acetaminophen 325 mg / HYDROcodone bitartrate 5 mg oral tablet (9 sources)Opioid AgonistStart: 05-21-2024 End: 88-93-1960tqci 1 tablet by mouth every six hours as needed for pain Hydrocodone-Acetaminophen 5-325 mg tablet Discontinued 1 TAB PO Q6H as needed for pain 28 7 0 May 21, 2024 March 19, 2025 11:53am Other acute postprocedural pain Other acute postprocedural painazelastine hydrochloride 0.137 mg/actuat / fluticasone propionate 0.05 mg/actuat metered dose nasalspray (11 sources)Corticosteroid, Histamine-1 Receptor AntagonistStart: 03-31-2024 End: 98-50-8417eptv 1 spray(s) nasal route twice dailyAzelastine-Fluticasone 137-50 mcg/spray spray,non-aerosol Discontinued 1 SPRAY INTRANASAL Twice daily March 30, 2024 11:00pm March 31, 2024 9:31am FreeTextSi spray in each nostril Nasally Twice a day; Note: Source Status: Taking; Provider: Lynn Mix ( )Start: 03-31-2024 End: 01-97-3709eedt 1 spray(s) nasal route twice dailyAzelastine-Fluticasone Discontinued 1 SPRAY INTRANASAL Twice daily March 30, 2024 11:00pm Mar 9:31am FreeTextSi spray in each nostril Nasally Twice a day; Note: Source Status: Taking; Provider: Lynn Mix ( ) Start: 03-31-2024 End: 49-13-6665tkjj 1 spray(s) nasal route twice dailyAzelastine-Fluticasone Discontinued 1 SPRAY INTRANASAL Twice daily March 31, 2024 12:00am Mar 10:31am FreeTextSi spray in each nostril Nasally Twice a day; Note: Source Status: Taking; Provider: Lnyn Mix ( )take 1 spray(s) nasal route twice dailyAzelastine-Fluticasone 137-50 MCG/ACT 1 spray in each nostril Nasally Twice a day ActiveAzelastine-Fluticasone 137-50 mcg/spray spray,non-aerosol (5 sources)Start: 03-31-2024 End: 25-62-0173lyqr 1 spray(s) nasal route twice dailyAzelastine-Fluticasone 137-50 mcg/spray spray,non-aerosol Discontinued 1 SPRAY INTRANASAL Twice daily March 31, 2024 12:00am March 31, 2024 10:31am FreeTextSi spray in each nostril Nasally Twice a day; Note: Source Status: Taking; Provider: Lynn Mix ( )Start: 03-31-2024 End: 21-97-8005ikhm 1 spray(s) nasal route twice dailyAzelastine-Fluticasone 137-50 mcg/spray spray,non-aerosol Discontinued 1 SPRAY INTRANASAL Twice daily March 30, 2024 11:00pm March 31, 2024 9:31am FreeTextSi spray in each nostril Nasally Twice a day; Note: Source Status: Taking; Provider: Lynn Mix ( )celecoxib 200 mg oral capsule (9 sources)Nonsteroidal Anti-inflammatory DrugStart: 11-16-2024 End: 14-48-7047zvvf 1 capsule by mouth once daily at mealtimeCelecoxib (Celebrex) 200 mg capsule Discontinued 200 MG PO Daily 14 0 December 07, 2024 6:40am March 19, 2025 11:53am Malignant neoplasm of breast Malignant neoplasm of unspecified site of unspecified female breast Take one capsule daily with food.30 actuat fluticasone furoate 0.1 mg/actuat / vilanterol 0.025 mg/actuat dry powder inhaler (2 sources)Corticosteroid, beta2-Adrenergic Agonisttake 1 puff(s) by inhalation once dailyBreo Ellipta 100-25 MCG/ACT 1 puff Inhalation Once a day Not-Taking LORazepam 0.5 mg oral tablet (20 sources)BenzodiazepineStart: 07-11-2022 End: 75-05-3588oakc 1 tablet by mouth once daily at bedtimeLorazepam 0.5 mg tablet Discontinued 0.5 MG PO Daily at bedtime September 18, 2023 11:00pm September 19, 2023 11:02amMagic Mouthwash W/Lidocaine 240 Ml Bottle 240 mL bottle (16 sources)Start: 08-19-2024 End: 33-14-7725atwb 10 mL by mouth four times daily as neededMagic Mouthwash W/Lidocaine 240 Ml Bottle 240 mL bottle Discontinued 10 ML PO Four times daily as needed for MUCOSITIS 240 0 August 19, 2024 4:00pm September 02, 2024 11:02am Malignant neoplasm of breast Malignant neoplasm of unspecified site of unspecified female breast take 10ml by mouth, four times a day, as needed. SWISH AND SWALLOW.Start: 08-19-2024 End: 73-36-9590pxio 10 mL by mouth four times daily as neededMagic Mouthwash W/Lidocaine 240 Ml Bottle 240 mL bottle Discontinued 10 ML PO Four times daily as needed for MUCOSITIS 240 August 19, 2024 5:00pm September 02, 2024 12:02pm take 10ml by mouth, four times a day, as needed. SWISH AND SWALLOW. Start: 08-19-2024 End: 75-44-9493blfg 10 mL by mouth four times daily as neededMagic Mouthwash W/Lidocaine 240 Ml Bottle 240 mL bottle Discontinued 10 ML PO Four times daily as needed for MUCOSITIS 240 August 19, 2024 4:00pm September 02, 2024 11:02am take 10ml by mouth, four times a day, as needed. SWISH AND SWALLOW. Start: 08-07-2024 End: 08-58-4987zjcd 10 mL by mouth four times daily as neededMagic Mouthwash W/Lidocaine 240 Ml Bottle 240 mL bottle Discontinued 10 ML PO Four times daily as needed for MUCOSITIS 240 0 August 07, 2024 12:00am August 19, 2024 4:00pm Malignant neoplasm of breast Malignant neoplasm of unspecified site of unspecified female breast take 10ml by mouth, four times a day, as needed. SWISH AND SWALLOW.Start: 08-07-2024 End: 28-10-1858xouv 10 mL by mouth four times daily as neededMagic Mouthwash W/Lidocaine 240 Ml Bottle 240 mL bottle Discontinued 10 ML PO Four times daily as needed for MUCOSITIS 240 August 07, 2024 1:00am August 19, 2024 5:00pm take 10ml by mouth, four times a day, as needed. SWISH AND SWALLOW.Start: 08-07-2024 End: 03-55-9943rumb 10 mL by mouth four times daily [...] hrs Not-Takingmometasone furoate 1 mg/ml topical cream (8 sources)CorticosteroidStart: 07-21-2024 End: 18-75-4547Mudjjsesqt 0.1 % cream Discontinued 1 APPLIC TOPICAL Daily 45 July 21, 2024 12:00am November 16, 2024 1:09pm Malignant neoplasm of breast Malignant neoplasm of unspecified site of unspecified female breast Apply to radiation site, once a day, AFTER radiation treatments.prazosin 5 mg oral capsule (10 sources)alpha-Adrenergic BlockerStart: 05-07-2024 End: 01-85-0110ukee 1 capsule by mouth once daily at bedtimePrazosin 5 mg capsule Discontinued 5 MG PO Daily at bedtime May 06, 2024 11:00pm June 16, 2024 9:02am sleepsulfamethoxazole 800 mg / trimethoprim 160 mg oral tablet (13 sources)Dihydrofolate Reductase Inhibitor Antibacterial, Sulfonamide AntimicrobialStart: 08-21-2023 End: 45-06-3882zcke 1 tablet by mouth twice dailySulfamethoxazole-Trimethoprim 800-160 mg tablet Discontinued 1 TAB PO Twice daily August 21, 2023 12:00am March 31, 2024 9:31amStart: 16-75-6552qjoi 1 tablet by mouth every twelve hoursBactrim DS 800-160 MG 1 tablet Orally Twice a day for 10 day(s) Jul, Active Problems Active Problems Problem ClassificationProblemDateDocumented DateEpisodic/ChronicAcute and chronic tonsillitis (6 sources)Amygdalolith; 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 tonsils and adenoids]ChronicAnxiety disorders (20 sources)Mixed anxiety and depressive disorder; Translations: [Other specified anxiety disorders]ChronicAsthma (2 sources)Uncomplicated asthma; Translations: [Unspecified asthma, uncomplicated]Onset: 42-94-2197CqbxzauCragbocbc infection; unspecified site (1 source)Other specified bacterial agents as the cause of diseases classified elsewhereEpisodicCancer of breast (20 sources)Malignant neoplasm, overlapping lesion of breast; Translations: [Malignant neoplasm of overlapping sites of left female breast]Onset: 05-01-2024 89-39-7783RxwrqpfRixcyhh obstructive pulmonary disease and bronchiectasis (2 sources)Acute exacerbation of chronic obstructive airways disease; Translations: [Chronic obstructive pulmonary disease with (acute) exacerbation] Onset: 08-31-2889PijkhmzGdawryrtbe and other anemia (8 sources)Anemia; Translations: [Anemia, unspecified]96-31-6389HkvvrdweMhyznrxp of white blood cells (2 sources)Leukopenia; Translations: [Decreased white blood cell count, unspecified]71-19-6599LdismhaSkqpshyyp of lipid metabolism (2 sources)Hyperlipidemia; Translations: [Hyperlipidemia, unspecified]Onset: 53-69-9251AainsjkFdeqfinqiizy diseases of female pelvic organs (11 sources)Cervicitis and endocervicitis; Translations: [Inflammatory disease of cervix uteri]79-58-2112HeyqnhsuVjlswbvosq disorders (6 sources)Premenopausal menorrhagia; Translations: [Excessive bleeding in the premenopausal period]ChronicOther connective tissue disease (20 sources)Spasm of cervical paraspinous muscle; Translations: [Other muscle spasm]Onset: 195323-50-9736MykpkmtuXgots endocrine disorders (8 sources)Disorder of endocrine system; Translations: [Endocrine disorder, unspecified]99-33-0243KnhllcktZlaqn female genital disorders (4 sources)Abnormal uterine bleeding; Translations: [Other specified abnormal uterine and vaginal bleeding]ChronicOther female genital disorders (1 source)Other specified abnormal uterine and vaginal bleedingChronicOther nervous system disorders (9 sources)Acute postoperative pain; Translations: [Other acute postprocedural pain]62-35-6761CkqvpzkiSsmzy non-traumatic joint disorders (20 sources)Shoulder pain; Translations: [Pain in right shoulder]Onset: 289374-77-4553GopcnzrrDtvpu nutritional; endocrine; and metabolic disorders (6 sources)Body mass index 25-29 - overweight; Translations: [Body mass index (BMI) 25.0-25.9, adult]EpisodicOther screening for suspected conditions (not mental disorders or infectious disease) (13 sources)Encounter for screening mammogram for malignant neoplasm of breast; Translations: [Cancer cervix screening status]Onset: 49-40-8832PgncvabjVjkij upper respiratory disease (2 sources)Seasonal allergic rhinitis; Translations: [Other seasonal allergic rhinitis]Onset: 55-46-5174SgolexsJjhrx upper respiratory disease (20 sources)Allergic rhinitis; Translations: [Allergic rhinitis, unspecified] Onset: 488883-79-1417TszfciuJgava upper respiratory disease (20 sources)Allergic rhinitis due to pollen; Translations: [Allergic rhinitis due to pollen]Onset: 596352-06-0442XqylbkgUtqyj upper respiratory infections (9 sources)Acute maxillary sinusitis; Translations: [Acute maxillary sinusitis, unspecified]Onset: 09-24-1059EmfyanwmLiczgytc codes; unclassified (12 sources)Insomnia; Translations: [Insomnia, unspecified]55-72-0442Ohygrbvu Residual codes; unclassified (3 sources)Insomnia, unspecified; Translations: [Insomnia, unspecified] 43-46-2886QuobqfkvCnbwuinhdcf; intervertebral disc disorders; other back problems (20 sources)Spasm of muscle of lower back; Translations: [Muscle spasm of back] Onset: 283055-78-3129Fpqlrakn Past or Other Problems Problem ClassificationProblemDateDocumented DateEpisodic/ChronicAcute bronchitis (2 sources)Acute bronchitis; Translations: [Acute bronchitis, unspecified]Onset: 43-34-1169YygqetzuDuvaikbjd disorders (6 sources)Excessive and frequent menstruation with irregular cycle; Translations: [Excessive and frequent menstruation]Onset: 11-05-2022 Resolved: 13-56-3315GgdjiqzZheiqtdsfdpm breast conditions (20 sources)Lump in upper outer quadrant of left breast; Translations: [Unspecified lump in the left breast, upper outer quadrant]Onset: 04-15-2024 46-56-2753QjzzfrlbVntfj inflammatory condition of skin (2 sources)Seborrheic dermatitis of scalp; Translations: [Seborrhea capitis] Onset: 92-19-3431XsnxkbeoNegqy nervous system disorders (1 source)Other acute postprocedural pain; Translations: [Other acute postprocedural pain]Onset: 78-29-4375QlcocqtjAujvqm media and related conditions (2 sources)Acute secretory otitis media; Translations: [Other acute nonsuppurative otitis media, left ear]Onset: 40-41-0674VqxmhrbeAquiolch codes; unclassified (1 source)Family history of malignant neoplasm of breast; Translations: [FAMILY HX MALIG NEOPLASM OF BREAST]Onset: 32-54-2916Mscbwtfp Results Test NameValueInterpretationReference RangeFacilityBasophils Auto (Bld) [#/Vol] Ordered By: Raegan Brown on 60-22-0364Kywyvztyx (Bld) [#/Vol]0.0 10 3/uL 0.0-0.1FMain Campus Medical CenterBasophils/100 WBC Auto (Bld)Ordered By: Raegan Brown on 23-34-6037Fzvejtztd/100 WBC (Bld)0.9 %0.2-2.0[facility] HospitalEosinophils/100 WBC Auto (Bld)Ordered By: Raegan Brown on 72-30-2815Pxnxljymgqt/100 WBC (Bld)2.2 %0.9-7.0[facility] HospitalErythrocyte distribution width Auto (RBC) [Ratio]Ordered By: Raegan Brown on 64-66-2436Oubmnwjtbhi distribution width (RBC) [Ratio]12.0 %11.0-15.0 [facility] HospitalGlobulin Calc (S) [Mass/Vol]Ordered By: Raegan Brown on 57-23-7053Rytxlqmh (S) [Mass/Vol]3.2 g/dLMercy Health Kings Mills HospitalGlomerular filtration rate (GFR) estimation in non- AmericanOrdered By: Raegan Brown on 29-32-4491WRC/1.73 sq M.predicted among non-blacks MDRD (S/P/Bld) [Vol rate/Area]mL/min/{1.73_m2}>=60 mL/min/1.73m 2FMain Campus Medical CenterHematocrit Auto (Bld) [Volume fraction]Ordered By: Raegan Brown on 20-57-0339Amlealplzx (Bld) [Volume fraction]38.6 %36.0-48.0[facility] HospitalHemoglobin [Mass/volume] in BloodOrdered By: Raegan Brown on 78-27-6903Kkhokcmvkh (Bld) [Mass/Vol]13.0 g/dL12.0-16.0[facility] CenterLaboratory - Chemistry and Chemistry - challengeOrdered By: Raegan Brown on 87-38-3953Kgacwok [Mass/Vol]3.6 g/dL3.4-5.0[facility] HospitalALP [Catalytic activity/Vol]49 U/D43-391JritmfhsvMercy Health Kings Mills HospitalALT [Catalytic activity/Vol]20 U/L64-18ArtdjsaczMercy Health Kings Mills Hospital AST [Catalytic activity/Vol]20 U/E97-02OsyjhbdiuMercy Health [facility] Mills Hospital Bilirubin [Mass/Vol]0.6 mg/dL0.2-1.0[facility] HospitalCalcium [Mass/Vol]8.7 mg/dL8.5-10.1FMain Campus Medical CenterChloride [Moles/Vol] 105 mmol/G10-659ToezowvgpMercy Health Kings Mills HospitalCO2 [Moles/Vol]27.3 mmol/L 21.0-32.0[facility] HospitalCreatinine [Mass/Vol]0.69 mg/dL 0.55-1.02[facility] HospitalGFR/1.73 sq M.predicted MDRD (S/P/Bld) [Vol rate/Area]mL/min/{1.73_m2}>=60 mL/min/1.73m 2FMain Campus Medical CenterGlucose [Mass/Vol]102 mg/zW68-306JqidyhowaMercy Health Kings Mills Hospital Potassium [Moles/Vol]3.9 mmol/L3.5-5.1FMain Campus Medical CenterProtein [Mass/Vol]6.8 g/dL6.4-8.2FCleveland Clinic Children's Hospital for Rehabilitationodium [Moles/Vol]141 mmol/B404-569WydadxiljMercy Health Kings Mills HospitalTSH Qn0.887 m[IU]/L0.358-3.740 [facility] HospitalUrea nitrogen [Mass/Vol]13.0 mg/dL7.0-18.0 [facility] HospitalUrea nitrogen/Creatinine [Mass ratio]18.8 mg/mg [facility] HospitalLaboratory - Hematology and Cell countsOrdered By: Raegan Brown on 36-31-3437Wazdxhmh granulocytes/100 WBC (Bld)0.3 %0.0-0.5 [facility] HospitalLeukocytes [#/volume] corrected for nucleated erythrocytes in Blood by Automated counOrdered By: Raegan Brown on 05-06-2025 WBC corrected for nucl RBC Auto (Bld) [#/Vol]3.2 10 3/uLLow4.0-11.0[facility] HospitalLymphocytes Auto (Bld) [#/Vol]Ordered By: Raegan Brown on 12-79-0160Divqydvujzt (Bld) [#/Vol]0.9 10 3/uLLow1.2-3.8[facility] HospitalLymphocytes/100 WBC Auto (Bld)Ordered By: Raegan Brown on 37-39-0253Qzzkvmptpjl/100 WBC (Bld)28.3 %20.5-60.0Holzer [facility] Auto (RBC) [Entitic mass]Ordered By: Raegan Brown on 10-02-1022MYQ (RBC) [Entitic mass]31.9 pg26.7-34.0[facility] HospitalMCHC Auto (RBC) [Mass/Vol]Ordered By: Raegan Brown on 01-69-6036ESIT (RBC) [Mass/Vol] 33.7 g/dL29.9-35.2FMain Campus Medical CenterMCV Auto (RBC) [Entitic vol] Ordered By: Raegan Brown on 16-50-5046WTH (RBC) [Entitic vol]94.8 fL81.0-99.0 [facility] HospitalMonocytes Auto (Bld) [#/Vol]Ordered By: Raegan Brown on 50-76-3084Pkqwzbwms (Bld) [#/Vol]0.4 10 3/uL0.3-0.8[facility] HospitalMonocytes/100 WBC Auto (Bld)Ordered By: Raegan Brown on 09-34-6138Rrwpyjjtc/100 WBC (Bld)12.1 %High1.7-12.0[facility] HospitalNeutrophils Auto (Bld) [#/Vol]Ordered By: Raegan Brown on 05-06-2025 Neutrophils (Bld) [#/Vol]1.8 10 3/uL1.4-6.5FMain Campus Medical Center Neutrophils/100 WBC Auto (Bld)Ordered By: Raegan Brown on 05-06-2025 Neutrophils/100 WBC (Bld)56.2 %43.0-75.0[facility] HospitalNo Panel InformationOrdered By: Raegan Brown on 01-58-4856Hfvfrctplwv # (Auto)0.1 10 3/uL0.0-0.7FMain Campus Medical CenterImmature Granulocyte # (Auto) 0.01 10 3/uL0.00-0.03[facility] HospitalPlatelet mean volume Auto (Bld) [Entitic vol]Ordered By: Raegan Brown on 07-72-3135Nlqwckkr mean volume (Bld) [Entitic vol]9.6 fL9.5-13.5FMain Campus Medical CenterPlatelets Auto (Bld) [#/Vol]Ordered By: Raegan Brown on 72-78-2345Bbzvfpubv (Bld) [#/Vol]174 10 3/hS627-528PtsbfqsrnMercy Health Kings Mills HospitalRBC Auto (Bld) [#/Vol]Ordered By: Raegan Brown on 79-22-7848RUU (Bld) [#/Vol]4.07 10 6/uLLow4.20-5.40The Jewish Hospitalerum or plasma albumin/globulin mass ratioOrdered By: Raegan Brown on 24-85-5164Rtiyvio/Globulin [Mass ratio]1.1 {ratio}The Jewish Hospitalerum or plasma anion gap determinationOrdered By: Raegan Brown on 42-02-4409Tomun gap [Moles/Vol]12.6 mmol/LFMain Campus Medical CenterMM diagnostic mammo BI w/CADon 90-23-9395YP diagnostic mammo BI [facility] [address] [place] [address] Mammography Report Signed Patient: Tawana Perez MR#: [id number] : 1980 Acct:[id number] Age/Sex: 44 / F Adm Date: 03/15/25 Loc: Room: Type: [facility] Attending Dr: Sandy Tom MD Ordering Provider: Zion Philippe II, DO Date of Service: 03/15/25 Procedure(s): MM diagnostic mammo BI w/CAD Accession Number(s): ([id number]) MM/MM diagnostic mammo BI w/CAD: C50.919 - [...] Garcia M.D. 03/15/2025 2:09 PM Dictation Location: [facility] Dictated By: Koko Garcia DO 03/15/25 1407 Signed By: 03/15/25 1409NoCone Health Moses [facility] Hospital Physician [facility] CenterHCG ( test) IA.rapid Ql (U)Ordered By: Sandy Tom on 66-13-7856HYP ( test) Ql (U)Urine human chorionic gonadotropin (hCG) detection by immunoassayMercy Health Kings Mills HospitalHCG ( test) Ql (U)NegativeMercy Health Kings Mills HospitalHCG,Urineon 77-81-2314Crmw HCG ( test) Ql (U)NegativeAdventHealth Altamonte Springs Physician [facility] CenterComment on above:Result Comment: PERFORMED BY: [place] [id number] PATHOLOGIST UNDERBASTER CLAUDE NAVA M.D.Performed By: #### UHCG #### [address] [address] USAHCG ( test) IA.rapid Ql (U)Ordered By: Mallory Ortiz on 71-44-4866DFY ( test) Ql (U)Urine human chorionic gonadotropin (hCG) detection by immunoassayMercy Health [facility] Hospital HCG,Urineon 08-53-7545Gijt HCG ( test) Ql (U)NegativeNoCone Health Moses Cone Hospital Physician GroupComment on above:Result Comment: PERFORMED BY: [place] [id number] PATHOLOGIST UNDERBASTER CLAUDE NAVA M.D.Performed By: #### UHCG #### [address] [address] USALon 05-21-2024L Specimen: [id number] Received: 05/21/24 Status: MARQUITA Limon Num: [id number] Spec Type: Surgical Subm Dr: Mallory Ortiz MD Tissues: A Breast [place] Lymph Node (LEFT BREAST SENTINAL NODE #1) B Breast [place] Lymph Node (LEFT BREAST SENTINAL NODE #2) C Breast [place] Lymph Node (LEFT BREAST SENTINAL NODE #3) D Breast Lumpectmy/Mass - Requiring Micros Eval of Margins (LEFT BREAST MASS Procedures: HE/32, Gross/Micro L5/4, AE1-AE3/4, FS HE/9, DIFF QWIK Age/ Patient Sex Location Account Attending Physician Tawana Perez 43/F [place] [id number] Mallory Ortiz MD SPEC NUM: [id number] RECD: 05/21/24 STATUS: MARQUITA CEDILLOClinton NUM: [id number] WEN: 05/21/[address] [facility] [address]: Mallory Ortiz MD ENTERED: 05/21/[address] [facility] [address]: CRISTA TYPE: Surgical DEPT: S ENTERED BY: [id number] RECV BY: [id number] ORDERED: HE/32, Gross/Micro L5/4, AE1-AE3/4, FS HE/9, DIFF QWIK ORDERED: HE/32, Gross/Micro L5/4, AE1-AE3/4, FS HE/9, DIFF QWIK Supplemental Report Addendum 2 Entered: 07/22/24 To add information of DCIS margin. DCIS is 2 mm from inked posterior margin on the slide D14 . Addendum Signed (signature on file) Mike Winchester MD 07/22/24914 Addendum 1 Entered: 07/13/24 To issue Oncotype DX Breast Recurrence Score report. Please see scanned report. Recurrence (RS) Score: 12 (No CT benefit (<1%) Specimen: [id number] Received: 05/21/24 Status: MARQUITA Limon Num: [id number] Spec Type: Surgical Subm Dr: Mallory Ortiz MD Tissues: A Breast [place] Lymph Node (LEFT BREAST SENTINAL NODE #1) B Breast [place] Lymph Node (LEFT BREAST SENTINAL NODE #2) C Breast [place] Lymph Node (LEFT BREAST SENTINAL NODE #3) D Breast Lumpectmy/Mass - Requiring Micros Eval of Margins (LEFT BREAST MASS Procedures: HE/32, Gross/Micro L5/4, AE1-AE3/4, FS HE/9, DIFF QWIK Patient: Tawana Perez [id number] (Continued) Specimen: [id number] Received: 05/21/24 (Continued) Supplemental Report (Continued) Signed (signature on file) Mike Winchester MD 05/25/24 1556 Specimen: [id number] Received: 05/21/24 Status: MARQUITA Limon Num: [id number] Spec Type: Surgical Subm Dr: Mallory Ortiz MD Tissues: A Breast [place] Lymph Node (LEFT BREAST SENTINAL NODE #1) B Breast [place] Lymph Node (LEFT BREAST SENTINAL NODE #2) C Breast [place] Lymph Node (LEFT BREAST SENTINAL NODE #3) D Breast Lumpectmy/Mass - Requiring Micros Eval of Margins (LEFT BREAST MASS Procedures: HE/32, Gross/Micro L5/4, AE1-AE3/4, FS HE/9, DIFF QWIK Patient: Tawana Perez [id number] (Continued) Specimen: [id number] Received: 05/21/24-1224 (Continued) Supplemental Report (Continued) Addendum [...] and stroma fi (more content not included)...NormalThe [facility] Physician GroupMM surgical specimen [facility] 37-41-6945JQ surgical specimen [facility] [place] [address] Mammography Report Signed Patient: Tawana Perez MR#: [id number] : 1980 Acct:[id number] Age/Sex: 43 / F ADM Date: 05/21/24 Loc: [place] Room: Type: [facility] Attending Dr: Mallory Ortiz MD Copies to: [...] Shikha Asif M.D.05/21/2024 2:28 PM Dictation Location: [place] [address] Transcribed By: [facility] 05/21/24 1428 Dictated By: Shikha Asif MD 05/21/24 1427 Signed By: 05/21/24 1428[facility] Physician GroupMammography reportOrdered By: Shikha Asif on 43-68-9391Yxtlbfcarl imaging [facility] [place] [address] [place] [address] Mammography Report Signed Patient: Tawana Perez MR#: [id number] : 1980 Acct:[id number] Age/Sex: 43 / F ADM Date: 4 Loc: [place] Room: Type: [facility] Attending Dr: Mallory Ortiz MD Copies to: MD Crarol Lucio MD~ Ordering Provider: Mallory Ortiz MD [...] Dictation Location: RADIO-PC-23 Transcribed By: LIVIER 05/21/24 1428 Dictated By: Shikha Asif MD 05/21/24 142 Signed By: 05/21/24 1428 [facility] Work Phone: nm sentinel node w imagingon 84-16-2340TZ sentinel node w imagingST. [place] [address] Nuclear Medicine Report Signed Patient: Tawana Perez MR#: [id number] : 1980 Acct:[id number] Age/Sex: 43 / F ADM Date: 05/21/24 Loc: [place] Room: Type: [facility] Attending Dr: Mallory Ortiz MD Copies to: [...] Asif MD 05/21/24 1429 Signed By: 05/21/24 1450NoCone Health Moses [facility] Hospital Physician GrouphCG, quantitative, pregnancyon 38-92-4647Hbnm HCG ( test) Ql (U)NegativeNOMS HealthcareNOMS Healthcare MM diagnostic mammo LT w/CADon 33-03-4747VN diagnostic mammo LT w/CADST. RITA'S [facility] [place] [address] [place] [address] Ultrasound Report Signed Patient: Tawana Perez MR#: [id number] : 1980 Acct:[id number] Age/Sex: 43 / F ADM Date: 05/01/24 Loc: [place] Room: Type: [facility] Attending Dr: Mallory Ortiz MD Ordering Provider: Mallory Ortiz MD Date of Service: 05/20/24 US/US breast needle loc LT: LT BREAST MASS ([id number]) MM/MM diagnostic mammo LT w/CAD: post u/s [...] Shikha Asif M.D.05/20/2024 11:10 AM Dictation Location: [facility] Tech: Hilary Arboleda Transcribed By: LIVIER 05/20/24 1110 Dictated By: Shikha Asif MD 05/20/24 1050 Signed By: 05/20/24 1110[facility] Physician GroupIGP,rfx Aptima HPV all pthon 03-03-2024.CommentNOMS HealthcareComment on above:The HPV DNA reflex criteria were not met with this specimen result therefore, no HPV testing was performed. Seamer Elastic Band Cyto stain Nom (Cvx/Vag) [ID]CommentNOMT HealthcareComment on above: Leonor Watt, Supervisor Instrument Repair (ASCP)Cytology report Cyto stain Doc (Cvx/Vag)CommentNOMT HealthcareComment on above:NEGATIVE FOR INTRAEPITHELIAL LESION OR MALIGNANCY.Cytology report Cyto stain.thin prep Doc (Cvx/Vag)Comment NOMS HealthcareComment on above:This liquid based ThinPrep(R) pap test was screened with the use of an image guided system. Diagnosis ICD code [Identifier]CommentNOMT HealthcareComment on above:Z12.4 Z01.419 Microscopic observation Other stain Nom (Unsp spec).NOMS HealthcareNote:Comment [facility] HealthcareComment on above:The Pap smear is a screening test designed to aid in the detection of premalignant and malignant conditions of the uterine cervix. It is not a diagnostic procedure and should not be used as the sole means of detecting cervical cancer. Both false-positive and false-negative reports do occur. Statement of adequacy Cyto stain (Cvx/Vag) [Interp]CommentNOMT HealthcareComment on above:Satisfactory for evaluation. Endocervical and/or squamous metaplastic cells (endocervical component) are present. Performed at: 01 - [address] [id number] Senior Producer: Annetta Atwood MD, Phone: [phone] Specimen Comment: Source.............Cervix Specimen Comment: No. of containers..01 ThinPrep VialLABCORPNOMT HealthcareMETRO IRON AND TIBCon 68-25-1592PEJ OXQJ278.0 ug/dL50.0 - 170.0 ug/dLNOMT Healthcare TBH PERCENT IRON QLHIMPEXGA63.0 %NOMS [facility] NorthTBH TOTAL IRON BINDING CAPACITY 300.0 ug/dL250.0 - 450.0 ug/dLNOSaint John's Regional Health CenterCLINISYNCNOMS HealthcareESTRADIOLon 22-82-0292Viajmvrho80.4 pg/mLNCleveland Clinic Lutheran HospitalComment on above:Result Comment: Adult Female: Follicular phase 12.5 - 166.0 Ovulation phase 85.8 - 498.0 Luteal phase 43.8 - 211.0 Postmenopausal <6.0 - 54.7 1st trimester 215.0 - >4300.0 Julianne ECLIA methodologyPerformed By: #### ESTRADI #### [facility] [address] [place] [address] Dr. Luksa Muhammad 64-06-1858HTP4.1 mIU/mLNCleveland Clinic Lutheran HospitalComment on above:Result Comment: Adult Female: Follicular phase 3.5 - 12.5 Ovulation phase 4.7 - 21.5 Luteal phase 1.7 - 7.7 Postmenopausal 25.8 - 134.8Performed By: #### LBCFSH #### [facility] [address] [place] [address] Dr. Lukas MooreLUTEINIZING HORMONE (LH)on 86-48-6977BD2.8 mIU/mLNCleveland Clinic Lutheran HospitalComment on above:Result Comment: Adult Female: Follicular phase 2.4 - 12.6 Ovulation phase 14.0 - 95.6 Luteal phase 1.0 - 11.4 Postmenopausal 7.7 - 58.5Performed By: #### LBCLH #### [facility] [address] [place] [address] Dr. Lukas MoorePROGESTERONEon 19-66-8449Xyxskjmcmtnf97.8 ng/mLNCleveland Clinic Lutheran HospitalComment on above:Result Comment: Follicular phase 0.1 - 0.9 Luteal phase 1.8 - 23.9 Ovulation phase 0.1 - 12.0 First trimester 11.0 - 44.3 Second trimester 25.4 - 83.3 Third trimester 58.7 - 214.0 Postmenopausal 0.0 - 0.1Performed By: #### PROGES #### [facility] [address] [place] [address] Dr. Luaks MooreCBC AUTO DIFFon 77-47-2389EIOI #0.1 103/ulNormal0.0-0.1The [facility] Lac HospitalComment on above:Performed By: #### CBC #### [facility] [address] [place] [address] Dr. Lukas MooreBasophils/100 WBC (Bld)1.1 %Normal0.2-2.0[facility] on above:Performed By: #### CBC #### [facility] [address] [place] [address] Dr. Lukas Ferrara #0.0 103/ulNormal0.0-0.7The [facility]letown HospitalComment on above: Performed By: #### CBC #### [facility] [address] [place] [address] Dr. Lukas Morilloosinophils/100 WBC (Bld)0.3 %Critically low0.9-7.0The [facility]letown HospitalComment on above:Performed By: #### CBC #### [facility] [address] [place] [address] Dr. Lukas Morillorythrocyte distribution width (RBC) [Ratio]12.7 %Wvverq45.0-15.0 The [facility]own HospitalComment on above:Performed By: #### CBC #### [facility] [address] [place] [address] Dr. Lukas MooreHematocrit (Bld) [Volume fraction]40.9 %Kxfafa98.0-48.0The [facility]own HospitalComment on above:Performed By: #### CBC #### [facility] [address] [place] [address] Dr. Lukas MooreHemoglobin (Bld) [Mass/Vol]13.5 g/rEKrbtub53.0-16.0The [facility]own HospitalComment on above:Performed By: #### CBC #### [facility] [address] [place] [address] Dr. Lukas Garrido #0.02 10e3/ulNormal0.00-0.03The [facility]own HospitalComment on above:Performed By: #### CBC #### [facility] [address] [place] [address] Dr. Lukas Garrido %0.3 %Normal0.0-0.5The [facility]own HospitalComment on above: Performed By: #### CBC #### [facility] [address] [place] [address] Dr. Lukas Woodward #1.1 103/ulCritically low1.2-3.8[facility] Comment on above:Performed By: #### CBC #### [facility] [address] [place] [address] Dr. Lukas Levinhocytes/100 WBC (Bld)17.8 %Critically low20.5-60.0The [facility]own HospitalComment on above:Performed By: #### CBC #### [facility] [address] [place] [address] Dr. Lukas Aguayo DIFF REQNONormalThe [facility]own HospitalComment on above: Performed By: #### CBC #### [facility] [address] [place] [address] Dr. Lukas Young (RBC) [Entitic mass]31.7 auAistws40.7-34.0The [facility]own HospitalComment on above:Performed By: #### CBC #### [facility] [address] [place] [address] Dr. Lukas Buenrostro (RBC) [Mass/Vol]33.0 g/oJBtsvva13.9-35.2The [facility]own HospitalComment on above:Performed By: #### CBC #### [facility] [address] [place] [address] Dr. Lukas Sierra (RBC) [Entitic vol]96.0 kUVupqpi32.0-99.0The [facility]own HospitalComment on above:Performed By: #### CBC #### [facility] [address] [place] [address] Dr. Lukas Pereyra #0.4 103/ulNormal0.3-0.8The [facility]letown HospitalComment on above:Performed By: #### CBC #### [facility] [address] [place] [address] Dr. Lukas Westonocytes/100 WBC (Bld)6.2 %Normal1.7-12.0[facility] Comment on above:Performed By: #### CBC #### [facility] [address] [place] [address] Dr. Lukas Eller #4.8 103/ulNormal1.4-6.5The [facility]own HospitalComment on above:Performed By: #### CBC #### [facility] [address] [place] [address] Dr. Lukas Mckeonutrophils/100 WBC (Bld)74.3 %Jyqyye26.0-75.0The [facility]own HospitalComment on above:Performed By: #### CBC #### [facility] [address] [place] [address] Dr. Lukas MoorePlatelet mean volume (Bld) [Entitic vol]10.0 fLNormal9.5-13.5The [facility]own HospitalComment on above:Performed By: #### CBC #### [facility] [address] [place] [address] Dr. Lukas MoorePLT156 103/zdCjmuwr764-479Hre [facility]letown HospitalComment on above: Performed By: #### CBC #### [facility] [address] [place] [address] Dr. Lukas MooreRBC4.26 106/ulNormal4.20-5.40The [facility]own HospitalComment on above:Performed By: #### CBC #### [facility] [address] [place] [address] Dr. Lukas MooreWBC6.4 103/ulNormal4.0-11.0The [facility]own HospitalComment on above: Performed By: #### CBC #### [facility] [address] [place] [address] Dr. Lukas MooreFERRITINon 80-20-4343Zxinpclk [Mass/Vol]60.0 ng/mLNormal6.2-137.0 The [facility]own HospitalComment on above:Performed By: #### FETIBC, FERR #### [facility] [address] [place] [address] [address] Lukas Barreto AND TIBCon 11-05-2022% XZGGOYCRRB18.0 %NormalThe [facility]letown HospitalComment on above:Performed By: #### FETIBC, FERR #### [facility] [address] [place] [address] [address] Lukas Barreto [Mass/Vol]145.0 ug/vJUbhdhn33.0-170.0[facility] Comment on above:Performed By: #### FETIBC, FERR #### [facility] [address] [place] [address] [address] Lukas MooreTIBKeyon FZUNHE576.0 ug/xUEkniuo118.0-450.0[facility] Comment on above:Performed By: #### FETIBC, FERR #### [facility] [address] [place] [address] [address] Lukas MooreMG MAMM SCREEN 3D CECILIO CADon 88-51-9215SJ MAMM SCREEN 3D CECILIO CAD Patient: TAWANA PEREZ Exam Date: 03/08/2022 : 1980 Gender:F Ordering : DR CARROL BAILEY M.D. Admission #: [id number] Family : Order #: [id number] CLICK HERE TO VIEW EXAM RADIOLOGY REPORT [...] breast cancer at age 55. LOCATION: [facility] BREAST COMPOSITION: Extremely dense, which lowers [...] by: Flori Wilks MD on 03/08/2022 at 12:36[facility] Vital Signs Date TimeVital SignValuePerforming NfxvadnsjLvolcjfy37-75-6516 09:49-0500Body qlhfdy268.64 cmCarrol Bailey MD Work Phone: [phone]11-07-2025 09:49-0500 Body mass index (BMI) [Ratio]27.6 kg/b2BeegkjCarrol Bailey MD Work Phone: [phone])[address] [place], [place] 7307311-07-2025 09:49-0500 Body cavvwnuqgpg60.8 [degF]Carrol Bailey MD Work Phone: [phone] [place], [place] 7307311-07-2025 09:49-0500 Body qzakpe45.56 kgCarrol Bailey MD Work Phone: [phone] [place], [place] 7307311-07-2025 09:49-0500 Diastolic blood mgnrljev08 mm[Hg]Carrol Bailey MD Work Phone: [phone])[address] [place], [place] 7307311-07-2025 09:49-0500 Heart rate69 /Arleen Bailey MD Work Phone: [phone])[address] [place], [place] 7307311-07-2025 09:49-0500 Respiratory rate16 /Arleen Bailey MD Work Phone: [phone] [place], [place] 7307311-07-2025 09:49-0500 SaO2% (BldA) [Mass fraction]100 %Carrol Bailey MD Work Phone: [phone]11-07-2025 09:49-0500 Systolic blood cjnlogyb506 mm[Hg]Carrol Bailey MD Work Phone: 1(726)[address] [place], [place] 7307309-12-2025 12:46-0400 Body oqtqay675.64 cmCarrol Bailey MD Work Phone: [phone])[address] [place], [place] 7307309-12-2025 12:46-0400 Body mass index (BMI) [Ratio]27.1 kg/n3JopqazCarrol Bailey MD Work Phone: 1(419)[address] [place], [place] 7307309-12-2025 12:46-0400 Body xpbvtfxgeyp11.8 [degF]Carrol Bailey MD Work Phone: 1(419)[address] [place], [place] 7307309-12-2025 12:46-0400 Body uwrfik55.2 kgCarrol Bailey MD Work Phone: [phone])[address] [place], [place] 7307309-12-2025 12:46-0400 Diastolic blood xyirjxul10 mm[Hg]Carrol Bailey MD Work Phone: 1(419)[address] [place], [place] 7307309-12-2025 12:46-0400 Heart rate64 /Arleen Bailey MD Work Phone: 1(419)[address] [place], [place] 7307309-12-2025 12:46-0400 Respiratory rate16 /Arleen Bailey MD Work Phone: 1(419)[address] [place], [place] 7307309-12-2025 12:46-0400 SaO2% (BldA) [Mass fraction]98 %Carrol Bailey MD Work Phone: 1(419)[address] [place], [place] 7307309-12-2025 12:46-0400 Systolic blood mm[Hg]Carrol Bailey MD Work Phone: [phone])[address] [place], [place] 7307305-12-2025 14:01-0400 Body .64 cmCarrol Bailey MD Work Phone: [phone])[address] [place], [place] 7307305-12-2025 14:01-0400 Body mass index (BMI) [Ratio]26.3 kg/j4DkvzjdCarrol Bailey MD Work Phone: 1(419)[address] [place], [place] 7307305-12-2025 14:01-0400 Body vprpwkoagfi21.8 [degF]Carrol Bailey MD Work Phone: 1(419)[address] [place], [place] 7307305-12-2025 14:01-0400 Body bkofiw08.93 kgCarrol Bailey MD Work Phone: [phone])[address] [place], [place] 7307305-12-2025 14:01-0400 Diastolic blood mm[Hg]Carrol Bailey MD Work Phone: [facility]05-12-2025 14:01-0400 Heart rate63 /Arleen Bailey MD Work Phone: [facility]05-12-2025 14:01-0400 Respiratory rate16 /Arlene Bailey MD Work Phone: [phone]05-12-2025 14:01-0400 SaO2% (BldA) [Mass fraction]100 %Carrol Bailey MD Work Phone: [phone]05-12-2025 14:01-0400 Systolic blood fqpjortx906 mm[Hg]Carrol Bailey MD Work Phone: [phone]92[facility]04-23-2025 09:49-0400 Body mass index (BMI) [Ratio]25.99 kg/k2HzweviJunior Mathis MD Work Phone: [phone])947-[facility] HospitalMlmixybfdt57-99-4037 09:49-0400Body veksxf89.03 kgJunior Mathis MD Work Phone: [phone])762-[facility] HospitalSsudveghim27-99-6491 09:49-0400Diastolic blood mm[Hg]Junior Mathis MD Work Phone: 1(386)318-[facility] HospitalGgqkxwsmil43-40-1303 09:49-0400Systolic blood rnlxtebu945 mm[Hg]Junior Mathis MD Work Phone: 1(627)480-[facility] HospitalUoiobwbkux38-86-3990 08:05-0400Body mass index (BMI) [Ratio]26.79 kg/l2VojutqJunior Mathis MD Work Phone: [facility] HospitalXcytvqjrgl25-54-6111 08:05-0400Body gbetxu94.3 kg Junior Mathis MD Work Phone: [facility] HospitalBuqjlxzpol60-65-2686 08:05-0400Diastolic blood fsmgiruc73 mm[Hg]Junior Mathis MD Work Phone: [facility] HospitalWkuwofspsa19-07-8402 08:05-0400Systolic blood oxkobktv457 mm[Hg]Junior Mathis MD Work Phone: [facility] HospitalCcwddgkrdi39-09-3022 13:22-0500Body .64 cmMer[facility]03-07-2025 13:22-0500Body mass index (BMI) [Ratio]26.6 kg/u1LiqgzutciMercy Health [facility] Hospital03-07-2025 13:22-0500Body auheyu43.84 kgMercy Health [facility] Hospital03-07-2025 13:22-0500Diastolic blood mm[Hg][facility]03-07-2025 13:22-0500 Heart rate64 /[facility]03-07-2025 13:22-0500 Respiratory rate20 /[facility]03-07-2025 13:22-0500 SaO2% (BldA) [Mass fraction]98 %[facility]03-07-2025 13:22-0500Systolic blood lfkgiyfz301 mm[Hg][facility] 09-02-2024 10:57-0500Body rhuiex600.64 cmCarrol Bailey MD Work Phone: [facility]02-26-2025 10:57-0500 Body mass index (BMI) [Ratio]26.3 kg/f5UozuhzCarrol Bailey MD Work Phone: [facility]02-26-2025 10:57-0500 Body wazinx08.93 kgCarrol Bailey MD Work Phone: [facility]02-26-2025 10:57-0500 Diastolic blood khwrhusb27 mm[Hg]Carrol Bailey MD Work Phone: [facility]02-26-2025 10:57-0500 Heart rate73 /Arleen Bailey MD Work Phone: [facility]02-26-2025 10:57-0500 Systolic blood afwbartl350 mm[Hg]Carrol Bailey MD Work Phone: [facility]01-14-2025 13:51-0500 Body ecieil824 cmCarrol Bailey MD Work Phone: 1(539)638-[address] [place], [place] 4467601-14-2025 13:51-0500 Body mass index (BMI) [Ratio]26.5 kg/l8ZgdbllCarrol Bailey MD Work Phone: [phone]01-14-2025 13:51-0500 Body .1 [degF]Carrol Bailey MD Work Phone: 1(775)[address] [place], [place] 7307301-14-2025 13:51-0500 Body emnosg77.84 kgCarrol Bailey MD Work Phone: 1(008)[address] [place], [place] 7307301-14-2025 13:51-0500 Diastolic blood jcxsyswc28 mm[Hg]Carrol Bailey MD Work Phone: 1(460)[address] [place], [place] [address]307301-14-2025 13:51-0500 Heart rate58 /Arleen Bailey MD Work Phone: 1(978)[address] [place], [place] 7307301-14-2025 13:51-0500 Respiratory rate16 /Arleen Bailey MD Work Phone: 1(226)[address] [place], [place] 7307301-14-2025 13:51-0500 SaO2% (BldA) [Mass fraction]100 %Carrol Bailey MD Work Phone: 1(070)[address] [place], [place] 7307301-14-2025 13:51-0500 Systolic blood ttrhmkup326 mm[Hg]Carrol Bailey MD Work Phone: 1(826)[address] [place], [place] 7307301-03-2025 13:44-0500 Body gcujxu278.64 cmCarrol Bailey MD Work Phone: 1(392)[address]01-03-2025 13:44-0500 Body mass index (BMI) [Ratio]26.4 kg/h0AidgryCarrol Bailey MD Work Phone: 1(764)[address] [place], [place] 7307301-03-2025 13:44-0500 Body xfcmqxgtdqu01.8 [degF]Carrol Bailey MD Work Phone: 1(859)[address] [place], [place] 7307301-03-2025 13:44-0500 Body volxca55.38 kgCarrol Bailey MD Work Phone: 1(432)677-54[facility]01-03-2025 13:44-0500 Diastolic blood sipmqwwe05 mm[Hg]Carrol Bailey MD Work Phone: 1(751)489-39[facility]01-03-2025 13:44-0500 Heart rate67 /Arleen Bailey MD Work Phone: 1(041)368-[address] [place], [place] 4467601-03-2025 13:44-0500 Respiratory rate16 /Arleen Bailey MD Work Phone: 1(863)[address]01-03-2025 13:44-0500 SaO2% (BldA) [Mass fraction]100 %Carrol Bailey MD Work Phone: 1(081)761[facility]45[facility]01-03-2025 13:44-0500 Systolic blood fkxyxzsq924 mm[Hg]Carrol Bailey MD Work Phone: 1(387)[address]12-30-2024 10:09-0500 Body fjfusr636.6 cmAlsuzi Ahmadi MD Work Phone: 5(786)[facility]66[facility] HospitalEfejavhkqt19-70-9638 10:09-0500Body mass index (BMI) [Ratio]25.34 kg/n9BfbsdeMallory Ahmadi MD Work Phone: 4(658)[facility] HospitalOomrxffcve71-16-9532 10:09-0500Body orbjww58.22 kgMallory Ahmadi MD Work Phone: 1(362)[facility]20[facility] HospitalUscsxtcjps40-25-2252 15:06-0500Body keyczo324.64 cmCarrol Bailey MD Work Phone: 1(646)953-96[facility]12-16-2024 15:06-0500 Body mass index (BMI) [Ratio]25.9 kg/e9KkgljrCarrol Bailey MD Work Phone: 5(406)494-18[facility]12-16-2024 15:06-0500 Body gtkirp85.02 kgCarrol Bailey MD Work Phone: 1(999)733-53[facility]12-16-2024 15:06-0500 Diastolic blood cndoezpf00 mm[Hg]Carrol Bailey MD Work Phone: 1(859)[address]12-16-2024 15:06-0500 Heart rate64 /Arleen Bailey MD Work Phone: 1(562)[address] [place], [place] 7307312-16-2024 15:06-0500 Systolic blood xepkfivn925 mm[Hg]Carrol Bailey MD Work Phone: 1(766)[address] [place], [place] 7307312-10-2024 09:00-0500 Body xmimis433.64 cmCarrol Bailey MD Work Phone: 1(176)[address] [place], [place] 7307312-10-2024 09:00-0500 Body mass index (BMI) [Ratio]25.9 kg/q9RhafrcCarrol Bailey MD Work Phone: 1(696)[address] [place], [place] 7307312-10-2024 09:00-0500 Body vzknikatqsl00 [degF]Carrol Bailey MD Work Phone: 1(068)[address] [place], [place] 7307312-10-2024 09:00-0500 Body xqjojx06.02 kgCarrol Bailey MD Work Phone: 1(983)[address] [place], [place] 7307312-10-2024 09:00-0500 Diastolic blood xdmagwro77 mm[Hg]Carrol Bailey MD Work Phone: 1(040)[address] [place], [place] 7307312-10-2024 09:00-0500 Heart rate68 /Arleen Bailey MD Work Phone: 1(867)[address] [place], [place] 7307312-10-2024 09:00-0500 Respiratory rate18 /Arleen Bailey MD Work Phone: 1(234)[address] [place], [place] 7307312-10-2024 09:00-0500 SaO2% (BldA) [Mass fraction]100 %Carrol Bailey MD Work Phone: 1(822)[address] [place], [place] 7307312-10-2024 09:00-0500 Systolic blood idmbwnvj898 mm[Hg]Carrol Bailey MD Work Phone: 1(861)[address] [place], [place] 7307311-14-2024 15:52-0500 Diastolic blood lbilakks85 mm[Hg]Carrol Bailey MD Work Phone: 1(569)[address]11-14-2024 15:52-0500 Heart rate92 /Arleen Bailey MD Work Phone: 1(436)[address] [place], [place] 7307311-14-2024 15:52-0500 Respiratory rate20 /Arleen Bailey MD Work Phone: 1(919)[address] [place], [place] 7307311-14-2024 15:52-0500 SaO2% (BldA) [Mass fraction]96 %Carrol Bailey MD Work Phone: 1(926)[address] [place], [place] 7307311-14-2024 15:52-0500 Systolic blood blwmnaqc859 mm[Hg]Carrol Bailey MD Work Phone: 1(974)[address] [place], [place] 7307311-14-2024 14:40-0500 Body cnzyiyhpyyu94 [degF]Carrol Bailey MD Work Phone: 1(908)[address] [place], [place] 7307311-14-2024 14:10-0500 Inhaled oxygen flow rate8 L/Arleen Bailey MD Work Phone: 1(509)[address] [place], [place] 7307311-14-2024 09:29-0500 Body fnniyo032.64 cmCarrol Bailey MD Work Phone: 1(937)[address] [place], [place] 7307311-14-2024 09:29-0500 Body ujieoe77.7 kgCarrol Bailey MD Work Phone: 1(304)[address] [place], [place] 7307310-31-2024 09:23-0400 Body .56 cmMD Carrol Bailey Work Phone: 1(708)[address] [place], [place] 7307310-31-2024 09:23-0400 Body mass index (BMI) [Ratio]26.4 kg/m2MD Carrol Bailey Work Phone: 1(799)[address]10-31-2024 09:23-0400 Body .9 kgMD Carrol Bailey Work Phone: 1(473)[address] [place], [place] 7307310-31-2024 09:23-0400 Diastolic blood mm[Hg]MD Carrol Bailey Work Phone: 1(105)710-92[facility]10-31-2024 09:23-0400 Heart rate68 /minMD Carrol Bailey Work Phone: 1(604)115-[address] [place], [place] 4467610-31-2024 09:23-0400 SaO2% (BldA) [Mass fraction]98 %MD Carrol Bailey Work Phone: 1(755)385-63[facility]10-31-2024 09:23-0400 Systolic blood qseroyrk637 mm[Hg]MD Carrol Bailey Work Phone: 1(221)[address]10-16-2024 10:30-0400 Body vzdsvnbxygu51.2 [degF]MD Carrol Bailey Work Phone: 1(380)[address]10-16-2024 10:30-0400 Diastolic blood lrvmlmyr14 mm[Hg]MD Carrol Bailey Work Phone: 1(760)[address]10-16-2024 10:30-0400 Heart rate62 /minMD Carrol Bailey Work Phone: 1(979)[address]10-16-2024 10:30-0400 Respiratory rate22 /minMD Carrol Bailey Work Phone: 1(667)[address]10-16-2024 10:30-0400 SaO2% (BldA) [Mass fraction]99 %MD Carrol Bailey Work Phone: 1(580)731-77[facility]10-16-2024 10:30-0400 Systolic blood bkurvicl934 mm[Hg]MD Carrol Bailey Work Phone: 1(500)851[facility]84[facility]10-09-2024 09:21-0400 Body .6 cmAlsuzi Ahmadi MD Work Phone: [facility] HospitalZcirqyiqbc53-08-3058 09:21-0400Body mass index (BMI) [Ratio]25.34 kg/f6AgbafwMallory Ahmadi MD Work Phone: [facility] HospitalHqrrhetlqs80-89-0810 09:21-0400Body rywjuj89.22 kgMallory Ahmadi MD Work Phone: [facility] HospitalWznewhppta22-89-0297 09:21-0400Diastolic blood wovdfbmb24 mm[Hg]Mallory Ahmadi MD Work Phone: [facility] HospitalSuzzzwcodv23-57-5044 09:21-0400Systolic blood xuedwrrp896 mm[Hg]Mallory Ahmadi MD Work Phone: [facility] HospitalPrnlqhenlq28-07-7201 10:26-0400Body .56 cm[facility]09-24-2024 10:26-0400Body mass index (BMI) [Ratio]26.7 kg/u1QhhcouwglMercy Health Kings Mills Hospital09-24-2024 10:26-0400Body fbhyny92.76 kgMer[facility] Health [facility]09-24-2024 10:26-0400Diastolic blood umrielyn67 mm[Hg][facility]09-24-2024 10:26-0400 Heart rate67 /minMercy Health [facility] Hospital09-24-2024 10:26-0400Systolic blood znttjhki945 mm[Hg][facility]08-22-2024 09:12-0400 Body mass index (BMI) [Ratio]25.34 kg/d3KpdflpJunior Mathis MD Work Phone: [facility] HospitalOuvrgawjvo76-66-2207 09:12-0400Body olgsda05.22 kgJunior Mathis MD Work Phone: [facility] HospitalWukkoeldsc82-12-2795 09:12-0400Diastolic blood ofgswnai26 mm[Hg]Junior Mathis MD Work Phone: [facility] HospitalInbzmoogjv27-65-7288 09:12-0400Systolic blood oiehpyhg877 mm[Hg]Junior Mathis MD Work Phone: [facility] HospitalIeskqxztaa27-56-8067 10:30-0500Body zsyyzi037.56 cmCarrol Bailey Other [employer] Other 01-30-2024 10:30-0500Body mass index (BMI) [Ratio] 25.57 kg/e1ZomlvwCarrol Bailey Other [employer] Other 01-30-2024 10:30-0500Body krhvuykxctc56.5 [degF]Carrol Bailey Other [employer] Other 01-30-2024 10:30-0500Body vigkib75.59 kgCarrol Lynn Other [employer] Other 01-30-2024 10:30-0500Diastolic blood abcjrziu75 mm[Hg] Carrol Bailey Other [employer] Other 01-30-2024 10:30-0500Systolic blood rprgbnez121 mm[Hg] Carrol Bailey Other [employer] Other 07-25-2023 15:30-0400Body qxjwof879.56 cmCarrol Bailey Other [employer] Other 07-25-2023 15:30-0400Body mass index (BMI) [Ratio] 24.37 kg/a9Xvxlkx Braun Other [employer] Other 07-25-2023 15:30-0400Body btfsgy01.41 kgCarrol Bailey Other [employer] Other 07-25-2023 15:30-0400Diastolic blood fmemblof36 mm[Hg] Carrol Bailey Other [employer] Other 07-25-2023 15:30-0400Systolic blood bliwxvys402 mm[Hg] Carrol Bailey Other [employer] Other 02-01-2023 09:30-0500Body islawh313.56 cmCarrol Bailey Other [employer] Other 02-01-2023 09:30-0500Body mass index (BMI) [Ratio] 25.92 kg/e5Xfacqj Braun Other [employer] Other 02-01-2023 09:30-0500Body .49 kgCarrol Bailey Other [employer] Other 02-01-2023 09:30-0500Diastolic blood fwyosfkm40 mm[Hg] Carrol Bailey Other [employer] Other 02-01-2023 09:30-3757NsV1% (BldA) [Mass fraction]99 % Carrol Bailey Other [employer] Other 02-01-2023 09:30-0500Systolic blood ukmvoace986 mm[Hg] Carrol Bailey Other [employer] Other Encounters Encounter DateEncounter TypeCare ProviderFacilityStart: 83-79-9674Ynbekfdsho RecurringRaegan BOO-[facility] Work Phone: Start: 05-14-2025 End: 99-24-7651pfshdrszpxRkhsri E Braun MD Work Phone: [phone]-[facility] AmbulatoryStart: 05-14-2025 End: 17-28-3120Wiwtpiu encounter procedureRaegan [facility] Work Phone: Start: 05-06-2025 End: 53-16-7333Rlkfmv Henry Reyes PT Work Phone: noms [facility] TherapyStart: 05-06-2025 End: 82-31-4850Fyykor Henry Reyes PT Work Phone: noms [place] [facility] TherapyStart: 05-06-2025 End: 75-58-8693zxvorbwttuKufuh B Eric PT Work Phone: noMS [facility] Physical TherapyComment on above:Cervical paraspinal muscle spasm (Primary Dx); Lumbar paraspinal muscle spasm; Cervical radiculopathy; Right anterior shoulder painStart: 01-30-3147Aos-patient / Non-visitCaitraheem Brown SOCIAL SERVICES COUNSELORMahiC-[facility] Work Phone: Start: 04-27-2025 End: 40-70-9069jccumtkcopVtthi B Eric PT Work Phone: noMS [facility] Physical TherapyComment on above:Cervical paraspinal muscle spasm (Primary Dx); Lumbar paraspinal muscle spasm; Cervical radiculopathy; Right anterior shoulder painStart: 04-13-2025 End: 52-48-8523olhlkmkbfrByubu B Eric PT Work Phone: noMS [facility] Physical TherapyComment on above:Cervical paraspinal muscle spasm (Primary Dx); Lumbar paraspinal muscle spasm; Cervical radiculopathy; Right anterior shoulder painStart: 04-13-2025 End: 21-40-3755Tccxes flowsheetDavid B Erci PT Work Phone: noMS [facility] TherapyStart: 04-13-2025 End: 15-61-5890Mqvnor flowsheetDavid B Eric PT Work Phone: noMS [facility] TherapyStart: 04-07-2025 End: 42-54-2330Efjzve flowsheetDavid B Eric PT Work Phone: noMS [facility] TherapyStart: 04-07-2025 End: 90-74-7544Jooujm flowsheetDavid B Eric PT Work Phone: noMS [facility] TherapyStart: 04-07-2025 End: 52-16-6693gkxkewoqtvAnwiv B Eric PT Work Phone: noMS [facility] Physical TherapyComment on above:Cervical paraspinal muscle spasm (Primary Dx); Lumbar paraspinal muscle spasm; Cervical radiculopathy; Right anterior shoulder painStart: 61-76-1509Jmnxactute RecurringSandy Tom MD-[facility] Work Phone: Start: 03-19-2025 End: 61-55-8134qdnnitkihgLaaqdn E Braun MD Work Phone: [facility] Work Phone: Start: 03-19-2025 End: 84-02-7065Iqiciia encounter procedureRaegan Brown SOCIAL SERVICES COUNSELORMahiC-[facility] Work Phone: Start: 03-15-2025 End: 65-26-9401Hnoqwk flowsheetDavid B Eric PT Work Phone: N[facility] [place] [facility] TherapyStart: 03-15-2025 End: 02-81-2427Iviqlh flowsheetDavid B Eric PT Work Phone: [facility] [place] [facility] TherapyStart: 03-15-2025 End: 13-90-8947ribungdaydOkeie B Eric PT Work Phone: [facility] [place] Physical TherapyComment on above:Cervical paraspinal muscle spasm (Primary Dx); Lumbar paraspinal muscle spasm; Cervical radiculopathy; Right anterior shoulder painStart: 03-02-2025 End: 54-72-5844slywtzrgznTxgro B Eric PT Work Phone: [facility] [place] [facility] TherapyComment on above:Cervical paraspinal muscle spasm (Primary Dx); Lumbar paraspinal muscle spasm; Cervical radiculopathy; Right anterior shoulder painStart: 03-02-2025 End: 43-57-0377Nmxxbv flowsheetDavid B Eric PT Work Phone: [facility] [place] [facility] TherapyStart: 03-02-2025 End: 64-45-8435Vbbzsv flowsheetDavid B Eric PT Work Phone: NOS[facility] Physical TherapyStart: 02-18-2025 End: 55-69-5752esuhqsyqkdCmsve B Eric PT Work Phone: NO [place] [facility] TherapyComment on above:Cervical paraspinal muscle spasm (Primary Dx); Lumbar paraspinal muscle spasm; Cervical radiculopathy; Right anterior shoulder painStart: 02-18-2025 End: 11-45-8878Ucbfkk flowsheetDavid B Eric PT Work Phone: NO [place] [facility] TherapyStart: 02-18-2025 End: 06-14-0626Bgfbwp flowsheetDavid B Eric PT Work Phone: [facility] TherapyStart: 02-11-2025 End: 62-48-5124Ciwmsz flowsheetDavid B Eric PT Work Phone: [facility] TherapyStart: 02-11-2025 End: 46-68-1919Ywhnbd flowsheetDavid B Eric PT Work Phone: NO [place] [facility] TherapyStart: 02-11-2025 End: 50-94-7924qemoqycbvxGxezb B Eric PT Work Phone: NO [place] [facility] TherapyComment on above:Cervical paraspinal muscle spasm (Primary Dx); Lumbar paraspinal muscle spasm; Cervical radiculopathy; Right anterior shoulder painStart: 01-28-2025 End: 42-90-8501ztgyfigpseLCQFI B OTTNot AvailableStart: 01-28-2025 End: 22-50-0077fpkdvujglqKftgw B Eric PT Work Phone: NOMS NM PTComment on above:Cervical paraspinal muscle spasm (Primary Dx); Lumbar paraspinal muscle spasm; Cervical radiculopathy; Right anterior shoulder painStart: 01-28-2025 End: 23-49-7105Lxxgsr flowsheetDavid B Eric PT Work Phone: [facility] NM PTStart: 01-28-2025 End: 29-49-1813Ztnwsg flowsheetDavid B Eric PT Work Phone: [facility] NM PTStart: 01-21-2025 End: 39-83-3465Mhibal flowsheetDavid B Eric PT Work Phone: [phone] NM PTStart: 01-21-2025 End: 25-66-6693Zuovew flowsheetDavid B Eric PT Work Phone: [phone] NM PTStart: 01-21-2025 End: 25-37-6145opbgdcxbbeAryyd B Eric PT Work Phone: [phone] NM PTComment on above:Cervical paraspinal muscle spasm (Primary Dx); Lumbar paraspinal muscle spasm; Cervical radiculopathy; Right anterior shoulder painStart: 01-11-2025 End: 34-27-0655Kqojyw outpatient visit 15 minutesTosean Fox MD Work Phone: NOMS SWS ALLComment on above:Non-seasonal allergic rhinitis due to pollen (Primary Dx)Start: 01-11-2025 End: 73-60-8041bufflrzzoeQTLJ E SHANTELBASEKNot AvailableStart: 01-11-2025 End: 29-91-3648Gnpbuxynes Fox MD Work Phone: NOM[facility] SWS ALLStart: 01-11-2025 End: 36-05-6313Dxvmncynes Fox MD Work Phone: NOMS SWS ALLStart: 01-04-2025 End: 95-06-7199jnmoprxalhRrwtry E Braun MD Work Phone: [facility] Work Phone: Start: 01-04-2025 End: 13-30-4403Uzichrj encounter Veronica Grimes APRN[facility] Work Phone: Start: 01-01-2025 End: 98-69-8593Dyfkhv flowsheetDavid B Eric PT Work Phone: [facility] NM PTStart: 01-01-2025 End: 77-78-0871Ahivbo flowsheetDavid B Eric PT Work Phone: [phone] NM PTStart: 01-01-2025 End: 64-27-1495sshybcyqpqEoqng B Eric PT Work Phone: NOM[facility] NM PTComment on above:Cervical paraspinal muscle spasm (Primary Dx); Lumbar paraspinal muscle spasm; Cervical radiculopathy; Right anterior shoulder painStart: 12-25-2024 End: 19-91-4251lvudthhymuCyukk B Eric PT Work Phone: [phone] NM PTComment on above:Cervical paraspinal muscle spasm (Primary Dx); Lumbar paraspinal muscle spasm; Cervical radiculopathy; Right anterior shoulder painStart: 12-22-2024 End: 27-85-5725jnoqapwkfuFswpjg E Braun MD Work Phone: [facility] Work Phone: Start: 12-22-2024 End: 76-25-6236Mukonkowua RecurringSandy Tom MD-[address] [facility] Start: 20-48-5826Lmrunfgiem RecurringSandy Tom MD-[address] [facility] Start: 12-07-2024 End: 33-36-3335hdacmxnkuyLmsrg B Eric PT Work Phone: [phone] NM PTComment on above:Cervical paraspinal muscle spasm (Primary Dx); Lumbar paraspinal muscle spasm; Cervical radiculopathy; Right anterior shoulder painStart: 12-07-2024 End: 92-54-4307Qpkdle flowsheetDavid B Eric PT Work Phone: [phone] NM PTStart: 12-07-2024 End: 94-05-3482Wawbzu flowsheetDavid B Eric PT Work Phone: [facility] NM PTStart: 11-18-2024 End: 50-67-0944Ptgfqt flowsheetDavid B Eric PT Work Phone: [facility] NM PTStart: 11-18-2024 End: 29-93-0855Msupmo flowsheetDavid B Eric PT Work Phone: noms NM PTStart: 11-18-2024 End: 54-65-5842ldjhmhbbdjDvyuw B Eric PT Work Phone: noms NM PTComment on above:Cervical paraspinal muscle spasm (Primary Dx); Lumbar paraspinal muscle spasm; Cervical radiculopathy; Right anterior shoulder painStart: 11-16-2024 End: 82-68-1450yqavprszioTwmsjn E Braun MD Work Phone: [facility] Work Phone: Start: 11-16-2024 End: 61-37-2021Ahstqnn encounter procedureCarrol Bailey MD Work Phone: [facility] Work Phone: Start: 11-04-2024 End: 45-14-1402Uarmhy flowsheetDavid B Eric PT Work Phone: noms NM PTStart: 11-04-2024 End: 06-28-5210Yxxxqu flowsheetDavid B Eric PT Work Phone: noms NM PTStart: 11-04-2024 End: 94-74-1048plpmtwrtazLmdrx B Eric PT Work Phone: noms NM PTComment on above:Cervical paraspinal muscle spasm (Primary Dx); Lumbar paraspinal muscle spasm; Cervical radiculopathy; Right anterior shoulder painStart: 10-28-2024 End: 49-21-2981Swyjbe outpatient visit 10 minutesJunior Mathis MD Work Phone: noms SWS OBComment on above:Anemia, unspecified type; Hormone imbalance; Cervicitis and endocervicitis; Screening for malignant neoplasm of cervix; Acute vaginitisStart: 10-28-2024 End: 54-65-9437efnfpqftsrKQTPDL P JONESNot AvailableStart: 10-16-2024 End: 25-18-2819Wdrmrn OnlyJunior Mathis MD Work Phone: noms SWS OBComment on above:Acute vaginitis (Primary Dx)Start: 10-12-2024 End: 59-86-0173ygyhqlbjgrQgqxq B Eric PT Work Phone: NOMS NM PTComment on above:Cervical paraspinal muscle spasm (Primary Dx); Lumbar paraspinal muscle spasm; Cervical radiculopathy; Right anterior shoulder painStart: 10-12-2024 End: 71-73-2700Mtihiu outpatient visit 15 minutesJunior Mathis MD Work Phone: noms SWS OBComment on above:Acute vaginitis (Primary Dx); Anemia, unspecified type; Hormone imbalance; Cervicitis and endocervicitis; Screening for malignant neoplasm of cervixStart: 10-12-2024 End: 47-38-4605udowirmdjeZECFCR P JONESNot AvailableStart: 10-02-2024 End: 15-72-5228vmovdbgtiqDryhq B Eric PT Work Phone: NOMS NM PTComment on above:Cervical paraspinal muscle spasm (Primary Dx); Lumbar paraspinal muscle spasm; Cervical radiculopathy; Right anterior shoulder painStart: 10-02-2024 End: 72-08-1269Mbrfse flowsheetDavid B Eric PT Work Phone: [facility] NM PTStart: 10-02-2024 End: 00-53-0593Fluufk flowsheetDavid B Eric PT Work Phone: [facility] NM PTStart: 09-28-2024 End: 19-94-5688Ulnkgzimh encounterJunior Mathis MD Work Phone: noms SWS OBStart: 09-22-2024 End: 76-02-0736rwllzjhxmnONFBG B OTTNot AvailableStart: 31-74-9462Hgywmrgftv Shoshana Bailey MD Work Phone: [facility] Work Phone: Start: 09-21-2024 End: 40-66-2873eyenxifqxaYhswvd E Braun MD Work Phone: [facility] Work Phone: Start: 09-21-2024 End: 58-21-0224Wapgoyw encounter procedureCarrol Bailey MD Work Phone: [facility] Work Phone: Start: 09-11-2024 End: 03-05-8313jwuuoucjbrMgkwwtjqlSum[facility] Work Phone: Start: 09-11-2024 End: 55-33-2890Jkwvtud encounter procedureHolmes [facility] Work Phone: Start: 09-08-2024 End: 07-62-9872Alxhsc flowsheetDavid B Eric PT Work Phone: [facility] NM PTStart: 09-08-2024 End: 05-72-4926Rihvsy flowsheetDavid B Eric PT Work Phone: [facility] NM PTStart: 09-08-2024 End: 73-17-1814kwarwszcrkQsyvy B Eric PT Work Phone: N[facility] NM PTComment on above:Cervical paraspinal muscle spasm (Primary Dx); Lumbar paraspinal muscle spasm; Cervical radiculopathy; Right anterior shoulder painStart: 09-02-2024 End: 29-68-3063mugirwjuywTnymcs E Braun MD Work Phone: [facility] Work Phone: Start: 09-02-2024 End: 91-78-4023Muwjavg encounter Seven Bailey MD Work Phone: [facility] Work Phone: Start: 08-28-2024 End: 91-57-1143Quncsb flowsheetDavid B Eric PT Work Phone: N[facility] NM PTStart: 08-28-2024 End: 05-06-5184Oydomd flowsheetDavid B Eric PT Work Phone: [facility] NM PTStart: 08-28-2024 End: 68-61-3892fdpqtqmuyvEnjvc B Eric PT Work Phone: NOM[facility] NM PTComment on above:Cervical paraspinal muscle spasm (Primary Dx); Lumbar paraspinal muscle spasm; Cervical radiculopathy; Right anterior shoulder painStart: 36-54-7730Qutpqakabd Shoshana Bailey MD Work Phone: [facility] Acute Work Phone: Start: 92-51-2218Gkz-patient / Non-visitCarrol Bailey MD Work Phone: [facility] Work Phone: Start: 34-66-4723Qot-patient / Non-visitCarrol Bailey MD Work Phone: [facility] Work Phone: Start: 08-07-2024 End: 02-19-2660Bdkzju flowsheetDavid B Eric PT Work Phone: noms NM PTStart: 08-07-2024 End: 26-81-9094Zaauzl flowsheetDavid B Eric PT Work Phone: NOIR NM PTStart: 08-07-2024 End: 22-55-4707mzzdldyabbMktar B Eric PT Work Phone: NOMS NM PTComment on above:Cervical paraspinal muscle spasm (Primary Dx); Lumbar paraspinal muscle spasm; Cervical radiculopathy; Right anterior shoulder painStart: 17-42-5436Pnr-patient / Non-visitCarrol Bailey MD Work Phone: [facility] Work Phone: Start: 07-30-2024 End: 31-02-2224Kkhwrd flowsheetDavid B Eric PT Work Phone: [facility] NM PTStart: 07-30-2024 End: 17-76-9304Yjvoqk flowsheetDavid B Eric PT Work Phone: [phone] NM PTStart: 07-30-2024 End: 73-49-6357fwicfayspwEqvce B Eric PT Work Phone: [phone] NM PTComment on above:Cervical paraspinal muscle spasm (Primary Dx); Lumbar paraspinal muscle spasm; Cervical radiculopathy; Right anterior shoulder painStart: 07-24-2024 End: 34-75-8978Luqrtp flowsheetDavid B Eric PT Work Phone: [phone] NM PTStart: 07-24-2024 End: 03-48-9800Tmwhkr flowsheetDavid B Eric PT Work Phone: [facility] NM PTStart: 07-24-2024 End: 81-99-6320kcrecerckhMassv B Eric PT Work Phone: [phone] NM PTComment on above:Cervical paraspinal muscle spasm (Primary Dx); Lumbar paraspinal muscle spasm; Cervical radiculopathy; Right anterior shoulder painStart: 75-01-1535Ezj-patient / Non-visitCarrol Bailey MD Work Phone: [facility] Work Phone: Start: 07-21-2024 End: 75-33-2091Hucvsmd encounter procedureCarrol Bailey MD Work Phone: [facility] Work Phone: Start: 07-13-2024 End: 22-04-8631Gtzpcz flowsheetDavid B Eric PT Work Phone: [facility] NM PTStart: 07-13-2024 End: 59-81-5691Mdaxcl flowsheetDavid B Eric PT Work Phone: [facility] NM PTStart: 07-13-2024 End: 87-37-2809dirrjodbjlDusjr B Eric PT Work Phone: [facility] [place] PTComment on above:Cervical paraspinal muscle spasm (Primary Dx); Lumbar paraspinal muscle spasm; Cervical radiculopathy; Right anterior shoulder painStart: 07-10-2024 End: 45-22-1079Hfvezsv encounter procedureCarrol Bailey MD Work Phone: [facility] Work Phone: Start: 07-06-2024 End: 70-56-7223Tzyksy follow up visit related to original Tacho Ortiz MD Work Phone: [facility] GENSComment on above:Malignant neoplasm of overlapping sites of left breast in female, estrogen receptor positive (CMS/HCC) (Primary Dx)Start: 07-06-2024 End: 62-27-6793bopcssflwhBGPCEI VARGAS VNot AvailableStart: 06-22-2024 End: 50-49-9596Hquwqmj encounter procedureCarrol Bailey MD Work Phone: [facility] Work Phone: Start: 06-18-2024 End: 34-16-0191nwmhfcshpaSpmvf B Eric PT Work Phone: [facility] [place] PTComment on above:Cervical paraspinal muscle spasm (Primary Dx); Lumbar paraspinal muscle spasm; Cervical radiculopathy; Right anterior shoulder painStart: 06-18-2024 End: 13-10-5281Jflokh flowsheetDavid B Eric PT Work Phone: noMS NM PTStart: 06-18-2024 End: 23-33-6821Gobtuq flowsheetDavid B Eric PT Work Phone: NOMS NM PTStart: 06-16-2024 End: 93-17-4208Fwyeutn encounter procedureCarrol Bailey MD Work Phone: [facility] Work Phone: Start: 06-11-2024 End: 23-18-4427Avmtev flowsheetDavid B Eric PT Work Phone: noms NM PTStart: 06-11-2024 End: 74-65-9133Pvbssf flowsheetDavid B Eric PT Work Phone: NOMS NM PTStart: 06-11-2024 End: 64-70-6056uapmsygmywAkiyf B Eric PT Work Phone: noms NM PTComment on above:Cervical paraspinal muscle spasm (Primary Dx); Lumbar paraspinal muscle spasm; Cervical radiculopathy; Right anterior shoulder painStart: 06-02-2024 End: 89-80-6675Bqlyox follow up visit related to original Tacho Ortiz MD Work Phone: noms ST GENSComment on above:Malignant neoplasm of overlapping sites of left breast in female, estrogen receptor positive (CMS/HCC) (Primary Dx)Start: 06-02-2024 End: 71-29-8380pcbogtowimHCQLJD VARGAS VNot AvailableStart: 06-02-2024 End: 59-57-2285Pkwdapdua Gerri Ortiz MD Work Phone: noms ST GENSStart: 05-21-2024 End: 81-83-0185Tuzykzur Result Gerri Ortiz MD Work Phone: noms External Department UnsolicitedStart: 05-21-2024 End: 44-34-3550Skmtdapp Result Gerri Ahmadi MD Work Phone: noms External Department UnsolicitedStart: 05-21-2024 End: 38-75-1799Sflzizqxm to same day surgery centerCarrol Bailey MD Work Phone: [facility]Start: 05-21-2024 End: 50-71-1318gxgpcljmydVawldv E Braun MD Work Phone: [facility] Work Phone: Start: 05-11-2024 End: 35-63-7112jmqmtlupvoQI Carrol Zamora Bailey Work Phone: [facility] Work Phone: Start: 05-11-2024 End: 21-44-8994Tnkzrhu encounter procedureMD Carrol Bailey Work Phone: [facility]Mlp-Dihselrj Testing Work Phone: Start: 05-07-2024 End: 07-81-6688Uodffz flowsheetDavid B Eric PT Work Phone: noMS NM PTStart: 05-07-2024 End: 00-51-6068Brkfwf flowsheetDavid B Eric PT Work Phone: noms NM PTStart: 05-07-2024 End: 83-96-2271miwnarwmziDnqfq B Eric PT Work Phone: noms NM PTComment on above:Cervical paraspinal muscle spasm (Primary Dx); Lumbar paraspinal muscle spasm; Cervical radiculopathy; Right anterior shoulder painStart: 05-07-2024 End: 67-01-0901Vyrkkgy encounter procedureMD Carrol Bailey Work Phone: [facility] Work Phone: Start: 05-01-2024 End: 51-43-0469Czpyic outpatient visit 15 minutesMallory Ortiz MD Work Phone: noms ST GENSComment on above:Malignant neoplasm of overlapping sites of left breast in female, estrogen receptor positive (CMS/HCC) (Primary Dx)Start: 04-28-2024 End: 32-85-8492Xzrpij flowsheetDavid B Eric PT Work Phone: NOMS NM PTStart: 04-28-2024 End: 08-30-9220Yxzvqw flowsheetDavid B Eric PT Work Phone: noMS NM PTStart: 04-28-2024 End: 82-67-5815oxuvkjihzxAksbl B Eric PT Work Phone: NOMS NM PTComment on above:Cervical paraspinal muscle spasm (Primary Dx); Lumbar paraspinal muscle spasm; Cervical radiculopathy; Right anterior shoulder painStart: 04-22-2024 End: 27-44-7174Nqqpikpzu to same day surgery centerMD Carrol Bailey Work Phone: [facility] Cntr for Breast CarStart: 04-22-2024 End: 14-87-4529fsblfvqyllEM Carrol Bailey Work Phone: [facility] Work Phone: Start: 04-16-2024 End: 97-35-0515Nyzmkp flowsheetDavid B Eric PT Work Phone: NOMS NM PTStart: 04-16-2024 End: 22-26-6238Vmmlhw flowsheetDavid B Eric PT Work Phone: NOMS NM PTStart: 04-16-2024 End: 74-96-4553wkexqcswwhIrikg B Eric PT Work Phone: NOMS NM PTComment on above:Cervical paraspinal muscle spasm (Primary Dx); Lumbar paraspinal muscle spasm; Cervical radiculopathy; Right anterior shoulder painStart: 04-15-2024 End: 36-99-5098Pumdqh outpatient new 45 minutesMallory Ortiz MD Work Phone: noms ST GENSComment on above:Mass of upper outer quadrant of left breast (Primary Dx); Mass overlapping multiple quadrants of right breastStart: 04-03-2024 End: 65-17-8005Jlkgbq Nikki Mathis MD Work Phone: noms SWS OBComment on above:Mammogram abnormal (Primary Dx)Start: 03-31-2024 End: 01-76-8633Dkhvxp flowsheetDavid B Eric PT Work Phone: NOMS NM PTStart: 03-31-2024 End: 48-82-3107Jzfmnd flowsheetDavid B Eric PT Work Phone: noms NM PTStart: 03-31-2024 End: 73-15-0468wumrnwzplbYswua B Eric PT Work Phone: [facility] Work Phone: Comment on above:Cervical paraspinal muscle spasm (Primary Dx); Lumbar paraspinal muscle spasm; Cervical radiculopathy; Right anterior shoulder painStart: 03-31-2024 End: 69-68-7731Pxrwmry encounter procedureUnc Health Pardee Physician GroupGu[facility] Work Phone: Start: 03-25-2024 End: 74-62-5332Htrcxi flowsheetDavid B Eric PT Work Phone: noms NM PTStart: 03-25-2024 End: 48-83-6056Kmjxcl flowsheetDavid B Eric PT Work Phone: noms NM PTStart: 03-25-2024 End: 42-54-4508qttuvqpyhrOlzjb B Eric PT Work Phone: noms NM PTComment on above:Cervical paraspinal muscle spasm (Primary Dx); Lumbar paraspinal muscle spasmStart: 03-12-2024 End: 84-55-2433Tqzieyt encounter procedureJunior Mathis MD Work Phone: noms SWS OBComment on above:Anemia, unspecified type; Hormone imbalanceStart: 02-27-2024 End: 86-82-5234Vxplqtjnu Result EncounterJunior Mathis MD Work Phone: noms External Department UnsolicitedStart: 02-27-2024 End: 10-56-2242Klesxausa Result EncounterJunior Mathis MD Work Phone: noms External Department UnsolicitedStart: 02-27-2024 End: 96-98-1253Tkrwqk OnlyJunior Mathis MD Work Phone: noms External Department UnsolicitedStart: 02-27-2024 End: 83-48-1245Fsenwta encounter statusJunior Mathis MD Work Phone: noms [facility] Work Phone: start: 02-27-2024 End: 54-62-9335Qronoyxe preventive med est patient 40-64yrsPenolnehemiah Mathis MD Work Phone: noms [facility] OBComment on above:Encounter for gynecological examination without abnormal finding (Primary Dx); Screening for malignant neoplasm of cervix; Encounter for screening mammogram for malignant neoplasm of breast; Hormone imbalance; Anemia, unspecified type; Cervicitis and endocervicitisStart: 08-06-2023 End: 23-99-3611ldisvcffqcVkneik Braun Other [employer]Cas[employer] Other Start: 86-52-9607Rsfzwl outpatient visit 15 minutes Carrol BaileyMunir [facility] ClinicStart: 01-29-2023 End: 84-07-0329lwzpdxmhpgFrolak Braun Other [employer] Other Start: 47-38-4102Chlzfetmm for general adult medical examination without abnormal findingsM[facility] ClinicStart: 46-55-1020Qunzpzsb preventive med est patient 40-64yrsMarcia [facility] ClinicStart: 11-05-2022 End: 20-45-4959vogheuvzrhXS JUNIOR MATHISFacility:W0Ctpie: 08-08-2022 End: 36-05-3826ulytawmaauMtqoqq Braun Other [employer]Cas[employer] Other Start: 60-87-9496Jhmstf outpatient visit 15 minutes Carrol [facility] ClinicStart: 65-00-0276Sppwvfu encounter procedure Carrol Bailey Other [employer] Other Start: 07-10-2022 End: 24-77-2259failqfvcqjMvssdk Braun Other noCas[employer] Other Start: 46-31-4705Lddsuvxew encounterCarrol Katz [facility] ClinicStart: 30-27-9332Glzuwntnvzcak examination normalCarrol Bailey Other [facility] [employer] Other Start: 03-08-2022 End: 74-38-3273ywepzkdnqtAB CARROL Zamora LYNNFacility:H1 Procedures DateProcedureProcedure DetailPerforming ClinicianStart: 07-99-9157Zuyjcurct mammographyCarrol Bailey MD Work Phone: Start: 67-18-5264Rommchuhha of left breastCarrol Bailey MD Work Phone: Start: 94-64-3517Gqmjvipkhbdp sentinel lymph node studyCarrol Bailey MD Work Phone: Start: 27-91-5809Yzvvynnvvjmn chorionic quantitative Mallory Ortiz MD Work Phone: Start: 29-87-7695Sfmgocisdjj of left breast specimen Carrol Bailey MD Work Phone: Start: 69-22-0390Lggphgomhge of left breastCarrol Bailey MD Work Phone: Start: 74-14-3083Fbnantuefjylaor guided needle localization of lesion of left breastCarrol Bailey MD Work Phone: Start: 92-94-1350Awbc needle biopsy of breast using ultrasound guidanceMD Carrol Bailey Work Phone: Start: 15-64-1783Rqmcyyzeysdakew of right breastMD Carrol Bailey Work Phone: Start: 97-81-7626Typuoeabfyj of left breastMD Carrol Bailey Work Phone: Start: 61-71-3494GWMXV IRON AND TIBCPenola Shan Mathis MD Work Phone: start: 02-68-6236Tqqm c/v auto thin lyr prepj scr mnl rescr nicPencaron Mathis MD Work Phone: screening for malignant neoplasm of breastMarcia Bailey Other Plan of Treatment DateCare ActivityDetailAuthorStart: 05-21-2025 End: 43-34-0862zantfnwelj53/14/2025 9:15 AM EST [facility] [address] [place] [phone] Flori Reyes, PT [address] [place] [address] [facility] [place] [facility] TherapyStart: 05-13-2025 End: 21-09-8138ktwbrjksol20/06/2025 8:00 AM EST Treatment [facility] [address] [place] [address]-7804828-722-0723 Flori Reyes, PT [address] [place] [address] [facility] [place] [facility] TherapyStart: 05-07-2025 End: 40-40-2853cgmjerfruw80/31/2025 2:30 PM EDT Treatment [facility] [address] [place] [phone] Flori Reyes, PT [address] [place] [address] [facility] [place] [facility] TherapyStart: 05-06-2025 End: 35-70-0953fkmwpvgdtj64/30/2025 9:30 AM EDT Treatment [facility] [address] [place] [phone] Flori Reyes, PT [address] [place] [address] Cervical paraspinal muscle spasm (Primary Dx); Lumbar paraspinal muscle spasm; Cervical radiculopathy; Right anterior shoulder painNOMS [place] Physical TherapyComment on above:Cervical paraspinal muscle spasm (Primary Dx); Lumbar paraspinal muscle spasm; Cervical radiculopathy; Right anterior shoulder painStart: 04-27-2025 End: 14-56-5813sdzjclgegs59/21/2025 9:45 AM EDT Treatment [facility] [address] [place] [phone] Flori Reyes, PT [address] [place] [address] [facility] Physical TherapyStart: 04-13-2025 End: 19-83-4513fdtvsroudqDPXD [place] Physical TherapyComment on above:Cervical paraspinal muscle spasm (Primary Dx); Lumbar paraspinal muscle spasm; Cervical radiculopathy; Right anterior shoulder painStart: 03-23-2025 End: 54-76-0881upoxrwzhne30/16/2025 7:30 AM EDT Treatment [facility] [facility] [address] [phone] Flori Reyes, PT [address] [place] [address] [facility] Physical TherapyStart: 03-11-2025 End: 04-47-2869rdrytbrirh27/04/2025 2:00 PM EDT Treatment [facility] [address] [place] [phone] Flori Reyes, PT [address] [facility] [place] [address] [facility] Physical TherapyStart: 02-23-2025 End: 90-02-9778qimnvhafjnSIJM NM PTStart: 02-18-2025 End: 56-93-1484otrmblvldsDLCA NM PTStart: 02-11-2025 End: 99-32-4747ptmzztwsle21/07/2025 9:00 AM EDT Treatment NOM [facility] [address] [facility] [place] [address] Flori Reyes, PT [address] [facility] [place] [address] NOMS NM PTStart: 02-04-2025 End: 45-86-5391tgcumfdifs47/31/2025 9:15 AM EDT Treatment [facility] [address] [place] [address] Flori Reyes, PT [address] [place] [address] NOMS NM PTStart: 01-28-2025 End: 88-85-9990aphphxhfff05/24/2025 2:15 PM EDT Treatment [facility] [address] [place] [address] Flori Reyes, PT [address] [place] [address] NOMS NM PTStart: 01-11-2025 End: 30-01-9013Detpqma encounter procedureNOMS SWS ALLComment on above:Arrived Start: 01-01-2025 End: 61-25-7736lxnalofomj04/27/2025 7:30 AM EDT Treatment [facility] [address] [place] [address] Flori Reyes, PT [address] [place] [address] NOMS NM PTStart: 12-07-2024 End: 17-37-0430bgbdbxgzce10/02/2025 3:45 PM EDT Treatment [facility] [address] [place] [address] Flori Reyes, PT [address] [place] [address] ArrivedNOMS NM PTComment on above:ArrivedStart: 12-03-2024 End: 89-98-9622vwljuifdyn88/29/2025 8:15 AM EDT Treatment [facility] [address] [place] [address] Flori Reyes, PT [address] [place] [address] NOMS NM PTStart: 11-18-2024 End: 81-89-0759phiewrdyabCLIR NM PTComment on above:Cervical paraspinal muscle spasm (Primary Dx); Lumbar paraspinal muscle spasm; Cervical radiculopathy; Right anterior shoulder painStart: 74-88-4729Mxxnuxd referralHarrison Community Hospital Work Phone: Start: 11-12-2024 End: 38-55-0793qxextfgkei59/08/2025 2:30 PM EDT Treatment [facility] PT [address] [place] [address] Flori Reyes, PT [address] [facility] [place] [address] NOMS NM PTStart: 11-04-2024 End: 93-16-4067ujuxgzjhywUOGT NM PTComment on above:Cervical paraspinal muscle spasm (Primary Dx); Lumbar paraspinal muscle spasm; Cervical radiculopathy; Right anterior shoulder painStart: 10-30-2024 End: 84-20-2416fljwpkkjwj11/25/2025 3:30 PM EDT Treatment [facility] [address] [place] [address] Flori Reyes, PT [address] [facility] [place] [address] NOMS NM PTStart: 10-28-2024 End: 76-84-2704Xsikjoc encounter /23/2025 9:45 AM EDT Office Visit [facility] [address] [place] [address] Junior Mathis MD [address] [place] [address] NOMS SWS OBStart: 10-28-2024 End: 66-91-2637Xuboocmuluvk / ancillary services lilrmboohk09/23/2025 9:30 AM EDT Ancillary Procedure [facility] [address] [place] [address] NOMS SWS OBStart: 10-12-2024 End: 52-90-0138Euaxynl encounter ihtwtmqrj03/07/2025 8:00 AM EDT Office Visit [facility] [address] [place] [address] Junior Mathis MD [address] [place] [address] NOMS SWS OBStart: 10-09-2024 End: 52-77-1402wrfuvoxmqv76/04/2025 12:45 PM EDT Treatment [facility] [address] [place] [address] Flori Reyes, PT [address] [place] [address] NOMS NM PTStart: 10-02-2024 End: 40-20-9319sbxbxsewsi12/28/2025 3:30 PM EDT Treatment [facility] [address] [place] [address] Flori Reyes, PT [address] [place] [address] Cervical paraspinal muscle spasm (Primary Dx); Lumbar paraspinal muscle spasm; Cervical radiculopathy; Right anterior shoulder painNOMS NM PTComment on above:Cervical paraspinal muscle spasm (Primary Dx); Lumbar paraspinal muscle spasm; Cervical radiculopathy; Right anterior shoulder painStart: 09-22-2024 End: 32-58-4949cosymeqtvl26/18/2025 9:00 AM EDT Treatment [facility] [address] [place] [address] Flori Reyes, PT [address] [facility] [place] [address] NOMS NM PTStart: 09-08-2024 End: 74-45-3243cmenloqokfKUWY NM PTComment on above:Cervical paraspinal muscle spasm (Primary Dx); Lumbar paraspinal muscle spasm; Cervical radiculopathy; Right anterior shoulder painStart: 08-28-2024 End: 86-72-2067frfbdqclgtRGWU NM PTComment on above:Cervical paraspinal muscle spasm (Primary Dx); Lumbar paraspinal muscle spasm; Cervical radiculopathy; Right anterior shoulder painStart: 08-14-2024 End: 32-93-7189lyuogmuunh21/07/2025 9:00 AM EST Treatment [facility] [address] [place] [address] Flori Reyes, PT [address] [place] [address] [facility] NM PTStart: 08-07-2024 End: 66-62-0690olevcqsxqhACOV NM PTComment on above:Cervical paraspinal muscle spasm (Primary Dx); Lumbar paraspinal muscle spasm; Cervical radiculopathy; Right anterior shoulder painStart: 07-30-2024 End: 49-79-7840athrjnfqbpIGML NM PTComment on above:Cervical paraspinal muscle spasm (Primary Dx); Lumbar paraspinal muscle spasm; Cervical radiculopathy; Right anterior shoulder painStart: 07-22-2024 End: 17-75-5484jcczlvaevj94/15/2025 9:00 AM EST Treatment [facility] [address] [place] [address] Flori Reyes, PT [address] [place] [address] NOMS NM PTStart: 07-13-2024 End: 67-74-4263avrosdftqbJJTG NM PTComment on above:Cervical paraspinal muscle spasm (Primary Dx); Lumbar paraspinal muscle spasm; Cervical radiculopathy; Right anterior shoulder painStart: 07-09-2024 End: 26-12-3883aqseqarcvv35/02/2025 10:45 AM EST Treatment [facility] [address] [place] [address] Flori Reyes, PT [address] [place] [address] NOMS NM PTStart: 07-06-2024 End: 65-42-8835Nebpomk encounter fppjxbviw44/30/2024 10:15 AM EST Office [facility] [address] [place] [address] Mallory Ortiz MD [address] [place] [address] GENSStart: 06-19-2024 End: 49-78-1474wkczghfimj28/13/2024 9:00 AM EST Treatment [facility] [address] [place] [address] Aliya Luo, PT [address] [place] [address] NOMS NM PTStart: 06-11-2024 End: 37-98-5802vzsbywituuDMVQ NM PTComment on above:Cervical paraspinal muscle spasm (Primary Dx); Lumbar paraspinal muscle spasm; Cervical radiculopathy; Right anterior shoulder painStart: 06-02-2024 End: 38-03-9430Cdfwiiu encounter cnlxowtaa80/26/2024 3:45 PM EST Office Visit [facility] [address] [place] [address] Mallory Ortiz MD [address] [place] [address] GENSStart: 06-02-2024 End: 59-59-6968Ousjct follow up visit related to original px06/02/2024 3:45 PM EST Office Visit [facility] [address] [facility] [address] [place] [address] Mallory Ortiz MD [address] [facility] [address] [place] [address] Malignant neoplasm of overlapping sites of left breast in female, estrogen receptor positive(CMS/HCC) (Primary Dx)NOMS ST GENSComment on above:Malignant neoplasm of overlapping sites of left breast in female, estrogen receptor positive (CMS/HCC) (Primary Dx)Start: 05-21-2024 End: 86-40-2978OqrfkdipgThe Jewish Hospitaltart: 05-07-2024 End: 65-32-8014nhmlhuxbru95/31/2024 11:15 AM EDT Treatment [facility] [address] [place] [address] Flori Reyes, PT [address] [place] [address] NOMS NM PTStart: 05-01-2024 End: 13-67-2687Buatwqt encounter procedureNOMS ST GENSStart: 04-28-2024 End: 78-41-8217xlklmafijs63/22/2024 7:30 AM EDT Treatment [facility] [address] [place] [address] Flori Reyes, PT [address] [facility] [place] [address] NOMS NM PTStart: 04-16-2024 End: 59-10-4720isdbvtxijo98/10/2024 7:30 AM EDT Treatment [facility] [address] [place] [address] Flori Reyes, PT [address] [place] [address] NOMS NM PTStart: 04-13-2024 End: 72-04-4435Epcingkzvmir / ancillary services managementNOMS [facility] [place] Start: 04-02-2024 End: 39-69-1754Zkfzpwkcccyf / ancillary services rtlwlqhijg18/26/2024 10:30 AM EDT Ancillary Procedure [facility] [place] [address] [place] [address] [facility] SANDUSKYStart: 03-31-2024 End: 06-75-7940amyczleczw44/24/2024 11:15 AM EDT Treatment [facility] [address] [place] [address] Flori Reyes, PT [address] [place] [address] NOMS NM PTStart: 03-25-2024 End: 64-28-5311vqjzggycgb99/18/2024 1:00 PM EDT Treatment [facility] [address] [place] [address] Flori Reyes, PT [address] [place] [address] ArrivedNOMS NM PTComment on above:ArrivedStart: 03-14-2024 End: 66-91-3339SIX Breast - bilateral screeningBilateral screening mammogram with tomosynthesis Imaging Routine Encounter for screening mammogram for malignant neoplasm of breast Expected: 03/14/2024, Expires: 04/28/2025NOMS HealthcareComment on above:Expected: 03/14/2024, Expires: 04/28/2025Start: 03-12-2024 End: 28-50-2756Qcpkcdj encounter dnfpavulm51/05/2024 8:15 AM EDT Office Visit [facility] [address] [place] [address] Junior Mathis MD [address] [place] [address] NOMS SWS OBStart: 02-27-2024 End: 49-63-9972Kkgllhvt stimulating hormoneFollicle stimulating hormone Lab Routine Hormone imbalance Expected: 02/27/2024 (Approximate), Expires: 02/26/2025[facility] HealthcareComment on above:Expected: 02/27/2024 (Approximate), Expires: 02/26/2025omprehensive metabolic 1999 panel - Serum or PlasmaMercy Health Kings Mills HospitalComprehensive metabolic 1999 panel - Serum or Plasma [facility] HospitalCT with contrast for radiotherapy planning [facility] HospitalEstradiolEstradiol Lab Routine Hormone imbalance Ordered: 02/27/2024[facility] HealthcareComment on above:Ordered: 02/27/2024 GENITAL MYCOPLASMAS SATISH, SWABGENITAL MYCOPLASMAS SATISH, SWAB Pathology and Cytology Routine Cervicitis and endocervicitis Ordered:10/12/2024[facility] Comment on above:Ordered: 10/12/2024Iron and Iron binding capacity panel - Serum or PlasmaIron and TIBC Lab Routine Hormone imbalance Anemia, unspecified type Ordered: 02/27/2024[facility] HealthcareComment on above:Ordered: 02/27/2024MG Breast - bilateral DiagnosticMercy Health Kings Mills HospitalNuSwab Vaginitis Plus (VG+)NuSwab Vaginitis Plus (VG+) Microbiology Routine Cervicitis and endocervicitis Ordered: 10/12/2024[facility] Healthcare Work Phone: comment on above:Ordered: 10/12/2024PAP IG, RFX HPV ALL PTH ([facility] [place]PAP IG, RFX HPV ALL PTH ([facility] [place] Lab Routine Screening for malignant neoplasm of cervix Encounter forgynecological examination without abnormal finding Ordered: 02/27/2024[facility] Work Phone: comment on above:Ordered: 02/27/2024atient Education Hydrocodone and Acetaminophen Lumpectomy (DC) [place] lymph node biopsy for breast cancer Know your [facility] Work Phone: [facility] Work Phone: [facility] Payers DatePayer CategoryPayerPolicy [id number] Health Insurance [id number] [employer] [id number] 2021-Present [address] [place] [address] [id number] 2.0.1.545153.3.57[id number] 2..1.996322.3.57[id number] 2.0.1.775653.3.57[id number] 2.0.1.355112.3.57[id number] 2.0.1.070814.3.57[id number] 2..1.581853.3.57[id number] 2.840.1.579665.3.57[id number] 2.0.1.752640.3.57[id number] 2.0.1.232921.3.57[id number] 2.0.1.231109.3.57[id number] 2.16.840.1.411101.3.57[id number] 2.0.1.278714.3.57[id number] 2.840.1.087308.3.57[id number] 2.0.1.488461.3.579.2.925106-88-9905Vnvyzts95265905 2..1.918590.3.579.2.280776-26-4967Lobwydm9767477 2..1.329983.3.579.2.314617-45-8614Sghcdxt6152673 2..1.396612.3.579.2.156849-61-9631Mahpzjc5612083 2..1.173807.3.579.2.744806-32-8679Jpgldub7583185 2..1.093041.3.579.2.600461-18-6021Updthvk8986253 2..1.564922.3.579.2.597349-28-3525Wnzafjv4313251 2..1.791102.3.579.2.513758-84-3465Wmwhimn9742393 2.0.1.750297.3.579.2.079510-95-3936Cquzvat7319019 2..1.365864.3.579.2.612037-51-5868Ldtizai6308867 2..1.365664.3.579.2.360024-39-9508Xzehbhm0341635 2.0.1.573889.3.579.2.385432-90-3768Uppgmcm2380509 2.840.1.117945.3.579.2.153847-46-9816Amexoiu8360517 2.840.1.691091.3.579.2.486930-14-7492Sozkqyn8432225 2.0.1.254424.3.579.2.992748-84-1875Pnbowyk1465030 2.840.1.234680.3.579.2.684868-41-8727Ozriqvd4793427 2.0.1.729394.3.579.2.924091-14-4031Axdxogr1128437 2.0.1.752258.3.579.2.196613-05-3853Qrzyhrs0402949 2.0.1.299454.3.579.2.542036-06-0080Vtrpxwt4736894 2.0.1.367791.3.579.2.254933-73-9236Dtbixkc0993988 2.0.1.876102.3.579.2.133665-09-7372MdqsizuU4468640862 2.840.1.376770.19 Vbermxw41832736 2.0.1.033489.3.579.2.268Knybwaf81713317 2.0.1.537660.3.579.2.334Xdumcbk67618245 2.0.1.402252.3.579.2.531 Social History DateTypeDetailFacilityUnknown if ever smokedCasacanda Other Start: 02-27-2024 End: 63-84-9546[facility] Other Start: 09-19-2023 End: 18-70-7192Ygqolyh smoking status NHISNever smoked tobacco (finding) [facility]tart: 63-75-9738Qnp Assigned At BirthFemale [facility] Hospitaltart: 14-55-5507Kzhdthr use and exposure Smokeless tobacco non-userNOMS HealthcareStart: 02-27-2024 End: 96-08-3438Nnhlnkaeq beverage intakeCurrent drinker of alcohol (finding)[facility] HealthcareStart: 02-27-2024 End: 99-77-4647Muinyds of Social functionNOMS HealthcareHow often to you have a drink containing alcohol?Monthly or lessNOMS HealthcareHow many standard drinks containing alcohol do you have on a typical day?1 or 2NOMS HealthcareHow often do you have 6 or more drinks on 1 occasion?Less than monthlyNOMS Healthcare Start: 79-24-5388Ubskvgz Comment1-2 drinks less than monthly in the past year, Caffeine intake 1-2 cups per day(tea)[facility] HealthcareStart: 42-59-2836Qlrapn identityIdentifies as female gender (finding)[facility] HealthcareStart: 78-94-7225Pbt Patient sex unknown (finding)[facility]tart: 09-02-2024 End: 32-27-2428QosJkmrru (finding)[facility] Hospitaltart: 91-13-6535PozBqxdltNNKT Healthcare Medical Equipment Procedure CodeEquipment CodeEquipment Original TextEquipment IdentifierDates Biopsy, breast, with lumpectomyRadiological image marker, implantable [id number] FDAStart: 05-21-2024 Goals DatePatient GoalDesired Activity/State Clinical Notes 08-08-2022 to 05-06-2025 Note Date & WczgWqmyLodocrsy08-86-8507 History of Present illness Narrative* Flori Reyes, PT - 05/06/2025 9:30 AM EDT Images from the original note were not included. Physical Therapy Physical Therapy Treatment Visit Patient Name: Tawana Perez Today's Date: 05/06/2025 Encounter Diagnoses Name Primary? Cervical paraspinal muscle spasm Yes Lumbar paraspinal muscle spasm Cervical radiculopathy Right anterior shoulder pain Time In: 9:30 am Time Out: 10:15 am Supervised Time: 45 Min Total Time: 45 Min Visit Number: 24 (Participated in 7 PT sessions in 2023 [...] and lymph node removal 05/21/24 Subjective: Presents 9-days post last consult that was on 04/27/25. Right SI area and moderate increased cervical and upper trapezius tightness is chief complaint. Objective: Re-Evaluation 04/07/25-DBO Cervical: Cervical spine AROM [...] strenght throughout 2024 (Goal in progress 04/07/25-DBO) Mcc: To be met by 06/06/25 The patient [...] on impingement; Lumbar PA/extension mobilization and STM (20 min) Therapeutic Exercise: Per exercise grid found [...] (PRN) Assessment: The patient has participated in 24 outpatient PT in 2024 for cervical and lumbar paraspinal muscle spasms/radiculopathy per referral of PCP Carrol Bailey MD. Presents 6-days post last consult that was on 04/07/25. Presents 9-days post last consult that was on 04/27/25. Right SI area and moderate increased cervical and upper trapezius tightness is chief complaint. Pain reduced to baseline 0-2/10 intensity. Patient is pleased with progress. PT remains appropriate1-3 times/month PRN Plan: Recommend continuation of outpatient PT up to 1-3 visit/month for up to 3 additional months per above PT POC with focus on progressing toward independent medical management of this condition (04/07/25-DBO) I hereby deem this POC medically necessary. Please sign below and fax back to [phone] Physician Signature: Date: documented in this encounterSouthPointe HospitalNyeeayzhza20-25-2697 History of Present illness Narrative* Flori Reyes, PT - 04/27/2025 9:45 AM EDT [...] breast cancer diagnosis and treatment. Objective: Re-Evaluation 04/07/25-O Cervical: Cervical spine AROM demonstrates 80 degrees [...] strenght throughout 2024 (Goal in progress 04/07/25-DBO) Library Helper: To be met by 06/06/25 The patient [...] Please sign below and fax back to [phone] Physician Signature: Date: documented in this encounterSouthPointe HospitalRvsdkergwv85-59-9452 History of Present illness Narrative* Flori Reyes, [...] strenght throughout 2024 (Goal in progress 04/07/25-DBO) Mcc: To be met by 06/06/25 The patient [...] Please sign below and fax back to [phone] Physician Signature: Date: documented in this encounterSouthPointe HospitalUxiirkwksz15-01-6589 History of Present illness Narrative* Flori Reyes, [...] strenght throughout 2024 (Goal in progress 04/07/25-DBO) 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 Note forwarded to referring Carrol Bailey MD for review and co-signature (04/07/25-DBO). Plan: Recommend continuation of outpatient PT up to 1-3 visit/month for up to 3 additional months per above PT POC with focus on progressing toward independent medical management of this condition (04/07/25-DBO) I hereby deem this POC medically necessary. Please sign below and fax back to [phone] Physician Signature: Date: documented in this encounterSouthPointe HospitalLwrlcszmti13-87-7727 Evaluation note* Diagnosis Onset Date Resolution Status Admit Date Breast cancer acuteSeptember 2024 12:41pmBreast canceracuteNovember 2024 9:47am LeukopeniaacuteNovember 2024 9:47am [facility] Work Phone: 1(991) 613-558909-08-2025 History of Present illness Narrative* Flori Reyes, [...] strenght throughout 2024 (Goal in progress 03/02/25-DBO) Mcc: To be met by 01/05/24 The patient [...] Please sign below and fax back to [phone] Physician Signature: Date: documented in this encounterSouthPointe HospitalVukwvoiqzr94-96-8098 History of Present illness Narrative* Flori Reyes, [...] strenght throughout 2024 (Goal in progress 03/02/25-DBO) Mcc: To be met by 01/05/24 The patient [...] Please sign below and fax back to [phone] Physician Signature: Date: documented in this encounterSouthPointe HospitalEzynxlcvcz49-49-0259 History of Present illness Narrative* Flori Reyes, [...] a good routine and tolerate. Objective: Re-Evaluation 01/28/25-O Cervical: Cervical spine AROM demonstrates 80 degrees [...] strenght throughout 2024 (Goal in progress 01/28/25-DBO) Mcc: To be met by 01/05/24 The patient [...] Please sign below and fax back to [phone] Physician Signature: Date: documented in this encounterSouthPointe HospitalVeztsiddky29-98-2980 History of Present illness Narrative* Flori Reyes, [...] strenght throughout 2024 (Goal in progress 01/28/25-DBO) Mcc: To be met by 01/05/24 The patient [...] Please sign below and fax back to [phone] Physician Signature: Date: documented in this encounterSouthPointe HospitalNpjrqbdpyw94-97-5161 History of Present illness Narrative* Flori Reyes, [...] strenght throughout 2024 (Goal in progress 01/28/25-DBO) Mcc: To be met by 01/05/24 The patient [...] Please sign below and fax back to [phone] Physician Signature: Date: documented in this encounterSouthPointe HospitalTlwyofigik77-60-9466 History of Present illness Narrative* Flori Reyes PT - 01/21/2025 12:15 PM EDT Images [...] strenght throughout 2024 (Goal in progress 12/25/24-DBO) Library Helper: To be met by 01/05/24 The patient [...] Please sign below and fax back to [phone] Physician Signature: Date: documented in this encounterSouthPointe HospitalMklzllvnuc11-04-4555 History of Present illness Narrative* Daniel Fox [...] an as needed basis. documented in this [facility]06-30-2025 Evaluation note* Diagnosis Onset Date Resolution Status Admit Date Breast cancer acuteJune 2024 9:54am [facility] Work Phone: 1(802) 433-175906-30-2025 [facility]UnB[facility] [place] [address] Cancer Center Note Signed Patient: Tawana Perez MR#: [id number] : 1980 Acct:[id number] Age/Sex: 44 / F Type: REG AMB [...] confirmed invasive ductal carcinoma, grade 2, I ER/WI strongly positive HER2 negative by FISH May [...] cefdinir Allergy (Unknown, Verified 11/16/24 14:08) diarrhea [facility] Medical History Medical History Anxiety and depression Hx of abnormal mammogram left breast Breast cancer, left Invasive Ductal Carcinoma Wears hearing aid hearing impaired. right ear hearing better than left PTSD (post-traumatic stress disorder) Immunotherapy completed 5 year treatment at [facility] for environmental allergies (january 2024) Surgical History [...] APRN DD/ 1019 Signed By: 01/04/25 1029 [facility]06-27-2025 History of Present illness Narrative * [...] strenght throughout 2024 (Goal in progress 12/25/24-DBO) Library Helper: To be met by 01/05/24 The patient [...] Please sign below and fax back to [phone] Physician Signature: Date: documented in this encounterSouthPointe HospitalBbsksxfrcq25-52-6775 History of Present illness Narrative* Flori Reyes, PT - 12/25/2024 12:30 PM EDT Images from the original note were not included. Physical Therapy Physical Therapy Treatment Visit Patient Name: Tawana Preez Today's Date: 12/25/2024 Encounter Diagnoses Name Primary? [...] strenght throughout 2024 (Goal in progress 12/25/24-DBO) Mcc: To be met by 01/05/24 The patient [...] Please sign below and fax back to [phone] Physician Signature: Date: documented in this encounterSouthPointe HospitalEtkhblyqmn15-05-7416 History of Present illness Narrative* Flori Reyes, [...] strenght throughout 2024 (Goal in progress 11/04/24-DBO) Library Helper: To be met by 01/05/24 The patient [...] Please sign below and fax back to [phone] Physician Signature: Date: documented in this encounterSouthPointe HospitalNvjrmajjju96-50-8343 History of Present illness Narrative* Flori Reyes, PT - 11/18/2024 9:00 AM EDT Images [...] strenght throughout 2024 (Goal in progress 11/04/24-DBO) Mcc: To be met by 01/05/24 The patient [...] Please sign below and fax back to [phone] Physician Signature: Date: documented in this encounterSouthPointe HospitalEulrzxmqks54-17-9802 Evaluation note* Diagnosis Onset Date Resolution Status Admit Date Breast cancer acuteMay 2024 2:23pmBreast canceracuteJune 2024 9:54am [facility] Work Phone: 1([phone]) 341-691705-12-2025 [facility] [place] [address] Cancer Center Note Signed Patient: Tawana Perez MR#: [id number] : 1980 Acct:[id number] Age/Sex: 44 / F Type: DEP AMB Date of Service: 11/16/24 Copies to: Carrol Bailey MD~ Assessment & Plan A/P (1) Breast cancer: Plan: Celebrex 200 mg x 14 days Referral to [facility] for left breast lymphedema Stop fgld-odw-ezygnom aloe vera and switch to coconut oil, shave water, vitamin E Assessment: 44-year-old female with stage Ia pT1cN0 invasive lobular/ductal carcinoma of theleft breast, ER/WI positive. Oncotype returned 12 She completed left whole breast radiation to a dose of 40.05 Milian in 15 fractions 08/21/2024. Prone positioning was utilized for cardiac sparing. Returns to clinic today and continues to recover from surgery and radiation withvery faint erythemaand mild edema of the breast. Recommend she stop the shms-ato-haahaar aloe vera gel as alcohol is typically [...] pT1cN0 invasive lobular/ductal carcinoma of theleft breast, ER/WI positive. Patient is status post lumpectomy with [...] tranexamic acid 650 mg PO DIRECTED vitamins A,C,E-ozez-mvjckx 4,296 mcg-226 mg-90 mg (PreserVision AREDS) 1 [...] disorder) Immunotherapy completed 5 year treatment at [facility] for environmental allergies (january 2024) Surgical History [...] MD DD/ 1401 Signed By: 11/16/24 1451 [facility]04-30-2025 History of Present illness Narrative * [...] strenght throughout 2024 (Goal in progress 11/04/24-DBO) Library Helper: To be met by 01/05/24 The patient [...] Please sign below and fax back to [phone] Physician Signature: Date: documented in this encounterSouthPointe HospitalNjffgijzkh56-07-8506 History of Present illness Narrative* Junior Mathis [...] excision w radioactive seed w axillary snlbx [place] KNEE SCOPE,CLEAN/DRAIN Right DR. MOHAN Family History [...] efficient use of time. documented in this [facility]04-11-2025 History of Present illness Narrative* Junior Mathis MD - 10/16/2024 11:57 AM EDT BV,Trich,mycoplasma ,Ureaplasma Pt taking Cleocin and Zithromax documented in this [facility]04-07-2025 History of Present illness Narrative* Flori Reyes, [...] strenght throughout 2024 (Goal in progress 08/28/24-DBO) Mcc: To be met by 01/05/24 The patient [...] Please sign below and fax back to [phone] Physician Signature: Date: documented in this encounterSouthPointe HospitalCeqqbhbcjq46-79-4545 History of Present illness Narrative* Junior Mathis [...] excision w radioactive seed w axillary snlbx [place] KNEE SCOPE,CLEAN/DRAIN Right DR. MOHAN Family History [...] days of radiation therapy. documented in this encounterSouthPointe HospitalVedbiyilmv01-03-7676 History of Present illness Narrative* Flori Reyes, [...] strenght throughout 2024 (Goal in progress 08/28/24-DBO) Library Helper: To be met by 06/30/24 The patient to be successful with long-term [...] Please sign below and fax back to [phone] Physician Signature: Date: documented in this encounterSouthPointe HospitalSqusxkuxxz72-62-4839 Telephone encounter Note* Telephone Encounter - Maria Del Carmen Gale MA - 09/29/2024 5:05 PM EDT Called and MBF If patient calls back 9am on Saturday09/30/24 if she can make it. SouthPointe HospitalHckykwmvkb11-90-3824 Miscellaneous Notes* Telephone Encounter - Maria Del [...] symptoms came right back. Uses [facility] [place] but states she needs to see PPJ first because insurance will not cover for her to have another refill. Please contact. documented in this encounterSouthPointe HospitalYtfxtzaeao37-34-4304 Telephone encounter Note* Telephone Encounter - Angela Levine MA - 09/28/2024 4:09 PM EDT Spoke to pt, finished Azithromycin (available refill from pharmacy.) States symptoms cleared, but returned within a couple days after menses. Seems to be worsening. Yellow/ thick discharge, fishy odor. Scheduled 10/12, but aware message will be sent to Saranya and Criss to try for sooner appt. SouthPointe HospitalBpszzbzzhd25-03-2764 Telephone encounter Note* Telephone Encounter - Nery Stockton - 09/28/2024 11:06 AM EDT Pt states she still has foul discharge that is yellow and thick from BV infection. Finished her 10 days of medication on 08/29/23 and states her symptoms came right back. [facility]ses [facility] [place] but states she needs to see PPJ first because insurance will not cover for her to have another refill. Please contact. SouthPointe HospitalZgbeeqnsjf34-88-7574 History of Present illness Narrative* Flori Reyes, [...] strenght throughout 2024 (Goal in progress 08/28/24-DBO) Mcc: To be met by 01/05/24 The patient [...] Please sign below and fax back to [phone] Physician Signature: Date: documented in this encounterSouthPointe HospitalPywxkxjgtj48-81-7752 Evaluation note* Diagnosis Onset Date Resolution Status Admit Date Anxiety and depression acuteFebruary 2024 10:42amBreast canceracuteMarch 2024 1:49pm [facility] Work Phone: 1(380) 838-170102-21-2025 History of Present illness Narrative* Flori Reyes, [...] strenght throughout 2024 (Goal in progress 08/28/24-DBO) Library Helper: To be met by 01/05/24 The patient [...] muscle spasms/radiculopathy per referral of PCP Carrol Baliey MD. Presents 3-weeks post last consult on [...] Please sign below and fax back to [phone] Physician Signature: Date: documented in this encounterSouthPointe HospitalSvdxajiukg52-60-9115 History of Present illness Narrative* Flori Reyes [...] strenght throughout 2024 (Goal in progress 07/13/24-DBO) Library Helper: To be met by 10/06/23 The patient [...] Please sign below and fax back to [phone] Physician Signature: Date: documented in this encounterSouthPointe HospitalKjyukwcyoe64-55-6632 History of Present illness Narrative* Flori Reyes, [...] increased thoracolumbar pain last 2-days. Objective: Re-Evaluation 07/13/24-DBO Cervical: Cervical spine AROM [...] strenght throughout 2024 (Goal in progress 07/13/24-DBO) Library Helper: To be met by 10/06/23 The patient [...] Please sign below and fax back to [phone] Physician Signature: Date: documented in this encounterSouthPointe HospitalMtzsdiabhw42-79-7879 History of Present illness Narrative* Flori Reyes, [...] withextension with pain by completion of PT 10 intensity localized to the lumbar spine. Objective: [...] strenght throughout 2024 (Goal in progress 07/13/24-DBO) Library Helper: To be met by 10/06/23 The patient [...] Please sign below and fax back to [phone] Physician Signature: Date: documented in this encounterSouthPointe HospitalSvmaeagexp61-11-0421 Evaluation note* Diagnosis Onset Date Resolution Status Admit Date Breast cancer acuteJanuary 2024 1:41pmAnxiety and depressionacuteFebruary 2024 10:42amBreast canceracuteMarch 2024 1:49pm [facility] Work Phone: 1([phone]) 757-351201-06-2025 History of Present illness Narrative* Flori Reyes, [...] strenght throughout 2024 (Goal in progress 07/13/24-DBO) Library Helper: To be met by 10/06/23 The patient [...] Please sign below and fax back to [phone] Physician Signature: Date: documented in this [facility]12-30-2024 History of Present illness Narrative* Mallory Ahmadi [...] her primary care physician. documented in this [facility]12-16-2024 Evaluation note* Diagnosis Onset Date Resolution Status Admit Date Anxiety and depression acuteDecember 2023 2:54pmBreast canceracuteDecember 2023 2:54pm InsomniaacuteDecember 2023 2:54pmBreast canceracuteJanuary 2024 1:41pm [facility] Work Phone: 1(415) 510-978512-16-2024 Evaluation note* Diagnosis Onset Date Resolution Status Admit Date Anxiety and depression acuteDecember 2023 2:54pmBreast canceracuteDecember 2023 2:54pm InsomniaacuteDecember 2023 2:54pmBreast canceracuteJanuary 2024 1:41pmAnxiety and depressionacuteFebruary 2024 10:42am [facility] Work Phone: 1(957) 494-456812-12-2024 History of Present illness Narrative* Flori Reyes, [...] strenght throughout 2023 (Goal in progress 06/11/24-DBO) Mcc: To be met by 07/07/24 The patient [...] Please sign below and fax back to [phone] Physician Signature: Date: documented in this encounterSouthPointe HospitalJtwixdjilh51-48-5454 History of Present illness Narrative* Flori Reyes, [...] strenght throughout 2023 (Goal in progress 06/11/24-DBO) Library Helper: To be met by 07/07/24 The patient [...] Please sign below and fax back to [phone] Physician Signature: Date: documented in this [facility]11-26-2024 Telephone encounter Note* Telephone Encounter - Meredithclare Vazquez - 06/02/2024 3:20 PM EST Return to work SouthPointe HospitalObbludurkq89-17-4725 Miscellaneous Notes* Telephone Encounter - Meredithclare Vazquez - 06/02/2024 3:20 PM EST Return to work documented in this [facility]11-14-2024 Nuclear medicine Diagnostic [facility] [place] [address] Nuclear Medicine Report Signed Patient: Tawana Perez MR#: [id number] : 1980 Acct:[id number] Age/Sex: 43 / F ADM Date: 4 Loc: [place] Room: Type: [facility] Attending Dr: Mallory Ortiz MD Copies to: [...] Shikha Asif M.D.05/21/2024 2:50 PM Dictation Location: [place] [address] Transcribed By: LIVIER 05/21/24 1450 Dictated By: Shikha Asif MD 05/21/24 142 Signed By: 05/21/24 1450 [facility] Work Phone: 1(450) 261-842011-13-2024 Radiology Diagnostic study [facility] [place] [address] [place] [address] Ultrasound Report Signed Patient: Tawana Perez MR#: [id number] : 1980 Acct:[id number] Age/Sex: 43 / F ADM Date: 4 Loc: [place] Room: Type: [facility] Attending Dr: Mallory Ortiz MD Ordering Provider: Mallory Ortiz MD Date of Service: 05/20/24 US/US breast needle loc LT: LT BREAST MASS ([id number]) MM/MM diagnostic mammo LT w/CAD: post u/s [...] Shikha Asif M.D.05/20/2024 11:10 AM Dictation Location: [facility] Tech: Hilary Arboleda Transcribed By: LIVIER 05/20/24 1110 Dictated By: Shikha Asif MD 05/20/24 1050 Signed By: 05/20/24 1110 [facility] Work Phone: 1(204) 223-721210-31-2024 History of Present illness Narrative* Flori Reyes, [...] AROM WFL with 5/5 strenght throughout 2023 Library Helper: To be met by 07/07/24 The patient [...] Please sign below and fax back to [phone] Physician Signature: Date: documented in this encounterSouthPointe HospitalElvmzybihb37-20-8090 History of Present illness Narrative* Mallory Ahmadi MD - 05/01/2024 11:00 AM EDT Images from the original note were not included. Tawana Perez 1980 Tawana Perez is a 43 y.o. female presents with chief complaint of Biopsy results HPI: The patient did have ultrasound guided left breast biopsy performed. Pathology did show invasive ductal carcinoma ER, [place] positive, HER2 negative. Patient has 3 sisters [...] HISTORY: Past Medical History: Diagnosis Date Depression ([facility] Social History Tobacco Use Smoking status: Never Smokeless tobacco: Never Vaping Use Vaping status: Never Used Substance Use Topics Alcohol use: Yes Comment: 1-2 drinks less than monthly in the past year, Caffeine intake 1-2 cups per day(tea) Drug use: Never Past Surgical History: Procedure Laterality Date [place] KNEE SCOPE,CLEAN/DRAIN Right DR. MOHAN REVIEW OF [...] the patient to Oncology. documented in this encounterSouthPointe HospitalNvjfozufuv21-46-5431 History of Present illness Narrative* Flori Reyes, PT - 04/28/2024 7:30 AM EDT Physical Therapy Physical Therapy Treatment Visit Patient Name: Tawana Perez Today's Date: 04/28/2024 Encounter Diagnoses Name [...] AROM WFL with 5/5 strenght throughout 2023 Mcc: To be met by 07/07/24 The patient [...] Please sign below and fax back to [phone] Physician Signature: Date: documented in this encounterSouthPointe HospitalYurdzhkxvh54-25-5985 History of Present illness Narrative* Flori Reyes, [...] No co-pay 40 visits No Auth Ref# Lorena S 03-25-2024) History: Patient reports several month [...] AROM WFL with 5/5 strenght throughout 2023 Mcc: To be met by 07/07/24 The patient [...] Please sign below and fax back to [phone] Physician Signature: Date: documented in this encounterSouthPointe HospitalNvplwyaago83-98-5073 History of Present illness Narrative* Mallory Ahmadi [...] Never Past Surgical History: Procedure Laterality Date [place] KNEE SCOPE,CLEAN/DRAIN Right DR. MOHAN REVIEW OF [...] up following those studies. documented in this encounterSouthPointe HospitalAaijxrkibl66-34-9377 History of Present illness Narrative* Junior Mathis MD - 04/03/2024 7:27 PM EDT Abnormal mammogram documented in this encounterSouthPointe HospitalWguersolla76-20-2106 Chief complaint+Reason for visit Narrative* Chief Complaint [...] :14am Insomnia May 07, 2024 9 :14am [facility] Work Phone: 1(304) 492-790109-24-2024 Evaluation note* Diagnosis Onset Date Resolution Status Admit Date Cervical radiculopathy acuteSeptember 2023 10:15amThoracic spine painacuteSeptember 2023 10:15amAnxiety and depressionacuteOctober 2023 9:14amBreast canceracute May 07, 2024 9:14amInsomniaacuteOctober 2023 9:14am [facility] Work Phone: 1(820) 349-115909-24-2024 History of Present illness Narrative* Flori Reyes, PT - 03/31/2024 11:15 AM EDT Physical Therapy Physical Therapy Treatment Visit Patient Name: Tawana ePrez Today's Date: 03/31/2024 Encounter Diagnoses Name Primary? [...] AROM WFL with 5/5 strenght throughout 2023 Library Helper: To be met by 07/07/24 The patient [...] Please sign below and fax back to [phone] Physician Signature: Date: documented in this encounterSouthPointe HospitalKhrpwbiykg16-74-0440 History of Present illness Narrative* Flori Reyes, [...] AROM WFL with 5/5 strenght throughout 2023 Mcc: To be met by 07/07/24 The patient [...] Please sign below and fax back to [phone] Physician Signature: Date: documented in this encounterSouthPointe HospitalLdyhxbpwpk84-20-0101 History of Present illness Narrative* Junior Mathis [...] (CMS/HCC) Past Surgical History: Procedure Laterality Date [place] KNEE SCOPE,CLEAN/DRAIN Right DR. MOHAN Family History [...] 2. Hormone imbalance E34.9 documented in this encounterSouthPointe HospitalRyzcizdnlc70-36-4984 History of Present illness Narrative* Junior Mathis [...] (CMS/HCC) Past Surgical History: Procedure Laterality Date [place] KNEE SCOPE,CLEAN/DRAIN Right DR. MOHAN Family History [...] finding Z01.419 PAP IG, RFX HPV [place] PTH[place] [place] 2. Screening for malignant neoplasm of cervix Z12.4 PAP IG, RFX HPV ALL PTH [place] [place] 3. Encounter for screening mammogram for malignant neoplasm of breast Z12.31 Bilateral screening mammogram with tomosynthesis Tawana was seen today for gynecologic exam. Diagnoses and all orders for this visit: Encounter for gynecological examination without abnormal finding (Primary) - PAP IG, RFX HPV ALL PTH ([facility] [place] Screening for malignant neoplasm of cervix - PAP IG, RFX HPV ALL PTH ([facility] [place] Encounter for screening mammogram [...] 1 year/prn discuss results documented in this encounterSouthPointe [id number] Evaluation note* Encounter Date Diagnosis Assessment Notes [...] of diseases classified elsewhere (ICD-10 - B96.89) Hello[employer]ax Other 07-25-2023 Evaluation note* Encounter Date Diagnosis [...] on present medication. Discussed support and counseling. HelloFax Other 02-01-2023 Evaluation note* Encounter Date Diagnosis Assessment Notes Treatment Notes Treatment Clinical Notes Aug, DUB (dysfunctional uterine bleed ing) (ICD-10 - N93.8) As it is more for more than 4 years since her last Pap advised Tawana to get established with a new church musician. Discussed possibilities in the area. Gave samples for 2 months of lo Loestrin, whichis brand-name. Discussed future treatment possibly with gynecology including endometrial ablation if she is deemed a good candidate. Hello[employer]ax Other Chief complaint+Reason for visit Narrative* Chief Complaint neck/back pain, [facility] Work Phone: Chief complaint+Reason for visit Narrative* Chief Complaint neck/back pain, PT r eferral Breast massReason for VisitCervical radiculopathy Thoracic spine pain [facility] Work Phone: Chief complaint+Reason for visit Narrative* Chief Complaint neck/back pain, PT r eferral Breast mass Medication follow up Left Breast CancerReason for VisitCervical radiculopathy Thoracic spine pain [facility] Work Phone: Evaluation noteNo InformationNort Plures [employer] Other Evaluation noteNo assessment information available [facility] Work Phone: Evaluation note* Diagnosis Anemia, unspecified [...] Resolution Status Cervical radiculopathy acuteThoracic spine painacute [facility] Work Phone: Evaluation note* Diagnosis Malignant [...] maxillaryMedical HistoryAnxiety and depressionSurgical HistoryRIGHT KNEE ARTHROSOPIC [id number] HistorySEE SURGICAL HelloFax Other History of Present illness Narrative* Mallory [...] in about 3-4 weeks. documented in this encounterNOMS HealthcareHospital Discharge instructions Additional Instructions No heavy lifting or strenuous activity with the left arm. No driving if taking narcotic pain medication.[facility] Work Phone: Hospital Discharge instructionsAmbulatory Orders* RISE Order Location: None Selected [facility] Work Phone: Hospital Discharge instructionsAmbulatory Orders* Vit. B12/Folate Profile Time Frame: 6 Months, Location: Determined By Patient [facility] Work Phone: Progress note Author Sandy Tom [facility] HospitalNote Date/TimeMay 2024 2:39pmB[facility] [place] [address] Cancer Center Note Signed Patient: Tawana Perez MR#: [id number] : 1980 Acct:[id number] Age/Sex: 44 / F Type: DEP AMB Date of Service: 11/16/24 Copies to: Carrol Bailey MD~ Assessment & Plan A/P (1) Breast cancer: Plan: Celebrex 200 mg x 14 days Referral to [facility] for left breast lymphedema Stop oklo-jnf-nhhbvfx aloe vera and switch to coconut oil, shave water, vitamin E Assessment: 44-year-old female with stage Ia pT1cN0 invasive lobular/ductal carcinoma of theleft breast, ER/WI positive. Oncotype returned 12 She completed left whole breast radiation to a dose of 40.05 Milian in 15 fractions 08/21/2024. Prone positioning was utilized for cardiac sparing. Returns to clinic today and continues to recover from surgery and radiation withvery faint erythemaand mild edema of the breast. Recommend she stop the gusj-gts-ljgxcob aloe vera gel as alcohol is typically [...] pT1cN0 invasive lobular/ductal carcinoma of theleft breast, ER/WI positive. Patient is status post lumpectomy with [...] tranexamic acid 650 mg PO DIRECTED vitamins A,C,R-kdjg-zuvslb 4,296 mcg-226 mg-90 mg (PreserVision AREDS) 1 [...] disorder) Immunotherapy completed 5 year treatment at [facility] for environmental allergies (january 2024) Surgical History [...] genetic Hypertension Heart disease [facility] Problem: Diagnosed with Cancer Thyroid disease Social [...] signed by Sandy Tom MD> 11/16/24 1451 [facility] Work Phone: Progress note Author Nhung Grimes [facility] HospitalNote Date/TimeJune 2024 10:29[facility] [place] [address] Cancer Center Note Signed Patient: Tawana Perez MR#: [id number] : 1980 Acct:[id number] Age/Sex: 44 / F Type: REG AMB [...] confirmed invasive ductal carcinoma, grade 2, I ER/WI strongly positive HER2 negative by FISH May [...] cefdinir Allergy (Unknown, Verified 11/16/24 14:08) diarrhea [facility] Medical History Medical History Anxiety and depression Hx of abnormal mammogram left breast Breast cancer, left Invasive Ductal Carcinoma Wears hearing aid hearing impaired. right ear hearing better than left PTSD (post-traumatic stress disorder) Immunotherapy completed 5 year treatment at [facility] for environmental allergies (january 2024) Surgical History [...] genetic Hypertension Heart disease [facility] Problem: Diagnosed with Cancer Thyroid disease Social [...] <Electronically signed by SULTANA Grimes> 01/04/25 1029 [facility] Work Phone: Reason for referral (narrative)* Consultation (Routine) - Pending ReviewSpecialtyDiagnoses / ProceduresReferred By Contact Referred To ContactGeneral Surgery Diagnoses Mammogram abnormal Procedures [place] OFFICE/OUTPATIENT [facility] 60 MINUTES Junior Mathis MD [address] [facility] [address] [place] [address] [facility] Scheduling [address] [facility] Referral IDStatusReasonStart DateExpiration DateVisits RequestedVisits [id number] Review Specialty Services Required / NOMS HealthcareReason for referral (narrative)No reason for referral information availableHarrison Community Hospital Work Phone: Reason for visit Narrative* Rehabilitation - Outpatient (Routine) - AuthorizedSpecialtyDiagnoses / ProceduresReferred By ContactReferred To ContactPhysical Therapy Diagnoses cervical & lumbar paraspinal Procedures [place] PHYS THERAPY EVALUATION Carrol Bailey MD [address] [place] [address] Phone: tel: fax: Flori Reyes, PT [address] [place] [address] Phone: tel: fax: Referral IDStatusReasonStart DateExpiration DateVisits RequestedVisits [id number] Consult and Treat / [facility] HealthcareReason for visit Narrative* Rehabilitation - Outpatient (Routine) - AuthorizedSpecialtyDiagnoses / ProceduresReferred By ContactReferred To ContactPhysical Therapy Diagnoses cervical & lumbar paraspinal Procedures [place] MANUAL THERAPY TQS 1/> REGIONS EACH 15 MINUTES Carrol Bailey MD [address] [place] [address] Phone: tel: fax: Flori Reyes, PT [address] [place] [address] Phone: tel: fax: Referral IDStatusReasonStart DateExpiration DateVisits RequestedVisits [id number] Consult and Treat /[id number] [facility] HealthcareReason for visit Narrative* Rehabilitation - Outpatient (Routine) - AuthorizedSpecialtyDiagnoses / ProceduresReferred By ContactReferred To ContactPhysical Therapy Diagnoses cervical & lumbar paraspinal Procedures [place] MANUAL THERAPY TQS 1/> REGIONS EACH 15 MINUTES Carrol Bailey MD [address] [place] [address] Phone: tel: fax: Flori Reyes, PT [address] [place] [address] Phone: tel: fax: Referral IDStatusReasonStart DateExpiration DateVisits RequestedVisits [id number] Consult and Treat /[id number] [facility] HealthcareReason for visit Narrative* Rehabilitation - Outpatient (Routine) - AuthorizedSpecialtyDiagnoses / ProceduresReferred By ContactReferred To ContactPhysical Therapy Diagnoses Cervical & Lumbar Paraspinal Procedures [place] MANUAL THERAPY TQS 1/> REGIONS EACH 15 MINUTES Carrol Bailey MD [address] [place] [address] Phone: tel: fax: Flori Reyes, PT [address] [place] [address] Phone: tel: fax: Referral IDStatusReasonStart DateExpiration DateVisits RequestedVisits [id number] Consult and Treat N[facility] HealthcareReason for visit Narrative* Rehabilitation - Outpatient (Routine) - AuthorizedSpecialtyDiagnoses / ProceduresReferred By ContactReferred To ContactPhysical Therapy Diagnoses Cervical & Lumbar Paraspinal Procedures [place] MANUAL THERAPY TQS 1/> REGIONS EACH 15 MINUTES Carrol Bailey MD [address] [place] [address] Phone: tel: fax: Flori Reyes, PT [address] [place] [address] Phone: tel: fax: Referral IDStatusReasonStart DateExpiration DateVisits RequestedVisits [id number] Consult and Treat 040 NOM[facility] HealthcareReason for visit Narrative* Rehabilitation - Outpatient (Routine) - AuthorizedSpecialtyDiagnoses / ProceduresReferred By ContactReferred To ContactPhysical Therapy Diagnoses Cervical & Lumbar Paraspinal Procedures [place] MANUAL THERAPY TQS 1/> REGIONS EACH 15 MINUTES Carrol Bailey MD Phone: tel: fax: Flori Reyes, PT [address] [place] [address] Phone: tel: fax: Referral IDStatusReasonStart DateExpiration DateVisits RequestedVisits [id number] Consult and Treat 040 [facility] Healthcare Summary Purpose Family History No Family History [...] change September 02 10:42am Follow Up 2 September 11, 2024 1:08 pm Reason for [...] 2025 9:54 am Chief Complaint Admit Date Follow Up 6 Months March 19, 2025 12:41pm Follow Up 8 Weeks May 14, 2025 9 :47am Mal neoplasmof overlapping site left mayank ast May 14, 2025 9:48am Reason for Visit Admit Date Breast cancer March 19, 2025 12:41pm Breast cancer May 14, 2025 9 :47am Leukopenia May 14, 2025 9 :47am Additional Source Comments REASON FOR VISIT (unrecogniz ed section and content) ReasonCommentsTelevisitReasonCommentsConsultLeft suspicious breast , Birads 4 SpecialtyDiagnoses / ProceduresReferred By ContactReferred To ContactPhysical Therapy Diagnoses cervical & lumbar paraspinal Procedures [place] PHYS THERAPY EVALUATION Carrol Bailey MD [address] [place] [address] Flori Reyes, PT [address] [place] [address] Referral IDStatusReasonStart DateExpiration DateVisits RequestedVisits [id number] Consult and Treat /[id number] sysprhaRejkoxMcfqsmui1rq pow wide excision Lt breastReasonCommentsGynecologic FgqmRfypggJpfccktnGxef-gg21-47-24 Wide exc. Lt breast, rsl w/Lt axillary snl bxReasonCommentsFollow-upPatient present for follow up due to vaginally discharge. LMP: 09/27/24ReasonComments Foxijy-rfCmcsqnCgkusaixSkykki-xjOc here for follow up on her allergies INFORMATION SOURCE (unrecogn ized section and content) DATE CREATED AUTHOR 11/10/2022 [facility] DATE CREATED AUTHOR AUTHOR'S ORGANIZ ATION 05/07/2025 [facility] DATE CREATED AUTHOR AUTHOR'S ORGANIZ ATION 05/16/2025 [facility] Care Teams (unrecognized sec tion and content) Team Status: Active Member Role Status Dates Carrol Bailey MD Primary Care Provider Active Team Status: Inactive Member Role Status Dates Carrol Bailey MD Primary Care Provide r, Attending Provider Active Start: March 31, 2024 End: March 31, 2024Team MemberRelationshipSpecialtyStart DateEnd Date Carrol Bailey MD [address] [facility] [place] [address] [facility]/06/24Team MemberRelationshipSpecialtyStart DateEnd Date Carrol Bailey MD [address] [facility] [place] [address] [facility] - [facility]02/06/24Team MemberRelationshipSpecialtyStart DateEnd Date Carrol Bailey MD [address] [facility] [place] [address] [facility] - [facility]02/06/24Team MemberRelationshipSpecialtyStart DateEnd Date Carrol Bailey MD [address] [facility] [place] [address] PCP - [facility]02/06/24 Team Status: Inactive Member Role Status Dates Carrol Bailey MD Primary Care Provider Active Start: April 22, 2024 End: April 22Nialy Mancini ProviderActiveStart: April 22, 2024 End: April 22, 2024Team MemberRelationshipSpecialtyStart DateEnd Date Carrol Bailey MD [address] [facility] [place] [address] [facility] - [facility]02/06/24Team MemberRelationshipSpecialtyStart DateEnd Date Carrol Bailey MD [address] [facility] [place] [address] PCP - GeneralFamily Medicine02/06/24 Team Status: Inactive Member Role Status Dates Carrol Baiely MD Primary Care Provide r, Attending Provider [...] Active Start: May 21, 2024 End: May 21Nilay Mancini ProviderActiveStart: May 21, 2024 End: May 21, 2024Team MemberRelationshipSpecialtyStart DateEnd Date Carrol Bailey MD [address] [facility] [place] [address] PCP - [facility]02/06/24Team MemberRelationshipSpecialtyStart DateEnd Date Carrol Bailey MD [address] [facility] [place] [address] PCP - [facility]02/06/24Team MemberRelationshipSpecialtyStart DateEnd Date Carrol Bailey MD [address] [facility] [place] [address] PCP - [facility]02/06/24Team MemberRelationshipSpecialtyStart DateEnd Date Carrol Bailey MD [address] [facility] [place] [address] PCP - [facility]02/06/24Team MemberRelationshipSpecialtyStart DateEnd Date Carrol Bailey MD [address] [facility] [place] [address] PCP - [facility]02/06/24Team MemberRelationshipSpecialtyStart DateEnd Date Carrol Bailey MD [address] [facility] [place] [address] PCP - [facility]02/06/24Team MemberRelationshipSpecialtyStart DateEnd Date Carrol Bailey MD [address] [facility] [place] [address] PCP - [facility]02/06/24Team MemberRelationshipSpecialtyStart DateEnd Date Carrol Bailey MD [address] [facility] [place] [address] PCP - [facility]02/06/24 Team Status: Inactive Member Role Status Dates Carrol Bailey MD Primary Care Provider Active Start: June 16, 2024 End: June 16, 2024Timtheron Philippe II, DOAttending ProviderActiveStart: June 16, 2024 End: June 16Lindsey Mancini ProviderActiveStart: June 16, 2024 End: June 16, 2024 Team Status: Inactive Member Role Status Dates Carrol Bailey MD Primary Care Provide r, Attending Provider Active Start: June 22, 2024 End: June 22, 2024 Team Status: Inactive Member Role Status Dates Carrol Bailey MD Primary Care Provider Active Start: July 10, 2024 End: July 10, 2024Timtheron Philippe II, DOAttending ProviderActiveStart: July 10, 2024 End: July 10, 2024 Team Status: Inactive Member Role Status Dates Carrol Bailey MD Primary Care Provider Active Start: July 21, 2024 End: July 21, 2024Norleena R Vaishali , MDAttending ProviderActiveStart: July 21, 2024 End: July 21, 2024Zion Robinicz II, DOReferring ProviderActiveStart: July 21, 2024 End: July 21, 2024 Team Status: Active Member Role Status Dates Carrol Bailey MD Primary Care Provider Active Start: July 23, 2024 Zion Robinicz II, DOOther ProviderActiveStart: July 23, 2024 Mallory Mckeons , MDReferring ProviderActiveStart: July 23, 2024 Sandy Tom , MDAttending ProviderActiveStart: July 23, 2024 Team Status: Active Member Role Status Dates Carrol Bailey MD Primary Care Provider Active Start: August 03, 2024 Zion Robinicz II, DOOther ProviderActiveStart: August 03, 2024 Mallory [...] , MDReferring ProviderActiveStart: August 10, 2024 Phyllis Vigil Gonzalez , MDAttending ProviderActiveStart: August 10, 2024 Sandy Tom , MDActiveStart: August 10, 2024 Team Status: Inactive Member Role Status Dates Carrol Bailey MD Primary Care Provider Active Start: September 11, 2024 End: September 11, 2024Zion Philippe II, DOAttending ProviderActiveStart: September 11, 2024 End: September 11, 2024Noolga Tom , MDAttending ProviderActiveStart: September 11, 2024 Team Status: Inactive Member Role Status Dates Carrol Bailey MD Primary Care Provider Active Start: September 11, 2024 End: September 11, 2024Timtheron Philippe II, DOAttending ProviderActiveStart: September 11, 2024 End: September 11, 2024 Team Status: Inactive Member Role Status Dates Carrol Bailey MD Primary Care Provider Active Start: September 21, 2024 End: September 21, 2024Nhung Grimes APRNAttending ProviderActive Start: September 21, 2024 End: September 21, 2024 Team Status: Active Member Role Status Dates Carrol Bailey MD Primary Care Provider Active Start: September 21, 2024 Mallory Ortiz MDReferring ProviderActiveStart: September 21, 2024 Sandy Tom , MDAttending ProviderActiveStart: September 21, 2024 Team MemberRelationshipSpecialtyStart DateEnd Date Carrol Bailey MD [address] [place] [address] PCP - [facility]02/06/24Team MemberRelationshipSpecialtyStart DateEnd Date Carrol Bailey MD [address] [place] [address] PCP - GeneralFamily Medicine02/06/24Team MemberRelationshipSpecialtyStart DateEnd Date Carrol Bailey MD [address] [facility] [place] [address] [facility] - [facility]02/06/24Team MemberRelationshipSpecialtyStart DateEnd Date Carrol Bailey MD [address] [facility] [place] [address] [facility]CP - [facility] Medicine02/06/24Team MemberRelationshipSpecialtyStart DateEnd Date Carrol Bailey MD PCP - GeneralFami Medicine02/06/24Team MemberRelationshipSpecialtyStart DateEnd Date Carrol Bailey MD PCP - GeneralFamily Medicine02/06/24Team MemberRelationshipSpecialtyStart DateEnd Date Carrol Bailey MD PCP - GeneralFamily Medicine02/06/24Team MemberRelationshipSpecialtyStart DateEnd Date Carrol Bailey MD PCP - GeneralFami Medicine02/06/24 Team Status: Inactive Member Role Status Dates Carrol Bailey MD Primary Care Provider Active Start: November 16, 2024 End: November 16, 2024Noolga Tom MDAttending ProviderActiveStart: November 16, 2024 End: November 16, 2024Team MemberRelationshipSpecialtyStart DateEnd Date Carrol Bailey MD PCP - [facility]02/06/24Team MemberRelationshipSpecialtyStart DateEnd Date Carrol Bailey MD PCP - [facility]02/06/24Team MemberRelationshipSpecialtyStart DateEnd Date Carrol Bailey MD PCP - [facility]02/06/24 Team Status: Active Member Role Status Dates Carrol Bailey MD Primary Care Provider Active Start: December 22, 2024 Sandy Tom , MDAttending ProviderActiveStart: December 22, 2024 Team Status: Inactive Member Role Status Dates Carrol Bailey MD Primary Care Provider Active Start: January 04, 2025 End: January 04, 2025Nhung Grimes APRNAttacos ProviderActiveStart: January 04, 2025 End: January 04, 2025Noolga Tom , MDAttending ProviderActiveStart: January 04, 2025 Team MemberRelationshipSpecialtyStart DateEnd Date Carrol Bailey MD PCP - [facility]02/06/24 Team Status: Inactive Member Role Status Dates Carrol Bailey MD Primary Care Provider Active Start: December 22, 2024 End: December 22, 2024Sandy Tom , MDAttending ProviderActiveStart: December 22, 2024 End: December 22, 2024Team MemberRelationshipSpecialtyStart DateEnd Date Carrol Bailey MD [facility] - [facility]02/06/24Team MemberRelationshipSpecialtyStart DateEnd Date Carrol Bailey MD [facility] - [facility]02/06/24Team MemberRelationshipSpecialtyStart DateEnd Date Carrol Bailey MD [facility]02/06/24Team MemberRelationshipSpecialtyStart DateEnd Date Carrol Bailey MD [facility] - [facility]02/06/24Team MemberRelationshipSpecialtyStart DateEnd Date Carrol Bailey MD [facility]02/06/24Team MemberRelationshipSpecialtyStart DateEnd Date Carrol Bailey MD [facility]02/06/24 Team Status: Inactive Member Role Status Dates Carrol Bailey MD Primary Care Provider Active Start: January 04, 2025 End: January 04, 2025Nhung Grimes APRNAttenfabián ProviderActiveStart: January 04, 2025 End: January 04, 2025 Team Status: Inactive Member Role Status Dates Carrol Bailey MD Primary Care Provider Active Start: March 19, 2025 End: March 19GERALDINE MonCAttacos ProviderActiveStart: March 19, 2025 End: March 19, 2025 Team Status: Active Member Role Status Dates Carrol Bailey MD Primary Care Provider Active Start: March 19, 2025 Mallory Ortiz MDReferring ProviderActiveStart: March 19, 2025 Sandy Tom MDAttending ProviderActiveStart: March 19, 2025 Team Status: Active Member Role/Relationship Status Dates Carrol Bailey MD Primary Care Provider Active Team Status: Inactive Member Role/Relationship Status Dates Carrol Bailey MD Primary Care Provider Active Start: March 19, 2025 End: March 19geovanny Brown SOCIAL SERVICES COUNSELOR-CAttending ProviderActiveStart: March 19, 2025 End: March 19, 2025 Team Status: Active Member Role/Relationship Status Dates Carrol Bailey MD Primary Care Provider Active Start: May 06, 2025 GERALDINE StewartCAttacos ProviderActiveStart: May 06, 2025 Team Status: Inactive Member Role/Relationship Status Dates Carrol Bailey MD Primary Care Provider Active Start: May 14, 2025 End: May 14geovanny Brown NP-CAttacos ProviderActiveStart: May 14, 2025 End: May 14, 2025 Team Status: Active Member Role/Relationship Status Dates Carrol Bailey MD Primary Care Provider Active Start: May 14, 2025 MORGAN Richardsoneferring ProviderActiveStart: May 14, 2025 Raegan Brown SOCIAL SERVICES COUNSELOR-CAttenfabián ProviderActiveStart: May 14, 2025 Goals (unrecognized section and content) Goals [...] BE BASED ON THE PRIMARY CLINICAL RECORDS. [facility] [employer] provides no warranty or guarantee of the accuracy or completeness of information in this document.
--- NOTE | 2025-06-02 07:50 | XR_ITS ---
The [address] [address] Patient Name: JANINE PEREZ MRN: [id number] date: 1980 Sex: F Assigned Patient Location: [facility] Current Patient Location: [facility] Accession/Order Number: [id number] Exam Date: 06/02/2025 07:55 Report Date: 06/02/2025 08:47 At the request of: CARROL BAILEY MD Procedure: XR knee RT 4V CLINICAL DATA: Chronic low back pain with recent worsening. Pain at the right knee. No injury. LUMBAR SPINE - 3 views COMPARISON: None AP, lateral lumbar and lumbosacral views were obtained. There are no acute compression fractures or significant displacement. No disproportionate disc space narrowing is identified. There is minimal endplate spurring and lower lumbar facet sclerosis. The SI joints are intact. XR/XR lumbar spine 2-3V IMPRESSION: NO ACUTE BONY FINDINGS. RIGHT KNEE - 4 views COMPARISON: None AP, lateral and both oblique views were obtained. There is no acute fracture or dislocation. There is no disproportionate joint space narrowing or hypertrophy. There is no knee effusion or soft tissue swelling. IMPRESSION: NO ACUTE BONY FINDINGS. Impression dictated by: Shikha Asif M.D. 06/02/2025 8:47 AM Dictation Location: [place] [address] Electronically authenticated by: [id number] Date: 06/02/2025 08:47
--- NOTE | 2025-06-02 07:50 | XR_ITS ---
The [address] [address] Patient Name: JANINE PEREZ MRN: [id number] date: 1980 Sex: F Assigned Patient Location: [facility] Current Patient Location: [facility] Accession/Order Number: [id number] Exam Date: 06/02/2025 07:55 Report Date: 06/02/2025 08:47 At the request of: CARROL BAILEY MD Procedure: XR knee RT 4V CLINICAL DATA: Chronic low back pain with recent worsening. Pain at the right knee. No injury. LUMBAR SPINE - 3 views COMPARISON: None AP, lateral lumbar and lumbosacral views were obtained. There are no acute compression fractures or significant displacement. No disproportionate disc space narrowing is identified. There is minimal endplate spurring and lower lumbar facet sclerosis. The SI joints are intact. XR/XR knee RT 4V IMPRESSION: NO ACUTE BONY FINDINGS. RIGHT KNEE - 4 views COMPARISON: None AP, lateral and both oblique views were obtained. There is no acute fracture or dislocation. There is no disproportionate joint space narrowing or hypertrophy. There is no knee effusion or soft tissue swelling. IMPRESSION: NO ACUTE BONY FINDINGS. Impression dictated by: Shikha Asif M.D. 06/02/2025 8:47 AM Dictation Location: [place] [address] Electronically authenticated by: [id number] Y Date: 06/02/2025 08:47
== END 2025-06-02 07:42 | disposition home or self-care (01) ==
PROVIDERS: PCP Family Medicine; Visit Provider Family Medicine
DX: M25.561 Pain in right knee (principal); M54.50 Low back pain, unspecified
CPT/HCPCS: 72100; 73564

== ENCOUNTER 2025-07-02 06:40 | Outpatient (OUT) | payer OTHER, SELFPAY ==
--- NOTE | 2025-07-02 06:42 | MR_ITS ---
[address] [address] Patient Name: JANINE PEREZ MRN: [id number] date: 1980 Sex: F Assigned Patient Location: MRI Current Patient Location: MRI Accession/Order Number: [id number] Exam Date: 07/02/2025 06:45 Report Date: 07/02/2025 10:30 At the request of: CARROL BAILEY MD Procedure: MR knee RT wo con MR knee RT wo con 07/02/2025 7:42 AM SIGNS AND SYMPTOMS: Chronic right knee pain with instability, swelling PROTOCOL: Multiplanar multisequence MR images of the right knee without IV contrast COMPARISON: 06/02/2025 FINDINGS: Fluid: There is a small joint effusion. No evidence of Medina's cyst.. Medial compartment: Medial meniscus: Intact. Medial collateral ligament: Intact. Medial femoral condyle cartilage: There is mild partial thickness chondromalacia. There is accompanying mild subchondral edema and cystic change. Medial tibial plateau cartilage: Preserved. Lateral compartment: Lateral meniscus: Intact. Lateral collateral ligament: Intact. Lateral femoral condyle cartilage: Preserved. Lateral tibial plateau cartilage: Preserved. Posterolateral corner: Popliteus tendon: Intact. Popliteofibular ligament: Intact. Proximal tibiofibular joint: Preserved. Anterior compartment: Alignment: Normal. Quadriceps tendon: Intact. Patellar tendon: Intact. Retinaculum: Medial intact. Lateral intact. Patellar cartilage: Preserved. Osteophytosis. Trochlea: Preserved.. Plica: None Hoffa fat pad: Normal Intercondylar compartment: Anterior cruciate ligament: Intact. Posterior cruciate ligament: Intact. Bones (other than subarticular marrow): Normal. Muscles: Normal. Vessels: Normal. Nerves: Normal. 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 There is a small joint effusion without evidence of Medina's cyst. The knee is otherwise structurally intact. Impression dictated by: Anthony Neville M.D. 07/02/2025 10:30 AM Dictation Location: [place] [address] Electronically authenticated by: [id number] Y Date: 07/02/2025 10:30
--- OUTSIDE RECORDS SUMMARY | 2025-07-02 06:42 | XMS_ITS | Clinical Summary ---
Author Organization [facility] Address [address] [place] [address] Care Team Providers Care Thermometer Maker Name Role Phone Maria Del Rosario De León MD Primary Care Provider [phone] Allergies Active AllergyReactionsCriticalityNoted XphnCeevkjztLhiglnytDfqzbtft53/24/2024 Other Reaction(s): diarrhea Medications MedicationSigDispense QuantityRefillsLast FilledStart [...] tablet tablet PLEASE SEE ATTACHED FOR DETAILED JYUDMPFXWT79/04/2024ctive azelastine (Astelin) 0.1 % nasal spray Indications:Non-seasonal [...] of left breast in female, estrogen receptor afjffpni03/25/2024Mass of upper outer quadrant of left qgxswb6004/15/2024Mass overlapping multiple quadrants of right ngkwfy9104/15/2024Seasonal allergic rhinitis due to qjirkp4512/19/2022ervical paraspinal muscle spasm12/19/2022Lumbar paraspinal muscle spasm12/19/2022 Cervical ujuhballpeaix34/14/2023Right anterior shoulder pain12/19/2022llergic ztzvtyvt19/31/2023 Encounters DateTypeDepartmentCare DbkiGbfuathzapx89/18/2025 2:[address] [facility] [address] [place] [address] Brian Reyes, PT Cervical paraspinal muscle spasm (Primary Dx); Lumbar paraspinal muscle spasm; Cervical radiculopathy; Right anterior shoulder pain05/25/2025amboo flowsheet [facility] [address] [place] [address] Brian Reyes, PT 05/25/20259033Pvsqyo71/30/2025 9:[address] [facility] [address] [place] [phone] Brian Reyes, PT Cervical paraspinal muscle spasm (Primary Dx); Lumbar paraspinal muscle spasm; Cervical radiculopathy; Right anterior shoulder pain5Bamboo flowsheet [facility] [address] [place] [address] Brian Reyes, PT 05/06/20251137Sekwjx50/21/2025 9:[address] [facility] [address] [place] [address] Brian Reyes, PT Cervical paraspinal muscle spasm (Primary Dx); Lumbar paraspinal muscle spasm; Cervical radiculopathy; Right anterior shoulder pain04/27/20255283Gpgncs41/07/2025 2:[address] [facility] [address] [place] [address] Brian Reyes, PT Cervical paraspinal muscle spasm (Primary Dx); Lumbar paraspinal muscle spasm; Cervical radiculopathy; Right anterior shoulder pain04/13/2025amb flowsheet [facility] [address] [place] [address] Brian Reyes, PT 04/13/20250030Zgfkpf67/01/2025 7:30 AM EDTTreatment [facility] [address] [place] [address] Brian Reyes, PT Cervical paraspinal muscle spasm (Primary Dx); Lumbar paraspinal muscle spasm; Cervical radiculopathy; Right anterior shoulder pain04/07/2025amb flowsheet [facility] [address] [place] [address] Brian Reyes, PT 04/07/2025Travelfrom Last 3 Months Family History Medical HistoryRelationNameCommentsHeart [...] 02/27/2024CommentsNoSex and Gender InformationValueDate RecordedSex Assigned at JnicfRxdspa85/16/2023 8:32 AM EDTLegal FgrDarotu58/15/2023 8:27 PM EDTGender XtysjdbnLobyvg94/16/2023 8:32 AM EDTSexual OrientationNot on file Last Filed Vital Signs Vital SignReadingTime TakenCommentsBlood Mueqburx217/76010/28/2024 9:49 AM EDT Pulse--Temperature--Respiratory Rate--Oxygen Saturation--Inhaled Oxygen Concentration--Opilyk02 kg (161 lb)10/28/2024 9:49 AM JVMRvaeia547.6 cm (5' 6 ) 07/06/2024 10:09 AM ESTBody Mass Index25.9907/06/2024 10:09 AM EST Plan of Treatment DateTypeDepartmentCare Team (Latest Contact Info)Wpvwlugfvro37/02/2026 7:30 AM ESTTreatment [facility] [address] [place] [address] Brian Reyes, PT [address] [facility] [place] [phone] 07/12/2025 1:00 PM ESTAncillary Procedure [facility] [address] [place] [address] 07/12/2025 2:15 PM ESTOffice Visit [facility] [address] [place] [address] Junior Gilmore MD [address] [place] [address] Encounter for gynecological examination without abnormal finding; Encounter for screening for cervical cancer; Encounter for screening mammogram for malignant neoplasm of breast; Anemia, unspecified type; [place] [address] Care Teams Team MemberRelationshipSpecialtyStart DateEnd Date Maria Del Rosario De León MD [address] [place] [phone] [facility] - [facility]24
== END 2025-07-02 06:41 | disposition home or self-care (01) ==
LOC: MRI 06:40
PROVIDERS: PCP Family Medicine; Visit Provider Family Medicine
DX: M25.561 Pain in right knee (principal); G89.29 Other chronic pain; M94.261 Chondromalacia, right knee
CPT/HCPCS: 73721